=== PATIENT | female | born 1960 | race Caucasian/White ===

== ENCOUNTER 2020-03-16 09:10 | Outpatient (CLI) | payer OTHER, SELFPAY ==
--- NOTE | 2020-03-16 09:14 | MM_ITS ---
WS: [id number] BILATERAL DIGITAL DIAGNOSTIC MAMMOGRAM MAMMOGRAPHY WITH CAD CLINICAL INFORMATION: LEFT BREAST CYSTS HISTORY: Left breast lump COMPARISON: TECHNIQUE: Bilateral CC, MLO, and ML views. FINDINGS: Scattered fibroglandular densities bilaterally. Dominant left breast mass upper outer quadrant measur ing 2.3 x 2.3 CM. Additional smaller dense surrounding satellite nodules. Findings highly suspicious for malignancy. Superimposed pleomorphic calcifications. Ultrasound is pending. Right breast is unremarkable. ULTRASOUND BREAST LEFT TECHNIQUE: Ultrasound left breast focused area of concern. CLINICAL INFORMATION: LEFT BREAST CYSTS COMPARISON: None. FINDINGS: Ultrasound left breast in the area of concern at the 2:00 position as well as left axilla. There is a n irregular dense hypoechoic lobulated lesion at the 2:00 position 4 cm from the nipple highly suspic ious for neoplasm measuring 2.1 x 2.2 x 2.1 cm. Additional smaller satellite lesions measuring: Lesion #2 1.0 x 0.9 x 0.6 cm Lesion #3 4 x 6 x 5 mm Lesion #4 5 x 4 x 5 mm Lesion #5 7 x 5 x 8 mm Lesion #6 7 x 7 x 5 mm Left axilla demonstrates hypoechoic pathologic enlarged lymph node with replacement of normal fatty h ilum. Lymph node measures 3.7 x 1.8 x 2.7 CM. Recommend further evaluation with ultrasound-guided bio psy. MM/[id number] IMPRESSION: BI-RADS: 5-Highly Suggestive of Malignancy FOLLOW UP: US Guided Biopsy Recommended RECOMMEND ULTRASOUND GUIDED BIOPSY OF THE LEFT BREAST DOMINANT MASS AND ENLARGE D LEFT AXILLARY LYMPH NODE
--- NOTE | 2020-03-21 09:52 | PC.NURSE ---
Called pt multiple times 03/18/20 and left voicemails to schedule biopsy. Called pt today. Pt states she wants to wait to schedule until after APR 08 due to insurance reasons. Pt has already spoken to her pcp about the mammo results and is okay with waiting until after Apr 08. I told her it is completely up to her when she wants to schedule the biopsy and will call her back with a scheduled date and time today. Pt voiced understanding and has no further needs at this time. Coleen CASILLAS.
== END 2020-03-16 09:11 | disposition home or self-care (01) ==
LOC: RADSHAW 09:12
PROVIDERS: Family Provider Family Medicine; PCP Family Medicine; Visit Provider Nurse Practitioner Family
DX: N60.02 Solitary cyst of left breast (principal); N63.21 Unspecified lump in the left breast, upper outer quadrant
CPT/HCPCS: 76642; 77066

== ENCOUNTER 2020-03-28 11:49 | Outpatient (CLI) | payer OTHER, SELFPAY ==
--- NOTE | 2020-03-28 | US_ITS ---
WS: [id number] ULTRASOUND-GUIDED LEFT BREAST BIOPSY ULTRASOUND-GUIDED LEFT AXILLARY LYMPH NODE BIOPSY HISTORY: abnormal mammogram COMPARISON: 03/16/2020 Procedure, risks and complications are explained to the patient. Medications are reviewed. Consent is obtained. The mass in the LEFT breast is localized with ultrasound. Mass is localized to 2:00, 4 cm from the ni pple. Skin is cleansed with ChloraPrep and anesthetized with 1% buffered lidocaine. Small dermatome i s made. Under sterile conditions mass is biopsied with a 14-gauge Achieve needle. Multiple core biops ies are performed. Material placed in formalin and sent to pathology for review. No complications enc ountered. Additional core needle biopsy performed of an abnormal lymph node in the LEFT axilla. These core biop sies are placed in saline. Breast tissue marker ([employer] ultrasound enhanced ribbon): Clips are placed within the LEFT breast mass at 2:00 and also within the LEFT axilla lymph node. Patient left the radiology suite with no complications. Patient is instructed to return [place] [facility] [place] [facility] with any concerns. US/US biopsy lymph node breast/ax IMPRESSION: 1. Uncomplicated core needle biopsy LEFT breast mass at 2:00, 4 cm from the ni pple. PATHOLOGY: Invasive ductal carcinoma, moderate to high nuclear grade. Focal fely or necrosis. RECOMMENDATION: Follow-up with breast surgeon and oncology. 2. Uncomplicated core needle biopsy LEFT axillary lymph node. PATHOLOGY: Metastatic breast carcinoma. RECOMMENDATION: Follow-up with breast surgeon and oncology.
--- NOTE | 2020-03-28 13:00 | US_ITS ---
WS: [id number] ULTRASOUND-GUIDED LEFT BREAST BIOPSY ULTRASOUND-GUIDED LEFT AXILLARY LYMPH NODE BIOPSY HISTORY: abnormal mammogram COMPARISON: 03/16/2020 Procedure, risks and complications are explained to the patient. Medications are reviewed. Consent is obtained. The mass in the LEFT breast is localized with ultrasound. Mass is localized to 2:00, 4 cm from the ni pple. Skin is cleansed with ChloraPrep and anesthetized with 1% buffered lidocaine. Small dermatome i s made. Under sterile conditions mass is biopsied with a 14-gauge Achieve needle. Multiple core biops ies are performed. Material placed in formalin and sent to pathology for review. No complications enc ountered. Additional core needle biopsy performed of an abnormal lymph node in the LEFT axilla. These core biop sies are placed in saline. Breast tissue marker ([employer] ultrasound enhanced ribbon): Clips are placed within the LEFT breast mass at 2:00 and also within the LEFT axilla lymph node. Patient left the radiology suite with no complications. Patient is instructed to return [place] [facility] [place] [facility] with any concerns. US/[id number] IMPRESSION: 1. Uncomplicated core needle biopsy LEFT breast mass at 2:00, 4 cm from the ni pple. PATHOLOGY: Invasive ductal carcinoma, moderate to high nuclear grade. Focal fely or necrosis. RECOMMENDATION: Follow-up with breast surgeon and oncology. 2. Uncomplicated core needle biopsy LEFT axillary lymph node. PATHOLOGY: Metastatic breast carcinoma. RECOMMENDATION: Follow-up with breast surgeon and oncology.
[2020-04-06 09:46] LABS: Miscellaneous Test See Scanned Lab Rpt
== END 2020-03-28 11:50 | disposition home or self-care (01) ==
LOC: RAD 11:51
PROVIDERS: PCP Family Medicine; Visit Provider Family Medicine
DX: R92.8 Other abnormal and inconclusive findings on diagnostic imaging of breast (principal); C50.412 Malignant neoplasm of upper-outer quadrant of left female breast
CPT/HCPCS: 19083; 38505; 76942; 88305

== ENCOUNTER 2020-04-15 08:58 | Outpatient (CLI) | payer BC, SELFPAY ==
[2020-04-16 17:43] LABS: Coronavirus Test Green County Not Detected
--- NOTE | 2020-04-19 10:25 | ONC CON_ITS ---
Dr. Ramos New Patient Note Patient: Yadira Lopez Unit #: [id number]: 1960 Dicatated By: Daniel Ramos M.D.Date of Visit: Apr 15, 2020 Onc MED New Patient/Consult Referring Physician: Dr. CYRUS BANUELOS M.D. Chief Complaint: Breast cancer. History of Present Illness: This is a 59-year-old woman with recently diagnosed grade 3 invasive ductal carcinoma of the left breast, by clinical evaluation stage IB (T2, N1, M0), ER/NJ positive and HER-2/tina positive. She had recently presented to Dr. Banuelos with a palpable mass in the left breast. She had been aware of it for about a month. Diagnostic mammogram on March 16, 2020 showed a dominant mass in the upper outer quadrant of the left breast measuring 2.3 x 2.3 cm. Additional smaller dense surrounding satellite nodules were noted. Ultrasound showed an irregular dense hypoechoic lobulated lesion at the 2 o'clock position measuring 2.1 x 2.2 x 2.1 cm. The findings were highly suspicious for malignancy. Ultrasound of the left axilla showed a hypoechoic pathologic enlarged lymph node measuring 3.7 x 1.8 x 2.7 cm. On March 28, 2020 she underwent ultrasound directed biopsies of the breast mass and the enlarged left axillary lymph node. Pathology on the breast biopsy showed grade 3 infiltrating ductal carcinoma in the left axillary lymph node biopsy was positive for metastatic carcinoma. The breast prognostic profile showed ER positive at 98% and NJ positive at 40%. The tumor was positive for overexpression of HER-2/tina, 3+ by IHC and amplification ratio by FISH of 2.7 with 7.6 HER-2 copies/cell. The Ki-67 was high at 65%. 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 She still has normal activity. ECOG score is 0. She has good appetite. Her weight fluctuates. She has not had fever. She sometimes gets hot and she has a little bit of sweating. She underwent menopause with her hysterectomy, which she says included bilateral salpingo-oophorectomy. She indicates that she received no hormone replacement therapy. Her family history is significant and had a 68-year-old sister has been treated for breast cancer. She is not aware of any other breast cancer or ovarian cancer in the family. She does have pre-existing anxiety and depression. As noted, she has been under a lot of stress. Her only other significant complaint is that she sometimes has pain and numbness in her arms, but she also has diagnosis of carpal tunnel bilaterally. Past Medical History: Her medical history includes anxiety, asthma, bilateral carpal tunnel syndrome, depression, gastroesophageal reflux disease, hyperlipidemia, and hypertension. Past Surgical History: She underwent ultrasound guided biopsy of left breast mass and left axillary lymph node on 03/28/2020. Her other surgical/procedural history includes bronchoscopy and cervical mediastinoscopy in 2014, tonsillectomy in 2009, hysterectomy/bilateral salpingo-oophorectomy in 1983, and Caesarean section in 1980. Medications: Albuterol Sulfate HFA 2 Puff(s) (of 108 (90 base) mcg/act) Aerosol, solution Inhalation four times a day PRN, Claritin 1 (10 mg) Tablet Oral daily, clonazePAM 1 (0.5 mg) Tablet Oral daily, Ibuprofen 1 (800 mg) Tablet Oral t.i.d., Lisinopril-hydroCHLOROthiazide 1 (10-12.5 mg) Tablet Oral daily, Meloxicam 1 (15 mg) Tablet Oral daily, Multi Vitamin 1 Tablet Oral daily, Omeprazole 1 (40 mg) Capsule Delayed Release Oral daily, PARoxetine HCl (40 mg) Tablet Oral Take as Directed, PARoxetine HCl 1 (10 mg) Tablet Oral daily, Zetia 1 (10 mg) Tablet Oral daily Allergies: Cephalexin, Codeine Sulfate, HYDROcodone-Acetaminophen, Morphine Sulfate, Penicillins, and Sulfa Antibiotics. Social History: Ms. Lopez is . She is a non-smoker. She does not drink alcohol. Family History: Father at age 60 with heart attack. He also had throat cancer. Mother still living at age 84. A brother in a boating accident. A 68-year-old sister has been treated for breast cancer. She is not aware of any other breast cancer or ovarian cancer in the family. Review Of Symptoms: Constitutional - She has been feeling tired, but she still works and has normal activity. Appetite is good. Her weight fluctuates. She has not had fever. She sometimes gets hot and she has a little bit of sweating. ECOG score is 0, Eyes - No change in vision, ENMT - No hearing loss or tinnitus. She has allergy related sinus symptoms. No mouth sores. No sore throat or difficulty swallowing, Hematologic/Lymphatic - She has easy bruising, Respiratory - No shortness of breath. She sometimes has a dry hacking cough. No pleuritic pain or hemoptysis, Cardiovascular - No angina pain. No palpitations, Gastrointestinal - No nausea or vomiting. She has just occasional acid reflux. No diarrhea or constipation. No blood in the stool or black stools, Genitourinary (F) - No dysuria or hematuria. No urinary frequency. No urgency or incontinence, Musculoskeletal - She complains that her arms sometimes hurt and go numb. She has no other joint or bone pain, Integumentary - No skin rash or other skin changes, Neurologic - She used to have migraine headaches, but those went away. She has occasional orthostatic lightheadedness. She sometimes has numbness in her arms, Psychiatric - She has anxiety/depression and she has a lot of stress with her job. No insomnia. Vital Signs: Performed on Apr 15, 2020 09:49: 2, 41.34 (HIGH), 1.96 sq.m, 61 in, 98 %, 90 /min, 18 /min, 150/84 mm(hg) (HIGH), 97.8 F (LOW), and 218.8 lbs (HIGH). Physical Examination: Constitutional - She appears to be in good general health, Eyes - Sclerae nonicteric. Conjunctivae clear, ENMT - No lesions noted in the oral cavity, Neck - No mass or thyromegaly, Hematologic/Lymphatic - No cervical or clavicular adenopathy, Respiratory - Lungs are clear with good air movement bilaterally, Cardiovascular - Heart rhythm is regular. There is no murmur, gallop, or rub noted, Breasts - The right breast shows no mass. There is a firm though ill defined mass in the upper outer quadrant of the left breast which now appears to measure in the range of 4 cm. A soft node in the left axilla near the anterior axillary fold measures approximately 3 cm. There is no other axillary adenopathy noted, Abdomen - Moderately distended but soft. Liver and spleen are not enlarged. There is no abdominal mass or ascites noted and there is no inguinal adenopathy, Back/Spine - No bony tenderness in the spine, Extremities - No edema, Integumentary - No rashes. No suspicious skin lesions noted, Neurologic - No focal neurologic deficits noted. Historic Problem List: 1. Hypertension. 2. Hyperlipidemia. 3. Asthma. 4. GERD. 5. Bilateral carpal tunnel syndrome. 6. Anxiety/depression. Problems Addressed with this Encounter and Plan: 1. Grade 3 invasive ductal carcinoma of the left breast, by clinical evaluation stage at least IB (T2, N1, M0), ER/NJ positive and HER-2/tina positive. The findings on the imaging studies and the pathology results were reviewed with the patient, and we discussed the clinical implications. Patient has HER-2/tina positive breast cancer which appears to be at least locally advanced, including a T2 primary with possible satellite nodules as well as an involved 3 cm left axillary lymph node. As such, she is at risk for metastatic disease, and she will be scheduled for staging PET/CT, subject to verification of insurance coverage. With these findings and with HER-2/tina positive disease, she is an appropriate candidate for neoadjuvant chemotherapy, and I will recommend initial treatment with 6 cycles of treatment with the TCH-P regimen. I reviewed anticipated side effects which may include nausea/vomiting, diarrhea, mucositis, alopecia, fatigue, low blood counts, and peripheral neuropathy, among others. We also discussed the fact that HER-2/tina positive breast cancer does have a high response rate to chemotherapy, with pathologic complete responses in the range of 60%. She will require placement of Port-A-Cath venous access device, and I have discussed that with Dr. Ceballos, and she has been scheduled to see him next week. She will return to start chemotherapy as soon as the Port-A-Cath is in place. In the meantime, I also will be scheduling the PET CT scan. She also will need Covid testing for the surgery. 2. She has a positive family history of breast cancer involving a first-degree relative (sister). She will have BRCA testing, but that also will be subject to verification of insurance coverage. Signed By: Daniel Ramos M.D. <<Signature on File>>
== END 2020-04-15 08:59 | disposition home or self-care (01) ==
PROVIDERS: PCP Family Medicine; Visit Provider Internal Medicine Medical Oncology
DX: C50.412 Malignant neoplasm of upper-outer quadrant of left female breast (principal); C77.3 Secondary and unspecified malignant neoplasm of axilla and upper limb lymph nodes; Z17.0 Estrogen receptor positive status [ER+]; Z80.3 Family history of malignant neoplasm of breast; Z20.828 Contact with and (suspected) exposure to other viral communicable diseases; I10 Essential (primary) hypertension; E78.5 Hyperlipidemia, unspecified; J45.909 Unspecified asthma, uncomplicated; K21.9 Gastro-esophageal reflux disease without esophagitis; F41.8 Other specified anxiety disorders
CPT/HCPCS: 87635; 99205

== ENCOUNTER 2020-04-21 05:48 | Day surgery (SDC) | payer BC, SELFPAY ==
[2020-04-20 11:57] VITALS: BMI 41.5
--- NOTE | 2020-04-21 | SCC_ITS ---
Procedure Done: Port-A-Cath placement into the right subclavian vein. 20.7 seconds of fluoroscopic guidance, for a cumulative dose of 4.21 mGy, was provided to Dr. Ceballos by the radiology department. C-arm images of the chest were saved for the patient's permanent record. ALEJANDRA
[2020-04-21] MEDS: lidocaine 1% INJ 20 mL INTRADERMA (06:25)
[2020-04-21] MEDS: sodium chloride 0.9% 1,000 ML 30 ML IV (06:32)
--- NOTE | 2020-04-21 06:35 | W.PM.OPSUD ---
Surgery/Procedure H&P Update DATE OF PROCEDURE: April 21, 2020 DATE H&P PERFORMED: 04/19/20 H&P UPDATE INFORMATION: No changes to prior documentation PLANNED PROCEDURE: Operation Date: 04/21/20 07:00 Proposed Procedures p Portacath Placement [id number] C50.412(Not Applicable) - Asif Ceballos MD
--- NOTE | 2020-04-21 06:42 | SC_ITS ---
WS: [id number] C-arm of the right chest for infusion catheter placement, 04/21/2020 Clinical Data: port placement Comparison: Portable chest, 02/12/2019. Findings: A right infusion catheter has been inserted and the tip ends in the superior vena cava. SC/C-arm FL for CVA [id number] Impression: Insertion of a right infusion catheter.
[2020-04-21] MEDS: midazolam 1 mg/mL INJ 2 mL 2 MG IVP (06:49)
--- NOTE | 2020-04-21 06:53 | ANES.PREANE2 ---
Pre-Anesthetic Assessment Pre-Anesthetic Assessment: Height/Weight: Height 1.55 m Weight 99.79 kg Proposed Procedure: Operation Date: 04/21/20 07:00 Proposed Procedures p Portacath Placement [id number] C50.412(Not Applicable) - Asif Ceballos MD Was Beta Seun taken within 24 hours: N/A Last intake: Intake Last Liquid Date 04/20/20 Last Liquid Time 21:00 Last Solid Date 04/20/20 Last Solid Time 21:00 Social: Social History: No alcohol and No tobacco Exam: Pre-Anes Outpt Exam: alert, oriented x 3, clear to auscultation bilaterally and regular rate & rhythm Airway: Submandibular: WNL Cervical ROM: WNL MP: 2 Dentition: Full Pulmonary: Pulmonary: Asthma CV/HEM: CV/HEM: HTN GI: GI: GERD Neuropsych: Neuropsych: Anxiety Anesthetic Plan: ASA status: 2 Anesthesia: MAC Risk of > 500 ml blood loss (7ml/kg in children): No Meds/Allergies Current Medications: Current Medications Generic Name Dose Route Start Last Admin Trade Name Freq PRN Reason Stop Dose Admin Sodium Chloride 1,000 mls @ 30 ml s/hr 04/21/20 06:00 04/21/20 06:32 Sodium Chloride 0.9% IV 30 mls/hr .Q24H JOVANY Administration Midazolam HCl 2 mg 04/21/20 06:34 04/21/20 06:49 Midazolam 1 Mg/M l Inj 2 Ml IVP 2 mg Q5M PRN Administration Preop Anxiety Data Anesthesia Cardiac Studies: No Data to Display
[2020-04-21] MEDS: clindamycin 900 MG/50 ML PREMIX 100 MG IV (06:54)
[2020-04-21] MEDS: heparin,porcine 1,000 unit/mL INJ 1 mL 2000 UNIT XX (07:07)
--- NOTE | 2020-04-21 07:26 | PM.OP ---
Operative Report Date of procedure: April 21, 2020 Pre-op Diagnosis: Node positive left breast cancer. Post-op diagnosis: same Procedure Done: Port-A-Cath placement into the right subclavian vein. Pathology: none sent Surgeon: Asif Ceballos Anesthesia: MAC Estimated blood loss (mL): 10 Complications: None. Condition: stable Disposition: same day Procedure: The patient was brought to the Operating Room and was placed in a supine position on the operating room table. A monitored anesthetic was induced. The shoulders were extended by means of a posterior shoulder roll. The anterior surface of the chest and neck were prepped and draped in a sterile fashion. 1% lidocaine was used to anesthetize a small area underneath the right clavicle. The subclavian vein was accessed on the first pass with a needle and syringe as evidenced by the return of dark nonpulsatile blood. The J-wire was passed down the needle and the needle was removed. The C-arm was positioned and showed the wire extending across into the left subclavian vein. Under continuous fluoroscopy, the wire was partially withdrawn and was then passed again as it extended down the vena cava. A site just inferiorly on the chest wall was anesthetized using a combination of 1% lidocaine and 0.5% bupivacaine with 1:200,000 parts of epinephrine. A transverse incision was made and an inferior pocket was created in the subcutaneous layer using cautery in preparation for port placement. The Port-A-Cath tubing was passed from the incision through the subcutaneous layer to the exit point of the J-wire. The tubing was attached to the port and was cut to an appropriate length. The introducer and sheath were passed over the J-wire, and the introducer and J-wire were removed. The Port-A-Cath tubing was passed down the sheath, which was torn away. The C-arm was positioned and showed good placement of the Port-A-Cath tubing tip in the superior vena cava. The port aspirated easily and flushed well with hep flush solution. The port was sewn in place with some interrupted sutures of 3-0 PDS. The transverse incision was closed at the dermis using a single inverted suture of 3-0 Vicryl and the skin was approximated using a running subcuticular suture of 4-0 Vicryl. The small incision under the clavicle at the previous insertion site of the J wire was closed using a single inverted suture of 4-0 Vicryl. Benzoin and Steri-Strips were placed over the incisions and a sterile bandage followed. The patient was taken to the recovery area in stable condition postoperatively. INTRAOPERATIVE FLUOROSCOPY FINDINGS: Intraoperative fluoroscopic images of a Port-A-Cath placement were reviewed. An initial image reveals a J-wire entering the right subclavian vein and extending across the chest into the left subclavian vein. A second image reveals the wire now extending down the vena cava. Subsequent images reveal a Port-A-Cath on that side of the chest with its tubing tip in good location in the superior vena cava. No obvious pneumothorax is identified.
[2020-04-21 07:31] VITALS: BP 142/72; PULSE 110; RESP 18; TEMP 36.4; O2SAT 92
--- NOTE | 2020-04-21 10:26 | ANE.PACU2 ---
Inpatient post-anesthesia follow up: Airway intact: Yes Vital signs: Temperature 97.6 F Pulse Rate 110 Respiratory Rate 18 Blood Pressure 142/72 Pulse Oximetry 92 Oxygen Delivery Me thod Room Air Oxygen Flow Rate Fraction of Inspir ed Oxygen Hydration adequate: Yes Nausea and vomiting: No Pain level: 1 Mental status: Baseline
== END 2020-04-21 08:00 | disposition home or self-care (01) ==
PROVIDERS: PCP Family Medicine; Visit Provider Surgery
PROC: (CPT 36561; principal; 2020-04-21 07:00)
DX: C50.412 Malignant neoplasm of upper-outer quadrant of left female breast (principal); I10 Essential (primary) hypertension; J45.909 Unspecified asthma, uncomplicated; K21.9 Gastro-esophageal reflux disease without esophagitis; F41.9 Anxiety disorder, unspecified; M19.90 Unspecified osteoarthritis, unspecified site
CPT/HCPCS: 36561; 12345; 77001; 96374; C1788; J1644; J2250; J2704; J3010; J3490; J7030

== ENCOUNTER 2020-05-04 06:17 | Outpatient (CLI) | payer BC, SELFPAY | END 2020-05-04 06:18 | disposition home or self-care (01) | LOC: ONCMED 06:18 | PROVIDERS: PCP Family Medicine; Visit Provider Internal Medicine Medical Oncology | DX: C50.412 Malignant neoplasm of upper-outer quadrant of left female breast (principal); Z17.0 Estrogen receptor positive status [ER+] | CPT/HCPCS: 36591 ==

== ENCOUNTER 2020-05-10 13:17 | Outpatient (CLI) | payer BC, SELFPAY ==
--- NOTE | 2020-05-10 13:25 | USCV_ITS ---
John Yadira Age: 60 Gender: F : 1960 Exam Date: 05/10/2020 13:52 Ordering Phys: Daniel Ramos MD Technologist: Julita Johnson Exam Location: [facility] [place] Indication: BASELINE MONITORING FOR HERCEPTIN BP: / HR: 79 Rhythm: Sinus Technical Quality: Adequate MEASUREMENTS (Male / Female) Normal Values 2D ECHO LV Diastolic Diameter PLAX 2.9 cm 4.2 - 5.9 / 3.9 - 5.3 cm LV Systolic Diameter PLAX 1.7 cm LV Chamber Size 3.3 cm IVS Diastolic Thickness 1.3 cm 0.6 - 1.0 / 0.6 - 0.9 cm IVS Systolic Thickness 1.4 cm LVPW Diastolic Thickness 1.1 cm 0.6 - 1.0 / 0.6 - 0.9 cm LVPW Systolic Thickness 1.4 cm RV Chamber Size 2.6 cm LVOT Diameter 2.0 cm LV Ejection Fraction 2D Teich 74.9 % LV Ejection Fraction MOD 2C 55.3 % LV Ejection Fraction 2C AL 56.5 % LA Diameter 2.3 cm LA Width 2.4 cm LA Height 4.7 cm RA Width 3.7 cm RA Height 3.3 cm Aorta at Sinotubular Diameter 2.7 cm M-MODE LV Diastolic Diameter MM 4.8 cm 4.2 - 5.9 / 3.9 - 5.3 cm LV Systolic Diameter MM 3.2 cm LV Ejection Fraction MM Teich 60.2 % IVS Diastolic Thickness MM 0.8 cm 0.6 - 1.0 / 0.6 - 0.9 cm IVS Systolic Thickness MM 1.3 cm LVPW Diastolic Thickness MM 0.9 cm 0.6 - 1.0 / 0.6 - 0.9 cm LVPW Systolic Thickness MM 1.2 cm RV Diastolic Diameter MM 1.3 cm Aortic Annulus Diameter 3.1 cm LA Ao Ratio MM 0.9 MV E Point Septal Separation 0.6 cm DOPPLER AV Peak Velocity 132.0 cm/s LVOT Peak Velocity 76.0 cm/s AV Area Cont Eq vti 2.0 cm squared AV Area Cont Eq pk 1.9 cm squared MV Area PHT 4.5 cm squared Mitral E to A Ratio 1.3 MV E' Velocity 47.0 cm/s Mitral E to MV E' Ratio 12.1 Mitral E to LV E' Lateral Ratio 12.1 Mitral E to LV E' Septal Ratio 12.3 TR Peak Velocity 222.8 cm/s TR Peak Gradient 19.9 mmHg TR Mean Velocity 172.3 cm/s TR Mean Gradient 12.3 mmHg TR Velocity Time Integral 51.7 cm TV Peak E Velocity 75.0 cm/s Right Atrial Pressure 3.0 mmHg Pulmonary Artery Systolic Pressu 22.9 mmHg PV Peak Velocity 68.0 cm/s RV Acceleration Time 0.1 s RV Ejection Time 0.4 s RV AcT/ET 0.4 FINDINGS Left Ventricle Normal left ventricular size and systolic function, EF 57 %. Mild left ventricular hypertrophy. No regional wall motion abnormalities. Right Ventricle The right ventricle is normal in size and function. Right Atrium The right atrium is normal in size. Left Atrium The left atrium is normal in size. Mitral Valve Thickened mitral valve. Trace mitral valve regurgitation. Aortic Valve Thickened aortic valve. Tricuspid Valve Trace tricuspid valve regurgitation. Pulmonic Valve No gross abnormalities noted Pericardium Normal pericardium without effusion. Aorta Normal ascending aorta dimension. CONCLUSIONS Normal left ventricular size and systolic function, EF 57 %. Mild left ventricular hypertrophy. No regional wall motion abnormalities. Thickened aortic and mitral valves. Trace mitral and tricuspid regurgitation There is no pericardial effusion. There are no intracardiac masses. No previous study is available for comparison. Dr Jessica Pacheco MD FAC (Electronically Signed) Final Date: 11 May 2020 10:29 S
== END 2020-05-10 13:18 | disposition home or self-care (01) ==
LOC: US 13:20
PROVIDERS: PCP Family Medicine; Visit Provider Internal Medicine Medical Oncology
DX: C50.412 Malignant neoplasm of upper-outer quadrant of left female breast (principal); I08.3 Combined rheumatic disorders of mitral, aortic and tricuspid valves
CPT/HCPCS: 93306

== ENCOUNTER 2020-05-19 06:12 | Outpatient (CLI) | payer BC, SELFPAY ==
[2020-05-19 09:24] LABS: Basophils # 0.1 10^3/uL (0.0-0.1); Basophils % 1.2 %; Eosinophils # 0.4 10^3/uL (0.0-0.8); Eosinophils % 5.6 %; Hematocrit 39.6 % (37.0-47.0); Hemoglobin 13.1 g/dL (11.5-15.3); Lymphocytes # 1.9 10^3/uL (0.8-4.8); Mean Corpuscular HGB Conc 33.1 g/dL (30.0-36.0); Mean Corpuscular Hemoglobin 30.5 pg (28.0-34.0); Mean Corpuscular Volume 92.3 fL (81-99); Mean Platelet Volume 9.5 fL (7.4-10.4); Monocytes # 0.5 10^3/uL (0.2-0.9); Monocytes % 8.2 %; Neutrophils # 3.53 10^3/uL (1.8-7.7); Neutrophils % 54.7 %; Nucleated Red Blood Cells % 0 %; Platelet Count 275 10^3/cmm (130-400); Red Blood Count 4.29 10^6/uL (4.1-5.3); Red Cell Distribution Width 12.4 % (12.1-15.1); White Blood Count 6.5 10^3/uL (4.0-10.0)
[2020-05-19 10:00] LABS: Alanine Aminotransferase 41 U/L (0-33); Albumin Level 3.9 g/dL (3.5-5.2); Alkaline Phosphatase 109 IU/L (35-105); Anion Gap 12.7 (5-19); Aspartate Amino Transferase 39 U/L (0-32); Blood Urea Nitrogen 16 mg/dL (6-20); Calcium 9.2 mg/dL (8.5-10.5); Carbon Dioxide 27 mmol/L (22-29); Chloride 105 mmol/L (98-107); Globulin 2.8 g/dL (1.3-4.6); Glomerular Filtration Rate 73.4 mL/min (90-130); Glucose 94 mg/dL (65-115); Osmolality Calculated 293 mOsm/kg (285-295); Potassium 3.7 mmol/L (3.5-5.1); Sodium 141 mmol/L (136-145); Total Bilirubin 0.3 mg/dL (0.15-1.2); Total Protein 6.7 g/dL (6.6-8.7)
== END 2020-05-19 06:13 | disposition home or self-care (01) ==
LOC: ONCMED 06:12
PROVIDERS: Internal Medicine Medical Oncology; PCP Family Medicine; Visit Provider Internal Medicine Hematology & Oncology
DX: C50.412 Malignant neoplasm of upper-outer quadrant of left female breast (principal); Z17.0 Estrogen receptor positive status [ER+]
CPT/HCPCS: 80053; 85025

== ENCOUNTER 2020-05-20 05:43 | Outpatient (CLI) | payer BC, SELFPAY ==
[2020-05-20] MEDS: acetaminophen 325 mg Tablet 650 MG PO (08:28)
[2020-05-20] MEDS: famotidine 20 mg Tablet PO (08:28)
[2020-05-20] MEDS: sodium chloride 0.9% 250 ML 75 ML IV (08:35)
[2020-05-20] MEDS: diphenhydrAMINE 50 mg/mL SDV 1mL 25 MG IV (08:37)
[2020-05-20] MEDS: palonosetron 0.25 mg/5 mL SDV IV (08:37)
[2020-05-20] MEDS: fosaprepitant 150 MG in sodium chloride 0.9% 150 ML 300 MG IV (08:57)
== END 2020-05-20 05:44 | disposition home or self-care (01) ==
LOC: ONCMED 05:45
PROVIDERS: PCP Family Medicine; Visit Provider Internal Medicine Medical Oncology
DX: Z51.11 Encounter for antineoplastic chemotherapy (principal); C50.412 Malignant neoplasm of upper-outer quadrant of left female breast; Z17.0 Estrogen receptor positive status [ER+]; Z79.818 Long term (current) use of other agents affecting estrogen receptors and estrogen levels
CPT/HCPCS: 96367; 96375; 96413; 96417; J1100; J1200; J1453; J2469; J7050; J9045; J9171; J9306; J9355

== ENCOUNTER 2020-05-24 17:07 | Emergency (ER) | payer BC, SELFPAY ==
[2020-05-24 17:14] VITALS: BP 154/83; PULSE 116; RESP 18; TEMP 36.3; O2SAT 97; BMI 41.5
--- NOTE | 2020-05-24 18:07 | ED_ITS ---
HPI - Nausea/Vomiting/Diarrhea General: Chief complaint: Nausea/Vomiting/Diarrhea Stated complaint: SICK/1ST CHEMO TX WAS 05.20.2020 Time Seen by Provider: 05/24/20 18:06 Source: patient Mode of arrival: ambulatory Limitations: no limitations History of Present Illness: HPI Narrative: Darrick is a 60-year-old female who was recently diagnosed with stage I breast cancer and started chemotherapy on Saturday. She states that today she started having some nausea and vomiting along with some abdominal cramping. She denies any fever. She states her abdominal pain is a 1 out of 10 and is cramping in nature. She states her vomiting has been very minimal but is quite nauseous. She is also had a rash to her right groin. Associated nausea: Yes Associated symtoms: Reports nausea; Denies chest pain, dysuria or headache(s) Review of Systems Const: Denies: fever(s), chills, body aches or change in appetite Eyes: Denies: blurry vision or eye discomfort ENMT: Denies: throat pain or dental pain Card: Denies: chest pain Resp: Denies: dyspnea GI: Reports: nausea and vomiting; Denies: abdominal pain or diarrhea : Denies: dysuria Musc: Denies: neck pain or back pain Skin/Breast: Denies: rash Neuro: Denies: headache(s) Psych: Denies: depression Jose/Lymph: Denies: easy bruising All/Imm: Denies: urticaria Physical Exam Const: COMMON NORMALS: no acute distress, patient oriented x3 and healthy appearing HENMT: COMMON NORMALS: normocephalic and atraumatic HEAD & SCALP: normocephalic and atraumatic Eye: COMMON NORMALS: Equal, round and reactive pupils present and EOMs intact bilaterally PUPIL: Yes Equal, round and reactive pupils present Neck/C-Spine: COMMON NORMALS: full ROM and supple Chest: COMMONS NORMALS: normal inspection of the chest and normal palpation of entire chest wall Resp: COMMON NORMALS: normal respiratory effort, No retractions, No use of accessory muscles and clear to auscultation bilaterally AUSCULTATION: clear to auscultation bilaterally Cardio: COMMON NORMALS: regular rate, regular rhythm and No murmurs present (Cardio) RATE: regular rate RHYTHM: regular rhythm GI: COMMON NORMALS: Normal to inspection, nondistended, normoactive bowel sounds present, Soft to palpation, non-tender and no masses PALPATION: Yes Soft to palpation Extremity: COMMON NORMALS: normal to inspection and full ROM Neuro: COMMON NORMALS: patient oriented x3, moves all extremities and no focal motor deficits Psych: COMMON NORMALS: mental status grossly normal, Normal thought process present and cooperative THOUGHT PROCESS: Normal thought process present Skin: COMMON NORMALS: no wounds NARRATIVE SKIN EXAM: rash to right groin c/w likely fungal Course Vital Signs: Vital signs: Vital Signs Temperature 97.3 F L 05/24/20 17:14 Pulse Rate 100 05/24/20 18:45 Respiratory Rate 15 05/24/20 18:45 Blood Pressure 144/94 05/24/20 18:45 Pulse Oximetry 95 05/24/20 18:45 MDM - Nausea/Vomiting/Diarrhea MDM Narrative: Medical decision making narrative: Patient presents here with vomiting likely from her chemo. She feels much improved here after Zofran and fluids. She does also have a fungal rash to her groin. We will place her on clotrimazole and write her prescription for Zofran. She is to follow-up with PCP in 3 to 5 days and return to ER if worsening. She understands and agrees to plan. Her abdominal exam here is benign and she has no signs of acute surgical abdomen. Lab Data: Labs: Lab Results 05/24/20 05/24/20 Range/Units 18:38 18:38 WBC 5.5 (4.0-10.0) 10^3/ uL RBC 4.65 (4.1-5.3) 10^6/u L Hgb 14.2 (11.5-15.3) g/dL Hct 42.0 (37.0-47.0) % MCV 90.3 (81-99) fL MCH 30.5 (28.0-34.0) pg MCHC 33.8 (30.0-36.0) g/dL RDW 12.0 L (12.1-15.1) % Plt Count 200 (130-400) 10^3/c mm MPV 9.9 (7.4-10.4) fL Neut % (Auto) 72.9 % Lymph % (Auto) 22.2 % [place] % (Auto) 1.1 % Eos % (Auto) 3.2 % Baso % (Auto) 0.4 % Neut # (Auto) 4.04 (1.8-7.7) 10^3/u L Lymph # (Auto) 1.2 (0.8-4.8) 10^3/u L [place] # (Auto) 0.1 L (0.2-0.9) 10^3/u L Eos # (Auto) 0.2 (0.0-0.8) 10^3/u L Baso # (Auto) 0.0 (0.0-0.1) 10^3/u L Nucleated RBC % (a uto) 0 % Nucleated RBCs # 0.0 /100WBC Sodium 135 L (136-145) mmol/L Potassium 3.6 (3.5-5.1) mmol/L Chloride 97 L (98-107) mmol/L Carbon Dioxide 27 (22-29) mmol/L Anion Gap 14.6 (5-19) BUN 28 H (6-20) mg/dL Creatinine 1.0 H (0.5-0.9) mg/dL GFR Calculation 56.7 L (90-130) mL/min Glucose 112 (65-115) mg/dL Calculated Osmolal ity 286 (285-295) mOsm/k g Calcium 8.8 (8.5-10.5) mg/dL Total Bilirubin 0.5 (0.15-1.2) mg/dL AST 60 H (0-32) U/L ALT 68 H (0-33) U/L Alkaline Phosphata se 98 (35-105) IU/L Total Protein 6.9 (6.6-8.7) g/dL Albumin 4.0 (3.5-5.2) g/dL Globulin 2.9 (1.3-4.6) g/dL Lipase 91 H (13-60) U/L Discharge Plan Discharge Patient Disposition: Home Clinical Impression: Rash Vomiting Qualifiers: Vomiting type: unspecified Vomiting Intractability: non-intractable Nausea presence: with nausea Qualified Code(s): R11.2 - Nausea with vomiting, unspecified Condition: Stable Prescriptions: New ondansetron 4 mg tablet,disintegrating 4 mg PO Q6H PRN (Reason: nausea and vomiting) Qty: 14 RF: 0 clotrimazole 1 % cream 1 applic topical BID 14 Days Qty: 30 RF: 0 No Action paroxetine HCl 10 mg tablet 10 mg PO DAILY RF: 0 ibuprofen 800 mg tablet 800 mg PO TID RF: 0 meloxicam 15 mg tablet 15 mg PO DAILY RF: 0 clonazepam 0.5 mg tablet 0.5 mg PO DAILY RF: 0 omeprazole 40 mg capsule,delayed release(DR/EC) 40 mg PO DAILY RF: 0 lisinopril-hydrochlorothiazide 10-12.5 mg tablet 10 - 12.5 tab PO DAILY RF: 0 ProAir HFA 90 mcg/actuation HFA aerosol inhaler 90 mcg INHALATION DIRECTED PRN (Reason: Allergy Symptoms) RF: 0 paroxetine HCl 40 mg tablet 40 mg PO DAILY RF: 0 ezetimibe 10 mg tablet 10 mg PO DAILY RF: 0 Adults Multivitamin 1 tab PO DAILY RF: 0 coenzyme Q10 tablet 50 mg PO DAILY RF: 0 Discharge Orders: Discharge ED (Routine); Ordered 05/24/20 Ordered By: Tommie De Luna Referrals: Hardik Guajardo MD [Primary Care Provider] - Discharge Diet: Advance as tolerated Discharge Activity: Resume usual activity Patient Instructions: Acute Nausea and Vomiting (ED), Jock Itch (ED) Stand Alone Forms: Work/School Release Coding Level of Care Code ED Theology Professor for Chg Fwd Exam Comprehensive
[2020-05-24 18:43] LABS: Basophils % 0.4 %; Eosinophils # 0.2 10^3/uL (0.0-0.8); Eosinophils % 3.2 %; Hemoglobin 14.2 g/dL (11.5-15.3); Lymphocytes # 1.2 10^3/uL (0.8-4.8); Lymphocytes % 22.2 %; Mean Corpuscular HGB Conc 33.8 g/dL (30.0-36.0); Mean Corpuscular Hemoglobin 30.5 pg (28.0-34.0); Mean Corpuscular Volume 90.3 fL (81-99); Mean Platelet Volume 9.9 fL (7.4-10.4); Monocytes # 0.1 10^3/uL (0.2-0.9); Monocytes % 1.1 %; Neutrophils # 4.04 10^3/uL (1.8-7.7); Neutrophils % 72.9 %; Nucleated Red Blood Cells % 0 %; Platelet Count 200 10^3/cmm (130-400); Red Blood Count 4.65 10^6/uL (4.1-5.3); White Blood Count 5.5 10^3/uL (4.0-10.0)
[2020-05-24] MEDS: sodium chloride 0.9% 1,000 ML 999 ML IV (18:43)
[2020-05-24] MEDS: ondansetron 2 mg/ML SDV 2 mL 4 MG IVP (18:44)
[2020-05-24 18:45] VITALS: BP 144/94; PULSE 100; RESP 15; O2SAT 95
[2020-05-24 19:06] LABS: Alanine Aminotransferase 68 U/L (0-33); Alkaline Phosphatase 98 IU/L (35-105); Anion Gap 14.6 (5-19); Aspartate Amino Transferase 60 U/L (0-32); Blood Urea Nitrogen 28 mg/dL (6-20); Calcium 8.8 mg/dL (8.5-10.5); Carbon Dioxide 27 mmol/L (22-29); Chloride 97 mmol/L (98-107); Globulin 2.9 g/dL (1.3-4.6); Glomerular Filtration Rate 56.7 mL/min (90-130); Glucose 112 mg/dL (65-115); Lipase 91 U/L (13-60); Osmolality Calculated 286 mOsm/kg (285-295); Potassium 3.6 mmol/L (3.5-5.1); Sodium 135 mmol/L (136-145); Total Bilirubin 0.5 mg/dL (0.15-1.2); Total Protein 6.9 g/dL (6.6-8.7)
[2020-05-24 19:13] LABS: Slide Review Slide Review Perform
[2020-05-24 19:57] VITALS: BP 162/102; PULSE 94; RESP 16; O2SAT 97
== END 2020-05-24 19:58 | disposition home or self-care (01) ==
PROVIDERS: Emergency Provider Emergency Medicine; PCP Family Medicine
DX: R11.2 Nausea with vomiting, unspecified (principal); R21 Rash and other nonspecific skin eruption
CPT/HCPCS: 80053; 83690; 85025; 96361; 96374; 96375; 99284; J1642; J2405; J7030

== ENCOUNTER 2020-06-03 05:42 | Outpatient (RCR) | payer BC, SELFPAY ==
[2020-05-31 11:34] LABS: Basophils % 1.1 %; Eosinophils % 0.4 %; Hematocrit 36.2 % (37.0-47.0); Hemoglobin 12.1 g/dL (11.5-15.3); Lymphocytes # 1.3 10^3/uL (0.8-4.8); Lymphocytes % 49.4 %; Mean Corpuscular HGB Conc 33.4 g/dL (30.0-36.0); Mean Corpuscular Hemoglobin 30.2 pg (28.0-34.0); Mean Corpuscular Volume 90.3 fL (81-99); Mean Platelet Volume 9.4 fL (7.4-10.4); Monocytes # 1.1 10^3/uL (0.2-0.9); Monocytes % 39.5 %; Neutrophils % 8.5 %; Nucleated Red Blood Cells % 0 %; Platelet Count 228 10^3/cmm (130-400); Red Blood Count 4.01 10^6/uL (4.1-5.3); Red Cell Distribution Width 11.5 % (12.1-15.1); White Blood Count 2.7 10^3/uL (4.0-10.0)
[2020-05-31 11:35] LABS: Neutrophils # 0.23 10^3/uL (1.8-7.7)
[2020-05-31 11:56] LABS: Alanine Aminotransferase 48 U/L (0-33); Albumin Level 3.8 g/dL (3.5-5.2); Alkaline Phosphatase 107 IU/L (35-105); Anion Gap 12.8 (5-19); Aspartate Amino Transferase 28 U/L (0-32); Blood Urea Nitrogen 12 mg/dL (6-20); Calcium 8.6 mg/dL (8.5-10.5); Carbon Dioxide 27 mmol/L (22-29); Chloride 99 mmol/L (98-107); Globulin 2.7 g/dL (1.3-4.6); Glomerular Filtration Rate 50.8 mL/min (90-130); Glucose 116 mg/dL (65-115); Osmolality Calculated 283 mOsm/kg (285-295); Sodium 136 mmol/L (136-145); Total Bilirubin 0.4 mg/dL (0.15-1.2); Total Protein 6.5 g/dL (6.6-8.7)
[2020-05-31 12:30] LABS: Potassium 2.8 mmol/L (3.5-5.1)
[2020-05-31] MEDS: ondansetron 2 mg/ML SDV 2 mL 8 MG IV (13:00)
[2020-05-31] MEDS: sodium chlor 0.9% + KCl 20 mEq 20 MEQ/1,000 ML BAG 500 MEQ IV (13:52)
--- NOTE | 2020-06-01 07:42 | ONC FU_ITS ---
[facility] Patient Note Patient: Yadira Lopez Unit #: [id number]: 1960 Dictated By: Gil GarciaDate of Visit: May 31, 2020 Onc MED Follow-Up/Prog Note Chief Complaint: Breast cancer. History of Present Illness: Ms Lopez is a 60-year-old woman with recently diagnosed grade 3 invasive ductal carcinoma of the left breast, by clinical evaluation stage IB (T2, N1, M0), ER/OR positive and HER-2/tina positive. She had presented to Dr. Guajardo with a palpable mass in the left breast. She had been aware of it for about a month. Diagnostic mammogram on March 16, 2020 showed a dominant mass in the upper outer quadrant of the left breast measuring 2.3 x 2.3 cm. Additional smaller dense surrounding satellite nodules were noted. Ultrasound showed an irregular dense hypoechoic lobulated lesion at the 2 o'clock position measuring 2.1 x 2.2 x 2.1 cm. The findings were highly suspicious for malignancy. Ultrasound of the left axilla showed a hypoechoic pathologic enlarged lymph node measuring 3.7 x 1.8 x 2.7 cm. On March 28, 2020 she underwent ultrasound directed biopsies of the breast mass and the enlarged left axillary lymph node. Pathology on the breast biopsy showed grade 3 infiltrating ductal carcinoma in the left axillary lymph node biopsy was positive for metastatic carcinoma. The breast prognostic profile showed ER positive at 98% and OR positive at 40%. The tumor was positive for overexpression of HER-2/tina, 3+ by IHC and amplification ratio by FISH of 2.7 with 7.6 HER-2 copies/cell. The Ki-67 was high at 65%. 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 She still had normal activity. She underwent menopause with her hysterectomy, which she says included bilateral salpingo-oophorectomy. She indicates that she received no hormone replacement therapy. Her family history is significant in that she has a 68-year-old sister that has been treated for breast cancer. She is not aware of any other breast cancer or ovarian cancer in the family. She does have pre-existing anxiety and depression. Her only other significant complaint is that she sometimes has pain and numbness in her arms, but she also has diagnosis of carpal tunnel bilaterally. The findings on the imaging studies and the pathology results and clinical implications were reviewed with Ms Lopez per Dr Ramos at her previous office visit, She has HER-2/tina positive breast cancer which appears to be at least locally advanced, including a T2 primary with possible satellite nodules as well as an involved 3 cm left axillary lymph node. As such, she is at risk for metastatic disease, and she will be scheduled for staging PET/CT, subject to verification of insurance coverage. She did have BRCA 1 and 2 testing due to family history and it was reported as negative per [facility] report on 05/12/2020. With these findings and with HER-2/tina positive disease, she was felt to be an appropriate candidate for neoadjuvant chemotherapy. Dr Ramos recommended initial treatment with 6 cycles of treatment with the TCH-P regimen. She had right subclavian Port-A-Cath placement per Dr. Ceballos on April 21, 2020. She began her first cycle on 05/20/2020. Ms. Lopez is here today for follow-up. She states now she feels pretty good overall although she has been weak and washed out. She did present to the emergency room on May 24, 2020 after treatment began on May 20, 2020. She presented to the ER with concerns of nausea/vomiting/diarrhea. She states that she could not get her nausea under control with the prochlorperazine and did not feel the Imodium was controlling her diarrhea either. She was given antiemetics with Zofran and hydration. The diarrhea did resolve. She states it lasted a few days after the ER visit but is resolved completely now. She states she does not have nausea today. She denies any fever or chills. She states that she is had some chills off and on but no documented fever. Her last chills were last night but states they only lasted a few seconds . She denies any symptoms of infection at this time such as productive cough, nasal drainage, urinary frequency or burning. She states she is trying to work but some days she is just so washed out that I can barely walk across the floor but states other days she feels good and can work just fine. She states some days she has no warning and is just weak and tired. She states that she did have a rash in the groin area when she presented to the ER and was told that it was yeast infection and it was treated with [id number]-apzcyma cream. She states that is almost gone now. She states she did have a small area in the vagina but that seems to be better as well. She states the diarrhea is resolved now as well to but states she had a for several days post treatment. She did not feel the Imodium was working well for her. She states that overall she has felt okay. She states she is had no orthopnea but did notice that she was short of breath after her shower this morning but that resolved with rest. She states that the only time she is doing noticed any shortness of breath. She denies any lower extremity edema. She states her appetite is good. And overall her energy is fair. She states it is down from what it has been prior to starting chemo. She states she is starting to feel some better over the last couple of days. Her ECOG today is 1. Past Medical History: Anxiety Asthma Bilateral carpal tunnel syndrome Depression Gastroesophageal reflux disease Hyperlipidemia Hypertension Past Surgical History: Caesarean section Right subclavian Port-A-Cath placement per Dr. Ceballos in 2020 Ultrasound guided biopsy of left breast mass and left axillary lymph node in 2019 Bronchoscopy and cervical mediastinoscopy in 2014 Tonsillectomy in 2009 Hysterectomy/bilateral salpingectomy-oophorectomy in 1983 Allergies: Cephalexin, Codeine Sulfate, HYDROcodone-Acetaminophen, Morphine Sulfate, Penicillins, and Sulfa Antibiotics. Medications: Albuterol Sulfate HFA 2 Puff(s) (of 108 (90 base) mcg/act) Aerosol, solution Inhalation four times a day PRN Claritin 1 (10 mg) Tablet Oral daily clonazePAM 1 (0.5 mg) Tablet Oral daily Ibuprofen 1 (800 mg) Tablet Oral t.i.d. Lisinopril-hydroCHLOROthiazide 1 (10-12.5 mg) Tablet Oral daily Meloxicam 1 (15 mg) Tablet Oral daily Multi Vitamin 1 Tablet Oral daily Omeprazole 1 (40 mg) Capsule Delayed Release Oral daily PARoxetine HCl (40 mg) Tablet Oral Take as Directed PARoxetine HCl 1 (10 mg) Tablet Oral daily Zetia 1 (10 mg) Tablet Oral daily Family History: Ms. Lopez's mother is alive: hypertension. Ms. Lopez's father is : esophageal cancer, and myocardial infarction at age 60. Ms. Lopez has 1 brother who is : sustained injuries at age 58. She has 1 sister who is alive: breast cancer. Father at age 60 with heart attack. He also had throat cancer. Mother still living at age 84. A brother in a boating accident. A 68-year-old sister is been treated for breast cancer. She is not aware of any other breast cancer or ovarian cancer in the family. Social History: Ms. Lopez is . Ms. Lopez has never smoked. She has no history of drinking. She is a non-smoker. She does not drink alcohol. Review Of Symptoms: Constitutional Denies fevers, night sweats. She has has some intermittent chills over the last few days. Weight is down 5 pounds since 05/20/2020 Eyes Denies significant visual changes. No diplopia. No amaurosis. ENMT Denies changes in hearing, sore throat, mouth sores, difficulty or changes in swallowing ability, and/or sinus drainage. Hematologic/Lymphatic Denies easy bruising or bleeding. The patient denies any tender or palpable lymph nodes. Breasts No concerns, thinks knot is smaller . Respiratory Denies chest pain, cough or hemoptysis. Denies orthopnea. Cardiovascular Denies anginal chest pain, palpitations or orthopnea. Gastrointestinal Denies current nausea, vomiting, diarrhea, GI bleeding, or constipation. Denies change in bowel habits and/or stool color, no heartburn or early satiety. Did have problems with nausea/vomiting/diarrhea post treatment-see above. Genitourinary (F) No hematuria, hesitancy, incontinence, vaginal bleeding, discharge or other problems with urination. Musculoskeletal Denies joint pain, swelling or redness. No decreased range of motion. Integumentary Denies chronic rashes, inflammation, ulcerations or skin changes. Neurologic Denies headache, blurred vision, and no areas of focal weakness or numbness. Normal gait. No sensory problems. Psychiatric Denies insomnia, depression, chavez or mood swings. Vital Signs: Performed on May 31, 2020 12:35 Height - 61.00 in Weight - 213.4 lbs (LOW) BSA - 1.94 sq.m BMI - 40.32 (HIGH) Temperature - 97.2 F (LOW) Pulse - 105 /min (HIGH) Respiration - 18 /min BP - 142/69 mm(hg) (HIGH) O2 Sat - 95 % (LOW) Pain - 0 Fatigue - 0,1 - No physically strenuous activity, but ambulatory and able to carry out light or sedentary work (e.g. office work, light house work). (ECOG) Physical Examination: Constitutional Alert, oriented, no acute distress. Skin pink, warm and dry. Head Normocephalic; atraumatic. Eyes Conjunctivae and sclerae are clear and without icterus. Pupils are reactive and equal. Neck Supple without masses or thyromegaly. No jugular venous distension. Hematologic/Lymphatic No petechiae or purpura. No tender or palpable lymph nodes in the cervical or supraclavicular areas. Respiratory Lungs are clear to auscultation without rhonchi or wheezing. Cardiovascular Regular rate and rhythm of heart without murmurs,clicks, gallops or rubs. Chest Chest is symmetric without chest wall deformities. Right chest wall venous access device is unremarkable and has healed well Breasts left breast mass is soft and approx 2 cm in diameter on palpation, no adenopathy noted. Abdomen Non-tender, non-distended, no masses or ascites. Good bowel sounds noted in all quads. No guarding or rebound tenderness. No pulsatile masses. Back/Spine Non-tender to palpation. Extremities No visible deformities, no cyanosis, clubbing or edema. Musculoskeletal No tenderness or swelling, normal range of motion without obvious weakness. Integumentary No rashes or lesions. Neurologic No sensory or motor deficits, normal cerebellar function, normal gait. Psychiatric Alert and oriented times three. Coherent speech. Verbalizes understanding of our discussions today. Laboratory:Test performed on May 31, 2020 11:15 Sodium 136 mmol/L Potassium 2.8 mmol/L Chloride 99 mmol/L CO2 27 mmol/L Anion Gap 12.8 BUN 12 mg/dL Creatinine 1.1 mg/dL Cr Clearance (Est) 86.2800 mL/min eGFR 50.8 mL/min Glucose 116 mg/dL Osmolality - Calculated 283 mOsm/kg Calcium 8.6 mg/dL Protein, Total 6.5 g/dL Albumin 3.8 g/dL Globulin 2.7 g/dL Bilirubin, Total 0.4 mg/dL ALT (SGPT) 48 U/L AST (SGOT) 28 U/L Alkaline Phosphatase 107 IU/L WBC 2.7 10 3/uL RBC 4.01 10 6/uL HGB 12.1 g/dL HCT 36.2 % MCV 90.3 fL MCH 30.2 pg MCHC 33.4 g/dL RDW 11.5 % Platelet Count 228 10 3/cmm MPV 9.4 fL Neutrophils 0.23 10 3/uL Lymphocytes 1.3 10 3/uL Monocytes 1.1 10 3/uL Eosinophils 0.0 10 3/uL Basophils 0.0 10 3/uL Neutrophil % 8.5 % Lymphocyte % 49.4 % Monocyte % 39.5 % Eosinophil % 0.4 % Basophils % 1.1 % NRBC % 0 % Test performed on May 19, 2020 00:00 Manual Diff Cancelled via OM: Cancelled in Connected System Impression: Primary oncology diagnosis: A. Grade 3 invasive ductal carcinoma of the left breast, clinical evaluation stage at least 1B (T2, N1, M0), ER/OR positive and HER-2/tina positive. She began chemotherapy with TCH???P on May 20, 2020. Secondary oncology diagnoses: A. Chemotherapy-induced neutropenia with a day 12 of cycle 1 ANC of 230???3053 was her baseline on 05/19/2020. B. Treatment associated diarrhea with poor response to [id number] Imodium. She did require hydration via ER on 05/24/2020. C. Chemotherapy-induced nausea vomiting???she was seen in ER for this complaint on 05/24/2020. She had some abdominal cramping with the nausea vomiting. Resolved with initiation of ondansetron via ER. It is unresponsive to Compazine that she had picked up after chemotherapy for as needed use at home. D. Fungal rash to groin treated with zkep-asn-enmuble clotrimazole. E. Venous access device placement. Right subclavian Port-A-Cath placement per Dr. Ceballos on April 21, 2020. 1. Hypertension. 2. Hyperlipidemia. 3. Asthma. 4. GERD. 5. Bilateral carpal tunnel syndrome. 6. Anxiety/depression. Plan: PROBLEMS ADDRESSED TODAY: 1. Grade 3 invasive ductal carcinoma of the left breast, by clinical evaluation stage at least IB (T2, N1, M0), ER/OR positive and HER-2/tina positive. The findings on the imaging studies and the pathology results and clinical implications were reviewed with Ms Lopez per Dr Ramos at her previous office visit, She has HER-2/tina positive breast cancer which appears to be at least locally advanced, including a T2 primary with possible satellite nodules as well as an involved 3 cm left axillary lymph node. As such, she is at risk for metastatic disease, and she will be scheduled for staging PET/CT, subject to verification of insurance coverage. She did have BRCA 1 and 2 testing due to family history and it was reported as negative per [facility] report on 05/12/2020. With these findings and with HER-2/tina positive disease, she was felt to be an appropriate candidate for neoadjuvant chemotherapy. Dr Ramos recommended initial treatment with 6 cycles of treatment with the TCH-P regimen. She began her first cycle on 05/20/2020. A. Chemotherapy-induced neutropenia: It is noted that her ANC today (day 12) is 230. Her baseline on day 1 was 3530. She did not have support with growth factors. She was unable to come in to have labs drawn prior to today due to previous increment weather. She reports some intermittent chills but has denied any documented fever. I have requested Neupogen or equivalent 480 mcg daily for up to 4 days or recovery of her neutropenia. This is pending insurance authorization. I will also go ahead and start her on Levaquin 500 mg daily for prophylaxis due to the severe neutropenia. She has multiple allergies to many antibiotics but states that she can take Levaquin does fine. She is report any fever greater than 100.4 or worsening chills or any signs or symptoms of infection. We will plan to recheck her blood counts after 3 days of the growth factor if approved. We will also request growth factor support with Neulasta on pro with cycle 2. Growth factor support is required to ensure that she stays on schedule with her chemotherapy as she is high risk for metastatic disease giving her pathology and involvement in a 3 cm left axillary node and possible satellite nodules. B. Chemotherapy induced nausea/vomiting: She presented to the emergency room at [facility] on 05/24/2020 for nausea vomiting diarrhea presumably chemo induced. She had not been getting relief with prochlorperazine at home. Her biggest complaint for the ER visit she states was the diarrhea. She was given Zofran in the emergency room 4 mg with instructions to take 1 or 2 every 6-8 hours as needed for nausea. She states she would take 1 or 2 and this has resolved her nausea. She states generally she independently take 2 of the antiemetics to get complete relief. She currently has no nausea per her report. She states she only had vomiting 2 or 3 times and it was not much . She has had no vomiting since her ER visit. I have requested that she try Protonix 40 mg once or twice daily for possible chemotherapy-induced gastritis as well. She does require premeds with dexamethasone for the docetaxel and this could be causing some gastritis which and turn may make the nausea more of a problem. She does report some intermittent acid reflux. I have also sent a prescription for ondansetron 8 mg to her local pharmacy so that when she runs on the 4 mg tablets she will have access to the 8 mg tablets as she is generally taking 8 mg for relief of her nausea when she does take the ondansetron. C. Chemotherapy-induced/Herceptin Perjeta induced diarrhea: We discussed using Lomotil which she did not seem to have much luck with with cycle 1. She did require ER visit and hydration after cycle 1. The diarrhea is currently resolved. But she states it lasted several days. I have requested a prescription for Lomotil be called to her pharmacy for use if the Imodium is not controlling her diarrhea. We have discussed at length recognizing the diarrhea with cycle 2 and starting the antidiarrheal medication earlier in the treatment plan. D. Today's labs were reviewed in detail and discussed with Ms. Lopez and a copy was given to her. WBC 2.7, hemoglobin 12.1, platelets 1 28,000 ANC is 230 potassium 2.8 random glucose 116 creatinine 1.1 her ALT is 48 AST is 28 alk phos is 107 total bilirubin 0.4. It is noted that her weight is down 5 pounds from her visit on 05/20/2020. As noted her potassium was 2.8. She received potassium 20 mEq IV along with hydration today. We will recheck her potassium we will recheck her CBC for follow-up on her chemotherapy-induced neutropenia. E. Fungal rash in groin and vaginal area post chemotherapy treatment. This was treated with [id number] clotrimazole. I have asked for prescription to be sent for Diflucan and that we are starting her on Levaquin prophylactically for the neutropenia. She most likely will have further ease complications with the Levaquin as it is not completely healed now but she states is overall significantly improved. She denies any oral Marlyn symptoms. F. Follow-up plan we will check her CBC for follow-up of the neutropenia if we have authorization for the growth factors if not she will have CBC later this week anyway to reassess her severe neutropenia. She is due back for follow-up visit with CBC CMP on June 10, 2020. We will plan to keep that scheduled unless her neutropenia is not resolved then she most likely be delayed. Neutropenic precautions were discussed at length with Ms. Lopez and she is encouraged to call us in the interim if she has questions or problems. Total time spent in review of patient records and plan of care prior to visit, discussion of concerns/problems and formulation of plan of care as well as post visit documentation was greater than 60 minutes. Signed By: Gil Garcia-, AOCNP Daniel Ramos MD <<Signature on File>>
[2020-06-03 09:53] LABS: Hematocrit 31.9 % (37.0-47.0); Hemoglobin 10.9 g/dL (11.5-15.3); Mean Corpuscular HGB Conc 34.2 g/dL (30.0-36.0); Mean Corpuscular Hemoglobin 30.9 pg (28.0-34.0); Mean Corpuscular Volume 90.4 fL (81-99); Platelet Count 196 10^3/cmm (130-400); Red Blood Count 3.53 10^6/uL (4.1-5.3); Red Cell Distribution Width 12.2 % (12.1-15.1)
[2020-06-03 10:07] LABS: Alanine Aminotransferase 29 U/L (0-33); Albumin Level 3.6 g/dL (3.5-5.2); Alkaline Phosphatase 126 IU/L (35-105); Anion Gap 10.6 (5-19); Aspartate Amino Transferase 26 U/L (0-32); Blood Urea Nitrogen 12 mg/dL (6-20); Calcium 8.7 mg/dL (8.5-10.5); Carbon Dioxide 31 mmol/L (22-29); Chloride 99 mmol/L (98-107); Globulin 2.6 g/dL (1.3-4.6); Glomerular Filtration Rate 73.4 mL/min (90-130); Glucose 94 mg/dL (65-115); Osmolality Calculated 286 mOsm/kg (285-295); Sodium 138 mmol/L (136-145); Total Bilirubin 0.2 mg/dL (0.15-1.2); Total Protein 6.2 g/dL (6.6-8.7)
[2020-06-03 10:58] LABS: Slide Review Slide Review Perform; White Blood Count 44.6 10^3/uL (4.0-10.0)
[2020-06-03 10:59] LABS: Absolute Neutrophil 40.6 10^3/cmm (1.4-6.5); Absolute Segmented Neutrophil 22.7 10/cmm (1.6-7.1); Band Neutrophils Absolute 17.8 10^3/cmm (0.0-1.2); Blastocytes 0 % (0-0); Eosinophils 0 %; Lymphocytes 4 %; Monocytes Absolute 1.3 10^3/cmm (0.1-0.6); Platelet Estimate Normal (Normal); Segmented Neutrophils 51 %; Total Cells Counted 100 (0-100)
[2020-06-03 11:00] LABS: Potassium 2.6 mmol/L (3.5-5.1)
== END 2020-06-05 23:59 | disposition home or self-care (01) ==
LOC: ONCMED 05:42
PROVIDERS: PCP Family Medicine; Visit Provider Nurse Practitioner
DX: C50.412 Malignant neoplasm of upper-outer quadrant of left female breast (principal); Z17.0 Estrogen receptor positive status [ER+]; D70.1 Agranulocytosis secondary to cancer chemotherapy; T45.1X5A Adverse effect of antineoplastic and immunosuppressive drugs, initial encounter; I10 Essential (primary) hypertension; E78.5 Hyperlipidemia, unspecified; J45.909 Unspecified asthma, uncomplicated; K21.9 Gastro-esophageal reflux disease without esophagitis; G56.03 Carpal tunnel syndrome, bilateral upper limbs; F41.9 Anxiety disorder, unspecified; F32.9 Major depressive disorder, single episode, unspecified; Z79.899 Other long term (current) drug therapy
CPT/HCPCS: 80053; 85007; 85025; 96365; 96366; 96372; 96374; 99215; J2405; Q5101

== ENCOUNTER 2020-06-24 05:29 | Outpatient (RCR) | payer BC, SELFPAY ==
[2020-06-10] MEDS: sodium chloride 0.9% 250 ML 75 ML IV (08:41)
[2020-06-10 08:42] LABS: Basophils # 0.1 10^3/uL (0.0-0.1); Basophils % 0.5 %; Hematocrit 32.1 % (37.0-47.0); Hemoglobin 10.6 g/dL (11.5-15.3); Lymphocytes # 1.3 10^3/uL (0.8-4.8); Lymphocytes % 10.7 %; Mean Corpuscular Hemoglobin 30.4 pg (28.0-34.0); Mean Platelet Volume 9.4 fL (7.4-10.4); Monocytes # 0.3 10^3/uL (0.2-0.9); Monocytes % 2.4 %; Neutrophils # 9.29 10^3/uL (1.8-7.7); Neutrophils % 76.3 %; Nucleated Red Blood Cells % 0 %; Platelet Count 283 10^3/cmm (130-400); Red Blood Count 3.49 10^6/uL (4.1-5.3); Red Cell Distribution Width 12.3 % (12.1-15.1); White Blood Count 12.2 10^3/uL (4.0-10.0)
[2020-06-10] MEDS: fosaprepitant 150 MG in sodium chloride 0.9% 150 ML 300 MG IV (08:57)
[2020-06-10 09:00] LABS: Alanine Aminotransferase 20 U/L (0-33); Albumin Level 3.6 g/dL (3.5-5.2); Alkaline Phosphatase 107 IU/L (35-105); Anion Gap 10.5 (5-19); Aspartate Amino Transferase 19 U/L (0-32); Blood Urea Nitrogen 16 mg/dL (6-20); Carbon Dioxide 27 mmol/L (22-29); Chloride 108 mmol/L (98-107); Globulin 2.9 g/dL (1.3-4.6); Glomerular Filtration Rate 73.4 mL/min (90-130); Glucose 161 mg/dL (65-115); Osmolality Calculated 299 mOsm/kg (285-295); Potassium 3.5 mmol/L (3.5-5.1); Sodium 142 mmol/L (136-145); Total Bilirubin 0.2 mg/dL (0.15-1.2); Total Protein 6.5 g/dL (6.6-8.7)
[2020-06-10 09:25] LABS: Slide Review Slide Review Perform
[2020-06-10] MEDS: acetaminophen 325 mg Tablet 650 MG PO (09:47)
[2020-06-10] MEDS: famotidine 20 mg Tablet PO (09:47)
[2020-06-10] MEDS: diphenhydrAMINE 50 mg/mL SDV 1mL 25 MG IV (09:47)
[2020-06-10] MEDS: palonosetron 0.25 mg/5 mL SDV IV (09:50)
--- NOTE | 2020-06-10 14:07 | ONC FU_ITS ---
Dr. Ramos Patient Follow-Up Note Patient: Yadira Lopez Unit #: [id number]: 1960 Dicatated By: Daniel Ramos M.D.Date of Visit:Jun 10, 2020 Onc Med Follow-up/Prog Note Chief Complaint: Breast cancer. History of Present Illness: This is a 59-year-old woman with grade 3 invasive ductal carcinoma of the left breast, by clinical evaluation stage IB (T2, N1, M0), ER/WY positive and HER-2/tina positive. She had presented to Dr. Guajardo with a palpable mass in the left breast. She had been aware of it for about a month. Diagnostic mammogram on March 16, 2020 showed a dominant mass in the upper outer quadrant of the left breast measuring 2.3 x 2.3 cm. Additional smaller dense surrounding satellite nodules were noted. Ultrasound showed an irregular dense hypoechoic lobulated lesion at the 2 o'clock position measuring 2.1 x 2.2 x 2.1 cm. The findings were highly suspicious for malignancy. Ultrasound of the left axilla showed a hypoechoic pathologic enlarged lymph node measuring 3.7 x 1.8 x 2.7 cm. On March 28, 2020 she underwent ultrasound directed biopsies of the breast mass and the enlarged left axillary lymph node. Pathology on the breast biopsy showed grade 3 infiltrating ductal carcinoma in the left axillary lymph node biopsy was positive for metastatic carcinoma. The breast prognostic profile showed ER positive at 98% and WY positive at 40%. The tumor was positive for overexpression of HER-2/tina, 3+ by IHC and amplification ratio by FISH of 2.7 with 7.6 HER-2 copies/cell. The Ki-67 was high at 65%. I had seen her initially on 04/15/2020. In the setting of lymph node positive HER-2/tina positive disease, she was recommended to undergo neoadjuvant chemotherapy. Her other medical illnesses include hypertension, hyperlipidemia, asthma, GERD, and anxiety/depression. She is a non-smoker. On 05/20/2020 she began cycle 1 of neoadjuvant chemotherapy with TCH-P. She experienced multiple side effects including nausea/vomiting and diarrhea off and on during the first week after treatment. She also had generalized body aches. At day 12 she was neutropenic, but she had uneventful recovery with G-CSF. She has since then been feeling better. Her energy has been fair. She is still working. ECOG score is 1. Her appetite has been okay. She has not had fever. She has occasional hot flashes and sweating. She had a little bit of sore throat, but no mouth sores. She has had some sinus drainage with a little bit of cough. She does not complain of shortness of breath or chest pain. She has had no further nausea, and her bowel function now is back to normal. She has no complaints. She currently is not having joint or bone pain. She had some headache last evening. She has not had numbness/paresthesia or other neuropathy symptoms. Medications: Albuterol Sulfate HFA 2 Puff(s) (of 108 (90 base) mcg/act) Aerosol, solution Inhalation four times a day PRN, Claritin 1 (10 mg) Tablet Oral daily, clonazePAM 1 (0.5 mg) Tablet Oral daily, Ibuprofen 1 (800 mg) Tablet Oral t.i.d., Lisinopril-hydroCHLOROthiazide 1 (10-12.5 mg) Tablet Oral daily, Meloxicam 1 (15 mg) Tablet Oral daily, Multi Vitamin 1 Tablet Oral daily, Omeprazole 1 (40 mg) Capsule Delayed Release Oral daily, PARoxetine HCl (40 mg) Tablet Oral Take as Directed, PARoxetine HCl 1 (10 mg) Tablet Oral daily, Zetia 1 (10 mg) Tablet Oral daily Allergies: Cephalexin, Codeine Sulfate, HYDROcodone-Acetaminophen, Morphine Sulfate, Penicillins, and Sulfa Antibiotics. Vital Signs: Performed on Jun 10, 2020 08:50 Height - 61.00 in Temperature - 98.5 F Pulse - 99 /min Respiration - 18 /min BP - 138/85 mm(hg) O2 Sat - 96 % Pain - 0 Physical Examination: Constitutional - She appears somewhat weak generally, Eyes - Sclerae nonicteric. Conjunctivae clear, ENMT - No lesions noted in the oral cavity, Hematologic/Lymphatic - No cervical or clavicular adenopathy, Respiratory - Lungs are clear with good air movement bilaterally, Cardiovascular - Heart rhythm is regular. There is no murmur, gallop, or rub noted, Breasts - There is an ill-defined mass in the upper outer quadrant of the left breast, definitely smaller compared to her pretreatment exam. There is just slight thickening in the left axilla, Abdomen - Soft. Liver and spleen are not enlarged. There is no abdominal mass or ascites noted and there is no inguinal adenopathy, Extremities - No edema, Neurologic - No focal neurologic deficits noted. Lab/Imaging: Test performed on Jun 10, 2020 08:14 Sodium 142 mmol/L Potassium 3.5 mmol/L Chloride 108 mmol/L CO2 27 mmol/L Anion Gap 10.5 BUN 16 mg/dL Creatinine 0.8 mg/dL Cr Clearance (Est) 118.6300 mL/min eGFR 73.4 mL/min Glucose 161 mg/dL Osmolality - Calculated 299 mOsm/kg Calcium 9.0 mg/dL Protein, Total 6.5 g/dL Albumin 3.6 g/dL Globulin 2.9 g/dL Bilirubin, Total 0.2 mg/dL ALT (SGPT) 20 U/L AST (SGOT) 19 U/L Alkaline Phosphatase 107 IU/L WBC 12.2 10 3/uL RBC 3.49 10 6/uL HGB 10.6 g/dL HCT 32.1 % MCV 92.0 fL MCH 30.4 pg MCHC 33.0 g/dL RDW 12.3 % Platelet Count 283 10 3/cmm MPV 9.4 fL Neutrophils 9.29 10 3/uL Lymphocytes 1.3 10 3/uL Monocytes 0.3 10 3/uL Eosinophils 0.0 10 3/uL Basophils 0.1 10 3/uL Neutrophil % 76.3 % Lymphocyte % 10.7 % Monocyte % 2.4 % Eosinophil % 0.0 % Basophils % 0.5 % NRBC % 0 % CBC Slide Review Slide Review Perform SLIDE REVIEW AGREES WITH AUTOMATED RESULTS ST Problem List: 1. Grade 3 invasive ductal carcinoma of the left breast, by clinical evaluation stage at least IB (T2, N1, M0), ER/WY positive and HER-2/tina positive. 2. Hypertension. 3. Hyperlipidemia. 4. Asthma. 5. GERD. 6. Bilateral carpal tunnel syndrome. 7. Anxiety/depression. Problems Addressed with this Encounter and Plan: 1. Patient with grade 3 invasive ductal carcinoma of the left breast, by clinical evaluation stage at least IB (T2, N1, M0), ER/WY positive and HER-2/tina positive. She began cycle 1 of neoadjuvant chemotherapy with TCH-P on 05/20/2020. She experienced multiple toxicities including nausea/vomiting, diarrhea, fatigue, generalized body aches, and neutropenia. She has had uneventful recovery. By clinical evaluation, she does appear to be showing some response to the chemotherapy. She will proceed now with her 2nd cycle of chemotherapy. Considering the side effects she experienced, she will be given a 20% dose reduction in the chemotherapy drugs. The Herceptin and Perjeta will be administered at full dosages. She will be given a dexamethasone taper. She will be scheduled to return Saturday for IV hydration. Blood counts will be monitored weekly. She will be scheduled for a follow-up visit in 3 weeks. If she continues to have significant treatment-related toxicities, I may consider changing her treatment to weekly paclitaxel with Herceptin/Perjeta. 2. She has a positive family history of breast cancer involving a first-degree relative (sister). She was found to be BRCA negative. Signed By: Daniel Ramos M.D. <<Signature on File>>
[2020-06-13 10:03] LABS: Anion Gap 12.3 (5-19); Blood Urea Nitrogen 22 mg/dL (6-20); Calcium 8.6 mg/dL (8.5-10.5); Carbon Dioxide 31 mmol/L (22-29); Chloride 101 mmol/L (98-107); Glomerular Filtration Rate 73.4 mL/min (90-130); Glucose 90 mg/dL (65-115); Magnesium 1.8 mg/dL (1.7-2.3); Osmolality Calculated 295 mOsm/kg (285-295); Potassium 3.3 mmol/L (3.5-5.1); Sodium 141 mmol/L (136-145)
[2020-06-13] MEDS: sodium chloride 0.9% 500 ML 999 ML IV (10:34)
[2020-06-16] MEDS: sodium chloride 0.9% 1,000 ML 999 ML IV (14:25)
[2020-06-16] MEDS: famotidine 20 mg/2 mL INJ IVP (15:03)
[2020-06-16 15:05] LABS: Alanine Aminotransferase 42 U/L (0-33); Albumin Level 3.9 g/dL (3.5-5.2); Alkaline Phosphatase 95 IU/L (35-105); Anion Gap 13.2 (5-19); Aspartate Amino Transferase 32 U/L (0-32); Blood Urea Nitrogen 27 mg/dL (6-20); Calcium 8.8 mg/dL (8.5-10.5); Carbon Dioxide 27 mmol/L (22-29); Chloride 98 mmol/L (98-107); Globulin 2.9 g/dL (1.3-4.6); Glomerular Filtration Rate 50.8 mL/min (90-130); Glucose 117 mg/dL (65-115); Osmolality Calculated 286 mOsm/kg (285-295); Potassium 3.2 mmol/L (3.5-5.1); Sodium 135 mmol/L (136-145); Total Bilirubin 0.5 mg/dL (0.15-1.2); Total Protein 6.8 g/dL (6.6-8.7)
[2020-06-16] MEDS: ondansetron 2 mg/ML SDV 2 mL 8 MG IV (15:05)
[2020-06-16 17:28] LABS: Basophils # 0.1 10^3/uL (0.0-0.1); Basophils % 2.4 %; Eosinophils % 0.3 %; Hematocrit 38.1 % (37.0-47.0); Hemoglobin 13.1 g/dL (11.5-15.3); Lymphocytes # 1.3 10^3/uL (0.8-4.8); Mean Corpuscular HGB Conc 34.4 g/dL (30.0-36.0); Mean Corpuscular Hemoglobin 30.8 pg (28.0-34.0); Mean Corpuscular Volume 89.4 fL (81-99); Mean Platelet Volume 9.7 fL (7.4-10.4); Monocytes # 0.1 10^3/uL (0.2-0.9); Monocytes % 3.1 %; Neutrophils # 1.37 10^3/uL (1.8-7.7); Neutrophils % 47.5 %; Nucleated Red Blood Cells % 0 %; Platelet Count 312 10^3/cmm (130-400); Red Blood Count 4.26 10^6/uL (4.1-5.3); Red Cell Distribution Width 12.2 % (12.1-15.1); White Blood Count 2.9 10^3/uL (4.0-10.0)
[2020-06-16 19:46] LABS: Slide Review Slide Review Perform
[2020-06-17] MEDS: sodium chloride 0.9% 1,000 ML 999 ML IV (09:07)
[2020-06-17] MEDS: famotidine 20 mg/2 mL INJ IVP (09:08)
[2020-06-17] MEDS: ondansetron 2 mg/ML SDV 2 mL 8 MG IV (09:11)
[2020-06-17 10:44] LABS: Magnesium 1.4 mg/dL (1.7-2.3)
[2020-06-20] MEDS: sodium chloride 0.9% 1,000 ML 999 ML IV (08:30)
[2020-06-20 08:54] LABS: Basophils % 1.5 %; Eosinophils % 0.4 %; Hematocrit 34.4 % (37.0-47.0); Hemoglobin 11.6 g/dL (11.5-15.3); Lymphocytes # 1.4 10^3/uL (0.8-4.8); Mean Corpuscular HGB Conc 33.7 g/dL (30.0-36.0); Mean Corpuscular Hemoglobin 30.4 pg (28.0-34.0); Mean Corpuscular Volume 90.3 fL (81-99); Mean Platelet Volume 9.5 fL (7.4-10.4); Monocytes % 36.5 %; Neutrophils % 7.8 %; Nucleated Red Blood Cells % 0 %; Platelet Count 228 10^3/cmm (130-400); Red Blood Count 3.81 10^6/uL (4.1-5.3); Red Cell Distribution Width 12.3 % (12.1-15.1); White Blood Count 2.7 10^3/uL (4.0-10.0)
[2020-06-20] MEDS: ondansetron 2 mg/ML SDV 2 mL 8 MG IV (09:00)
[2020-06-20 09:16] LABS: Alanine Aminotransferase 32 U/L (0-33); Albumin Level 3.8 g/dL (3.5-5.2); Alkaline Phosphatase 94 IU/L (35-105); Anion Gap 13.8 (5-19); Aspartate Amino Transferase 25 U/L (0-32); Blood Urea Nitrogen 22 mg/dL (6-20); Calcium 9.1 mg/dL (8.5-10.5); Carbon Dioxide 27 mmol/L (22-29); Chloride 95 mmol/L (98-107); Globulin 2.6 g/dL (1.3-4.6); Glomerular Filtration Rate 38.5 mL/min (90-130); Glucose 117 mg/dL (65-115); Osmolality Calculated 280 mOsm/kg (285-295); Sodium 133 mmol/L (136-145); Total Bilirubin 0.4 mg/dL (0.15-1.2); Total Protein 6.4 g/dL (6.6-8.7)
[2020-06-20] MEDS: famotidine 20 mg/2 mL INJ IVP (09:30)
[2020-06-20 09:31] LABS: Potassium 2.8 mmol/L (3.5-5.1)
[2020-06-20 10:01] LABS: Magnesium 1.4 mg/dL (1.7-2.3)
[2020-06-20 10:16] LABS: Slide Review Slide Review Perform
[2020-06-20 10:17] LABS: Neutrophils # 0.21 10^3/uL (1.8-7.7)
[2020-06-20] MEDS: potassium chloride premix 20 MEQ/100 ML 50 MEQ IV (12:40)
[2020-06-24] MEDS: famotidine 20 mg/2 mL INJ IVP (08:19)
[2020-06-24] MEDS: ondansetron 2 mg/ML SDV 2 mL 8 MG IV (08:20)
[2020-06-24] MEDS: sodium chloride 0.9% 1,000 ML 999 ML IV (08:40)
[2020-06-24 08:51] LABS: Blood Urea Nitrogen 16 mg/dL (6-20); Carbon Dioxide 31 mmol/L (22-29); Chloride 97 mmol/L (98-107); Glomerular Filtration Rate 50.8 mL/min (90-130); Glucose 106 mg/dL (65-115); Osmolality Calculated 288 mOsm/kg (285-295); Sodium 138 mmol/L (136-145)
[2020-06-24 08:52] LABS: Magnesium 0.9 mg/dL (1.7-2.3)
== END 2020-06-28 09:00 | disposition home or self-care (01) ==
LOC: ONCMED 05:29
PROVIDERS: Internal Medicine Hematology & Oncology; PCP Family Medicine; Visit Provider Internal Medicine Medical Oncology
DX: Z51.11 Encounter for antineoplastic chemotherapy (principal); C50.412 Malignant neoplasm of upper-outer quadrant of left female breast; Z17.0 Estrogen receptor positive status [ER+]; D70.1 Agranulocytosis secondary to cancer chemotherapy; T45.1X5A Adverse effect of antineoplastic and immunosuppressive drugs, initial encounter; I10 Essential (primary) hypertension; E78.5 Hyperlipidemia, unspecified; J45.909 Unspecified asthma, uncomplicated; K21.9 Gastro-esophageal reflux disease without esophagitis; G56.03 Carpal tunnel syndrome, bilateral upper limbs; F41.9 Anxiety disorder, unspecified; F32.9 Major depressive disorder, single episode, unspecified; Z80.3 Family history of malignant neoplasm of breast; Z79.899 Other long term (current) drug therapy
CPT/HCPCS: 36415; 80048; 80053; 83735; 85025; 96360; 96361; 96365; 96366; 96367; 96372; 96375; 96413; 96417; 99215; J1100; J1200; J1453; J2405; J2469; J3475; J3480; J3490; J7030; J7040; J7050; J9045; J9171; J9306; J9355; Q5101

== ENCOUNTER 2020-06-28 09:09 | Emergency (ER) | payer BC, SELFPAY ==
[2020-06-28 09:22] VITALS: BP 145/92; PULSE 101; RESP 18; TEMP 37; O2SAT 95; BMI 41.5
--- NOTE | 2020-06-28 09:34 | CT_ITS ---
WS: [id number] CT ABDOMEN AND PELVIS WITH CONTRAST HISTORY: Diarrhea with abdominal pain for 3 weeks. TECHNIQUE: Imaging performed of the abdomen and pelvis with IV contrast. Single phase imaging of the abdomen. Coronal and sagittal reformats are submitted. All CT scans at [facility] use at least one of these dose optimization techniques: automated exposure control; mA and/or kV adjustment per patient size (includes targeted exams where dose is matched to clinical indication); or iterativ e reconstruction. IV CONTRAST: Omnipaque 300; 95 mL IV. Oral contrast: No DLP: 1821.02 mGy.cm COMPARISON: 02/12/2019 Lower thorax: Lung bases are clear. Heart is normal size. No significant hiatal hernia. Lobulated sof t tissue mass in the lateral LEFT breast measures 2.2 x 2.0 cm. This mass has been recently biopsied. Liver/biliary system: Normal size liver. There are several stable low-attenuation lesions within the liver which are cysts. Gallbladder: Gallbladder is slightly enlarged with no wall thickening. No stones identified or perich olecystic fluid. Pancreas: Normal. Spleen: Normal. Adrenal glands: Normal. Right kidney: Normal. Left kidney: Normal. Aorta: Mild atherosclerosis with no aneurysm. Lymphadenopathy: None. Free fluid: None. GI tract: There is mild distention of the colon with fluid, more than typically seen. There is no obs tructive pattern. Less fluid distention of the small bowel loops. The appendix is normal. Abdominal wall: Unremarkable abdominal wall. No hernia. Pelvis: Normal. Bones: L4 anterolisthesis by 5 mm. No osteoblastic or osteolytic disease. CT/CT abdomen pelvis w con* [id number] IMPRESSION: 1. Mild fluid distention of the colon consistent with history of diarrhea. No wall thickening or obstruction. Probably related to infection or inflammatory p rocess. 2. Normal appendix. 3. No ascites or free air. 4. Hepatic cysts. 5. Known LEFT breast mass has been previous the biopsied.
--- NOTE | 2020-06-28 09:34 | XRR_ITS ---
PROCEDURE INFORMATION: Exam: XR Chest Exam date and time: 06/28/2020 9:44 AM Age: 60 years old Clinical indication: Cough and dyspnea and shortness of breath; Prior surgery; Surgery type: Breast lumpectomy; Patient HX: Breast cancer patient, dyspnea, cough, excessive diarrhea; Additional info: Dyspnea/cough TECHNIQUE: Imaging protocol: XR of the chest Views: 1 view. COMPARISON: CR Chest 1 [place] [id number] 02/12/2019 6:00 PM FINDINGS: Lungs: Unremarkable. No consolidation. Pleural spaces: Unremarkable. No pleural effusion. No pneumothorax. Heart/Mediastinum: A MediPort catheter is present with the tip projecting on the right atrium. Bones/joints: Unremarkable. XR/XR chest 1V portable [id number] IMPRESSION: No significant cardiopulmonary abnormality.
[2020-06-28 10:20] LABS: Basophils # 0.1 10^3/uL (0.0-0.1); Basophils % 0.6 %; Eosinophils % 0.1 %; Hematocrit 35.9 % (37.0-47.0); Hemoglobin 12.1 g/dL (11.5-15.3); Lymphocytes % 19.9 %; Mean Corpuscular HGB Conc 33.7 g/dL (30.0-36.0); Mean Corpuscular Hemoglobin 31.6 pg (28.0-34.0); Mean Corpuscular Volume 93.7 fL (81-99); Mean Platelet Volume 10.8 fL (7.4-10.4); Monocytes # 0.5 10^3/uL (0.2-0.9); Monocytes % 5.4 %; Neutrophils # 7.37 10^3/uL (1.8-7.7); Neutrophils % 73.2 %; Nucleated Red Blood Cells % 0 %; Platelet Count 130 10^3/cmm (130-400); Red Blood Count 3.83 10^6/uL (4.1-5.3); Red Cell Distribution Width 13.9 % (12.1-15.1); White Blood Count 10.1 10^3/uL (4.0-10.0)
[2020-06-28] MEDS: sodium chloride 0.9% 1,000 ML 999 ML IV (10:22)
[2020-06-28] MEDS: ondansetron 2 mg/ML SDV 2 mL 4 MG IVP (10:22)
--- NOTE | 2020-06-28 10:30 | ED_ITS ---
HPI - Nausea/Vomiting/Diarrhea General: Chief complaint: Nausea/Vomiting/Diarrhea Stated complaint: excessive diarrhea, cancer pt Time Seen by Provider: 06/28/20 09:18 History of Present Illness: HPI Narrative: 60-year-old female who presents to the emergency room as excessive diarrhea for the last 3 weeks. She has been taking antidiarrheals with no relief. She has had little streaks of blood a week ago but nothing significant. She not been on any antibiotics recently. She is currently being treated for breast cancer the chemotherapy agents prior side effect is diarrhea. MD elicited complaint: nausea and diarrhea Onset (ago): week(s) Description of vomiting: watery and blood-streaked (occasionally) Description of diarrhea: watery Associated nausea: Yes Associated abdominal pain: Yes (mild) Location of pain: Diffuse Pain consistency: intermittent Severity: mild Quality: cramping Exacerbating factors: none Relieving factors: none Associated symtoms: Reports bloating, fatigue, anorexia, malaise, myalgias and nausea; Denies altered mental status, anxiety, change in vision, chest pain, cough, diaphoresis, decreased urine output, dizziness, dysuria, epistaxis, fecal incontinence, fevers/chills, headache(s), numbness, palpitations, rash, short of breath, syncope, tenesmus, tinnitus or weakness Review of Systems Const: Reports: fatigue and malaise; Denies: diaphoresis Eyes: Denies: change in vision ENMT: Denies: tinnitus or epistaxis Card: Denies: chest pain, palpitations or syncope Resp: Denies: dyspnea, productive cough or non-productive cough GI: Reports: nausea and bloating; Denies: fecal incontinence : Denies: dysuria Skin/Breast: Denies: rash or pruritus Neuro: Denies: headache(s) or dizziness Psych: Denies: anxiety PFSH ED PFSH: Medical History (Updated 06/28/20 @ 11:41 by Michael Del Cid DO) Breast CA Physical Exam Const: COMMON NORMALS: no acute distress EXAM LIMITATIONS: no altered mental status GENERAL APPEARANCE: cooperative and comfortable ORIENTATION/CONSCIOUSNESS: Yes awake, Yes oriented to person, Yes oriented to place and Yes oriented to time HENMT: COMMON NORMALS: normocephalic, atraumatic and hearing grossly normal bilaterally HEAD & SCALP: normocephalic and atraumatic Resp: COMMON NORMALS: normal respiratory effort, No retractions, No use of accessory muscles and clear to auscultation bilaterally AUSCULTATION: clear to auscultation bilaterally Cardio: COMMON NORMALS: regular rate, regular rhythm and No murmurs present (Cardio) RATE: regular rate RHYTHM: regular rhythm GI: COMMON NORMALS: Soft to palpation and No hepatosplenomegaly present AUSCULTATION: Yes normoactive bowel sounds PALPATION: Yes Soft to palpation, No Tenderness to palpation present (GI), No Guarding due to palpation present (GI) and Yes No hepatosplenomegaly present Extremity: COMMON NORMALS: normal to inspection, capillary refill normal, no clubbing, cyanosis or edema, no calf tenderness and no pedal edema Neuro: SENSORIUM/ORIENTATION: Yes oriented to person, Yes oriented to place and Yes oriented to time Skin: COMMON NORMALS: no rashes or lesions noted GENERAL SKIN EXAM: no rashes or lesions noted Course Vital Signs: Vital signs: Vital Signs Temperature 98.6 F 06/28/20 09:22 Pulse Rate 88 06/28/20 12:20 Respiratory Rate 16 06/28/20 12:20 Blood Pressure 131/82 06/28/20 12:20 Pulse Oximetry 98 06/28/20 12:20 MDM - Nausea/Vomiting/Diarrhea MDM Narrative: Medical decision making narrative: Proved after rehydration. Will discharge home with Lomotil. Follow-up with oncology soon as possible return if has further problems Lab Data: Labs: Lab Results 06/28/20 06/28/20 06/28/20 Range/Units 10:05 10:05 10:05 WBC 10.1 H (4.0-10.0) 10^3/ uL RBC 3.83 L (4.1-5.3) 10^6/u L Hgb 12.1 (11.5-15.3) g/dL Hct 35.9 L (37.0-47.0) % MCV 93.7 (81-99) fL MCH 31.6 (28.0-34.0) pg MCHC 33.7 (30.0-36.0) g/dL RDW 13.9 (12.1-15.1) % Plt Count 130 (130-400) 10^3/c mm MPV 10.8 H (7.4-10.4) fL Neut % (Auto) 73.2 % Lymph % (Auto) 19.9 % [place] % (Auto) 5.4 % Eos % (Auto) 0.1 % Baso % (Auto) 0.6 % Neut # (Auto) 7.37 (1.8-7.7) 10^3/u L Lymph # (Auto) 2.0 (0.8-4.8) 10^3/u L [place] # (Auto) 0.5 (0.2-0.9) 10^3/u L Eos # (Auto) 0.0 (0.0-0.8) 10^3/u L Baso # (Auto) 0.1 (0.0-0.1) 10^3/u L Nucleated RBC % (a uto) 0 % Nucleated RBCs # 0.0 /100WBC Sodium 137 (136-145) mmol/L Potassium 3.5 (3.5-5.1) mmol/L Chloride 99 (98-107) mmol/L Carbon Dioxide 27 (22-29) mmol/L Anion Gap 14.5 (5-19) BUN 17 (6-20) mg/dL Creatinine 1.0 H (0.5-0.9) mg/dL GFR Calculation 56.7 L (90-130) mL/min Glucose 100 (65-115) mg/dL Calculated Osmolal ity 286 (285-295) mOsm/k g Calcium 8.6 (8.5-10.5) mg/dL Magnesium 1.2 L (1.7-2.3) mg/dL Total Bilirubin 0.3 (0.15-1.2) mg/dL AST 22 (0-32) U/L ALT 27 (0-33) U/L Alkaline Phosphata se 108 H (35-105) IU/L Creatine Kinase 47 (26-192) U/L Total Protein 6.7 (6.6-8.7) g/dL Albumin 3.8 (3.5-5.2) g/dL Globulin 2.9 (1.3-4.6) g/dL Lipase 28 (13-60) U/L Urine Color (Yellow) Urine Appearance (CLEAR) Urine pH (5-7) Ur Specific Gravit y (1.005-1.030) Urine Protein (Negative) Urine Glucose (UA) (Normal) Urine Ketones (Negative) Urine Blood (Negative) Urine Nitrate (Negative) Urine Bilirubin (Negative) Urine Urobilinogen (Negative) mg/dL Ur Leukocyte Evelyn ase (Negative) Urine RBC (0-2) /hpf Urine WBC (0-5) /hpf Ur Squamous Epith Cells (0-5) /hpf Amorphous Sediment Urine Bacteria (NONE) /hpf Hyaline Casts /lpf Serum Ketones Negative (Negative) 06/28/20 Range/Units 11:41 WBC (4.0-10.0) 10^3/ uL RBC (4.1-5.3) 10^6/u L Hgb (11.5-15.3) g/dL Hct (37.0-47.0) % MCV (81-99) fL MCH (28.0-34.0) pg MCHC (30.0-36.0) g/dL RDW (12.1-15.1) % Plt Count (130-400) 10^3/c mm MPV (7.4-10.4) fL Neut % (Auto) % Lymph % (Auto) % [place] % (Auto) % Eos % (Auto) % Baso % (Auto) % Neut # (Auto) (1.8-7.7) 10^3/u L Lymph # (Auto) (0.8-4.8) 10^3/u L [place] # (Auto) (0.2-0.9) 10^3/u L Eos # (Auto) (0.0-0.8) 10^3/u L Baso # (Auto) (0.0-0.1) 10^3/u L Nucleated RBC % (a uto) % Nucleated RBCs # /100WBC Sodium (136-145) mmol/L Potassium (3.5-5.1) mmol/L Chloride (98-107) mmol/L Carbon Dioxide (22-29) mmol/L Anion Gap (5-19) BUN (6-20) mg/dL Creatinine (0.5-0.9) mg/dL GFR Calculation (90-130) mL/min Glucose (65-115) mg/dL Calculated Osmolal ity (285-295) mOsm/k g Calcium (8.5-10.5) mg/dL Magnesium (1.7-2.3) mg/dL Total Bilirubin (0.15-1.2) mg/dL AST (0-32) U/L ALT (0-33) U/L Alkaline Phosphata se (35-105) IU/L Creatine Kinase (26-192) U/L Total Protein (6.6-8.7) g/dL Albumin (3.5-5.2) g/dL Globulin (1.3-4.6) g/dL Lipase (13-60) U/L Urine Color Yellow (Yellow) Urine Appearance Hazy A (CLEAR) Urine pH 7 (5-7) Ur Specific Gravit y 1.000 L (1.005-1.030) Urine Protein Neg (Negative) Urine Glucose (UA) Norm (Normal) Urine Ketones Negative (Negative) Urine Blood 3+ H (Negative) Urine Nitrate Negative (Negative) Urine Bilirubin Neg (Negative) Urine Urobilinogen Norm (Negative) mg/dL Ur Leukocyte Evelyn ase 2+ H (Negative) Urine RBC 0-4 H (0-2) /hpf Urine WBC 15-25 H (0-5) /hpf Ur Squamous Epith Cells 5-10 H (0-5) /hpf Amorphous Sediment Not Reportable Urine Bacteria 2+ H (NONE) /hpf Hyaline Casts 0-4 H /lpf Serum Ketones (Negative) Discharge Plan Discharge Patient Disposition: Home Clinical Impression: Diarrhea due to drug, Breast CA, Dehydration Condition: Stable Prescriptions: New Lomotil 2.5-0.025 mg tablet 2 tab PO ONCE PRN (Reason: diarrhea) Qty: 60 RF: 0 No Action paroxetine HCl 10 mg tablet 10 mg PO DAILY RF: 0 ibuprofen 800 mg tablet 800 mg PO TID PRN (Reason: Pain) RF: 0 meloxicam 15 mg tablet 15 mg PO DAILY PRN (Reason: Arthritis) RF: 0 clonazepam 0.5 mg tablet 0.5 mg PO DAILY PRN (Reason: Anxiety) RF: 0 omeprazole 40 mg capsule,delayed release(DR/EC) 40 mg PO DAILY RF: 0 lisinopril-hydrochlorothiazide 10-12.5 mg tablet 1 tab PO DAILY RF: 0 albuterol sulfate [ProAir HFA] 90 mcg/actuation HFA aerosol inhaler 90 mcg INHALATION DIRECTED PRN (Reason: Allergy Symptoms) RF: 0 paroxetine HCl 40 mg tablet 40 mg PO DAILY RF: 0 ezetimibe 10 mg tablet 10 mg PO DAILY RF: 0 Adults Multivitamin 1 tab PO DAILY RF: 0 coenzyme Q10 50 mg Tablet 50 mg PO DAILY Qty: 0 RF: 0 pantoprazole 40 mg Tablet,Delayed Release (Dr/Ec) 40 mg PO DAILY RF: 0 potassium chloride 20 mEq Tablet Extended Release 20 meq PO BID RF: 0 ondansetron 4 mg tablet,disintegrating 4 mg PO Q6H PRN (Reason: nausea and vomiting) Qty: 14 RF: 0 Discharge Orders: Discharge ED (Routine); Ordered 06/28/20 Ordered By: Michael Del Cid Referrals: Hardik Guajardo MD [Primary Care Provider] - Patient Instructions: Opioid Safety Activity Restrictions/Additional Instructions: Follow-up with Dr. Ramos as previously scheduled. Coding Level of Care Code ED Sanforizing Machine Operator for Tobing Fwd Exam Detailed
[2020-06-28 10:31] LABS: Ketone (Acetest) Serum Negative (Negative)
[2020-06-28] MEDS: iohexol 300 mg/mL 100 mL Btl IV (10:37)
[2020-06-28 10:41] LABS: Alanine Aminotransferase 27 U/L (0-33); Albumin Level 3.8 g/dL (3.5-5.2); Alkaline Phosphatase 108 IU/L (35-105); Anion Gap 14.5 (5-19); Aspartate Amino Transferase 22 U/L (0-32); Blood Urea Nitrogen 17 mg/dL (6-20); Calcium 8.6 mg/dL (8.5-10.5); Carbon Dioxide 27 mmol/L (22-29); Chloride 99 mmol/L (98-107); Creatine Phosphokinase 47 U/L (26-192); Globulin 2.9 g/dL (1.3-4.6); Glomerular Filtration Rate 56.7 mL/min (90-130); Glucose 100 mg/dL (65-115); Lipase 28 U/L (13-60); Magnesium 1.2 mg/dL (1.7-2.3); Osmolality Calculated 286 mOsm/kg (285-295); Potassium 3.5 mmol/L (3.5-5.1); Sodium 137 mmol/L (136-145); Total Bilirubin 0.3 mg/dL (0.15-1.2); Total Protein 6.7 g/dL (6.6-8.7)
[2020-06-28 10:58] VITALS: BP 104/69; PULSE 89; RESP 18; O2SAT 97
[2020-06-28 12:20] VITALS: BP 131/82; PULSE 88; RESP 16; O2SAT 98
[2020-06-28 12:52] LABS: Urine Appearance Hazy (CLEAR); Urine Color Yellow (Yellow); pH Urine 7 (5-7)
[2020-06-28 12:53] LABS: Add Urine Microscopic? YES; Bilirubin Urine Neg (Negative); Blood Urine 3+ (Negative); Glucose Urine UA Norm (Normal); Ketones Urine Negative (Negative); Leukocyte Esterase Urine 2+ (Negative); Nitrate Urine Negative (Negative); Protein Urine Neg (Negative); Urobilinogen Urine Norm (Negative)
[2020-06-28 12:54] LABS: Bacteria Urine 2+ /hpf; RBC Urine 0-4 /hpf (0-2); WBC Urine 15-25 /hpf (0-5)
[2020-06-28 12:55] LABS: Hyaline Casts Urine 0-4 /lpf
[2020-06-28 12:56] LABS: Add Urine Culture? Yes
== END 2020-06-28 12:22 | disposition home or self-care (01) ==
PROVIDERS: Emergency Provider Family Medicine; PCP Family Medicine
DX: K52.1 Toxic gastroenteritis and colitis (principal); C50.919 Malignant neoplasm of unspecified site of unspecified female breast; E86.0 Dehydration
CPT/HCPCS: 71045; 74177; 80053; 81001; 82009; 82550; 83690; 83735; 85025; 87040; 87086; 96374; 99284; J2405; J7040; Q9967

== ENCOUNTER 2020-07-01 05:40 | Outpatient (RCR) | payer BC, SELFPAY ==
[2020-06-30 12:56] LABS: Basophils # 0.1 10^3/uL (0.0-0.1); Basophils % 0.7 %; Hematocrit 33.7 % (37.0-47.0); Hemoglobin 11.2 g/dL (11.5-15.3); Lymphocytes # 1.4 10^3/uL (0.8-4.8); Mean Corpuscular HGB Conc 33.2 g/dL (30.0-36.0); Mean Corpuscular Volume 93.4 fL (81-99); Mean Platelet Volume 8.9 fL (7.4-10.4); Monocytes # 0.6 10^3/uL (0.2-0.9); Monocytes % 7.5 %; Neutrophils # 5.61 10^3/uL (1.8-7.7); Neutrophils % 73.4 %; Nucleated Red Blood Cells % 0 %; Platelet Count 260 10^3/cmm (130-400); Red Blood Count 3.61 10^6/uL (4.1-5.3); Red Cell Distribution Width 14.2 % (12.1-15.1); White Blood Count 7.6 10^3/uL (4.0-10.0)
[2020-06-30 13:16] LABS: Alanine Aminotransferase 24 U/L (0-33); Albumin Level 3.9 g/dL (3.5-5.2); Alkaline Phosphatase 99 IU/L (35-105); Anion Gap 13.2 (5-19); Aspartate Amino Transferase 22 U/L (0-32); Blood Urea Nitrogen 17 mg/dL (6-20); Calcium 9.3 mg/dL (8.5-10.5); Carbon Dioxide 30 mmol/L (22-29); Chloride 97 mmol/L (98-107); Globulin 2.5 g/dL (1.3-4.6); Glomerular Filtration Rate 56.7 mL/min (90-130); Glucose 100 mg/dL (65-115); Magnesium 1.1 mg/dL (1.7-2.3); Osmolality Calculated 286 mOsm/kg (285-295); Potassium 3.2 mmol/L (3.5-5.1); Sodium 137 mmol/L (136-145); Total Bilirubin 0.3 mg/dL (0.15-1.2); Total Protein 6.4 g/dL (6.6-8.7)
[2020-07-01] MEDS: sodium chloride 0.9% 1,000 ML 999 ML IV (08:45)
[2020-07-01] MEDS: ondansetron 2 mg/ML SDV 2 mL 8 MG IVP (09:00)
--- NOTE | 2020-07-03 15:50 | ONC FU_ITS ---
Dr. Ramos Patient Follow-Up Note Patient: Yadira Lopez Unit #: [id number]: 1960 Dicatated By: Daniel Ramos M.D.Date of Visit:Jul 01, 2020 Onc Med Follow-up/Prog Note Chief Complaint: Breast cancer. History of Present Illness: This is a 59-year-old woman with grade 3 invasive ductal carcinoma of the left breast, by clinical evaluation stage IB (T2, N1, M0), ER/DE positive and HER-2/tina positive. She had presented to Dr. Guajardo with a palpable mass in the left breast. She had been aware of it for about a month. Diagnostic mammogram on March 16, 2020 showed a dominant mass in the upper outer quadrant of the left breast measuring 2.3 x 2.3 cm. Additional smaller dense surrounding satellite nodules were noted. Ultrasound showed an irregular dense hypoechoic lobulated lesion at the 2 o'clock position measuring 2.1 x 2.2 x 2.1 cm. The findings were highly suspicious for malignancy. Ultrasound of the left axilla showed a hypoechoic pathologic enlarged lymph node measuring 3.7 x 1.8 x 2.7 cm. On March 28, 2020 she underwent ultrasound directed biopsies of the breast mass and the enlarged left axillary lymph node. Pathology on the breast biopsy showed grade 3 infiltrating ductal carcinoma in the left axillary lymph node biopsy was positive for metastatic carcinoma. The breast prognostic profile showed ER positive at 98% and DE positive at 40%. The tumor was positive for overexpression of HER-2/tina, 3+ by IHC and amplification ratio by FISH of 2.7 with 7.6 HER-2 copies/cell. The Ki-67 was high at 65%. I had seen her initially on 04/15/2020. In the setting of lymph node positive HER-2/tina positive disease, she was recommended to undergo neoadjuvant chemotherapy. Her other medical illnesses include hypertension, hyperlipidemia, asthma, GERD, and anxiety/depression. She is a non-smoker. INTERIM HISTORY: On 05/20/2020 she began cycle 1 of neoadjuvant chemotherapy with TCH-P. She experienced multiple side effects including nausea/vomiting and diarrhea off and on during the first week after treatment. She also had generalized body aches. At day 12 she was neutropenic, but she had uneventful recovery with G-CSF. She continued with cycle 2 on 06/10/2020. It was administered with a 20% reduction in the dosages of both the carboplatin and the docetaxel. She is seen for a follow-up visit. She has continued to have significant side effects with the chemotherapy, despite the dose reductions. She reports having diarrhea and abdominal pain off and on, despite treatment with Imodium or Lomotil. She has had just mild nausea. Her energy is medium. She is still doing housework. ECOG score is 1. Appetite is variable. Her weight is down 8 pounds. She does not have fever or night sweats. She has had no mouth sores. She sometimes has shortness of breath. She does not complain of cough and she has not been having chest pain. She has no complaints. She has no significant joint or bone pain. She sometimes has headache and she sometimes feels lightheaded. She has no numbness/paresthesia or other neuropathy symptoms. Medications: Albuterol Sulfate HFA 2 Puff(s) (of 108 (90 base) mcg/act) Aerosol, solution Inhalation four times a day PRN, Claritin 1 (10 mg) Tablet Oral daily, clonazePAM 1 (0.5 mg) Tablet Oral daily, Ibuprofen 1 (800 mg) Tablet Oral t.i.d., Lisinopril-hydroCHLOROthiazide 1 (10-12.5 mg) Tablet Oral daily, Meloxicam 1 (15 mg) Tablet Oral daily, Multi Vitamin 1 Tablet Oral daily, Omeprazole 1 (40 mg) Capsule Delayed Release Oral daily, Ondansetron HCl 1 Tablet (of 8 mg) Oral four times a day PRN, PARoxetine HCl (40 mg) Tablet Oral Take as Directed, PARoxetine HCl 1 (10 mg) Tablet Oral daily, Prochlorperazine Maleate 1 Tablet (of 10 mg) Oral q 4 hours PRN, Zetia 1 (10 mg) Tablet Oral daily Allergies: Cephalexin, Codeine Sulfate, HYDROcodone-Acetaminophen, Morphine Sulfate, Penicillins, and Sulfa Antibiotics. Vital Signs: Performed on Jul 01, 2020 08:08 Height - 61.00 in Weight - 210.8 lbs (LOW) BSA - 1.93 sq.m BMI - 39.83 (HIGH) Temperature - 97.6 F (LOW) Pulse - 107 /min (HIGH) Respiration - 19 /min BP - 107/75 mm(hg) O2 Sat - 98 % Pain - 6 Physical Examination: Constitutional - She appears somewhat weak generally, Eyes - Sclerae nonicteric. Conjunctivae clear, ENMT - No lesions noted in the oral cavity, Hematologic/Lymphatic - No cervical or clavicular adenopathy, Respiratory - Lungs are clear with good air movement bilaterally, Cardiovascular - Heart rhythm is regular. There is no murmur, gallop, or rub noted, Abdomen - Soft. Liver and spleen are not enlarged. There is no abdominal mass or ascites noted and there is no inguinal adenopathy, Extremities - No edema, Neurologic - No focal neurologic deficits noted. Lab/Imaging: CBC shows hemoglobin 12.1 g, white blood cell count 10,100, and platelet count 130,000. Comprehensive metabolic profile is unremarkable except for borderline renal function with BUN 17 and creatinine 1.0 mg/dL. Problem List: 1. Grade 3 invasive ductal carcinoma of the left breast, by clinical evaluation stage at least IB (T2, N1, M0), ER/DE positive and HER-2/tina positive. 2. Hypertension. 3. Hyperlipidemia. 4. Asthma. 5. GERD. 6. Bilateral carpal tunnel syndrome. 7. Anxiety/depression. Problems Addressed with this Encounter and Plan: 1. Patient with grade 3 invasive ductal carcinoma of the left breast, by clinical evaluation stage at least IB (T2, N1, M0), ER/DE positive and HER-2/tina positive. She began cycle 1 of neoadjuvant chemotherapy with TCH-P on 05/20/2020. She experienced multiple toxicities including nausea/vomiting, diarrhea, fatigue, generalized body aches, and neutropenia. She has had uneventful recovery. By clinical evaluation, she appeared to be showing some response to the chemotherapy. She will continued with cycle 2 of TCH-P on 06/10/2020. It was administered with a 20% dose reduction in the chemotherapy drugs. Despite that, she has continued to have significant GI toxicity, mainly diarrhea and abdominal pain. As such, she will be given IV hydration today and her further treatment will be delayed at least 1 week. I will plan to change her regimen to weekly paclitaxel with Herceptin/Perjeta. 2. She has a positive family history of breast cancer involving a first-degree relative (sister). She was found to be BRCA negative. Signed By: Daniel Ramos M.D. <<Signature on File>>
== END 2020-07-06 23:59 | disposition home or self-care (01) ==
LOC: ONCMED 05:40
PROVIDERS: PCP Family Medicine; Visit Provider Internal Medicine Medical Oncology
DX: C50.412 Malignant neoplasm of upper-outer quadrant of left female breast (principal); Z17.0 Estrogen receptor positive status [ER+]; D70.1 Agranulocytosis secondary to cancer chemotherapy; T45.1X5A Adverse effect of antineoplastic and immunosuppressive drugs, initial encounter; I10 Essential (primary) hypertension; E78.5 Hyperlipidemia, unspecified; J45.909 Unspecified asthma, uncomplicated; K21.9 Gastro-esophageal reflux disease without esophagitis; G56.03 Carpal tunnel syndrome, bilateral upper limbs; F41.9 Anxiety disorder, unspecified; F32.9 Major depressive disorder, single episode, unspecified; Z80.3 Family history of malignant neoplasm of breast; Z79.899 Other long term (current) drug therapy; Z92.21 Personal history of antineoplastic chemotherapy
CPT/HCPCS: 36591; 80053; 83735; 85025; 96361; 96374; 99214; J2405; J7040

== ENCOUNTER 2020-08-04 05:38 | Outpatient (RCR) | payer BC, SELFPAY ==
[2020-07-07 09:14] LABS: Basophils # 0.1 10^3/uL (0.0-0.1); Basophils % 1.2 %; Eosinophils # 0.1 10^3/uL (0.0-0.8); Eosinophils % 2.1 %; Hematocrit 31.6 % (37.0-47.0); Hemoglobin 10.3 g/dL (11.5-15.3); Lymphocytes # 1.5 10^3/uL (0.8-4.8); Mean Corpuscular HGB Conc 32.6 g/dL (30.0-36.0); Mean Corpuscular Hemoglobin 31.8 pg (28.0-34.0); Mean Corpuscular Volume 97.5 fL (81-99); Mean Platelet Volume 8.9 fL (7.4-10.4); Monocytes # 0.4 10^3/uL (0.2-0.9); Monocytes % 7.5 %; Neutrophils # 3.09 10^3/uL (1.8-7.7); Neutrophils % 59.6 %; Nucleated Red Blood Cells % 0 %; Platelet Count 325 10^3/cmm (130-400); Red Blood Count 3.24 10^6/uL (4.1-5.3); Red Cell Distribution Width 15.3 % (12.1-15.1); White Blood Count 5.2 10^3/uL (4.0-10.0)
[2020-07-07 09:35] LABS: Alanine Aminotransferase 20 U/L (0-33); Albumin Level 3.6 g/dL (3.5-5.2); Alkaline Phosphatase 99 IU/L (35-105); Anion Gap 13.6 (5-19); Aspartate Amino Transferase 19 U/L (0-32); Blood Urea Nitrogen 16 mg/dL (6-20); Calcium 8.9 mg/dL (8.5-10.5); Carbon Dioxide 29 mmol/L (22-29); Chloride 101 mmol/L (98-107); Globulin 2.6 g/dL (1.3-4.6); Glomerular Filtration Rate 56.7 mL/min (90-130); Glucose 135 mg/dL (65-115); Osmolality Calculated 293 mOsm/kg (285-295); Potassium 3.6 mmol/L (3.5-5.1); Sodium 140 mmol/L (136-145); Total Bilirubin 0.2 mg/dL (0.15-1.2); Total Protein 6.2 g/dL (6.6-8.7)
--- NOTE | 2020-07-08 08:50 | ONC FU_ITS ---
Dr. Ramos Patient Follow-Up Note Patient: Yadira Lopez Unit #: [id number]: 1960 Dicatated By: Daniel Ramos M.D.Date of Visit:Jul 08, 2020 Onc Med Follow-up/Prog Note Chief Complaint: Breast cancer. History of Present Illness: This is a 60 year-old woman with grade 3 invasive ductal carcinoma of the left breast, by clinical evaluation stage IB (T2, N1, M0), ER/DC positive and HER-2/tina positive. She had presented to Dr. Guajardo with a palpable mass in the left breast. She had been aware of it for about a month. Diagnostic mammogram on March 16, 2020 showed a dominant mass in the upper outer quadrant of the left breast measuring 2.3 x 2.3 cm. Additional smaller dense surrounding satellite nodules were noted. Ultrasound showed an irregular dense hypoechoic lobulated lesion at the 2 o'clock position measuring 2.1 x 2.2 x 2.1 cm. The findings were highly suspicious for malignancy. Ultrasound of the left axilla showed a hypoechoic pathologic enlarged lymph node measuring 3.7 x 1.8 x 2.7 cm. On March 28, 2020 she underwent ultrasound directed biopsies of the breast mass and the enlarged left axillary lymph node. Pathology on the breast biopsy showed grade 3 infiltrating ductal carcinoma in the left axillary lymph node biopsy was positive for metastatic carcinoma. The breast prognostic profile showed ER positive at 98% and DC positive at 40%. The tumor was positive for overexpression of HER-2/tina, 3+ by IHC and amplification ratio by FISH of 2.7 with 7.6 HER-2 copies/cell. The Ki-67 was high at 65%. I had seen her initially on 04/15/2020. In the setting of lymph node positive HER-2/tina positive disease, she was recommended to undergo neoadjuvant chemotherapy. Her other medical illnesses include hypertension, hyperlipidemia, asthma, GERD, and anxiety/depression. She is a non-smoker. INTERIM HISTORY: On 05/20/2020 she began cycle 1 of neoadjuvant chemotherapy with TCH-P. She experienced multiple side effects including nausea/vomiting and diarrhea off and on during the first week after treatment. She also had generalized body aches. At day 12 she was neutropenic, but she had uneventful recovery with G-CSF. She continued with cycle 2 on 06/10/2020. It was administered with a 20% reduction in the dosages of both the carboplatin and the docetaxel. Despite that dose reduction, she continued to have significant side effects, including fatigue, nausea, and especially diarrhea. As such, her cycle 3 was delayed. She is seen for a scheduled visit. During the past week her symptoms have improved significantly. Her diarrhea has completely resolved. She still has some fatigue, but her energy is much better. ECOG score is 1. Her appetite also has improved. She does not have fever, night sweats, or hot flashes. She has not had sore mouth or throat. She has no shortness of breath, cough, or chest pain. She still has a little nausea and belching. Bowel and bladder function are normal. She has no significant joint or bone pain. She is not having numbness/paresthesia or other neuropathy symptoms. Medications: Albuterol Sulfate HFA 2 Puff(s) (of 108 (90 base) mcg/act) Aerosol, solution Inhalation four times a day PRN, Claritin 1 (10 mg) Tablet Oral daily, clonazePAM 1 (0.5 mg) Tablet Oral daily, Ibuprofen 1 (800 mg) Tablet Oral t.i.d., Lisinopril-hydroCHLOROthiazide 1 (10-12.5 mg) Tablet Oral daily, Meloxicam 1 (15 mg) Tablet Oral daily, Multi Vitamin 1 Tablet Oral daily, Omeprazole 1 (40 mg) Capsule Delayed Release Oral daily, Ondansetron HCl 1 Tablet (of 8 mg) Oral four times a day PRN, PARoxetine HCl (40 mg) Tablet Oral Take as Directed, PARoxetine HCl 1 (10 mg) Tablet Oral daily, Prochlorperazine Maleate 1 Tablet (of 10 mg) Oral q 4 hours PRN, Zetia 1 (10 mg) Tablet Oral daily Allergies: Cephalexin, Codeine Sulfate, HYDROcodone-Acetaminophen, Morphine Sulfate, Penicillins, and Sulfa Antibiotics. Vital Signs: Performed on Jul 08, 2020 08:09 Height - 61.00 in Weight - 216.0 lbs (HIGH) BSA - 1.95 sq.m BMI - 40.81 (HIGH) Temperature - 97.0 F (LOW) Pulse - 109 /min (HIGH) Respiration - 17 /min BP - 145/84 mm(hg) (HIGH) O2 Sat - 97 % Pain - 0 Physical Examination: Constitutional - She looks better generally, Eyes - Sclerae nonicteric. Conjunctivae clear, ENMT - No lesions noted in the oral cavity, Hematologic/Lymphatic - No cervical or clavicular adenopathy, Respiratory - Lungs are clear with good air movement bilaterally, Cardiovascular - Heart rhythm is regular. There is no murmur, gallop, or rub noted, Abdomen - Mildly distended but soft. Liver and spleen are not enlarged. There is no abdominal mass or ascites noted and there is no inguinal adenopathy, Extremities - No edema, Neurologic - No focal neurologic deficits noted. Lab/Imaging: Test performed on Jul 07, 2020 08:40 Sodium 140 mmol/L Potassium 3.6 mmol/L Chloride 101 mmol/L CO2 29 mmol/L Anion Gap 13.6 BUN 16 mg/dL Creatinine 1.0 mg/dL Cr Clearance (Est) 94.9100 mL/min eGFR 56.7 mL/min Glucose 135 mg/dL Osmolality - Calculated 293 mOsm/kg Calcium 8.9 mg/dL Protein, Total 6.2 g/dL Albumin 3.6 g/dL Globulin 2.6 g/dL Bilirubin, Total 0.2 mg/dL ALT (SGPT) 20 U/L AST (SGOT) 19 U/L Alkaline Phosphatase 99 IU/L WBC 5.2 10 3/uL RBC 3.24 10 6/uL HGB 10.3 g/dL HCT 31.6 % MCV 97.5 fL MCH 31.8 pg MCHC 32.6 g/dL RDW 15.3 % Platelet Count 325 10 3/cmm MPV 8.9 fL Neutrophils 3.09 10 3/uL Lymphocytes 1.5 10 3/uL Monocytes 0.4 10 3/uL Eosinophils 0.1 10 3/uL Basophils 0.1 10 3/uL Neutrophil % 59.6 % Lymphocyte % 29.0 % Monocyte % 7.5 % Eosinophil % 2.1 % Basophils % 1.2 % NRBC % 0 % Problem List: 1. Grade 3 invasive ductal carcinoma of the left breast, by clinical evaluation stage at least IB (T2, N1, M0), ER/DC positive and HER-2/tina positive. 2. Hypertension. 3. Hyperlipidemia. 4. Asthma. 5. GERD. 6. Bilateral carpal tunnel syndrome. 7. Anxiety/depression. 8. She has a positive family history of breast cancer involving a first-degree relative (sister). She was found to be BRCA negative. Problems Addressed with this Encounter and Plan: Patient with grade 3 invasive ductal carcinoma of the left breast, by clinical evaluation stage at least IB (T2, N1, M0), ER/DC positive and HER-2/tina positive. She began cycle 1 of neoadjuvant chemotherapy with TCH-P on 05/20/2020. She experienced multiple toxicities including nausea/vomiting, diarrhea, fatigue, generalized body aches, and neutropenia. She has had uneventful recovery. By clinical evaluation, she appeared to be showing some response to the chemotherapy. She will continued with cycle 2 of TCH-P on 06/10/2020. It was administered with a 20% dose reduction in the chemotherapy drugs. Despite that, she has continued to have significant GI toxicity, mainly diarrhea and abdominal pain. As such, her cycle 3 treatment was delayed. During the past week her symptoms have improved significantly with complete resolution of diarrhea and abdominal pain and with improvement in her energy/activity tolerance. She will proceed now with her 3rd cycle of treatment, but the carboplatin will now be omitted from the regimen and I will plan to limit her course of treatment to just 4 cycles. The docetaxel will still be administered at the reduced dosage. The Herceptin and Perjeta dosages will remain the same. Blood counts will be monitored weekly. She returns in 3 weeks for her 4rth and final cycle of treatment. She will then referred back to Dr. Ceballos for consideration of lumpectomy/lymph node sampling and she will need to be seen by Dr. Vallecillo for radiation oncology consultation. Signed By: Daniel Ramos M.D. <<Signature on File>>
[2020-07-08] MEDS: acetaminophen 325 mg Tablet 650 MG PO (08:58)
[2020-07-08] MEDS: famotidine 20 mg Tablet PO (08:58)
[2020-07-08] MEDS: diphenhydrAMINE 50 mg/mL SDV 1mL 25 MG IV (09:10)
[2020-07-08] MEDS: sodium chloride 0.9% 250 ML 75 ML IV (09:10)
[2020-07-08] MEDS: palonosetron 0.25 mg/5 mL SDV IV (09:16)
[2020-07-08] MEDS: fosaprepitant 150 MG in sodium chloride 0.9% 150 ML 300 MG IV (09:33)
[2020-07-08] MEDS: loperamide 2 mg Capsule 4 MG PO (10:30)
[2020-07-15 09:39] LABS: Basophils % 1.4 %; Eosinophils % 1.4 %; Hematocrit 33.8 % (37.0-47.0); Hemoglobin 11.4 g/dL (11.5-15.3); Lymphocytes # 1.5 10^3/uL (0.8-4.8); Lymphocytes % 54.7 %; Mean Corpuscular HGB Conc 33.7 g/dL (30.0-36.0); Mean Corpuscular Hemoglobin 31.9 pg (28.0-34.0); Mean Corpuscular Volume 94.7 fL (81-99); Mean Platelet Volume 9.5 fL (7.4-10.4); Monocytes # 0.2 10^3/uL (0.2-0.9); Monocytes % 5.4 %; Nucleated Red Blood Cells % 0 %; Platelet Count 301 10^3/cmm (130-400); Red Blood Count 3.57 10^6/uL (4.1-5.3); Red Cell Distribution Width 14.5 % (12.1-15.1); White Blood Count 2.8 10^3/uL (4.0-10.0)
[2020-07-28 14:06] LABS: Basophils # 0.1 10^3/uL (0.0-0.1); Eosinophils % 0.3 %; Hematocrit 34.2 % (37.0-47.0); Hemoglobin 11.3 g/dL (11.5-15.3); Lymphocytes # 1.6 10^3/uL (0.8-4.8); Lymphocytes % 21.6 %; Mean Corpuscular Hemoglobin 31.2 pg (28.0-34.0); Mean Corpuscular Volume 94.5 fL (81-99); Monocytes # 0.6 10^3/uL (0.2-0.9); Monocytes % 7.6 %; Neutrophils # 5.04 10^3/uL (1.8-7.7); Neutrophils % 68.5 %; Nucleated Red Blood Cells % 0 %; Platelet Count 315 10^3/cmm (130-400); Red Blood Count 3.62 10^6/uL (4.1-5.3); Red Cell Distribution Width 13.6 % (12.1-15.1); White Blood Count 7.4 10^3/uL (4.0-10.0)
[2020-07-28 14:30] LABS: Alanine Aminotransferase 24 U/L (0-33); Albumin Level 3.9 g/dL (3.5-5.2); Alkaline Phosphatase 100 IU/L (35-105); Anion Gap 14.7 (5-19); Aspartate Amino Transferase 29 U/L (0-32); Blood Urea Nitrogen 12 mg/dL (6-20); Calcium 8.9 mg/dL (8.5-10.5); Carbon Dioxide 29 mmol/L (22-29); Chloride 103 mmol/L (98-107); Globulin 2.5 g/dL (1.3-4.6); Glomerular Filtration Rate 50.8 mL/min (90-130); Glucose 104 mg/dL (65-115); Osmolality Calculated 296 mOsm/kg (285-295); Potassium 3.7 mmol/L (3.5-5.1); Sodium 143 mmol/L (136-145); Total Bilirubin 0.3 mg/dL (0.15-1.2); Total Protein 6.4 g/dL (6.6-8.7)
[2020-07-29] MEDS: sodium chloride 0.9% 250 ML 75 ML IV (09:45)
[2020-07-29] MEDS: acetaminophen 325 mg Tablet 650 MG PO (09:46)
[2020-07-29] MEDS: famotidine 20 mg Tablet PO (09:46)
[2020-07-29] MEDS: diphenhydrAMINE 50 mg/mL SDV 1mL 25 MG IV (09:47)
[2020-07-29] MEDS: palonosetron 0.25 mg/5 mL SDV IV (09:54)
[2020-07-29] MEDS: fosaprepitant 150 MG in sodium chloride 0.9% 150 ML 300 MG IV (10:12)
[2020-08-04] MEDS: sodium chloride 0.9% 1,000 ML 999 ML IV (13:48)
[2020-08-04] MEDS: famotidine 20 mg/2 mL INJ IVP (13:48)
[2020-08-04] MEDS: ondansetron 2 mg/ML SDV 2 mL 8 MG IVP (13:50)
[2020-08-04 13:51] LABS: Basophils # 0.1 10^3/uL (0.0-0.1); Basophils % 3.2 %; Eosinophils % 0.5 %; Hematocrit 35.3 % (37.0-47.0); Hemoglobin 11.7 g/dL (11.5-15.3); Lymphocytes # 1.3 10^3/uL (0.8-4.8); Lymphocytes % 34.6 %; Mean Corpuscular HGB Conc 33.1 g/dL (30.0-36.0); Mean Corpuscular Hemoglobin 31.4 pg (28.0-34.0); Mean Corpuscular Volume 94.6 fL (81-99); Mean Platelet Volume 9.7 fL (7.4-10.4); Monocytes # 0.1 10^3/uL (0.2-0.9); Monocytes % 3.7 %; Neutrophils # 2.06 10^3/uL (1.8-7.7); Neutrophils % 54.8 %; Nucleated Red Blood Cells % 0 %; Platelet Count 290 10^3/cmm (130-400); Red Blood Count 3.73 10^6/uL (4.1-5.3); Red Cell Distribution Width 13.8 % (12.1-15.1); White Blood Count 3.8 10^3/uL (4.0-10.0)
[2020-08-04 14:24] LABS: Alanine Aminotransferase 21 U/L (0-33); Albumin Level 3.9 g/dL (3.5-5.2); Alkaline Phosphatase 105 IU/L (35-105); Anion Gap 14.7 (5-19); Aspartate Amino Transferase 23 U/L (0-32); Blood Urea Nitrogen 22 mg/dL (6-20); Calcium 8.4 mg/dL (8.5-10.5); Carbon Dioxide 25 mmol/L (22-29); Chloride 99 mmol/L (98-107); Globulin 2.2 g/dL (1.3-4.6); Glomerular Filtration Rate 56.7 mL/min (90-130); Glucose 98 mg/dL (65-115); Osmolality Calculated 283 mOsm/kg (285-295); Potassium 3.7 mmol/L (3.5-5.1); Sodium 135 mmol/L (136-145); Total Bilirubin 0.5 mg/dL (0.15-1.2); Total Protein 6.1 g/dL (6.6-8.7)
[2020-08-04 14:30] LABS: Slide Review Slide Review Perform
--- NOTE | 2020-08-14 01:32 | ONC FU_ITS ---
[facility] Patient Note Patient: Yadira Lopez < Unit #: [id number]: 1960 Dictated By: Gil GarciaDate of Visit: Jul 29, 2020 Onc MED Follow-Up/Prog Note Chief Complaint: Breast cancer. History of Present Illness: Ms Lopez is a 60 year-old woman with grade 3 invasive ductal carcinoma of the left breast, by clinical evaluation stage IB (T2, N1, M0), ER/NV positive and HER-2/tina positive. She had presented to Dr. Guajardo with a palpable mass in the left breast. She had been aware of it for about a month. Diagnostic mammogram on March 16, 2020 showed a dominant mass in the upper outer quadrant of the left breast measuring 2.3 x 2.3 cm. Additional smaller dense surrounding satellite nodules were noted. Ultrasound showed an irregular dense hypoechoic lobulated lesion at the 2 o'clock position measuring 2.1 x 2.2 x 2.1 cm. The findings were highly suspicious for malignancy. Ultrasound of the left axilla showed a hypoechoic pathologic enlarged lymph node measuring 3.7 x 1.8 x 2.7 cm. On March 28, 2020 she underwent ultrasound directed biopsies of the breast mass and the enlarged left axillary lymph node. Pathology on the breast biopsy showed grade 3 infiltrating ductal carcinoma in the left axillary lymph node biopsy was positive for metastatic carcinoma. The breast prognostic profile showed ER positive at 98% and NV positive at 40%. The tumor was positive for overexpression of HER-2/tina, 3+ by IHC and amplification ratio by FISH of 2.7 with 7.6 HER-2 copies/cell. The Ki-67 was high at 65%. Dr Ramos had seen her initially on 04/15/2020. In the setting of lymph node positive HER-2/tina positive disease, she was recommended to undergo neoadjuvant chemotherapy. Her other medical illnesses include hypertension, hyperlipidemia, asthma, GERD, and anxiety/depression. She is a non-smoker. INTERIM HISTORY: On 05/20/2020 she began cycle 1 of neoadjuvant chemotherapy with TCH-P. She experienced multiple side effects including nausea/vomiting and diarrhea off and on during the first week after treatment. She also had generalized body aches. At day 12 she was neutropenic, but she had uneventful recovery with G-CSF. She continued with cycle 2 on 06/10/2020. It was administered with a 20% reduction in the dosages of both the carboplatin and the docetaxel. Despite that dose reduction, she continued to have significant side effects, including fatigue, nausea, and especially diarrhea. As such, her cycle 3 was delayed. Cycle 3 was given on July 08, 2020 and the carboplatin was stopped. She is received single agent docetaxel Perjeta Herceptin since that time. She is here today due for cycle 4 docetaxel. She has no new concerns. She states since stopping the carboplatin she has been feeling really good. She states she is eating good. Her energy is fair. She has no new concerns today. She denies any fever or chills. She states the nausea has gone. She has had no diarrhea or constipation. She denies any new pain. She states her breathing is good for her. Her ECOG is 1. Past Medical History: Anxiety Asthma Bilateral carpal tunnel syndrome Depression Gastroesophageal reflux disease Hyperlipidemia Hypertension Past Surgical History: Caesarean section Right subclavian Port-A-Cath placement per Dr. Ceballos in 2020 Ultrasound guided biopsy of left breast mass and left axillary lymph node in 2019 Bronchoscopy and cervical mediastinoscopy in 2014 Tonsillectomy in 2009 Hysterectomy/bilateral salpingectomy-oophorectomy in 1983 Allergies: Cephalexin, Codeine Sulfate, HYDROcodone-Acetaminophen, Morphine Sulfate, Penicillins, and Sulfa Antibiotics. Medications: Albuterol Sulfate HFA 2 Puff(s) (of 108 (90 base) mcg/act) Aerosol, solution Inhalation four times a day PRN Claritin 1 (10 mg) Tablet Oral daily clonazePAM 1 (0.5 mg) Tablet Oral daily Ibuprofen 1 (800 mg) Tablet Oral t.i.d. Lisinopril-hydroCHLOROthiazide 1 (10-12.5 mg) Tablet Oral daily Meloxicam 1 (15 mg) Tablet Oral daily Multi Vitamin 1 Tablet Oral daily Omeprazole 1 (40 mg) Capsule Delayed Release Oral daily Ondansetron HCl 1 Tablet (of 8 mg) Oral four times a day PRN PARoxetine HCl (40 mg) Tablet Oral Take as Directed PARoxetine HCl 1 (10 mg) Tablet Oral daily Prochlorperazine Maleate 1 Tablet (of 10 mg) Oral q 4 hours PRN Zetia 1 (10 mg) Tablet Oral daily Family History: Ms. Lopez's mother is alive: hypertension. Ms. Lopez's father is : esophageal cancer, and myocardial infarction at age 60. Ms. Lopez has 1 brother who is : sustained injuries at age 58. She has 1 sister who is alive: breast cancer. Father at age 60 with heart attack. He also had throat cancer. Mother still living at age 84. A brother in a boating accident. A 68-year-old sister is been treated for breast cancer. She is not aware of any other breast cancer or ovarian cancer in the family. Social History: Ms. Lopez is . Ms. Lopez has never smoked. She has no history of drinking. She is a non-smoker. She does not drink alcohol. Review Of Symptoms: see above Vital Signs: Performed on Jul 29, 2020 12:33 Height - 61.00 in Temperature - 98.4 F Pulse - 73 /min Respiration - 18 /min BP - 147/82 mm(hg) (HIGH) O2 Sat - 97 % Pain - 0,1 - No physically strenuous activity, but ambulatory and able to carry out light or sedentary work (e.g. office work, light house work). (ECOG) Physical Examination: Constitutional Alert, oriented, no acute distress. Skin pink, warm and dry. Head Normocephalic; atraumatic. Eyes Conjunctivae and sclerae are clear and without icterus. Pupils are reactive and equal. Back/Spine Non-tender to palpation. Extremities No visible deformities, no cyanosis, clubbing or edema. Musculoskeletal No tenderness or swelling, normal range of motion without obvious weakness. Integumentary No rashes or lesions. Neurologic No sensory or motor deficits, normal cerebellar function, normal gait. Psychiatric Alert and oriented times three. Coherent speech. Verbalizes understanding of our discussions today. Laboratory:Test performed on Jul 28, 2020 13:50 Sodium 143 mmol/L Potassium 3.7 mmol/L Chloride 103 mmol/L CO2 29 mmol/L Anion Gap 14.7 BUN 12 mg/dL Creatinine 1.1 mg/dL Cr Clearance (Est) 86.2800 mL/min eGFR 50.8 mL/min Glucose 104 mg/dL Osmolality - Calculated 296 mOsm/kg Calcium 8.9 mg/dL Protein, Total 6.4 g/dL Albumin 3.9 g/dL Globulin 2.5 g/dL Bilirubin, Total 0.3 mg/dL ALT (SGPT) 24 U/L AST (SGOT) 29 U/L Alkaline Phosphatase 100 IU/L WBC 7.4 10 3/uL RBC 3.62 10 6/uL HGB 11.3 g/dL HCT 34.2 % MCV 94.5 fL MCH 31.2 pg MCHC 33.0 g/dL RDW 13.6 % Platelet Count 315 10 3/cmm MPV 9.0 fL Neutrophils 5.04 10 3/uL Lymphocytes 1.6 10 3/uL Monocytes 0.6 10 3/uL Eosinophils 0.0 10 3/uL Basophils 0.1 10 3/uL Neutrophil % 68.5 % Lymphocyte % 21.6 % Monocyte % 7.6 % Eosinophil % 0.3 % Basophils % 1.0 % NRBC % 0 % Impression: 1. Grade 3 invasive ductal carcinoma of the left breast, by clinical evaluation stage at least IB (T2, N1, M0), ER/NV positive and HER-2/tina positive. 2. Hypertension. 3. Hyperlipidemia. 4. Asthma. 5. GERD. 6. Bilateral carpal tunnel syndrome. 7. Anxiety/depression. 8. She has a positive family history of breast cancer involving a first-degree relative (sister). She was found to be BRCA negative. Plan: PROBLEMS ADDRESSED TODAY 1. grade 3 invasive ductal carcinoma of the left breast, by clinical evaluation stage at least IB (T2, N1, M0), ER/NV positive and HER-2/tina positive. She began cycle 1 of neoadjuvant chemotherapy with TCH-P on 05/20/2020. She experienced multiple toxicities including nausea/vomiting, diarrhea, fatigue, generalized body aches, and neutropenia. She has had uneventful recovery. By clinical evaluation, she appeared to be showing some response to the chemotherapy. She will continued with cycle 2 of TCH-P on 06/10/2020. It was administered with a 20% dose reduction in the chemotherapy drugs. Despite that, she has continued to have significant GI toxicity, mainly diarrhea and abdominal pain. As such, her cycle 3 treatment was delayed. The carboplatin was omitted from her treatment regimen at with cycle 3. Since then she has dramatically improved and tolerated treatment much easier. Her treatment plan has also been reduced to 4 cycles. The Herceptin and Perjeta doses have remained the same. A. She will proceed with cycle 4 docetaxel Herceptin Perjeta today. B. She will be referred back to Dr. Ceballos for consideration of lumpectomy/lymph node sampling. C. She also be referred to [facility]. Dr. Conrado Vallecillo for radiation oncology consult. D. She will return here in 3 weeks to determine further follow-up plan is in regards to the Perjeta Herceptin. E. She will continue with weekly interim counts. F. She may have supportive care if needed. G. Ms. Lopez was instructed to contact us in interim should questions or problems arise. Signed By: Gil Garcia-, [facility] Daniel Ramos MD <<Signature on File>>
== END 2020-08-05 23:59 | disposition home or self-care (01) ==
LOC: ONCMED 05:38
PROVIDERS: Internal Medicine Medical Oncology; PCP Family Medicine; Visit Provider Internal Medicine Hematology & Oncology
DX: Z51.11 Encounter for antineoplastic chemotherapy (principal); C50.412 Malignant neoplasm of upper-outer quadrant of left female breast; Z17.0 Estrogen receptor positive status [ER+]; D70.1 Agranulocytosis secondary to cancer chemotherapy; T45.1X5A Adverse effect of antineoplastic and immunosuppressive drugs, initial encounter; I10 Essential (primary) hypertension; E78.5 Hyperlipidemia, unspecified; J45.909 Unspecified asthma, uncomplicated; K21.9 Gastro-esophageal reflux disease without esophagitis; G56.03 Carpal tunnel syndrome, bilateral upper limbs; F41.9 Anxiety disorder, unspecified; F32.9 Major depressive disorder, single episode, unspecified; Z80.3 Family history of malignant neoplasm of breast; Z79.899 Other long term (current) drug therapy
CPT/HCPCS: 36591; 80053; 85025; 96361; 96367; 96374; 96375; 96413; 96417; 99214; J1100; J1200; J1453; J2405; J2469; J3490; J7030; J7050; J9171; J9306; J9355

== ENCOUNTER 2020-08-22 05:39 | Outpatient (RCR) | payer BC, SELFPAY ==
[2020-08-11] MEDS: famotidine 20 mg/2 mL INJ IVP (09:56)
[2020-08-11] MEDS: ondansetron 2 mg/ML SDV 2 mL 8 MG IVP (09:58)
[2020-08-11] MEDS: sodium chloride 0.9% 1,000 ML 999 ML IV (10:00)
[2020-08-11 10:11] LABS: Basophils # 0.1 10^3/uL (0.0-0.1); Basophils % 1.8 %; Eosinophils % 0.7 %; Hematocrit 33.9 % (37.0-47.0); Hemoglobin 11.1 g/dL (11.5-15.3); Lymphocytes # 1.5 10^3/uL (0.8-4.8); Lymphocytes % 33.7 %; Mean Corpuscular HGB Conc 32.7 g/dL (30.0-36.0); Mean Corpuscular Hemoglobin 31.3 pg (28.0-34.0); Mean Corpuscular Volume 95.5 fL (81-99); Monocytes # 1.3 10^3/uL (0.2-0.9); Monocytes % 27.6 %; Neutrophils # 1.57 10^3/uL (1.8-7.7); Neutrophils % 34.2 %; Nucleated Red Blood Cells % 0 %; Platelet Count 358 10^3/cmm (130-400); Red Blood Count 3.55 10^6/uL (4.1-5.3); Red Cell Distribution Width 13.8 % (12.1-15.1); White Blood Count 4.6 10^3/uL (4.0-10.0)
[2020-08-11] MEDS: loperamide 2 mg Capsule PO (10:25)
[2020-08-11 10:44] LABS: Alanine Aminotransferase 14 U/L (0-33); Albumin Level 3.9 g/dL (3.5-5.2); Alkaline Phosphatase 114 IU/L (35-105); Anion Gap 13.6 (5-19); Aspartate Amino Transferase 17 U/L (0-32); Blood Urea Nitrogen 11 mg/dL (6-20); Calcium 8.9 mg/dL (8.5-10.5); Carbon Dioxide 26 mmol/L (22-29); Chloride 103 mmol/L (98-107); Globulin 2.1 g/dL (1.3-4.6); Glomerular Filtration Rate 56.7 mL/min (90-130); Glucose 109 mg/dL (65-115); Osmolality Calculated 288 mOsm/kg (285-295); Potassium 3.6 mmol/L (3.5-5.1); Sodium 139 mmol/L (136-145); Total Bilirubin 0.3 mg/dL (0.15-1.2)
[2020-08-19] MEDS: famotidine 20 mg/2 mL INJ IVP (10:31)
[2020-08-19] MEDS: ondansetron 2 mg/ML SDV 2 mL 8 MG IVP (10:32)
[2020-08-19] MEDS: sodium chloride 0.9% 500 ML 999 ML IV (10:34)
[2020-08-19 10:56] LABS: Basophils # 0.1 10^3/uL (0.0-0.1); Basophils % 1.2 %; Eosinophils % 0.4 %; Hematocrit 33.5 % (37.0-47.0); Hemoglobin 11.1 g/dL (11.5-15.3); Lymphocytes # 1.5 10^3/uL (0.8-4.8); Lymphocytes % 19.8 %; Mean Corpuscular HGB Conc 33.1 g/dL (30.0-36.0); Mean Corpuscular Hemoglobin 31.6 pg (28.0-34.0); Mean Corpuscular Volume 95.4 fL (81-99); Mean Platelet Volume 8.9 fL (7.4-10.4); Monocytes # 0.7 10^3/uL (0.2-0.9); Monocytes % 8.8 %; Neutrophils # 5.27 10^3/uL (1.8-7.7); Neutrophils % 68.5 %; Nucleated Red Blood Cells % 0 %; Platelet Count 267 10^3/cmm (130-400); Red Blood Count 3.51 10^6/uL (4.1-5.3); Red Cell Distribution Width 14.3 % (12.1-15.1); White Blood Count 7.7 10^3/uL (4.0-10.0)
[2020-08-19 11:24] LABS: Alanine Aminotransferase 16 U/L (0-33); Albumin Level 3.8 g/dL (3.5-5.2); Alkaline Phosphatase 92 IU/L (35-105); Anion Gap 14.1 (5-19); Aspartate Amino Transferase 20 U/L (0-32); Blood Urea Nitrogen 9 mg/dL (6-20); Calcium 8.8 mg/dL (8.5-10.5); Carbon Dioxide 27 mmol/L (22-29); Chloride 105 mmol/L (98-107); Globulin 2.1 g/dL (1.3-4.6); Glomerular Filtration Rate 64.1 mL/min (90-130); Glucose 107 mg/dL (65-115); Osmolality Calculated 295 mOsm/kg (285-295); Potassium 3.1 mmol/L (3.5-5.1); Sodium 143 mmol/L (136-145); Total Bilirubin 0.4 mg/dL (0.15-1.2); Total Protein 5.9 g/dL (6.6-8.7)
--- NOTE | 2020-08-22 09:33 | ONC FU_ITS ---
Dr. Ramos Patient Follow-Up Note Patient: Yadira Lopez Unit #: [id number]: 1960 Dicatated By: Daniel Ramos M.D.Date of Visit:August 22, 2020 Onc Med Follow-up/Prog Note Chief Complaint: Breast cancer. History of Present Illness: This is a 60 year-old woman with grade 3 invasive ductal carcinoma of the left breast, by clinical evaluation stage IB (T2, N1, M0), ER/NY positive and HER-2/tina positive. She had presented to Dr. Guajardo with a palpable mass in the left breast. She had been aware of it for about a month. Diagnostic mammogram on March 16, 2020 showed a dominant mass in the upper outer quadrant of the left breast measuring 2.3 x 2.3 cm. Additional smaller dense surrounding satellite nodules were noted. Ultrasound showed an irregular dense hypoechoic lobulated lesion at the 2 o'clock position measuring 2.1 x 2.2 x 2.1 cm. The findings were highly suspicious for malignancy. Ultrasound of the left axilla showed a hypoechoic pathologic enlarged lymph node measuring 3.7 x 1.8 x 2.7 cm. On March 28, 2020 she underwent ultrasound directed biopsies of the breast mass and the enlarged left axillary lymph node. Pathology on the breast biopsy showed grade 3 infiltrating ductal carcinoma in the left axillary lymph node biopsy was positive for metastatic carcinoma. The breast prognostic profile showed ER positive at 98% and [place] positive at 40%. The tumor was positive for overexpression of HER-2/tina, 3+ by IHC and amplification ratio by FISH of 2.7 with 7.6 HER-2 copies/cell. The Ki-67 was high at 65%. I had seen her initially on 04/15/2020. In the setting of lymph node positive HER-2/tina positive disease, she was recommended to undergo neoadjuvant chemotherapy. Her other medical illnesses include hypertension, hyperlipidemia, asthma, GERD, and anxiety/depression. She is a non-smoker. INTERIM HISTORY: On 05/20/2020 she began cycle 1 of neoadjuvant chemotherapy with TCH-P. She experienced multiple side effects including nausea/vomiting and diarrhea off and on during the first week after treatment. She also had generalized body aches. At day 12 she was neutropenic, but she had uneventful recovery with G-CSF. She continued with cycle 2 on 06/10/2020. It was administered with a 20% reduction in the dosages of both the carboplatin and the docetaxel. Despite that dose reduction, she continued to have significant side effects, including fatigue, nausea, and especially diarrhea. As such, her cycle 3 was delayed 1 week to allow additional recovery, and with that cycle I did opt to omit carboplatin from the regimen. She tolerated it much better and she then continued with cycle 4 on 07/29/2020. She is seen for a scheduled visit. Since her last treatment she has had follow-up with Dr. Ceballos, and she is scheduled to have her lumpectomy/axillary node sampling later this week. She is feeling much better generally. She has pretty good energy now. Her ECOG score is 1. Her appetite also is improving. She does not have fever, night sweats, or hot flashes. She is having some sinus drainage. She has not had sore mouth or throat. She does not complain of cough, shortness of breath, or chest pain. She still has occasional nausea. She has no other GI or complaints. She has a little aching in the joints. She has had a little bit of headache. She has occasional orthostatic lightheadedness. She has no numbness/paresthesia or other neuropathy symptoms. Medications: Albuterol Sulfate HFA 2 Puff(s) (of 108 (90 base) mcg/act) Aerosol, solution Inhalation four times a day PRN, Claritin 1 (10 mg) Tablet Oral daily, clonazePAM 1 (0.5 mg) Tablet Oral daily, Ibuprofen 1 (800 mg) Tablet Oral t.i.d., Lisinopril-hydroCHLOROthiazide 1 (10-12.5 mg) Tablet Oral daily, Meloxicam 1 (15 mg) Tablet Oral daily, Multi Vitamin 1 Tablet Oral daily, Omeprazole 1 (40 mg) Capsule Delayed Release Oral daily, Ondansetron HCl 1 Tablet (of 8 mg) Oral four times a day PRN, PARoxetine HCl (40 mg) Tablet Oral Take as Directed, PARoxetine HCl 1 (10 mg) Tablet Oral daily, Prochlorperazine Maleate 1 Tablet (of 10 mg) Oral q 4 hours PRN, Zetia 1 (10 mg) Tablet Oral daily Allergies: Cephalexin, Codeine Sulfate, HYDROcodone-Acetaminophen, Morphine Sulfate, Penicillins, and Sulfa Antibiotics. Vital Signs: Performed on August 22, 2020 09:02 Height - 61.00 in Weight - 208.4 lbs (LOW) BSA - 1.92 sq.m BMI - 39.38 (HIGH) Temperature - 97.7 F (LOW) Pulse - 103 /min (HIGH) Respiration - 17 /min BP - 148/77 mm(hg) (HIGH) O2 Sat - 97 % Pain - 0 Physical Examination: Constitutional - She looks pretty good generally, Eyes - Sclerae nonicteric. Conjunctivae clear, ENMT - No lesions noted in the oral cavity, Hematologic/Lymphatic - No cervical or clavicular adenopathy, Respiratory - Lungs are clear with good air movement bilaterally, Cardiovascular - Heart rhythm is regular. There is no murmur, gallop, or rub noted, Breasts - There is residual nodule in the upper outer quadrant of the left breast which measures about 2 cm. There is no axillary adenopathy, Abdomen - Mildly distended but soft. Liver and spleen are not enlarged. There is no abdominal mass or ascites noted and there is no inguinal adenopathy, Extremities - No edema, Neurologic - No focal neurologic deficits noted. Lab/Imaging: CBC shows hemoglobin 11.1 g, white blood cell count 7700, and platelet count 267,000. Comprehensive metabolic profile is unremarkable except for low potassium at 3.1 mmol/L. Problem List: 1. Grade 3 invasive ductal carcinoma of the left breast, by clinical evaluation stage at least IB (T2, N1, M0), ER/[place] positive and HER-2/tina positive. 2. Hypertension. 3. Hyperlipidemia. 4. Asthma. 5. GERD. 6. Bilateral carpal tunnel syndrome. 7. Anxiety/depression. 8. She has a positive family history of breast cancer involving a first-degree relative (sister). She was found to be BRCA negative. Problems Addressed with this Encounter and Plan: 1. Patient with grade 3 invasive ductal carcinoma of the left breast, by clinical evaluation stage at least IB (T2, N1, M0), ER/[place] positive and HER-2/tian positive. She began cycle 1 of neoadjuvant chemotherapy with TCH-P on 05/20/2020. She experienced multiple toxicities including nausea/vomiting, diarrhea, fatigue, generalized body aches, and neutropenia. She has had uneventful recovery. By clinical evaluation, she appeared to be showing some response to the chemotherapy. She will continued with cycle 2 of TCH-P on 06/10/2020. It was administered with a 20% dose reduction in the chemotherapy drugs. Despite that, she has continued to have significant GI toxicity, mainly diarrhea and abdominal pain. As such, her cycle 3 treatment was delayed 1 week And with that cycle the carboplatin was omitted from the regimen. She tolerated that treatment much better, and she continued with cycle 4 on 07/29/2020. She has completed her neoadjuvant chemotherapy and she is scheduled to have her lumpectomy/axillary node sampling on 08/25/2020. In the meantime, she will be continuing treatment with Herceptin/Perjeta at 3-week intervals, and she is due for her 1st cycle today. The dosages will remain the same. She will be scheduled for a follow-up visit in 3 weeks. She will have radiation oncology consultation with Dr. Vallecillo when we have the pathology results available from the lumpectomy procedure. 2. She has mild hypokalemia. She will be started on an oral potassium supplement, 10 mEq daily. Signed By: Daniel Ramos M.D. <<Signature on File>>
[2020-08-22] MEDS: acetaminophen 325 mg Tablet 650 MG PO (09:40)
[2020-08-22] MEDS: sodium chloride 0.9% 250 ML 75 ML IV (09:41)
[2020-08-22] MEDS: famotidine 20 mg/2 mL INJ IVP (09:41)
[2020-08-22] MEDS: diphenhydrAMINE 50 mg/mL SDV 1mL 25 MG IVP (09:43)
== END 2020-09-05 23:59 | disposition home or self-care (01) ==
LOC: ONCMED 05:39
PROVIDERS: Nurse Practitioner; PCP Family Medicine; Visit Provider Internal Medicine Medical Oncology
DX: Z51.11 Encounter for antineoplastic chemotherapy (principal); C50.412 Malignant neoplasm of upper-outer quadrant of left female breast; Z17.0 Estrogen receptor positive status [ER+]; D70.1 Agranulocytosis secondary to cancer chemotherapy; T45.1X5A Adverse effect of antineoplastic and immunosuppressive drugs, initial encounter; I10 Essential (primary) hypertension; E78.5 Hyperlipidemia, unspecified; J45.909 Unspecified asthma, uncomplicated; K21.9 Gastro-esophageal reflux disease without esophagitis; G56.03 Carpal tunnel syndrome, bilateral upper limbs; F41.9 Anxiety disorder, unspecified; F32.9 Major depressive disorder, single episode, unspecified; Z80.3 Family history of malignant neoplasm of breast; Z79.899 Other long term (current) drug therapy
CPT/HCPCS: 80053; 85025; 87635; 96361; 96374; 96375; 96413; 96417; 99214; J1200; J2405; J3490; J7030; J7040; J7050; J9306; J9355

== ENCOUNTER 2020-08-25 09:14 | Day surgery (SDC) | payer BC, SELFPAY ==
[2020-08-24 15:15] VITALS: BMI 39.2
[2020-08-25] VITALS (9 sets, daily range): BP systolic 126–163; BP diastolic 49–93; PULSE 93–111; RESP 13–20; TEMP 36.3–36.5; O2SAT 93–100
[2020-08-25] MEDS: sodium chloride 0.9% 1,000 ML 30 ML IV (09:57)
--- NOTE | 2020-08-25 10:06 | ANES.PREANE2 ---
Pre-Anesthetic Assessment Pre-Anesthetic Assessment: Height/Weight: Height 1.55 m Weight 94.347 kg Temp Pulse Resp BP Pulse Ox 97.3 F L 99 18 140/93 94 08/25/20 09:54 08/25/20 09:54 08/25/20 09:54 08/25/20 09:54 08/25/20 09:54 Preop Diagnosis: Node positive left breast cancer. Proposed Procedure: Operation Date: 08/25/20 11:10 Proposed Procedures p Left Breast Lumpectomy/Left Axillary Lymph Node Sampling NO RAD NEEDED per (Left) - Asif Ceballos MD Was Beta Seun taken within 24 hours: N/A Was Clonidine taken within 24 hours: N/A Last intake: Intake Last Liquid Date 08/24/20 Last Liquid Time 20:00 Last Solid Date 08/24/20 Last Solid Time 20:00 Social: Social History: No alcohol and No tobacco Exam: Pre-Anes Outpt Exam: alert, oriented x 3, clear to auscultation bilaterally and regular rate & rhythm Airway: Submandibular: WNL Cervical ROM: WNL MP: 1 History/ROS: No significant complaints Pulmonary: Pulmonary: Asthma CV/HEM: CV/HEM: HTN : : None reported Hepatic: Hepatic: None reported GI: GI: GERD Comments: Well controlled Musc/skel: Musc/skel: None reported Neuropsych: Neuropsych: Depression Anesthetic Plan: ASA status: 3 Anesthesia: General PFSH Anesthesia PFSH: Medical History Breast CA Data Anesthesia Cardiac Studies: No Data to Display
[2020-08-25] MEDS: midazolam 1 mg/mL INJ 2 mL 2 MG IVP (10:23)
[2020-08-25] MEDS: clindamycin 900 MG/50 ML PREMIX 100 MG IV (11:11)
--- NOTE | 2020-08-25 12:02 | P.OP_ITS ---
Operative Report Date of procedure: August 25, 2020 Pre-op Diagnosis: Node positive left breast cancer, status post neoadjuvant therapy. Post-op diagnosis: same Procedure Done: 1. Left breast lumpectomy. 2. Left axillary node sampling/superficial lymphadenectomy. Specimens removed/disposition: 1. Left breast lumpectomy specimen. Long suture anteriorly, short suture laterally. 2. Left axillary lymph nodes. Surgeon: Asif Ceballos Anesthesia: General Estimated blood loss (mL): 10 Complications: None. Condition: stable Disposition: PACU Procedure: The patient was brought to the operating room and was placed in a supine position on the operating room table. General anesthesia was induced by means of a laryngeal mask airway. The left breast and left axilla were prepped and draped in a sterile fashion. A combination of 1% lidocaine with 1 to 100,000 parts epinephrine and 0.5% bupivacaine was used for local anesthesia throughout the procedures. Attention was first directed to the left breast where the patient had a palpable mass at the 3:00 axis somewhat laterally. A curvilinear incision was carried out over the area of the mass and cautery was used to enter the breast tissue. An attempt was made to excise a normal rim of breast tissue all the way around the palpable mass. Before the mass was excised with the surrounding breast tissue it was oriented with a long suture anteriorly and a short suture laterally for pathologic orientation. No remaining abnormalities were seen or felt anywhere in the wound. The wound was irrigated with saline. The dermis was brought together with some inverted sutures of 3-0 Vicryl and the skin was approximated using a running subcuticular suture of 4-0 Vicryl. A curvilinear incision was then carried out just underneath the hairbearing area of the left axilla. Once again, cautery was used to divide the subcutaneous tissue and the axilla was entered. The patient was found to have some palpable lymph nodes in the mid axilla and somewhat anteriorly. These were carefully freed using a combination of cautery and blunt dissection and eventually were excised en bloc as a superficial lymphadenectomy specimen. No other palpable nodes were felt anywhere in the axilla after the after mentioned nodes have been removed. The wound was irrigated with saline. Hemostasis was good. The subcutaneous tissue was brought together using several simple sutures of 3-0 Vicryl and the skin was reapproximated using a running subcuticular suture of 4- 0 Vicryl. Benzoin and Steri-Strips were placed over the incisions and a sterile fluff dressing was then applied. The patient was taken to the recovery area in stable condition postoperatively.
[2020-08-25] MEDS: fentaNYL 50 mcg/mL INJ 2mL IVP ×2 (12:27→12:32)
--- NOTE | 2020-08-25 12:33 | ANE.PACU2 ---
Inpatient post-anesthesia follow up: Airway intact: Yes Vital signs: Temperature 97.3 F Pulse Rate 100 Respiratory Rate 18 Blood Pressure 126/73 Pulse Oximetry 93 Oxygen Delivery Me thod Room Air Oxygen Flow Rate 10 Fraction of Inspir ed Oxygen Hydration adequate: Yes Nausea and vomiting: No Pain level: 2 Mental status: Baseline
--- NOTE | 2020-08-25 18:10 | W.PM.OPSUD ---
Surgery/Procedure H&P Update DATE OF PROCEDURE: August 25, 2020 DATE H&P PERFORMED: 04/19/20 H&P UPDATE INFORMATION: No changes to prior documentation PREOP DIAGNOSIS: Node positive left breast cancer, status post neoadjuvant therapy. PLANNED PROCEDURE: Operation Date: 08/25/20 11:10 Proposed Procedures p Left Breast Lumpectomy/Left Axillary Lymph Node Sampling NO RAD NEEDED per (Left) - Asif Ceballos MD
== END 2020-08-25 13:30 | disposition home or self-care (01) ==
PROVIDERS: PCP Family Medicine; Visit Provider Surgery
PROC: (CPT 19301; principal; 2020-08-25 11:00)
DX: C50.412 Malignant neoplasm of upper-outer quadrant of left female breast (principal); I10 Essential (primary) hypertension; K21.9 Gastro-esophageal reflux disease without esophagitis; F32.9 Major depressive disorder, single episode, unspecified; Z82.49 Family history of ischemic heart disease and other diseases of the circulatory system; Z83.3 Family history of diabetes mellitus
CPT/HCPCS: 19301; 38500; 88305; J1100; J2250; J2405; J2704; J3010; J3490; J7030

== ENCOUNTER 2020-09-27 05:50 | Outpatient (RCR) | payer BC, SELFPAY ==
[2020-09-12 09:36] LABS: Basophils # 0.1 10^3/uL (0.0-0.1); Basophils % 1.2 %; Eosinophils # 0.3 10^3/uL (0.0-0.8); Eosinophils % 4.1 %; Hematocrit 35.8 % (37.0-47.0); Hemoglobin 11.7 g/dL (11.5-15.3); Lymphocytes # 1.5 10^3/uL (0.8-4.8); Mean Corpuscular HGB Conc 32.7 g/dL (30.0-36.0); Mean Platelet Volume 9.1 fL (7.4-10.4); Monocytes # 0.5 10^3/uL (0.2-0.9); Neutrophils # 4.93 10^3/uL (1.8-7.7); Neutrophils % 67.4 %; Nucleated Red Blood Cells % 0 %; Platelet Count 324 10^3/cmm (130-400); Red Blood Count 3.77 10^6/uL (4.1-5.3); White Blood Count 7.3 10^3/uL (4.0-10.0)
[2020-09-12 09:54] LABS: Alanine Aminotransferase 13 U/L (0-33); Alkaline Phosphatase 93 IU/L (35-105); Anion Gap 15.2 (5-19); Aspartate Amino Transferase 19 U/L (0-32); Blood Urea Nitrogen 19 mg/dL (6-20); Carbon Dioxide 25 mmol/L (22-29); Chloride 103 mmol/L (98-107); Globulin 2.2 g/dL (1.3-4.6); Glomerular Filtration Rate 64.1 mL/min (90-130); Glucose 98 mg/dL (65-115); Osmolality Calculated 292 mOsm/kg (285-295); Potassium 3.2 mmol/L (3.5-5.1); Sodium 140 mmol/L (136-145); Total Bilirubin 0.3 mg/dL (0.15-1.2); Total Protein 6.2 g/dL (6.6-8.7)
[2020-09-12] MEDS: famotidine 20 mg/2 mL INJ IVP (12:27)
[2020-09-12] MEDS: acetaminophen 325 mg Tablet 650 MG PO (12:27)
[2020-09-12] MEDS: sodium chloride 0.9% 250 ML 75 ML IV (12:27)
[2020-09-12] MEDS: diphenhydrAMINE 50 mg/mL SDV 1mL 25 MG IV (12:29)
[2020-09-12] MEDS: diphenoxylate/atropine Tablet 1 TAB PO (13:15)
--- NOTE | 2020-09-21 10:58 | N.ONRAD NP_ITS ---
Radiation Oncology Consultation Patient Name: Yadira Lopez Date of : 1960 Date of Service: 09/21/2020 Attending Physician: Conrado Vallecillo M.D. Yadira Lopez was seen in consultation this morning at the request of Daniel Ramos M.D. for consideration of postmastectomy radiotherapy for the management of a locally advanced breast cancer. She was evaluated with a diagnostic mammogram and subsequent ultrasonography after presenting with a palpable left breast mass in March 2020. A diagnostic mammogram performed on March 16, 2020 (mammogram personally visualized in [facility]) identified a 2.3 cm x 2.3 cm mass in the upper outer quadrant of the left breast associated with surrounding satellite nodules. Ultrasonography confirmed a hypoechoic lobulated lesion at the 2 o'clock position within the left breast 4 cm from the nipple and additional five satellite lesions measuring 5 mm to 1 cm. Also noted was a pathologically enlarged left axillary lymph node measuring 3.7 cm x 1.8 cm x 2.7 cm. A needle core biopsy completed on March 29, 2020 diagnosed a grade 3 invasive ductal carcinoma with a metastatic deposit within a left axillary lymph node (clinical stage IB ??? T2N1a). The breast cancer profile demonstrated estrogen receptor positivity (98%), progesterone receptor positivity (40%), and HER-2 positivity (3+; ratio 2.7). The Ki???67 was 65%. She received neoadjuvant chemotherapy consisting of Taxotere, carboplatin, Herceptin, and Perjeta. Cycle 1 began on May 20, 2020 through cycle 4 ending on July 29, 2020. A left partial mastectomy with sentinel lymph node sampling was performed by Asif Ceballos M.D. on August 25, 2020. The pathology report (independently reviewed in [facility]) confirmed a residual 1.5 cm grade 3 invasive ductal carcinoma with 2 out of 3 axillary lymph nodes harboring metastatic disease (largest focus 1.6 cm with JUAN C). The closest surgical margin was 2 mm. She has received 2 cycles of Perjeta and Herceptin (August 23, 2019 through September 12, 2020). The patient was evaluated for adjuvant radiotherapy. Following a discussion concerning Ms. Lopez's disease history, adjuvant radiotherapy is recommended as per The National Comprehensive Cancer Network Guidelines. I reviewed the AJCC staging and specifically the patient's pathological stage yIB (T1cN1a) breast cancer. I also discussed the classic studies by the [employer] [facility] and the Early Breast Cancer Trialists??? Collaborative Group. She is aware that these studies demonstrated an overall survival improvement in patients treated with post-mastectomy radiotherapy with extrapolation to patients electing lumpectomy. I would endorse a five week course of adjuvant left breast and regional lymph node radiotherapy. An additional week will be administered to the surgical bed at the conclusion of the whole breast treatment as a consequence of the patient's high-grade tumor characteristics in accordance to the [facility]AH guidelines. A computed tomographic radiotherapy planning scan with contrast in the treatment position will be acquired to identify the clinical tumor volumes prior to beginning treatment. The potential toxicities of breast and regional lymph node irradiation were canvassed. The patient has verbalized understanding would like to proceed as recommended. The patient's medical treatment plan was discussed with Daniel Ramos M.D. Signed by: Dr. Conrado Vallecillo 09/27/2020 9:36:54 AM
--- NOTE | 2020-09-21 22:38 | ONC FU_ITS ---
[facility] Patient Note Patient: Yadira Lopez Unit #: [id number]: 1960 Dictated By: Gil GarciaDate of Visit: Sep 12, 2020 Onc MED Follow-Up/Prog Note Chief Complaint: Breast cancer. History of Present Illness: Ms Lopez is a 60 year-old woman with grade 3 invasive ductal carcinoma of the left breast, by clinical evaluation stage IB (T2, N1, M0), ER/AL positive and HER-2/tina positive. She had presented to Dr. Guajardo with a palpable mass in the left breast. She had been aware of it for about a month. Diagnostic mammogram on March 16, 2020 showed a dominant mass in the upper outer quadrant of the left breast measuring 2.3 x 2.3 cm. Additional smaller dense surrounding satellite nodules were noted. Ultrasound showed an irregular dense hypoechoic lobulated lesion at the 2 o'clock position measuring 2.1 x 2.2 x 2.1 cm. The findings were highly suspicious for malignancy. Ultrasound of the left axilla showed a hypoechoic pathologic enlarged lymph node measuring 3.7 x 1.8 x 2.7 cm. On March 28, 2020 she underwent ultrasound directed biopsies of the breast mass and the enlarged left axillary lymph node. Pathology on the breast biopsy showed grade 3 infiltrating ductal carcinoma in the left axillary lymph node biopsy was positive for metastatic carcinoma. The breast prognostic profile showed ER positive at 98% and AL positive at 40%. The tumor was positive for overexpression of HER-2/tina, 3+ by IHC and amplification ratio by FISH of 2.7 with 7.6 HER-2 copies/cell. The Ki-67 was high at 65%. Dr Ramos had seen her initially on 04/15/2020. In the setting of lymph node positive, HER-2/tina positive disease, she was recommended to undergo neoadjuvant chemotherapy. Her other medical illnesses include hypertension, hyperlipidemia, asthma, GERD, and anxiety/depression. She is a non-smoker. INTERIM HISTORY: On 05/20/2020 she began cycle 1 of neoadjuvant chemotherapy with TCH-P. She experienced multiple side effects including nausea/vomiting and diarrhea off and on during the first week after treatment. She also had generalized body aches. At day 12 she was neutropenic, but she had uneventful recovery with G-CSF. She continued with cycle 2 on 06/10/2020. It was administered with a 20% reduction in the dosages of both the carboplatin and the docetaxel. Despite that dose reduction, she continued to have significant side effects, including fatigue, nausea, and especially diarrhea. As such, her cycle 3 was delayed 1 week to allow additional recovery, and with that cycle Dr Ramos did opt to omit carboplatin from the regimen. She tolerated it much better and she then continued with cycle 4 on 07/29/2020. On August 25, 2020 she underwent excision of the left breast mass, long suture anterior, short suture lateral, lumpectomy and left axillary lymph node biopsy. The left breast mass reported residual invasive ductal carcinoma post treatment with lymphovascular invasion identified. Margins are uninvolved and negative. Closest margin was anterior, 0.2 cm from the tumor. Lymph node left axillary excision reported metastatic carcinoma involving 2 of 3 lymph nodes largest focus was 1.6 cm with extra capsular extension identified within 1 lymph node. Her pathology reports her TNM staging/classification as: ypT1c pN1a. ER positive at 98% AL positive at 40%, HER-2/tina 3+ positive, Ki 67%: 65%. Mrs. Lopez is here today for follow-up. She is due for cycle 2 Herceptin Perjeta. She states overall she is tolerated well. She did have some intermittent diarrhea but that has now subsided. She states that Imodium helps some but did not control it completely. We will send her prescription in for Lomotil. She states otherwise she feels pretty good. She denies any shortness of breath orthopnea. She denies any fever or chills. She denies any lower extremity edema. She states she has not had any chest pain or palpitations. She states that she worked last night and she is tired but overall she feels pretty good. She remains on her oral potassium supplement and does not have any bowel or bladder. She denies any residual neuropathy. She denies any pain. Her ECOG is 0. It. It is noted that her potassium is low at 3.2 but she did not take any medications this morning including her blood pressure medicine. Her blood pressure initially was 137/96. She states that when she takes her blood pressure medicine the blood pressure will return to normal. She denies any Past Medical History: Anxiety Asthma Bilateral carpal tunnel syndrome Depression Gastroesophageal reflux disease Hyperlipidemia Hypertension Past Surgical History: Caesarean section Hysterectomy/bilateral salpingectomy-oophorectomy Left breast mass and left axillary node excision-Dr Ceballos in 2020 Right subclavian Port-A-Cath placement per Dr. Ceballos in 2020 Ultrasound guided biopsy of left breast mass and left axillary lymph node in 2019 Bronchoscopy and cervical mediastinoscopy in 2014 Tonsillectomy in 2009 Allergies: Cephalexin, Codeine Sulfate, HYDROcodone-Acetaminophen, Morphine Sulfate, Penicillins, and Sulfa Antibiotics. Medications: Albuterol Sulfate HFA 2 Puff(s) (of 108 (90 base) mcg/act) Aerosol, solution Inhalation four times a day PRN Claritin 1 (10 mg) Tablet Oral daily clonazePAM 1 (0.5 mg) Tablet Oral daily Ibuprofen 1 (800 mg) Tablet Oral t.i.d. Lisinopril-hydroCHLOROthiazide 1 (10-12.5 mg) Tablet Oral daily Meloxicam 1 (15 mg) Tablet Oral daily Multi Vitamin 1 Tablet Oral daily Omeprazole 1 (40 mg) Capsule Delayed Release Oral daily Ondansetron HCl 1 Tablet (of 8 mg) Oral four times a day PRN PARoxetine HCl (40 mg) Tablet Oral Take as Directed PARoxetine HCl 1 (10 mg) Tablet Oral daily Prochlorperazine Maleate 1 Tablet (of 10 mg) Oral q 4 hours PRN Zetia 1 (10 mg) Tablet Oral daily Family History: Ms. Lopez's mother is alive: hypertension. Ms. Lopez's father is : esophageal cancer, and myocardial infarction at age 60. Ms. Lopez has 1 brother who is : sustained injuries at age 58. She has 1 sister who is alive: breast cancer. Father at age 60 with heart attack. He also had throat cancer. Mother still living at age 84. A brother in a boating accident. A 68-year-old sister is been treated for breast cancer. She is not aware of any other breast cancer or ovarian cancer in the family. Social History: Ms. Lopez is . Ms. Lopez has never smoked. She has no history of drinking. She is a non-smoker. She does not drink alcohol. Review Of Symptoms: <See Above> Vital Signs: Performed on Sep 12, 2020 13:45 Height - 61.00 in Temperature - 96.1 F (LOW) Pulse - 90 /min Respiration - 18 /min BP - 122/58 mm(hg) O2 Sat - 100 % Performed on Sep 12, 2020 11:34 Height - 61.00 in Weight - 202.8 lbs (LOW) BSA - 1.90 sq.m BMI - 38.32 (HIGH) Temperature - 97.2 F (LOW) Pulse - 90 /min Respiration - 18 /min BP - 137/96 mm(hg) O2 Sat - 97 % Pain - 5 Fatigue - 6,0 - Fully active, able to carry on all predisease activities without restrictions. (ECOG) Physical Examination: Constitutional Alert, oriented, no acute distress. Skin pink, warm and dry. Head Normocephalic; atraumatic. Eyes Conjunctivae and sclerae are clear and without icterus. Pupils are reactive and equal. Neck Supple without masses or thyromegaly. No jugular venous distension. Hematologic/Lymphatic No petechiae or purpura. No tender or palpable lymph nodes in the cervical or supraclavicular areas. Respiratory Lungs are clear to auscultation without rhonchi or wheezing. Cardiovascular Regular rate and rhythm of heart without murmurs,clicks, gallops or rubs. Chest Chest is symmetric without chest wall deformities. Right chest wall venous access device is unremarkable and has healed well Breasts Left breast excision/lymph node biopsy site has healed well. Back/Spine Non-tender to palpation. Extremities No visible deformities, no cyanosis, clubbing or edema. Musculoskeletal No tenderness or swelling, normal range of motion without obvious weakness. Integumentary No rashes or lesions. Neurologic No sensory or motor deficits, normal cerebellar function, normal gait. Psychiatric Alert and oriented times three. Coherent speech. Verbalizes understanding of our discussions today. Laboratory:Test performed on Sep 12, 2020 09:23 Sodium 140 mmol/L Potassium 3.2 mmol/L Chloride 103 mmol/L CO2 25 mmol/L Anion Gap 15.2 BUN 19 mg/dL Creatinine 0.9 mg/dL Cr Clearance (Est) 100.4400 mL/min eGFR 64.1 mL/min Glucose 98 mg/dL Osmolality - Calculated 292 mOsm/kg Calcium 9.0 mg/dL Protein, Total 6.2 g/dL Albumin 4.0 g/dL Globulin 2.2 g/dL Bilirubin, Total 0.3 mg/dL ALT (SGPT) 13 U/L AST (SGOT) 19 U/L Alkaline Phosphatase 93 IU/L WBC 7.3 10 3/uL RBC 3.77 10 6/uL HGB 11.7 g/dL HCT 35.8 % MCV 95.0 fL MCH 31.0 pg MCHC 32.7 g/dL RDW 13.0 % Platelet Count 324 10 3/cmm MPV 9.1 fL Neutrophils 4.93 10 3/uL Lymphocytes 1.5 10 3/uL Monocytes 0.5 10 3/uL Eosinophils 0.3 10 3/uL Basophils 0.1 10 3/uL Neutrophil % 67.4 % Lymphocyte % 20.0 % Monocyte % 7.0 % Eosinophil % 4.1 % Basophils % 1.2 % NRBC % 0 % Impression: 1. Grade 3 invasive ductal carcinoma of the left breast, by clinical evaluation stage at least IB (T2, N1, M0), ER/AL positive and HER-2/tian positive. 2. Hypertension. 3. Hyperlipidemia. 4. Asthma. 5. GERD. 6. Bilateral carpal tunnel syndrome. 7. Anxiety/depression. 8. She has a positive family history of breast cancer involving a first-degree relative (sister). She was found to be BRCA negative. Plan/Problems Addressed at this Visit: 1. Patient with grade 3 invasive ductal carcinoma of the left breast, by clinical evaluation stage at least IB (T2, N1, M0), ER/AL positive and HER-2/tina positive. She began cycle 1 of neoadjuvant chemotherapy with TCH-P on 05/20/2020. She experienced multiple toxicities including nausea/vomiting, diarrhea, fatigue, generalized body aches, and neutropenia. She has had uneventful recovery. By clinical evaluation, she appeared to be showing some response to the chemotherapy. She will continued with cycle 2 of TCH-P on 06/10/2020. It was administered with a 20% dose reduction in the chemotherapy drugs. Despite that, she has continued to have significant GI toxicity, mainly diarrhea and abdominal pain. As such, her cycle 3 treatment was delayed 1 week And with that cycle the carboplatin was omitted from the regimen. She tolerated that treatment much better, and she continued with cycle 4 on 07/29/2020. She has completed her neoadjuvant chemotherapy. On August 25, 2020 she underwent excision of the left breast mass, long suture anterior, short suture lateral, lumpectomy and left axillary lymph node biopsy. The left breast mass reported residual invasive ductal carcinoma post treatment with lymphovascular invasion identified. Margins are uninvolved and negative. Closest margin was anterior, 0.2 cm from the tumor. Lymph node left axillary excision reported metastatic carcinoma involving 2 of 3 lymph nodes largest focus was 1.6 cm with extra capsular extension identified within 1 lymph node. Her pathology reports her TNM staging/classification as: ypT1c pN1a. ER positive at 98% AL positive at 40%, HER-2/tina 3+ positive, Ki 67%: 65%. In the meantime, she has continued treatment with Herceptin/Perjeta at 3-week intervals, and she is due for her 2nd cycle today. 1. Proceed with cycle 2 Herceptin/Perjeta today at same dosing. 2. We will request prior authorization for changing her treatment to Kadcyla (ado-trastuzumab emtansine) 3.6 mg/kg every 3 weeks for total of 14 cycles. We will also need to determine if this can be done concurrently with radiation therapy. 3. Today's labs reviewed in detail and discussed with Ms. Lopez and a copy was given to her. WBC 7.3, hemoglobin 11.7, platelets 324,000 ANC is 5000. Potassium improved to 3.2 creatinine 0.9 her LFTs are normal. 4. Her last echocardiogram was obtained on May 10, 2020 and reported a normal left ventricular size and systolic function with an EF of 57%. There was mild left ventricular hypertrophy but no regional wall motion abnormalities. She will need follow-up echocardiogram limited views for evaluation of ejection fraction due to her trastuzumab therapy. 5. She is had persistent diarrhea with the Herceptin Perjeta. It does not sound that is adequate responding to oxgi-bfx-wteyrli Imodium therefore we will have her try prescription Lomotil. She is encouraged to let us know if this is not working. B. She has mild hypokalemia. 1. Continue potassium supplement but increase from 10 mEq daily to 10 mEq twice daily. 2. I will add magnesium to lab orders for next visit. 3. She will have CBC CMP at that visit as well. C. Follow-up plan 1. Plan to have her return in 3 weeks with CBC CMP magnesium and follow-up. 2. Hopefully will have prior authorization to start her on Kadcyla at that time. She will need repeat limited view echocardiogram for LVEF monitoring due to trastuzumab therapy. 3. Mrs. Lopez has been instructed to contact us in interim should questions or problems arise. Signed By: Gil Garcia-, CNP Daniel Ramos MD <<Signature on File>>
--- NOTE | 2020-09-27 | CT_ITS ---
Radiation Therapy Planning CT images; total exam DLP: 767.97 mGy-cm MTDD
== END 2020-09-28 12:30 | disposition home or self-care (01) ==
LOC: ONCMED 05:50
PROVIDERS: Nurse Practitioner; PCP Family Medicine; Visit Provider Radiology Radiation Oncology
DX: Z51.12 Encounter for antineoplastic immunotherapy (principal); C50.412 Malignant neoplasm of upper-outer quadrant of left female breast; C77.3 Secondary and unspecified malignant neoplasm of axilla and upper limb lymph nodes; Z17.0 Estrogen receptor positive status [ER+]; I10 Essential (primary) hypertension; E78.5 Hyperlipidemia, unspecified; J45.909 Unspecified asthma, uncomplicated; K21.9 Gastro-esophageal reflux disease without esophagitis; F41.8 Other specified anxiety disorders; G56.03 Carpal tunnel syndrome, bilateral upper limbs; Z80.3 Family history of malignant neoplasm of breast; E87.6 Hypokalemia
CPT/HCPCS: 77290; 77295; 77300; 77334; 80053; 85025; 96375; 96413; 96417; 99205; 99214; J1200; J3490; J7050; J9306; J9355; Q9967

== ENCOUNTER 2020-09-28 12:40 | Outpatient (CLI) | payer BC, SELFPAY ==
--- NOTE | 2020-09-28 12:47 | USCV_ITS ---
Yadira Lopez Age: 60 Gender: F : 1960 Exam Date: 09/28/2020 13:17 Ordering Phys: Dorothea Lock NP Technologist: Exam Location: [facility] – [place] Indication: HIGH RISK MED BP: 120 / 72 HR: 108 Rhythm: Sinus Technical Quality: Fair MEASUREMENTS (Male / Female) Normal Values 2D ECHO LV Diastolic Diameter PLAX 2.8 cm 4.2 - 5.9 / 3.9 - 5.3 cm LV Systolic Diameter PLAX 1.4 cm IVS Diastolic Thickness 0.8 cm 0.6 - 1.0 / 0.6 - 0.9 cm IVS Systolic Thickness 1.2 cm LVPW Diastolic Thickness 0.7 cm 0.6 - 1.0 / 0.6 - 0.9 cm LVPW Systolic Thickness 1.1 cm LVOT Diameter 2.0 cm LV Ejection Fraction 2D Teich 77.7 % LV Ejection Fraction MOD 2C 54.7 % LV Ejection Fraction 2C AL 52.9 % LA Diameter 3.3 cm LA Width 2.9 cm LA Height 4.9 cm RA Width 3.1 cm RA Height 4.0 cm M-MODE MV E Point Septal Separation 0.6 cm FINDINGS Left Ventricle Normal left ventricular size, systolic function and probably mildly increased wall thickness, with no regional wall motion abnormalities. Left ventricular ejection fraction is estimated at 65 %. Right Ventricle Normal right ventricular size. Right Atrium Normal right atrial size. Left Atrium Normal left atrial size. Mitral Valve Mildly thickened mitral valve. Aortic Valve Probably trileaflet aortic valve. Tricuspid Valve Structurally normal tricuspid valve. Pulmonic Valve Pulmonic valve not well visualized. Pericardium No pericardial effusion. Aorta Normal-sized aortic root. CONCLUSIONS 1. Normal left ventricular size, systolic function and probably mildly increased wall thickness, with no regional wall motion abnormalities. Left ventricular ejection fraction is estimated at 65 %. 2.When compared to previous echocardiogram dated 05/10/2020, there has been no significant change. Chloe Ahuja MD (Electronically Signed) Final Date: 28 September 2020 18:41 S
== END 2020-09-28 12:41 | disposition home or self-care (01) ==
LOC: RAD 12:42
PROVIDERS: PCP Family Medicine; Visit Provider Nurse Practitioner
DX: Z79.899 Other long term (current) drug therapy (principal)
CPT/HCPCS: 93308

== ENCOUNTER 2020-10-05 05:49 | Outpatient (RCR) | payer BC, SELFPAY ==
[2020-10-03 09:48] LABS: Basophils # 0.1 10^3/uL (0.0-0.1); Basophils % 1.8 %; Eosinophils # 0.3 10^3/uL (0.0-0.8); Eosinophils % 4.6 %; Hematocrit 38.3 % (37.0-47.0); Hemoglobin 12.6 g/dL (11.5-15.3); Lymphocytes # 1.2 10^3/uL (0.8-4.8); Lymphocytes % 20.6 %; Mean Corpuscular HGB Conc 32.9 g/dL (30.0-36.0); Mean Corpuscular Hemoglobin 30.7 pg (28.0-34.0); Mean Corpuscular Volume 93.2 fL (81-99); Mean Platelet Volume 9.7 fL (7.4-10.4); Monocytes # 0.3 10^3/uL (0.2-0.9); Monocytes % 5.6 %; Neutrophils # 3.83 10^3/uL (1.8-7.7); Neutrophils % 67.2 %; Nucleated Red Blood Cells % 0 %; Platelet Count 299 10^3/cmm (130-400); Red Blood Count 4.11 10^6/uL (4.1-5.3); Red Cell Distribution Width 12.4 % (12.1-15.1); White Blood Count 5.7 10^3/uL (4.0-10.0)
[2020-10-03 10:15] LABS: Alanine Aminotransferase 11 U/L (0-33); Albumin Level 3.7 g/dL (3.5-5.2); Alkaline Phosphatase 96 IU/L (35-105); Anion Gap 15.3 (5-19); Aspartate Amino Transferase 19 U/L (0-32); Blood Urea Nitrogen 14 mg/dL (6-20); Calcium 8.7 mg/dL (8.5-10.5); Carbon Dioxide 25 mmol/L (22-29); Chloride 106 mmol/L (98-107); Globulin 2.2 g/dL (1.3-4.6); Glomerular Filtration Rate 64.1 mL/min (90-130); Glucose 141 mg/dL (65-115); Magnesium 1.5 mg/dL (1.7-2.3); Osmolality Calculated 299 mOsm/kg (285-295); Potassium 3.3 mmol/L (3.5-5.1); Sodium 143 mmol/L (136-145); Total Bilirubin 0.3 mg/dL (0.15-1.2); Total Protein 5.9 g/dL (6.6-8.7)
--- NOTE | 2020-10-11 09:50 | ONCRAD TMN_ITS ---
Radiation Oncology Treatment Management Note Patient Name: Yadira Lopez Date of : 1960 Date of Service: 10/03/2020 Attending Physician: Conrado Vallecillo M.D. Yadira Lopez is a 60 year-old white female diagnosed with pathological stage yIB (T1cN1a) grade 3 ductal carcinoma of the upper-outer quadrant of the left breast. Her initial clinical stage was IB (T2N1). The breast cancer profile demonstrated estrogen receptor positivity (98%), progesterone receptor positivity (40%), and HER-2 positivity (3+; ratio 2.7). The Ki???67 was 65%. She received neoadjuvant chemotherapy consisting of Taxotere, carboplatin, Herceptin, and Perjeta. Cycle 1 began on May 20, 2020 through cycle 4 ending on July 29, 2020. A left partial mastectomy with sentinel lymph node sampling was performed by Asif Ceballos M.D. on August 25, 2020. The pathology report confirmed a residual 1.5 cm grade 3 invasive ductal carcinoma with 2 out of 3 axillary lymph nodes harboring metastatic disease (largest focus 1.6 cm with JUAN C). The closest surgical margin was 2 mm. She has received 2 cycles of Perjeta and Herceptin (August 23, 2019 through September 12, 2020). She has received 4 Gy of a prescribed 50 Gy delivered with a 3D conformal radiotherapy plan utilizing opposed tangential portal lucia matched to supraclavicular fossa and PAB lucia. An additional 10 Gy in 5 fractions will be administered to the surgical bed at the conclusion of the whole breast treatment as a consequence of the patient's high-grade tumor characteristics. Upon review of systems, she denied any breast complaints to radiotherapy. On physical examination, the patient weighed 232 lbs. Her temperature was 97.6 ???F with a blood pressure of 104/71 mmHg. Her pulse was 81 bpm and her respiratory rate was 18. There was no erythema within the treatment lucia of the right breast. Continue right breast and regional lymph node irradiation as prescribed. Signed by: Dr. Conrado Vallecillo 10/11/2020 9:48:50 AM
--- NOTE | 2020-10-12 02:45 | ONC FU_ITS ---
[facility] Patient Note Patient: Yadira Lopez Unit #: [id number]: 1960 Dictated By: Gil GarciaDate of Visit: Oct 03, 2020 Onc MED Follow-Up/Prog Note Chief Complaint: Breast cancer. History of Present Illness: Ms Lopez is a 60 year-old woman with grade 3 invasive ductal carcinoma of the left breast, by clinical evaluation stage IB (T2, N1, M0), ER/IN positive and HER-2/tina positive. She had presented to Dr. Guajardo with a palpable mass in the left breast. She had been aware of it for about a month. Diagnostic mammogram on March 16, 2020 showed a dominant mass in the upper outer quadrant of the left breast measuring 2.3 x 2.3 cm. Additional smaller dense surrounding satellite nodules were noted. Ultrasound showed an irregular dense hypoechoic lobulated lesion at the 2 o'clock position measuring 2.1 x 2.2 x 2.1 cm. The findings were highly suspicious for malignancy. Ultrasound of the left axilla showed a hypoechoic pathologic enlarged lymph node measuring 3.7 x 1.8 x 2.7 cm. On March 28, 2020 she underwent ultrasound directed biopsies of the breast mass and the enlarged left axillary lymph node. Pathology on the breast biopsy showed grade 3 infiltrating ductal carcinoma in the left axillary lymph node biopsy was positive for metastatic carcinoma. The breast prognostic profile showed ER positive at 98% and IN positive at 40%. The tumor was positive for overexpression of HER-2/tina, 3+ by IHC and amplification ratio by FISH of 2.7 with 7.6 HER-2 copies/cell. The Ki-67 was high at 65%. Dr Ramos had seen her initially on 04/15/2020. In the setting of lymph node positive, HER-2/tina positive disease, she was recommended to undergo neoadjuvant chemotherapy. Her other medical illnesses include hypertension, hyperlipidemia, asthma, GERD, and anxiety/depression. She is a non-smoker. INTERIM HISTORY: On 05/20/2020 she began cycle 1 of neoadjuvant chemotherapy with TCH-P. She experienced multiple side effects including nausea/vomiting and diarrhea off and on during the first week after treatment. She also had generalized body aches. At day 12 she was neutropenic, but she had uneventful recovery with G-CSF. She continued with cycle 2 on 06/10/2020. It was administered with a 20% reduction in the dosages of both the carboplatin and the docetaxel. Despite that dose reduction, she continued to have significant side effects, including fatigue, nausea, and especially diarrhea. As such, her cycle 3 was delayed 1 week to allow additional recovery, and with that cycle Dr Ramos did opt to omit carboplatin from the regimen. She tolerated it much better and she then continued with cycle 4 on 07/29/2020. On August 25, 2020 she underwent excision of the left breast mass, long suture anterior, short suture lateral, lumpectomy and left axillary lymph node biopsy. The left breast mass reported residual invasive ductal carcinoma post treatment with lymphovascular invasion identified. Margins are uninvolved and negative. Closest margin was anterior, 0.2 cm from the tumor. Lymph node left axillary excision reported metastatic carcinoma involving 2 of 3 lymph nodes largest focus was 1.6 cm with extra capsular extension identified within 1 lymph node. Her pathology reports her TNM staging/classification as: ypT1c pN1a. ER positive at 98% IN positive at 40%, HER-2/tina 3+ positive, Ki 67%: 65%. Mrs. Lopez is here today for follow-up. She is due for cycle 3 Herceptin Perjeta. She continues to tolerate treatment well overall. She denies any shortness of breath orthopnea. She denies any lower extremity edema. She denies any exertional dyspnea. She has had no fever or chills. She states her appetite is good and her energy is fair. We are awaiting a PA for Micheal for her to change her therapy. She started her first radiation therapy today as well. She denies any pain. Her ECOG is 1. Past Medical History: Anxiety Asthma Bilateral carpal tunnel syndrome Depression Gastroesophageal reflux disease Hyperlipidemia Hypertension Past Surgical History: Caesarean section Hysterectomy/bilateral salpingectomy-oophorectomy Left breast mass and left axillary node excision-Dr Ceballos in 2020 Right subclavian Port-A-Cath placement per Dr. Ceballos in 2020 Ultrasound guided biopsy of left breast mass and left axillary lymph node in 2019 Bronchoscopy and cervical mediastinoscopy in 2014 Tonsillectomy in 2009 Allergies: Cephalexin, Codeine Sulfate, HYDROcodone-Acetaminophen, Morphine Sulfate, Penicillins, and Sulfa Antibiotics. Medications: Albuterol Sulfate HFA 2 Puff(s) (of 108 (90 base) mcg/act) Aerosol, solution Inhalation four times a day PRN Claritin 1 (10 mg) Tablet Oral daily clonazePAM 1 (0.5 mg) Tablet Oral daily Ibuprofen 1 (800 mg) Tablet Oral t.i.d. Lisinopril-hydroCHLOROthiazide 1 (10-12.5 mg) Tablet Oral daily Meloxicam 1 (15 mg) Tablet Oral daily Multi Vitamin 1 Tablet Oral daily Omeprazole 1 (40 mg) Capsule Delayed Release Oral daily Ondansetron HCl 1 Tablet (of 8 mg) Oral four times a day PRN PARoxetine HCl (40 mg) Tablet Oral Take as Directed PARoxetine HCl 1 (10 mg) Tablet Oral daily Prochlorperazine Maleate 1 Tablet (of 10 mg) Oral q 4 hours PRN Zetia 1 (10 mg) Tablet Oral daily Family History: Ms. Lopez's mother is alive: hypertension. Ms. Lopez's father is : esophageal cancer, and myocardial infarction at age 60. Ms. Lopez has 1 brother who is : sustained injuries at age 58. She has 1 sister who is alive: breast cancer. Father at age 60 with heart attack. He also had throat cancer. Mother still living at age 84. A brother in a boating accident. A 68-year-old sister is been treated for breast cancer. She is not aware of any other breast cancer or ovarian cancer in the family. Social History: Ms. Lopez is . Ms. Lopez has never smoked. She has no history of drinking. She is a non-smoker. She does not drink alcohol. Review Of Symptoms: <See Above> Vital Signs: Performed on Oct 03, 2020 13:24 Height - 61.00 in Weight - 204.2 lbs (HIGH) BSA - 1.91 sq.m BMI - 38.58 (HIGH) Temperature - 98.2 F (LOW) Pulse - 105 /min (HIGH) Respiration - 18 /min BP - 138/80 mm(hg) O2 Sat - 96 % Pain - 0 Fatigue - 7 Performed on Oct 03, 2020 09:59 Height - 61.00 in Weight - 203.0 lbs Temperature - 97.2 F Pulse - 90 Respiration - 20 BP - 134/84 mm(hg) O2 Sat - 96 % Pain - 0 Performed on Oct 03, 2020 09:59 BMI - 38.357 kg/m2 (HIGH),1 - No physically strenuous activity, but ambulatory and able to carry out light or sedentary work (e.g. office work, light house work). (ECOG) Physical Examination: Constitutional Alert, oriented, no acute distress. Skin pink, warm and dry. Head Normocephalic; atraumatic. Eyes Conjunctivae and sclerae are clear and without icterus. Pupils are reactive and equal. Neck Supple without masses or thyromegaly. No jugular venous distension. Respiratory Lungs are clear to auscultation without rhonchi or wheezing. Cardiovascular Regular rate and rhythm of heart without murmurs,clicks, gallops or rubs. Back/Spine Non-tender to palpation. Extremities No visible deformities, no cyanosis, clubbing or edema. Musculoskeletal No tenderness or swelling, normal range of motion without obvious weakness. Integumentary No rashes or lesions. Neurologic No sensory or motor deficits, normal cerebellar function, normal gait. Psychiatric Alert and oriented times three. Coherent speech. Verbalizes understanding of our discussions today. Laboratory:Test performed on Oct 03, 2020 09:00 Magnesium 1.5 mg/dL Sodium 143 mmol/L Potassium 3.3 mmol/L Chloride 106 mmol/L CO2 25 mmol/L Anion Gap 15.3 BUN 14 mg/dL Creatinine 0.9 mg/dL Cr Clearance (Est) 100.4400 mL/min eGFR 64.1 mL/min Glucose 141 mg/dL Osmolality - Calculated 299 mOsm/kg Calcium 8.7 mg/dL Protein, Total 5.9 g/dL Albumin 3.7 g/dL Globulin 2.2 g/dL Bilirubin, Total 0.3 mg/dL ALT (SGPT) 11 U/L AST (SGOT) 19 U/L Alkaline Phosphatase 96 IU/L WBC 5.7 10 3/uL RBC 4.11 10 6/uL HGB 12.6 g/dL HCT 38.3 % MCV 93.2 fL MCH 30.7 pg MCHC 32.9 g/dL RDW 12.4 % Platelet Count 299 10 3/cmm MPV 9.7 fL Neutrophils 3.83 10 3/uL Lymphocytes 1.2 10 3/uL Monocytes 0.3 10 3/uL Eosinophils 0.3 10 3/uL Basophils 0.1 10 3/uL Neutrophil % 67.2 % Lymphocyte % 20.6 % Monocyte % 5.6 % Eosinophil % 4.6 % Basophils % 1.8 % NRBC % 0 % Test performed on Jul 21, 2020 00:00 Manual Diff Cancelled via OM: Entered in error Test performed on Jun 16, 2020 14:25 CBC Slide Review Slide Review Perform SLIDE REVIEW AGREES WITH AUTOMATED RESULTS Impression: 1. Grade 3 invasive ductal carcinoma of the left breast, by clinical evaluation stage at least IB (T2, N1, M0), ER/IN positive and HER-2/tina positive. 2. Hypertension. 3. Hyperlipidemia. 4. Asthma. 5. GERD. 6. Bilateral carpal tunnel syndrome. 7. Anxiety/depression. 8. She has a positive family history of breast cancer involving a first-degree relative (sister). She was found to be BRCA negative. Plan/Problems Addressed at this Visit: 1. Patient with grade 3 invasive ductal carcinoma of the left breast, by clinical evaluation stage at least IB (T2, N1, M0), ER/IN positive and HER-2/tina positive. She began cycle 1 of neoadjuvant chemotherapy with TCH-P on 05/20/2020. She experienced multiple toxicities including nausea/vomiting, diarrhea, fatigue, generalized body aches, and neutropenia. She has had uneventful recovery. By clinical evaluation, she appeared to be showing some response to the chemotherapy. She will continued with cycle 2 of TCH-P on 06/10/2020. It was administered with a 20% dose reduction in the chemotherapy drugs. Despite that, she has continued to have significant GI toxicity, mainly diarrhea and abdominal pain. As such, her cycle 3 treatment was delayed 1 week And with that cycle the carboplatin was omitted from the regimen. She tolerated that treatment much better, and she continued with cycle 4 on 07/29/2020. She has completed her neoadjuvant chemotherapy. On August 25, 2020 she underwent excision of the left breast mass, long suture anterior, short suture lateral, lumpectomy and left axillary lymph node biopsy. The left breast mass reported residual invasive ductal carcinoma post treatment with lymphovascular invasion identified. Margins are uninvolved and negative. Closest margin was anterior, 0.2 cm from the tumor. Lymph node left axillary excision reported metastatic carcinoma involving 2 of 3 lymph nodes largest focus was 1.6 cm with extra capsular extension identified within 1 lymph node. Her pathology reports her TNM staging/classification as: ypT1c pN1a. ER positive at 98% IN positive at 40%, HER-2/tina 3+ positive, Ki 67%: 65%. In the meantime, she has continued treatment with Herceptin/Perjeta at 3-week intervals, and she is due for her 2nd cycle today. A. HOLD planned Herceptin Perjeta today as we will will be changing her agent to Kadcyla. We are waiting PA on this currently. B. Today's labs were reviewed in detail and discussed with Mrs. Lopez a copy was given to her. BBC 5.7, hemoglobin 12.6, platelets 299,000, ANC is 3830. Potassium 3.3???she is currently not taking any potassium supplements. Creatinine 0.9 random glucose 141 and LFTs are normal. Her magnesium was 1.5. We will go ahead and give her 1 g of magnesium IV today to see if this will correct her hypo kalemia and low magnesium. She is encouraged to take her potassium supplements as instructed. C. We will request prior authorization for changing her treatment to Kadcyla (ado-trastuzumab emtansine) 3.6 mg/kg every 3 weeks for total of 14 cycles. We will also need to determine if this can be done concurrently with radiation therapy. D. Her last echocardiogram was obtained on May 10, 2020 and reported a normal left ventricular size and systolic function with an EF of 57%. There was mild left ventricular hypertrophy but no regional wall motion abnormalities. She will need follow-up echocardiogram limited views for evaluation of ejection fraction due to her trastuzumab therapy. 2. She has mild hypokalemia. A. Continue potassium supplement but increase from 10 mEq daily to 10 mEq twice daily. She was highly encouraged to be compliant and take it twice daily 3. Follow-up plan A. No follow-up has been established at this time as we are waiting PA for Kadcyla. Once the PA has been a approved we will set up with treatment and determine follow-up at that point. B. At this time she is coming in daily for radiation therapy. C. Mrs. Lopez has been instructed to contact us in interim should questions or problems arise. Signed By: Gil Garcia-, AOCNP Daniel Ramos MD <<Signature on File>>
== END 2020-10-05 23:59 | disposition home or self-care (01) ==
LOC: ONCMED 05:49
PROVIDERS: Nurse Practitioner; Absent Provider Radiology Radiation Oncology; PCP Family Medicine; Visit Provider Radiology Radiation Oncology
DX: Z51.0 Encounter for antineoplastic radiation therapy (principal); C50.412 Malignant neoplasm of upper-outer quadrant of left female breast; Z17.0 Estrogen receptor positive status [ER+]; D70.1 Agranulocytosis secondary to cancer chemotherapy; T45.1X5A Adverse effect of antineoplastic and immunosuppressive drugs, initial encounter; I10 Essential (primary) hypertension; E78.5 Hyperlipidemia, unspecified; J45.909 Unspecified asthma, uncomplicated; K21.9 Gastro-esophageal reflux disease without esophagitis; F41.9 Anxiety disorder, unspecified; F32.9 Major depressive disorder, single episode, unspecified; G56.03 Carpal tunnel syndrome, bilateral upper limbs; Z80.3 Family history of malignant neoplasm of breast; Z79.899 Other long term (current) drug therapy; Z92.21 Personal history of antineoplastic chemotherapy
CPT/HCPCS: 77387; 77412; 80053; 83735; 85025; 96365; 99214; J3475

== ENCOUNTER 2020-11-04 05:49 | Outpatient (RCR) | payer BC, SELFPAY ==
--- NOTE | 2020-10-11 10:09 | ONCRAD TMN_ITS ---
Radiation Oncology Treatment Management Note Patient Name: Yadira Lopez Date of : 1960 Date of Service: 10/11/2020 Attending Physician: Conrado Vallecillo M.D. Yadira Lopez is a 60 year-old white female diagnosed with pathological stage yIB (T1cN1a) grade 3 ductal carcinoma of the upper-outer quadrant of the left breast. Her initial clinical stage was IB (T2N1). The breast cancer profile demonstrated estrogen receptor positivity (98%), progesterone receptor positivity (40%), and HER-2 positivity (3+; ratio 2.7). The Ki???67 was 65%. She received neoadjuvant chemotherapy consisting of Taxotere, carboplatin, Herceptin, and Perjeta. Cycle 1 began on May 20, 2020 through cycle 4 ending on July 29, 2020. A left partial mastectomy with sentinel lymph node sampling was performed by Asif Ceballos M.D. on August 25, 2020. The pathology report confirmed a residual 1.5 cm grade 3 invasive ductal carcinoma with 2 out of 3 axillary lymph nodes harboring metastatic disease (largest focus 1.6 cm with JUAN C). The closest surgical margin was 2 mm. She has received 2 cycles of Perjeta and Herceptin (August 23, 2019 through September 12, 2020). She has received 8 Gy of a prescribed 50 Gy delivered with a 3D conformal radiotherapy plan utilizing opposed tangential portal lucia matched to supraclavicular fossa and PAB lucia. An additional 10 Gy in 5 fractions will be administered to the surgical bed at the conclusion of the whole breast treatment as a consequence of the patient's high-grade tumor characteristics. Upon review of systems, she denied any breast complaints to radiotherapy. On physical examination, the patient weighed 198 lbs. Her temperature was 96.6 ???F with a blood pressure of 142/88 mmHg. Her pulse was 90 bpm and her respiratory rate was 20. There was no erythema within the treatment lucia of the left breast. Continue left breast and regional lymph node irradiation as planned. Signed by: Dr. Conrado Vallecillo 10/11/2020 10:07:30 AM
--- NOTE | 2020-10-17 10:18 | ONCRAD TMN_ITS ---
Radiation Oncology Treatment Management Note Patient Name: Yadira Lopez Date of : 1960 Date of Service: 10/17/2020 Attending Physician: Conrado Vallecillo M.D. Yadira Lopez is a 60 year-old white female diagnosed with pathological stage yIB (T1cN1a) grade 3 ductal carcinoma of the upper-outer quadrant of the left breast. Her initial clinical stage was IB (T2N1). The breast cancer profile demonstrated estrogen receptor positivity (98%), progesterone receptor positivity (40%), and HER-2 positivity (3+; ratio 2.7). The Ki???67 was 65%. She received neoadjuvant chemotherapy consisting of Taxotere, carboplatin, Herceptin, and Perjeta. Cycle 1 began on May 20, 2020 through cycle 4 ending on July 29, 2020. A left partial mastectomy with sentinel lymph node sampling was performed by Asif Ceballos M.D. on August 25, 2020. The pathology report confirmed a residual 1.5 cm grade 3 invasive ductal carcinoma with 2 out of 3 axillary lymph nodes harboring metastatic disease (largest focus 1.6 cm with JUAN C). The closest surgical margin was 2 mm. She has received 2 cycles of Perjeta and Herceptin (August 23, 2019 through September 12, 2020). She has received 16 Gy of a prescribed 50 Gy delivered with a 3D conformal radiotherapy plan utilizing opposed tangential portal lucia matched to supraclavicular fossa and PAB lucia. An additional 10 Gy in 5 fractions will be administered to the surgical bed at the conclusion of the whole breast treatment as a consequence of the patient's high-grade tumor characteristics. Upon review of systems, she denied any breast complaints to radiotherapy. On physical examination, the patient weighed 204 lbs. Her temperature was 97.4 ???F with a blood pressure of 124/81 mmHg. Her pulse was 86 bpm and her respiratory rate was 18. There was no erythema within the treatment lucia of the left breast. Continue left breast and regional lymph node irradiation as planned. Signed by: Dr. Conrado Vallecillo 10/17/2020 10:17:03 AM
--- NOTE | 2020-10-24 10:20 | ONCRAD TMN_ITS ---
Radiation Oncology Weekly Treatment Management Patient: John Rodriguez MR#: [id number] : 1960> Attending Physician: Dr. Stewart Durán Date of Service: 10/24/2020 Referring Physician(s) : Dr. Ramos Diagnosis: C50.412 - Malignant neoplasm of upper-outer quadrant of left female breast, Diagnosed 03/16/2020 (Active) Stage IB, T2, N1, M0, G3, HER2 Pos, ER Pos, NM Pos Radiotherapy to date: Course: Breast Ca, Treatment Site: Breast Ca ??? Lt, Ref. ID: [id number], Energy: 15X, Dose/Fx (cGy): 200, #Fx: 25, Dose Correction (cGy): 0, Total Dose (cGy): 2,200, Start Date: 10/03/2020, Elapsed Days: 21 Treatment Site: SCLV ??? Lt, Ref. ID: [id number], Energy: 15X, Dose/Fx (cGy): 200, #Fx: , Dose Correction (cGy): 0, Total Dose (cGy): 2,200, Start Date: 10/03/2020, Elapsed Days: 21 Reason for visit: The patient is being seen today as part of their regularly scheduled weekly on treatment visits to assess for acute toxicities from radiotherapy. Review of Systems: No skin complaints. No swelling of the breast. No complaints regarding the use of her arm. Her performance status is good and she continues to work. Vital Signs: Performed on 10/24/2020 10:00 AM BMI - 37.45 kg/m2 (high), Height - 61.00 in, Weight - 198.2 lbs, Temperature - 97.0 f, Pulse - 80, Respiration - 18, O2 Sat - 98 %, Pain - 0 and BP - 121/ 71 mm(hg). Physical Exam: The breast has mild erythema over the inner quadrants. The remainder of the skin is normal in appearance. No desquamation observed. There is no swelling of the breast. The breast is soft and nontender on palpation. Incisions are intact. She has a good range of motion in her left arm. Imaging: Radiation therapy imaging related to accurate target localization (i.e. KV, MV and CBCT) was reviewed. Appropriate changes, if any, were made to ensure treatment accuracy. Plan: She is tolerating the course of treatment well. Continue according to the treatment plan. Signed by: Dr. Stewart Durán 10/24/2020 10:18:15 AM
[2020-10-26 08:38] LABS: Basophils # 0.1 10^3/uL (0.0-0.1); Basophils % 1.1 %; Eosinophils # 0.2 10^3/uL (0.0-0.8); Hematocrit 39.3 % (37.0-47.0); Hemoglobin 12.8 g/dL (11.5-15.3); Lymphocytes # 0.9 10^3/uL (0.8-4.8); Lymphocytes % 19.7 %; Mean Corpuscular HGB Conc 32.6 g/dL (30.0-36.0); Mean Corpuscular Hemoglobin 30.2 pg (28.0-34.0); Mean Corpuscular Volume 92.7 fL (81-99); Mean Platelet Volume 9.3 fL (7.4-10.4); Monocytes # 0.5 10^3/uL (0.2-0.9); Monocytes % 9.7 %; Neutrophils # 2.97 10^3/uL (1.8-7.7); Neutrophils % 64.3 %; Nucleated Red Blood Cells % 0 %; Platelet Count 277 10^3/cmm (130-400); Red Blood Count 4.24 10^6/uL (4.1-5.3); Red Cell Distribution Width 12.7 % (12.1-15.1); White Blood Count 4.6 10^3/uL (4.0-10.0)
[2020-10-26 09:12] LABS: Alanine Aminotransferase 17 U/L (0-33); Albumin Level 3.9 g/dL (3.5-5.2); Alkaline Phosphatase 119 IU/L (35-105); Anion Gap 15.6 (5-19); Aspartate Amino Transferase 22 U/L (0-32); Blood Urea Nitrogen 16 mg/dL (6-20); Calcium 8.9 mg/dL (8.5-10.5); Carbon Dioxide 25 mmol/L (22-29); Chloride 103 mmol/L (98-107); Globulin 2.5 g/dL (1.3-4.6); Glomerular Filtration Rate 64.1 mL/min (90-130); Glucose 105 mg/dL (65-115); Magnesium 1.6 mg/dL (1.7-2.3); Osmolality Calculated 292 mOsm/kg (285-295); Potassium 3.6 mmol/L (3.5-5.1); Sodium 140 mmol/L (136-145); Total Bilirubin 0.2 mg/dL (0.15-1.2); Total Protein 6.4 g/dL (6.6-8.7)
[2020-10-26] MEDS: sodium chloride 0.9% 250 ML 75 ML IV (10:05)
--- NOTE | 2020-10-31 12:12 | ONCRAD TMN_ITS ---
Radiation Oncology Weekly Treatment Management Patient: Yadira Lpoez MR#: [id number] : 1960 Attending Physician: Dr. Stewart Durán Date of Service: 10/31/2020 Referring Physician(s) : Diagnosis: C50.412 - Malignant neoplasm of upper-outer quadrant of left female breast, Diagnosed 03/16/2020 (Active) Stage IB, T2, N1, M0, G3, HER2 Pos, ER Pos, CO Pos Radiotherapy to date: Course: Breast Ca, Treatment Site: Breast Ca ??? Lt, Ref. ID: [id number], Energy: 15X, Dose/Fx (cGy): 200, #Fx: 16 / 25, Dose Correction (cGy): 0, Total Dose (cGy): 3,200, Start Date: 10/03/2020, Elapsed Days: Breast Ca, Treatment Site: SCLV ??? Lt, Ref. ID: [id number], Energy: 15X, Dose/Fx (cGy): 200, #Fx: 16 25, Dose Correction (cGy): 0, Total Dose (cGy): 3,200, Start Date: 10/03/2020, Elapsed Days: 28 Reason for visit: The patient is being seen today as part of their regularly scheduled weekly on treatment visits to assess for acute toxicities from radiotherapy. Review of Systems: She fell getting out of the bathtub this morning. There was no lightheadedness, blackout sensation, or loss of consciousness either before or after the fall. She did not suffer any injury. She did not hit her head. In terms of treatment, she continues to do well. She has some erythema of the lower neck and breast. The erythema is mild to moderate. She has no pain in the breast. She has mild fatigue. Vital Signs: Performed on 10/31/2020 11:42 AM BMI - 36.883 kg/m2 (high), Height - 61.00 in, Weight - 195.2 lbs, Temperature - 97.7 f, Pulse - 92, Respiration - 20, O2 Sat - 97 %, Pain - 0 and BP - 95/ 67 mm(hg). Physical Exam: Mild erythema in the supraclavicular area and over the breast. There is no advanced skin reaction at all. The breast is soft. The lumpectomy incision and axillary incision are intact and nontender. Alert, oriented, no distress. She has a steady gait and is ambulatory without assistance. Imaging: Radiation therapy imaging related to accurate target localization (i.e. KV, MV and CBCT) was reviewed. Appropriate changes, if any, were made to ensure treatment accuracy. Plan: Continue treatment according to plan. No specific action needs to be taken with regard to the skin reaction at this time. I do not feel that she is a high fall risk patient. Signed by: Dr. Stewart Durán 10/31/2020 12:11:25 PM
== END 2020-11-05 23:59 | disposition home or self-care (01) ==
LOC: ONCMED 05:49
PROVIDERS: Internal Medicine Medical Oncology; Absent Provider Specialist; PCP Family Medicine; Visit Provider Specialist
DX: Z51.0 Encounter for antineoplastic radiation therapy (principal); Z51.11 Encounter for antineoplastic chemotherapy; C50.412 Malignant neoplasm of upper-outer quadrant of left female breast; Z17.0 Estrogen receptor positive status [ER+]; Z79.899 Other long term (current) drug therapy
CPT/HCPCS: 77336; 77387; 77412; 80053; 83735; 85025; 96413; 96415; J7050; J9354

== ENCOUNTER 2020-12-06 05:43 | Outpatient (RCR) | payer BC, SELFPAY ==
--- NOTE | 2020-11-08 10:15 | ONCRAD TMN_ITS ---
Radiation Oncology Treatment Management Note Patient Name: Yadira Lopez Date of : 1960 Date of Service: 11/08/2020 Attending Physician: Conrado Vallecillo M.D. Yadira Lopez is a 60 year-old white female diagnosed with pathological stage yIB (T1cN1a) grade 3 ductal carcinoma of the upper-outer quadrant of the left breast. Her initial clinical stage was IB (T2N1). The breast cancer profile demonstrated estrogen receptor positivity (98%), progesterone receptor positivity (40%), and HER-2 positivity (3+; ratio 2.7). The Ki???67 was 65%. She received neoadjuvant chemotherapy consisting of Taxotere, carboplatin, Herceptin, and Perjeta. Cycle 1 began on May 20, 2020 through cycle 4 ending on July 29, 2020. A left partial mastectomy with sentinel lymph node sampling was performed by Asif Ceballos M.D. on August 25, 2020. The pathology report confirmed a residual 1.5 cm grade 3 invasive ductal carcinoma with 2 out of 3 axillary lymph nodes harboring metastatic disease (largest focus 1.6 cm with JUAN C). The closest surgical margin was 2 mm. She has received 2 cycles of Perjeta and Herceptin (August 23, 2019 through September 12, 2020). She has received 40 Gy of a prescribed 50 Gy delivered with a 3D conformal radiotherapy plan utilizing opposed tangential portal lucia matched to supraclavicular fossa and PAB lucia. An additional 10 Gy in 5 fractions will be administered to the surgical bed at the conclusion of the whole breast treatment as a consequence of the patient's high-grade tumor characteristics. Upon review of systems, she denied any breast complaints to radiotherapy. On physical examination, the patient weighed 196 lbs. Her temperature was 97.4 ???F with a blood pressure of 123/77 mmHg. Her pulse was 80 bpm and her respiratory rate was 18. There was a grade I dermatitis within the treatment lucia of the left breast. Continue left breast and regional lymph node irradiation as planned. Signed by: Dr. Conrado Vallecillo 11/08/2020 10:13:21 AM
--- NOTE | 2020-11-14 10:35 | ONCRAD TMN_ITS ---
Radiation Oncology Treatment Management Note Patient Name: Yadira Lopez Date of : 1960 Date of Service: 11/14/2020 Attending Physician: Conrado Vallecillo M.D. Yadira Lopez is a 60 year-old white female diagnosed with pathological stage yIB (T1cN1a) grade 3 ductal carcinoma of the upper-outer quadrant of the left breast. Her initial clinical stage was IB (T2N1). The breast cancer profile demonstrated estrogen receptor positivity (98%), progesterone receptor positivity (40%), and HER-2 positivity (3+; ratio 2.7). The Ki???67 was 65%. She received neoadjuvant chemotherapy consisting of Taxotere, carboplatin, Herceptin, and Perjeta. Cycle 1 began on May 20, 2020 through cycle 4 ending on July 29, 2020. A left partial mastectomy with sentinel lymph node sampling was performed by Asif Ceballos M.D. on August 25, 2020. The pathology report confirmed a residual 1.5 cm grade 3 invasive ductal carcinoma with 2 out of 3 axillary lymph nodes harboring metastatic disease (largest focus 1.6 cm with JUAN C). The closest surgical margin was 2 mm. She has received 2 cycles of Perjeta and Herceptin (August 23, 2019 through September 12, 2020). She has received 48 Gy of a prescribed 50 Gy delivered with a 3D conformal radiotherapy plan utilizing opposed tangential portal lucia matched to supraclavicular fossa and PAB lucia. An additional 10 Gy in 5 fractions will be administered to the surgical bed at the conclusion of the whole breast treatment as a consequence of the patient's high-grade tumor characteristics. Upon review of systems, she described an area of discomfort on the skin of the left clavicle. On physical examination, the patient weighed 199 lbs. Her temperature was 97.3 ???F with a blood pressure of 142/96 mmHg. Her pulse was 75 bpm and her respiratory rate was 18. There was a grade II dermatitis within the supraclavicular port of the left breast. Continue left breast and regional lymph node irradiation as prescribed. I will recommend the addition of petrolatum to the area of dermatitis. Signed by: Dr. Conrado Vallecillo 11/14/2020 10:34:02 AM
[2020-11-16 08:54] LABS: Basophils # 0.1 10^3/uL (0.0-0.1); Basophils % 1.2 %; Eosinophils # 0.5 10^3/uL (0.0-0.8); Eosinophils % 7.9 %; Hematocrit 41.8 % (37.0-47.0); Hemoglobin 13.6 g/dL (11.5-15.3); Lymphocytes # 0.9 10^3/uL (0.8-4.8); Lymphocytes % 15.4 %; Mean Corpuscular HGB Conc 32.5 g/dL (30.0-36.0); Mean Corpuscular Hemoglobin 29.9 pg (28.0-34.0); Mean Corpuscular Volume 91.9 fL (81-99); Mean Platelet Volume 9.1 fL (7.4-10.4); Monocytes # 0.7 10^3/uL (0.2-0.9); Monocytes % 11.9 %; Neutrophils % 63.2 %; Nucleated Red Blood Cells % 0 %; Platelet Count 302 10^3/cmm (130-400); Red Blood Count 4.55 10^6/uL (4.1-5.3); Red Cell Distribution Width 13.2 % (12.1-15.1); White Blood Count 5.7 10^3/uL (4.0-10.0)
[2020-11-16 09:22] LABS: Alanine Aminotransferase 27 U/L (0-33); Albumin Level 3.9 g/dL (3.5-5.2); Alkaline Phosphatase 100 IU/L (35-105); Anion Gap 13.9 (5-19); Aspartate Amino Transferase 36 U/L (0-32); Blood Urea Nitrogen 20 mg/dL (6-20); Calcium 9.2 mg/dL (8.5-10.5); Carbon Dioxide 25 mmol/L (22-29); Chloride 105 mmol/L (98-107); Globulin 2.9 g/dL (1.3-4.6); Glomerular Filtration Rate 64.1 mL/min (90-130); Glucose 107 mg/dL (65-115); Osmolality Calculated 293 mOsm/kg (285-295); Potassium 3.9 mmol/L (3.5-5.1); Sodium 140 mmol/L (136-145); Total Bilirubin 0.2 mg/dL (0.15-1.2); Total Protein 6.8 g/dL (6.6-8.7)
--- NOTE | 2020-11-16 18:18 | ONC FU_ITS ---
Dr. Ramos Patient Follow-Up Note Patient: Yadira Lopez Unit #: [id number]: 1960 Dicatated By: Daniel Ramos M.D.Date of Visit:Nov 16, 2020 Onc Med Follow-up/Prog Note Chief Complaint: Breast cancer. History of Present Illness: This is a 60 year-old woman with grade 3 invasive ductal carcinoma of the left breast, by clinical evaluation stage IB (T2, N1, M0), ER/DC positive and HER-2/tina positive. She had presented to Dr. Guajardo with a palpable mass in the left breast. She had been aware of it for about a month. Diagnostic mammogram on March 16, 2020 showed a dominant mass in the upper outer quadrant of the left breast measuring 2.3 x 2.3 cm. Additional smaller dense surrounding satellite nodules were noted. Ultrasound showed an irregular dense hypoechoic lobulated lesion at the 2 o'clock position measuring 2.1 x 2.2 x 2.1 cm. The findings were highly suspicious for malignancy. Ultrasound of the left axilla showed a hypoechoic pathologic enlarged lymph node measuring 3.7 x 1.8 x 2.7 cm. On March 28, 2020 she underwent ultrasound directed biopsies of the breast mass and the enlarged left axillary lymph node. Pathology on the breast biopsy showed grade 3 infiltrating ductal carcinoma in the left axillary lymph node biopsy was positive for metastatic carcinoma. The breast prognostic profile showed ER positive at 98% and DC positive at 40%. The tumor was positive for overexpression of HER-2/tina, 3+ by IHC and amplification ratio by FISH of 2.7 with 7.6 HER-2 copies/cell. The Ki-67 was high at 65%. I had seen her initially on 04/15/2020. In the setting of lymph node positive HER-2/tina positive disease, she was recommended to undergo neoadjuvant chemotherapy. Her other medical illnesses include hypertension, hyperlipidemia, asthma, GERD, and anxiety/depression. She is a non-smoker. INTERIM HISTORY: On 05/20/2020 she began cycle 1 of neoadjuvant chemotherapy with TCH-P. She experienced multiple side effects including nausea/vomiting and diarrhea off and on during the first week after treatment. She also had generalized body aches. At day 12 she was neutropenic, but she had uneventful recovery with G-CSF. She continued with cycle 2 on 06/10/2020. It was administered with a 20% reduction in the dosages of both the carboplatin and the docetaxel. Despite that dose reduction, she continued to have significant side effects, including fatigue, nausea, and especially diarrhea. As such, her cycle 3 was delayed 1 week to allow additional recovery, and with that cycle I did opt to omit carboplatin from the regimen. She tolerated it much better and she then continued with cycle 4 on 07/29/2020. On 08/25/2020 she underwent left breast lumpectomy and axillary lymph node sampling. Pathology showed residual grade 3 invasive ductal carcinoma measuring 1.5 cm in greatest diameter. Margins were uninvolved. There was involvement in 2/3 axillary lymph nodes, the largest focus measuring 16 mm. Extranodal extension was identified. She was then referred to Dr. Vallecillo and she is currently undergoing radiation to the left breast. In the meantime, she continued systemic therapy with Herceptin/Perjeta every 3 weeks for 2 cycles. With pathology showing residual axillary lymph node involvement, her treatment was then changed to Kadcyla, cycle 1 on 10/26/2020. She is seen for a follow-up visit. She has been feeling pretty good generally. She has still been working, but she sometimes feels very tired. Her ECOG score is 1. She has good appetite. She has no fever, night sweats, or hot flashes. She has some allergy related sinus symptoms. She had sore throat last week. She has occasional dry hacking cough, attributable to asthma. Her breathing, though, has been okay. She does not complain of chest pain. She sometimes has nausea and she also has some acid reflux. She still has occasional episodes of diarrhea. It is managed adequately with Lomotil. She has no complaints. She sometimes has joint pain, but not bad. She has just occasional headache and she occasionally feels lightheaded or dizzy. She has no numbness/paresthesia or other neuropathy symptoms. Medications: Albuterol Sulfate HFA 2 Puff(s) (of 108 (90 base) mcg/act) Aerosol, solution Inhalation four times a day PRN, Claritin 1 (10 mg) Tablet Oral daily, clonazePAM 1 (0.5 mg) Tablet Oral daily, Ibuprofen 1 (800 mg) Tablet Oral t.i.d., Lisinopril-hydroCHLOROthiazide 1 (10-12.5 mg) Tablet Oral daily, Meloxicam 1 (15 mg) Tablet Oral daily, Multi Vitamin 1 Tablet Oral daily, Omeprazole 1 (40 mg) Capsule Delayed Release Oral daily, Ondansetron HCl 1 Tablet (of 8 mg) Oral four times a day PRN, PARoxetine HCl (40 mg) Tablet Oral Take as Directed, PARoxetine HCl 1 (10 mg) Tablet Oral daily, Prochlorperazine Maleate 1 Tablet (of 10 mg) Oral q 4 hours PRN, Zetia 1 (10 mg) Tablet Oral daily Allergies: Cephalexin, Codeine Sulfate, HYDROcodone-Acetaminophen, Morphine Sulfate, Penicillins, and Sulfa Antibiotics. Vital Signs: Performed on Nov 16, 2020 11:46 Height - 61.00 in Temperature - 97.0 F (LOW) Pulse - 73 /min Respiration - 18 /min BP - 127/68 mm(hg) O2 Sat - 99 % Performed on Nov 16, 2020 10:09 Height - 61.00 in Weight - 200 lbs (HIGH) BSA - 1.89 sq.m BMI - 37.79 (HIGH) Temperature - 97 F (LOW) Pulse - 80 /min Respiration - 18 /min BP - 138/90 mm(hg) O2 Sat - 97 % Pain - 6 Fatigue - 7 Physical Examination: Constitutional - She looks pretty good generally, Eyes - Sclerae nonicteric. Conjunctivae clear, ENMT - No lesions noted in the oral cavity, Hematologic/Lymphatic - No cervical, clavicular, or axillary adenopathy, Respiratory - Lungs are clear with good air movement bilaterally, Cardiovascular - Heart rhythm is regular. There is no murmur, gallop, or rub noted, Chest - There is mild residual erythema in the upper left chest wall, Abdomen - Mildly distended but soft. Liver and spleen are not enlarged. There is no abdominal mass or ascites noted and there is no inguinal adenopathy, Extremities - No edema, Neurologic - No focal neurologic deficits noted. Lab/Imaging: Test performed on Nov 16, 2020 08:30 Sodium 140 mmol/L Potassium 3.9 mmol/L Chloride 105 mmol/L CO2 25 mmol/L Anion Gap 13.9 BUN 20 mg/dL Creatinine 0.9 mg/dL Cr Clearance (Est) 95.5200 mL/min eGFR 64.1 mL/min Glucose 107 mg/dL Osmolality - Calculated 293 mOsm/kg Calcium 9.2 mg/dL Protein, Total 6.8 g/dL Albumin 3.9 g/dL Globulin 2.9 g/dL Bilirubin, Total 0.2 mg/dL ALT (SGPT) 27 U/L AST (SGOT) 36 U/L Alkaline Phosphatase 100 IU/L WBC 5.7 10 3/uL RBC 4.55 10 6/uL HGB 13.6 g/dL HCT 41.8 % MCV 91.9 fL MCH 29.9 pg MCHC 32.5 g/dL RDW 13.2 % Platelet Count 302 10 3/cmm MPV 9.1 fL Neutrophils 3.60 10 3/uL Lymphocytes 0.9 10 3/uL Monocytes 0.7 10 3/uL Eosinophils 0.5 10 3/uL Basophils 0.1 10 3/uL Neutrophil % 63.2 % Lymphocyte % 15.4 % Monocyte % 11.9 % Eosinophil % 7.9 % Basophils % 1.2 % NRBC % 0 % Problem List: 1. Grade 3 invasive ductal carcinoma of the left breast, by clinical evaluation stage at least IB (T2, N1, M0), ER/DC positive and HER-2/tina positive. 2. Hypertension. 3. Hyperlipidemia. 4. Asthma. 5. GERD. 6. Bilateral carpal tunnel syndrome. 7. Anxiety/depression. 8. She has a positive family history of breast cancer involving a first-degree relative (sister). She was found to be BRCA negative. Problems Addressed with this Encounter and Plan: Patient with grade 3 invasive ductal carcinoma of the left breast, by clinical evaluation stage at least IB (T2, N1, M0), ER/DC positive and HER-2/tina positive. She began cycle 1 of neoadjuvant chemotherapy with TCH-P on 05/20/2020. She experienced multiple toxicities including nausea/vomiting, diarrhea, fatigue, generalized body aches, and neutropenia. She has had uneventful recovery. By clinical evaluation, she appeared to be showing some response to the chemotherapy. She will continued with cycle 2 of TCH-P on 06/10/2020. It was administered with a 20% dose reduction in the chemotherapy drugs. Despite that, she has continued to have significant GI toxicity, mainly diarrhea and abdominal pain. As such, her cycle 3 treatment was delayed 1 week And with that cycle the carboplatin was omitted from the regimen. She tolerated that treatment much better, and she continued with cycle 4 on 07/29/2020. On 08/25/2020 she underwent left breast lumpectomy and axillary lymph node sampling. Pathology showed residual grade 3 invasive ductal carcinoma measuring 1.5 cm in greatest diameter. Margins were uninvolved. There was involvement in 2/3 axillary lymph nodes, the largest focus measuring 16 mm. Extranodal extension was identified. Her pathologic staging was ypT1c, ypN1a. Perioperatively she had continued adjuvant therapy with Herceptin/Perjeta every 3 weeks for 2 cycles. She also was referred to Dr. Vallecillo and she is currently undergoing radiation to the left breast. With pathology showing residual axillary lymph node involvement, her systemic therapy was then changed to Kadcyla, cycle 1 on 10/26/2020. She has having some fatigue and she continues to have occasional episodes of diarrhea. Overall, though, she has been tolerating treatment well. She will continue with cycle 2 of Kadcyla. The dosage remains the same. She returns in 3 weeks. Signed By: Daniel Ramos M.D. <<Signature on File>>
--- NOTE | 2020-11-21 09:54 | ONCRAD TMN_ITS ---
Radiation Oncology Treatment Management Note Patient Name: Yadira Lopez Date of : 1960 Date of Service: 11/21/2020 Attending Physician: Conrado Vallecillo M.D. Yadira Lopez is a 60 year-old white female diagnosed with pathological stage yIB (T1cN1a) grade 3 ductal carcinoma of the upper-outer quadrant of the left breast. Her initial clinical stage was IB (T2N1). The breast cancer profile demonstrated estrogen receptor positivity (98%), progesterone receptor positivity (40%), and HER-2 positivity (3+; ratio 2.7). The Ki???67 was 65%. She received neoadjuvant chemotherapy consisting of Taxotere, carboplatin, Herceptin, and Perjeta. Cycle 1 began on May 20, 2020 through cycle 4 ending on July 29, 2020. A left partial mastectomy with sentinel lymph node sampling was performed by Asif Ceballos M.D. on August 25, 2020. The pathology report confirmed a residual 1.5 cm grade 3 invasive ductal carcinoma with 2 out of 3 axillary lymph nodes harboring metastatic disease (largest focus 1.6 cm with JUAN C). The closest surgical margin was 2 mm. She has received 2 cycles of Perjeta and Herceptin (August 23, 2019 through September 12, 2020). She has received 56 Gy of a prescribed 60 Gy delivered with a 3D conformal radiotherapy plan utilizing opposed tangential portal ulcia matched to supraclavicular fossa and PAB lucia. Upon review of systems, she described an area of discomfort on the skin of the left clavicle. On physical examination, the patient weighed 194 lbs. Her temperature was 97.6 ???F with a blood pressure of 111/71 mmHg. Her pulse was 88 bpm and her respiratory rate was 18. There was a grade I dermatitis within the left breast. Continue left breast and regional lymph node irradiation as planned. Signed by: Dr. Conrado Vallecillo 11/21/2020 9:53:23 AM
--- NOTE | 2020-11-23 09:30 | N.ONRD TS_ITS ---
Radiation OncologyTreatment Summary Patient Name: Yadira Lopez Date of : 1960 Date of Service: 11/23/2020 Attending Physician: Conrado Vallecillo M.D. Yadira Lopez has completed adjuvant left breast radiotherapy for the management of a pathological stage yIB (T1cN1a) grade 3 ductal carcinoma of the upper-outer quadrant of the left breast. Her initial clinical stage was IB (T2N1). The breast cancer profile demonstrated estrogen receptor positivity (98%), progesterone receptor positivity (40%), and HER-2 positivity (3+; ratio 2.7). The Ki???67 was 65%. She received neoadjuvant chemotherapy consisting of Taxotere, carboplatin, Herceptin, and Perjeta. Cycle 1 began on May 20, 2020 through cycle 4 ending on July 29, 2020. A left partial mastectomy with sentinel lymph node sampling was performed by Asif Ceballos M.D. on August 25, 2020. The pathology report confirmed a residual 1.5 cm grade 3 invasive ductal carcinoma with 2 out of 3 axillary lymph nodes harboring metastatic disease (largest focus 1.6 cm with JUAN C). The closest surgical margin was 2 mm. She has received 2 cycles of Perjeta and Herceptin (August 23, 2019 through September 12, 2020). Daily radiotherapy was administered between the dates of October 03, 2020 through November 23, 2020. A dose of 60 Gy was delivered in 30 fractions encompassing 52 elapsed days. The left breast and regional lymph nodes were treated utilizing a 3-dimensional conformal radiotherapy plan with an opposed tangential portal field design matched to a right anterior oblique port and posterior axillary boost field. The medial tangential field utilized a 303??? gantry angle with an associated collimator angle of 90???. The field size measured 16.8 cm x 0 cm within the X-direction and 9 cm x 5.6 cm within the Y-direction. The measured SSD was 94 cm with the field delivering 132 monitor units with high energy photons. An enhanced dynamic wedge of 30??? was incorporated. The lateral tangential field employed a gantry angle of 129??? and an associated collimator angle of 90???. The field size measured 16.2 cm x 0 cm within X-direction and 5.6 cm x 9 cm within the Y-direction. The measured SSD was 88.2 cm with the field allocating 117 monitor units. A photon energy of 15 MV was prescribed. A enhanced dynamic wedge was applied. The supraclavicular portal field utilized an GO port with a gantry angle of 345??? and an associated collimator angle 0???. The port size measured 12.2 cm x 2 cm within the X direction and 1.2 cm x 7.2 cm within the Y direction. The measured SSD was 96.3 cm with the port apportioning 131 monitor units. A supplemental port was designed with an identical gantry angle and collimator angle. The field measured 6.5 cm x 3.1 cm within the X-direction and 0 cm x 5.2 cm within the Y-direction. The field delivered 102 monitor units. The posterior axillary boost field utilized a gantry angle of 170??? with an associated collimator angle of 90???. The port size measured 4.6 cm x 6.9 cm within the X-direction and 12.2 cm x 4.7 cm within the Y- direction. The measured SSD was 81.7 cm with the port allocating 114 monitor units. High-energy photons were applied. The initial lucia began on October 03, 2020 and concluded November 16, 2020. A prescribed dose of 50 Gy was delivered in 25 fractions over 46 elapsed days. The surgical bed was then treated with a reduced opposed tangential field approach. The medial port utilized a gantry angle 330??? with an associated collimator angle of9 0???. The field size measured 3.8 cm x 4 cm within the X-direction and 4.2 cm x 3.7 cm within the Y-direction. The measured SSD was 91.2 cm with the port apportioning 46 monitor units. An enhanced dynamic wedge of 15??? was incorporated. The lateral field employed a gantry angle of 130??? with an associated collimator angle 90???. The field size measured 3.8 cm x 4 cm within the X-direction and 3.7 cm x 4.2 cm within the Y-direction. The SSD measured 96.6 cm with the field apportioning 146 monitor units. An enhanced dynamic wedge of 15??? was applied. An additional field was included with a 0 gantry angle and a 90 collimator rotation. The field size measured 3.8 cm x 4 cm in the X-direction and 4.2 cm x 4.7 cm in the Y-direction. The SSD was 93.7 cm. The port delivered 29 monitor units. A photon energy of 15 MV was prescribed. The reduced ports started on November 17, 2020 and concluded November 23, 2020. An additional 10 Gy was prescribed in 5 fractions encompassing 7 days. All treatments were performed with the [employer] linear accelerator with an isocentric technique. The dose was calculated by anisotropic analytic algorithm. The plan normalized to deliver 95% of the prescription dose to 95% of the planning target volume. Signed by: Dr. Conrado Vallecillo 11/23/2020 9:30:01 AM
[2020-12-06] MEDS: alteplase 1 mg/mL SDV 2 mL 2 MG IV (10:00)
[2020-12-06 10:57] LABS: Basophils # 0.1 10^3/uL (0.0-0.1); Basophils % 1.8 %; Eosinophils # 0.3 10^3/uL (0.0-0.8); Hematocrit 46.4 % (37.0-47.0); Hemoglobin 14.3 g/dL (11.5-15.3); Lymphocytes # 0.8 10^3/uL (0.8-4.8); Lymphocytes % 17.7 %; Mean Corpuscular HGB Conc 30.8 g/dL (30.0-36.0); Mean Corpuscular Hemoglobin 29.2 pg (28.0-34.0); Mean Corpuscular Volume 94.9 fl (81-99); Mean Platelet Volume 9.7 fL (7.4-10.4); Monocytes # 0.5 10^3/uL (0.2-0.9); Monocytes % 10.5 %; Neutrophils # 2.85 10^3/uL (1.8-7.7); Neutrophils % 63.8 %; Nucleated Red Blood Cells % 0 %; Platelet Count 259 10^3/cmm (130-400); Red Blood Count 4.89 10^6/uL (4.1-5.3); Red Cell Distribution Width 13.7 % (12.1-15.1); White Blood Count 4.5 10^3/uL (4.0-10.0)
[2020-12-06 11:22] LABS: Alanine Aminotransferase 43 U/L (0-33); Albumin Level 3.9 g/dL (3.5-5.2); Alkaline Phosphatase 122 IU/L (35-105); Anion Gap 13.8 (5-19); Aspartate Amino Transferase 56 U/L (0-32); Blood Urea Nitrogen 10 mg/dL (6-20); Calcium 9.5 mg/dL (8.5-10.5); Carbon Dioxide 25 mmol/L (22-29); Chloride 104 mmol/L (98-107); Globulin 3.3 g/dL (1.3-4.6); Glomerular Filtration Rate 64.1 mL/min (90-130); Glucose 91 mg/dL (65-115); Osmolality Calculated 287 mOsm/kg (285-295); Potassium 3.8 mmol/L (3.5-5.1); Sodium 139 mmol/L (136-145); Total Bilirubin 0.3 mg/dL (0.15-1.2); Total Protein 7.2 g/dL (6.6-8.7)
--- NOTE | 2020-12-10 10:01 | ONC FU_ITS ---
Dr. Ramos Patient Follow-Up Note Patient: Yadira Lopez Unit #: [id number]: 1960 Dicatated By: Daniel Ramos M.D.Date of Visit:Dec 06, 2020 Onc Med Follow-up/Prog Note Chief Complaint: Breast cancer. History of Present Illness: This is a 60 year-old woman with grade 3 invasive ductal carcinoma of the left breast, by clinical evaluation stage IB (T2, N1, M0), ER/IA positive and HER-2/tina positive. She had presented to Dr. Guajardo with a palpable mass in the left breast. She had been aware of it for about a month. Diagnostic mammogram on March 16, 2020 showed a dominant mass in the upper outer quadrant of the left breast measuring 2.3 x 2.3 cm. Additional smaller dense surrounding satellite nodules were noted. Ultrasound showed an irregular dense hypoechoic lobulated lesion at the 2 o'clock position measuring 2.1 x 2.2 x 2.1 cm. The findings were highly suspicious for malignancy. Ultrasound of the left axilla showed a hypoechoic pathologic enlarged lymph node measuring 3.7 x 1.8 x 2.7 cm. On March 28, 2020 she underwent ultrasound directed biopsies of the breast mass and the enlarged left axillary lymph node. Pathology on the breast biopsy showed grade 3 infiltrating ductal carcinoma in the left axillary lymph node biopsy was positive for metastatic carcinoma. The breast prognostic profile showed ER positive at 98% and IA positive at 40%. The tumor was positive for overexpression of HER-2/tina, 3+ by IHC and amplification ratio by FISH of 2.7 with 7.6 HER-2 copies/cell. The Ki-67 was high at 65%. I had seen her initially on 04/15/2020. In the setting of lymph node positive HER-2/tina positive disease, she was recommended to undergo neoadjuvant chemotherapy with TCH-P. She began cycle 1 on 05/20/2020. She experienced multiple side effects including nausea/vomiting and diarrhea off and on during the first week after treatment. She also had generalized body aches. At day 12 she was neutropenic, but she had uneventful recovery with G-CSF. She continued with cycle 2 on 06/10/2020. It was administered with a 20% reduction in the dosages of both the carboplatin and the docetaxel. Despite that dose reduction, she continued to have significant side effects, including fatigue, nausea, and especially diarrhea. As such, her cycle 3 was delayed 1 week to allow additional recovery, and with that cycle I did opt to omit carboplatin from the regimen. She tolerated it much better and she then continued with cycle 4 on 07/29/2020. On 08/25/2020 she underwent left breast lumpectomy and axillary lymph node sampling. Pathology showed residual grade 3 invasive ductal carcinoma measuring 1.5 cm in greatest diameter. Margins were uninvolved. There was involvement in 2/3 axillary lymph nodes, the largest focus measuring 16 mm. Extranodal extension was identified. She then underwent radiation to the left breast and supraclavicular region, completed on 11/16/2020 to a total dose of 5000 cGy administered in 25 fractions. She then received an additional 1000 cGy boost to the surgical bed, administered in 5 fractions and completed on 11/23/2020. Following completion of the neoadjuvant chemotherapy, she had continued systemic therapy with Herceptin/Perjeta every 3 weeks for 2 cycles. With pathology showing residual axillary lymph node involvement, her treatment was then changed to Kadcyla, cycle 1 on 10/26/2020. Her other medical illnesses include hypertension, hyperlipidemia, asthma, GERD, and anxiety/depression. She is a non-smoker. INTERIM HISTORY: She experienced some fatigue following the initial infusion of Kadcyla and she also continued to have diarrrhea. She was able to proceed with cycle 2 on 11/16/2020. She is seen for a follow-up visit. She says she has been feeling really tired, but she has been able to continue working. Her ECOG score is 1. Her appetite lately has been a little better. She does not have fever, night sweats, or hot flashes. She has had some sharp pains intermittently in the left breast. She has some allergy related sinus symptoms and she sometimes has sore throat. She has occasional dry hacking cough. She does not complain of shortness of breath. She is otherwise not been having chest pain. She has nausea off and on and she sometimes has acid reflux. She had been having diarrhea, but that now seems to be subsiding. She has no complaints. She has some generalized aching, but that is not getting any worse. She has occasional sharp pains in her head/scalp and she does tend to get lightheaded when she first gets up in the morning. She has no numbness/paresthesia or other neuropathy symptoms. Medications: Albuterol Sulfate HFA 2 Puff(s) (of 108 (90 base) mcg/act) Aerosol, solution Inhalation four times a day PRN, Claritin 1 (10 mg) Tablet Oral daily, clonazePAM 1 (0.5 mg) Tablet Oral daily, Ibuprofen 1 (800 mg) Tablet Oral t.i.d., Lisinopril-hydroCHLOROthiazide 1 (10-12.5 mg) Tablet Oral daily, Meloxicam 1 (15 mg) Tablet Oral daily, Multi Vitamin 1 Tablet Oral daily, Omeprazole 1 (40 mg) Capsule Delayed Release Oral daily, Ondansetron HCl 1 Tablet (of 8 mg) Oral four times a day PRN, PARoxetine HCl (40 mg) Tablet Oral Take as Directed, PARoxetine HCl 1 (10 mg) Tablet Oral daily, Prochlorperazine Maleate 1 Tablet (of 10 mg) Oral q 4 hours PRN, Zetia 1 (10 mg) Tablet Oral daily Allergies: Cephalexin, Codeine Sulfate, HYDROcodone-Acetaminophen, Morphine Sulfate, Penicillins, and Sulfa Antibiotics. Vital Signs: Performed on Dec 06, 2020 11:46 Height - 61.00 in Weight - 195.6 lbs (HIGH) BSA - 1.87 sq.m BMI - 36.96 (HIGH) Temperature - 97.3 F (LOW) Pulse - 85 /min Respiration - 18 /min BP - 139/86 mm(hg) O2 Sat - 96 % Pain - 6 Fatigue - 8 Physical Examination: Constitutional - She looks pretty good generally, Eyes - Sclerae nonicteric. Conjunctivae clear, ENMT - No lesions noted in the oral cavity, Hematologic/Lymphatic - No cervical, clavicular, or axillary adenopathy, Respiratory - Lungs are clear with good air movement bilaterally, Cardiovascular - Heart rhythm is regular. There is no murmur, gallop, or rub noted, Abdomen - Mildly distended but soft. Liver and spleen are not enlarged. There is no abdominal mass or ascites noted and there is no inguinal adenopathy, Extremities - Slight edema, Neurologic - No focal neurologic deficits noted. Lab/Imaging: Test performed on Dec 06, 2020 10:20 Sodium 139 mmol/L Potassium 3.8 mmol/L Chloride 104 mmol/L CO2 25 mmol/L Anion Gap 13.8 BUN 10 mg/dL Creatinine 0.9 mg/dL Cr Clearance (Est) 95.5200 mL/min eGFR 64.1 mL/min Glucose 91 mg/dL Osmolality - Calculated 287 mOsm/kg Calcium 9.5 mg/dL Protein, Total 7.2 g/dL Albumin 3.9 g/dL Globulin 3.3 g/dL Bilirubin, Total 0.3 mg/dL ALT (SGPT) 43 U/L AST (SGOT) 56 U/L Alkaline Phosphatase 122 IU/L WBC 4.5 10 3/uL RBC 4.89 10 6/uL HGB 14.3 g/dL HCT 46.4 % MCV 94.9 fl MCH 29.2 pg MCHC 30.8 g/dL RDW 13.7 % Platelet Count 259 10 3/cmm MPV 9.7 fL Neutrophils 2.85 10 3/uL Lymphocytes 0.8 10 3/uL Monocytes 0.5 10 3/uL Eosinophils 0.3 10 3/uL Basophils 0.1 10 3/uL Neutrophil % 63.8 % Lymphocyte % 17.7 % Monocyte % 10.5 % Eosinophil % 6.0 % Basophils % 1.8 % NRBC % 0 % Problem List: 1. Grade 3 invasive ductal carcinoma of the left breast, by clinical evaluation stage at least IB (T2, N1, M0), ER/IA positive and HER-2/tina positive. 2. Hypertension. 3. Hyperlipidemia. 4. Asthma. 5. GERD. 6. Bilateral carpal tunnel syndrome. 7. Anxiety/depression. 8. She has a positive family history of breast cancer involving a first-degree relative (sister). She was found to be BRCA negative. Problems Addressed with this Encounter and Plan: Patient with grade 3 invasive ductal carcinoma of the left breast, by clinical evaluation stage at least IB (T2, N1, M0), ER/IA positive and HER-2/tina positive. She began cycle 1 of neoadjuvant chemotherapy with TCH-P on 05/20/2020. She experienced multiple toxicities including nausea/vomiting, diarrhea, fatigue, generalized body aches, and neutropenia. She has had uneventful recovery. By clinical evaluation, she appeared to be showing some response to the chemotherapy. She will continued with cycle 2 of TCH-P on 06/10/2020. It was administered with a 20% dose reduction in the chemotherapy drugs. Despite that, she has continued to have significant GI toxicity, mainly diarrhea and abdominal pain. As such, her cycle 3 treatment was delayed 1 week And with that cycle the carboplatin was omitted from the regimen. She tolerated that treatment much better, and she continued with cycle 4 on 07/29/2020. On 08/25/2020 she underwent left breast lumpectomy and axillary lymph node sampling. Pathology showed residual grade 3 invasive ductal carcinoma measuring 1.5 cm in greatest diameter. Margins were uninvolved. There was involvement in 2/3 axillary lymph nodes, the largest focus measuring 16 mm. Extranodal extension was identified. Her pathologic staging was ypT1c, ypN1a. Perioperatively she had continued adjuvant therapy with Herceptin/Perjeta every 3 weeks for 2 cycles. She then began postoperative radiation to the left breast and supraclavicular region. She completed treatment on 11/23/2020 to a total dose of 6000 cGy, administered in 30 fractions. During that time, with pathology showing residual axillary lymph node involvement, her systemic therapy was changed to Kadcyla, cycle 1 on 10/26/2020. She was able to tolerated with acceptable toxicity, and she continued with cycle 2 on 11/16/2020. At this point she is still having significant fatigue and she has having some generalized aching. She has nausea off and on, but her diarrhea seems to be resolving. Her blood counts remain adequate. Overall, she appears to be tolerating treatment with acceptable toxicity. She will proceed now with cycle 3 of Kadcyla. The dosage remains the same. She returns in 3 weeks. Signed By: Daniel Ramos M.D. <<Signature on File>>
== END 2020-12-06 23:59 | disposition home or self-care (01) ==
LOC: ONCMED 05:43
PROVIDERS: Internal Medicine Hematology & Oncology; Absent Provider Radiology Radiation Oncology; PCP Family Medicine; Visit Provider Internal Medicine Medical Oncology
DX: Z51.0 Encounter for antineoplastic radiation therapy (principal); Z51.11 Encounter for antineoplastic chemotherapy; C50.812 Malignant neoplasm of overlapping sites of left female breast; Z17.0 Estrogen receptor positive status [ER+]; I10 Essential (primary) hypertension; E78.5 Hyperlipidemia, unspecified; J45.909 Unspecified asthma, uncomplicated; K21.9 Gastro-esophageal reflux disease without esophagitis; G56.03 Carpal tunnel syndrome, bilateral upper limbs; F41.9 Anxiety disorder, unspecified; F32.9 Major depressive disorder, single episode, unspecified; Z80.3 Family history of malignant neoplasm of breast; Z79.899 Other long term (current) drug therapy
CPT/HCPCS: 36593; 77307; 77334; 77336; 77387; 77412; 80053; 85025; 96375; 96413; 99214; 99215; J2997; J7050; J9354

== ENCOUNTER 2020-12-30 06:40 | Outpatient (RCR) | payer BC, SELFPAY ==
[2020-12-28 09:51] LABS: Basophils # 0.1 10^3/uL (0.0-0.1); Basophils % 1.3 %; Eosinophils # 0.2 10^3/uL (0.0-0.8); Hematocrit 43.6 % (37.0-47.0); Hemoglobin 14.1 g/dL (11.5-15.3); Lymphocytes # 1.3 10^3/uL (0.8-4.8); Lymphocytes % 21.6 %; Mean Corpuscular HGB Conc 32.3 g/dL (30.0-36.0); Mean Corpuscular Volume 89.7 fl (81-99); Mean Platelet Volume 9.5 fL (7.4-10.4); Monocytes # 0.7 10^3/uL (0.2-0.9); Monocytes % 11.2 %; Neutrophils # 3.63 10^3/uL (1.8-7.7); Neutrophils % 60.9 %; Nucleated Red Blood Cells % 0 %; Platelet Count 277 10^3/cmm (130-400); Red Blood Count 4.86 10^6/uL (4.1-5.3)
[2020-12-28 10:32] LABS: Alanine Aminotransferase 58 U/L (0-33); Albumin Level 3.9 g/dL (3.5-5.2); Alkaline Phosphatase 132 IU/L (35-105); Anion Gap 14.7 (5-19); Aspartate Amino Transferase 58 U/L (0-32); Blood Urea Nitrogen 18 mg/dL (6-20); Carbon Dioxide 25 mmol/L (22-29); Chloride 101 mmol/L (98-107); Globulin 3.2 g/dL (1.3-4.6); Glomerular Filtration Rate 64.1 mL/min (90-130); Glucose 104 mg/dL (65-115); Osmolality Calculated 286 mOsm/kg (285-295); Potassium 3.7 mmol/L (3.5-5.1); Sodium 137 mmol/L (136-145); Total Bilirubin 0.4 mg/dL (0.15-1.2); Total Protein 7.1 g/dL (6.6-8.7)
[2020-12-28] MEDS: sodium chloride 0.9% 250 ML 75 ML IV (11:00)
--- NOTE | 2020-12-29 07:02 | ONC FU_ITS ---
Dr. Ramos Patient Follow-Up Note Patient: Yadira Lopez Unit #: [id number]: 1960 Dicatated By: Daniel Ramos M.D.Date of Visit:Dec 28, 2020 Onc Med Follow-up/Prog Note Chief Complaint: Breast cancer. History of Present Illness: This is a 60 year-old woman with grade 3 invasive ductal carcinoma of the left breast, by clinical evaluation stage IB (T2, N1, M0), ER/KY positive and HER-2/tina positive. She had presented to Dr. Guajardo with a palpable mass in the left breast. She had been aware of it for about a month. Diagnostic mammogram on March 16, 2020 showed a dominant mass in the upper outer quadrant of the left breast measuring 2.3 x 2.3 cm. Additional smaller dense surrounding satellite nodules were noted. Ultrasound showed an irregular dense hypoechoic lobulated lesion at the 2 o'clock position measuring 2.1 x 2.2 x 2.1 cm. The findings were highly suspicious for malignancy. Ultrasound of the left axilla showed a hypoechoic pathologic enlarged lymph node measuring 3.7 x 1.8 x 2.7 cm. On March 28, 2020 she underwent ultrasound directed biopsies of the breast mass and the enlarged left axillary lymph node. Pathology on the breast biopsy showed grade 3 infiltrating ductal carcinoma in the left axillary lymph node biopsy was positive for metastatic carcinoma. The breast prognostic profile showed ER positive at 98% and KY positive at 40%. The tumor was positive for overexpression of HER-2/tina, 3+ by IHC and amplification ratio by FISH of 2.7 with 7.6 HER-2 copies/cell. The Ki-67 was high at 65%. I had seen her initially on 04/15/2020. In the setting of lymph node positive HER-2/tina positive disease, she was recommended to undergo neoadjuvant chemotherapy with TCH-P. She began cycle 1 on 05/20/2020. She experienced multiple side effects including nausea/vomiting and diarrhea off and on during the first week after treatment. She also had generalized body aches. At day 12 she was neutropenic, but she had uneventful recovery with G-CSF. She continued with cycle 2 on 06/10/2020. It was administered with a 20% reduction in the dosages of both the carboplatin and the docetaxel. Despite that dose reduction, she continued to have significant side effects, including fatigue, nausea, and especially diarrhea. As such, her cycle 3 was delayed 1 week to allow additional recovery, and with that cycle I did opt to omit carboplatin from the regimen. She tolerated it much better and she then continued with cycle 4 on 07/29/2020. On 08/25/2020 she underwent left breast lumpectomy and axillary lymph node sampling. Pathology showed residual grade 3 invasive ductal carcinoma measuring 1.5 cm in greatest diameter. Margins were uninvolved. There was involvement in 2/3 axillary lymph nodes, the largest focus measuring 16 mm. Extranodal extension was identified. She then underwent radiation to the left breast and supraclavicular region, completed on 11/16/2020 to a total dose of 5000 cGy administered in 25 fractions. She then received an additional 1000 cGy boost to the surgical bed, administered in 5 fractions and completed on 11/23/2020. Following completion of the neoadjuvant chemotherapy, she had continued systemic therapy with Herceptin/Perjeta every 3 weeks for 2 cycles. With pathology showing residual axillary lymph node involvement, her treatment was then changed to Kadcyla, cycle 1 on 10/26/2020. Her other medical illnesses include hypertension, hyperlipidemia, asthma, GERD, and anxiety/depression. She is a non-smoker. INTERIM HISTORY: She experienced some fatigue following the initial infusion of Kadcyla and she also continued to have diarrrhea. She was able to proceed with cycle 2 on 11/16/2020 and was cycle 3 on 12/06/2020. She is seen for a follow-up visit. She has been feeling worn out and tired. She occasionally aches all over. She is still working, but it has become increasingly difficult, and she has been having to miss more work days. Her ECOG score is 1. She still has good appetite. She has not had fever or night sweats. She sometimes feels hot. She has had some sinus drainage and sore throat. She has not had mouth sores. She sometimes has dry cough. She is short of breath with activity. She has occasional shooting pains in her chest. She has nausea off and on. Lately she has been handling her diarrhea pretty well. She has no complaints. She has been having shooting pains in her head quite often and she has been having dizziness and lightheadedness when she gets up. She sometimes has numbness in her hands and feet. She has been feeling more stressed out. Medications: Albuterol Sulfate HFA 2 Puff(s) (of 108 (90 base) mcg/act) Aerosol, solution Inhalation four times a day PRN, Claritin 1 (10 mg) Tablet Oral daily, clonazePAM 1 (0.5 mg) Tablet Oral daily, Ibuprofen 1 (800 mg) Tablet Oral t.i.d., Lisinopril-hydroCHLOROthiazide 1 (10-12.5 mg) Tablet Oral daily, Meloxicam 1 (15 mg) Tablet Oral daily, Multi Vitamin 1 Tablet Oral daily, Omeprazole 1 (40 mg) Capsule Delayed Release Oral b.i.d., Ondansetron HCl 1 Tablet (of 8 mg) Oral four times a day PRN, PARoxetine HCl 1 (20 mg) Tablet Oral daily, PARoxetine HCl (40 mg) Tablet Oral Take as Directed, Prochlorperazine Maleate 1 Tablet (of 10 mg) Oral q 4 hours PRN, Zetia 1 (10 mg) Tablet Oral daily Allergies: Cephalexin, Codeine Sulfate, HYDROcodone-Acetaminophen, Morphine Sulfate, Penicillins, and Sulfa Antibiotics. Vital Signs: Performed on Dec 28, 2020 10:04 Height - 61.00 in Weight - 196.6 lbs (HIGH) BSA - 1.88 sq.m BMI - 37.15 (HIGH) Temperature - 96.9 F (LOW) Pulse - 103 /min (HIGH) Respiration - 18 /min BP - 126/85 mm(hg) O2 Sat - 95 % (LOW) Pain - 7 Fatigue - 8 Physical Examination: Constitutional - She looks pretty good generally, Eyes - Sclerae nonicteric. Conjunctivae clear, ENMT - No lesions noted in the oral cavity, Hematologic/Lymphatic - No cervical, clavicular, or axillary adenopathy, Respiratory - Lungs are clear with good air movement bilaterally, Cardiovascular - Heart rhythm is regular. There is no murmur, gallop, or rub noted, Abdomen - Mildly distended but soft. Liver and spleen are not enlarged. There is no abdominal mass or ascites noted and there is no inguinal adenopathy, Extremities - No edema, Neurologic - No focal neurologic deficits noted. Lab/Imaging: Test performed on Dec 28, 2020 08:40 Sodium 137 mmol/L Potassium 3.7 mmol/L Chloride 101 mmol/L CO2 25 mmol/L Anion Gap 14.7 BUN 18 mg/dL Creatinine 0.9 mg/dL Cr Clearance (Est) 95.5200 mL/min eGFR 64.1 mL/min Glucose 104 mg/dL Osmolality - Calculated 286 mOsm/kg Calcium 10.0 mg/dL Protein, Total 7.1 g/dL Albumin 3.9 g/dL Globulin 3.2 g/dL Bilirubin, Total 0.4 mg/dL ALT (SGPT) 58 U/L AST (SGOT) 58 U/L Alkaline Phosphatase 132 IU/L WBC 6.0 10 3/uL RBC 4.86 10 6/uL HGB 14.1 g/dL HCT 43.6 % MCV 89.7 fl MCH 29.0 pg MCHC 32.3 g/dL RDW 14.0 % Platelet Count 277 10 3/cmm MPV 9.5 fL Neutrophils 3.63 10 3/uL Lymphocytes 1.3 10 3/uL Monocytes 0.7 10 3/uL Eosinophils 0.2 10 3/uL Basophils 0.1 10 3/uL Neutrophil % 60.9 % Lymphocyte % 21.6 % Monocyte % 11.2 % Eosinophil % 4.0 % Basophils % 1.3 % NRBC % 0 % Problem List: 1. Grade 3 invasive ductal carcinoma of the left breast, by clinical evaluation stage at least IB (T2, N1, M0), ER/[place] positive and HER-2/tina positive. 2. Hypertension. 3. Hyperlipidemia. 4. Asthma. 5. GERD. 6. Bilateral carpal tunnel syndrome. 7. Anxiety/depression. 8. She has a positive family history of breast cancer involving a first-degree relative (sister). She was found to be BRCA negative. Problems Addressed with this Encounter and Plan: 1. Patient with grade 3 invasive ductal carcinoma of the left breast, by clinical evaluation stage at least IB (T2, N1, M0), ER/KY positive and HER-2/tina positive. She began cycle 1 of neoadjuvant chemotherapy with TCH-P on 05/20/2020. She experienced multiple toxicities including nausea/vomiting, diarrhea, fatigue, generalized body aches, and neutropenia. She has had uneventful recovery. By clinical evaluation, she appeared to be showing some response to the chemotherapy. She will continued with cycle 2 of TCH-P on 06/10/2020. It was administered with a 20% dose reduction in the chemotherapy drugs. Despite that, she has continued to have significant GI toxicity, mainly diarrhea and abdominal pain. As such, her cycle 3 treatment was delayed 1 week And with that cycle the carboplatin was omitted from the regimen. She tolerated that treatment much better, and she continued with cycle 4 on 07/29/2020. On 08/25/2020 she underwent left breast lumpectomy and axillary lymph node sampling. Pathology showed residual grade 3 invasive ductal carcinoma measuring 1.5 cm in greatest diameter. Margins were uninvolved. There was involvement in 2/3 axillary lymph nodes, the largest focus measuring 16 mm. Extranodal extension was identified. Her pathologic staging was ypT1c, ypN1a. Perioperatively she had continued adjuvant therapy with Herceptin/Perjeta every 3 weeks for 2 cycles. She then began postoperative radiation to the left breast and supraclavicular region. She completed treatment on 11/23/2020 to a total dose of 6000 cGy, administered in 30 fractions. During that time, with pathology showing residual axillary lymph node involvement, her systemic therapy was changed to Kadcyla, cycle 1 on 10/26/2020. She was able to tolerated with acceptable toxicity, and she continued with cycle 2 on 11/16/2020 and with cycle 3 on 12/06/2020. She had been having diarrhea with the Kadcyla, but that is now being managed pretty well. However, she is having increasing fatigue, to the point that she has been missing more work,. She also continues to have some generalized aching. Overall, though, she is tolerating treatment with acceptable toxicity. She will continue with cycle 4 of Kadcyla. The dosage remains the same. She returns in 3 weeks. 2. She has having some increase in anxiety/stress. She will increase her paroxetine dosage to 20 mg daily. Signed By: Daniel Ramos M.D. <<Signature on File>>
--- NOTE | 2020-12-30 11:49 | ONCRAD EPV_ITS ---
Radiation Oncology Follow-Up Note Patient Name: Yadira Lopez Date of : 1960 Date of Service: 12/30/2020 Attending Physician: Conrado Vallecillo M.D. Yadira Lopez returned to my office this morning for routinely scheduled follow-up appointment. She completed adjuvant left breast and regional lymph node radiotherapy in November for the management of a pathological stage yIB (T1cN1a) grade 3 ductal carcinoma of the upper-outer quadrant of the left breast. Her initial clinical stage was IB (T2N1). The breast cancer profile demonstrated estrogen receptor positivity (98%), progesterone receptor positivity (40%), and HER-2 positivity (3+; ratio 2.7). The Ki???67 was 65%. She received neoadjuvant chemotherapy consisting of Taxotere, carboplatin, Herceptin, and Perjeta. Cycle 1 began on May 20, 2020 through cycle 4 ending on July 29, 2020. A left partial mastectomy with sentinel lymph node sampling was performed by Asif Ceballos M.D. on August 25, 2020. The pathology report confirmed a residual 1.5 cm grade 3 invasive ductal carcinoma with 2 out of 3 axillary lymph nodes harboring metastatic disease (largest focus 1.6 cm with JUAN C). The closest surgical margin was 2 mm. She has received 2 cycles of Perjeta and Herceptin (August 23, 2019 through September 12, 2020). Daily radiotherapy was administered between the dates of October 03, 2020 through November 23, 2020. A dose of 60 Gy was delivered in 30 fractions encompassing 52 elapsed days. On review of systems, she denied any breast complaints. On physical examination, she weighed 198 lbs. the temperature was 98.3 ???F. Her blood pressure was 139/84 mmHg. The pulse was 96 bpm and the respiratory rate was 18 breaths per minute. The left breast demonstrated minimal hyperpigmentation without any areas of ulceration. In summary, Ms. Lopez returned for a routine post radiotherapy follow-up. She has no residual sequelae from treatment. She received the fourth cycle of Kadcyla on Saturday. She will continue follow-up with her medical oncologist as scheduled. Signed by: Dr. Conrado Vallecillo 12/30/2020 11:48:14 AM
== END 2021-01-05 23:59 | disposition home or self-care (01) ==
LOC: ONCMED 06:40
PROVIDERS: Internal Medicine Medical Oncology; PCP Family Medicine; Visit Provider Radiology Radiation Oncology
DX: Z51.11 Encounter for antineoplastic chemotherapy (principal); C50.812 Malignant neoplasm of overlapping sites of left female breast; Z17.0 Estrogen receptor positive status [ER+]; I10 Essential (primary) hypertension; E78.5 Hyperlipidemia, unspecified; J45.909 Unspecified asthma, uncomplicated; K21.9 Gastro-esophageal reflux disease without esophagitis; G56.03 Carpal tunnel syndrome, bilateral upper limbs; F41.9 Anxiety disorder, unspecified; F32.9 Major depressive disorder, single episode, unspecified; Z80.3 Family history of malignant neoplasm of breast; Z79.899 Other long term (current) drug therapy
CPT/HCPCS: 80053; 85025; 96413; 99024; 99215; J7050; J9354

== ENCOUNTER 2021-01-18 06:39 | Outpatient (RCR) | payer BC, SELFPAY ==
[2021-01-18 08:53] LABS: Basophils # 0.1 10^3/uL (0.0-0.1); Basophils % 1.8 %; Eosinophils # 0.3 10^3/uL (0.0-0.8); Eosinophils % 5.3 %; Hematocrit 40.5 % (37.0-47.0); Hemoglobin 13.2 g/dL (11.5-15.3); Lymphocytes # 1.1 10^3/uL (0.8-4.8); Lymphocytes % 18.8 %; Mean Corpuscular HGB Conc 32.6 g/dL (30.0-36.0); Mean Corpuscular Hemoglobin 29.3 pg (28.0-34.0); Monocytes # 0.7 10^3/uL (0.2-0.9); Monocytes % 12.6 %; Neutrophils # 3.44 10^3/uL (1.8-7.7); Neutrophils % 61.1 %; Nucleated Red Blood Cells % 0 %; Platelet Count 251 10^3/cmm (130-400); Red Cell Distribution Width 14.6 % (12.1-15.1); White Blood Count 5.6 10^3/uL (4.0-10.0)
[2021-01-18 09:45] LABS: Alanine Aminotransferase 66 U/L (0-33); Albumin Level 3.7 g/dL (3.5-5.2); Alkaline Phosphatase 114 IU/L (35-105); Anion Gap 12.5 (5-19); Aspartate Amino Transferase 85 U/L (0-32); Blood Urea Nitrogen 11 mg/dL (6-20); Calcium 9.1 mg/dL (8.5-10.5); Carbon Dioxide 27 mmol/L (22-29); Chloride 102 mmol/L (98-107); Glomerular Filtration Rate 73.4 mL/min (90-130); Glucose 99 mg/dL (65-115); Osmolality Calculated 285 mOsm/kg (285-295); Potassium 3.5 mmol/L (3.5-5.1); Sodium 138 mmol/L (136-145); Total Bilirubin 0.4 mg/dL (0.15-1.2); Total Protein 6.7 g/dL (6.6-8.7)
[2021-01-18] MEDS: sodium chloride 0.9% 250 ML 75 ML IV (11:53)
[2021-01-18] MEDS: TRAMadol 50 mg Tablet PO (12:32)
--- NOTE | 2021-01-29 14:22 | ONC FU_ITS ---
[facility] Patient Note Patient: Yadira Lopez Unit #: [id number]: 1960 Dictated By: Gil GarciaDate of Visit: Jan 18, 2021 Onc MED Follow-Up/Prog Note Chief Complaint: Breast cancer. History of Present Illness: Ms Lopez is a 60 year-old woman with grade 3 invasive ductal carcinoma of the left breast, by clinical evaluation stage IB (T2, N1, M0), ER/NE positive and HER-2/tina positive. She had presented to Dr. Guajardo with a palpable mass in the left breast. She had been aware of it for about a month. Diagnostic mammogram on March 16, 2020 showed a dominant mass in the upper outer quadrant of the left breast measuring 2.3 x 2.3 cm. Additional smaller dense surrounding satellite nodules were noted. Ultrasound showed an irregular dense hypoechoic lobulated lesion at the 2 o'clock position measuring 2.1 x 2.2 x 2.1 cm. The findings were highly suspicious for malignancy. Ultrasound of the left axilla showed a hypoechoic pathologic enlarged lymph node measuring 3.7 x 1.8 x 2.7 cm. On March 28, 2020 she underwent ultrasound directed biopsies of the breast mass and the enlarged left axillary lymph node. Pathology on the breast biopsy showed grade 3 infiltrating ductal carcinoma in the left axillary lymph node biopsy was positive for metastatic carcinoma. The breast prognostic profile showed ER positive at 98% and NE positive at 40%. The tumor was positive for overexpression of HER-2/tina, 3+ by IHC and amplification ratio by FISH of 2.7 with 7.6 HER-2 copies/cell. The Ki-67 was high at 65%. Dr Ramos had seen her initially on 04/15/2020. In the setting of lymph node positive HER-2/tina positive disease, she was recommended to undergo neoadjuvant chemotherapy with TCH-P. She began cycle 1 on 05/20/2020. She experienced multiple side effects including nausea/vomiting and diarrhea off and on during the first week after treatment. She also had generalized body aches. At day 12 she was neutropenic, but she had uneventful recovery with G-CSF. She continued with cycle 2 on 06/10/2020. It was administered with a 20% reduction in the dosages of both the carboplatin and the docetaxel. Despite that dose reduction, she continued to have significant side effects, including fatigue, nausea, and especially diarrhea. As such, her cycle 3 was delayed 1 week to allow additional recovery, and with that cycle it was opted to omit carboplatin from the regimen. She tolerated it much better and she then continued with cycle 4 on 07/29/2020. On 08/25/2020 she underwent left breast lumpectomy and axillary lymph node sampling. Pathology showed residual grade 3 invasive ductal carcinoma measuring 1.5 cm in greatest diameter. Margins were uninvolved. There was involvement in 2/3 axillary lymph nodes, the largest focus measuring 16 mm. Extranodal extension was identified. She then underwent radiation to the left breast and supraclavicular region, completed on 11/16/2020 to a total dose of 5000 cGy administered in 25 fractions. She then received an additional 1000 cGy boost to the surgical bed, administered in 5 fractions and completed on 11/23/2020. Following completion of the neoadjuvant chemotherapy, she had continued systemic therapy with Herceptin/Perjeta every 3 weeks for 2 cycles. With pathology showing residual axillary lymph node involvement, her treatment was then changed to Kadcyla, cycle 1 on 10/26/2020. Her other medical illnesses include hypertension, hyperlipidemia, asthma, GERD, and anxiety/depression. She is a non-smoker. INTERIM HISTORY: She experienced some fatigue following the initial infusion of Kadcyla and she also continued to have diarrrhea. She was able to proceed with cycle 2 on 11/16/2020 and was cycle 3 on 12/06/2020. Mrs. Lopez completed cycle for Kadcyla on December 28, 2020. She is here today for follow-up and consideration of cycle 5. Overall she states she is doing about the same. She states she has had some worsening joint pain and some fatigue and finds it hard to concentrate at time. But she states is about the same as what it has been. She has been taking gabapentin 100 mg 1 or 2 3 times daily. States that this is helped with her pain overall. She denies any new shortness of breath orthopnea. She denies any fever or chills. She has had no lower extremity edema. She states that she has applied for permanent disability because she has such a hard time concentrating for work and has such fatigue that working full-time or even part-time has not been feasible for her. She states with her joint pain she has to get up and move around quite often and thus affects her productivity of any kind. She states her bowels and bladder have been normal for her. She has had some intermittent diarrhea but overall states that is controlled. She says occasionally she does have episodes where she has not been able to go out because of the diarrhea but states that she will take her Imodium it typically slows it down to where she can at least go out and do her ADLs. She denies any chest pain or palpitations. She states her hot flashes are normal and stable for her. Her ECOG is 1. Past Medical History: Anxiety Asthma Bilateral carpal tunnel syndrome Depression Gastroesophageal reflux disease Hyperlipidemia Hypertension Past Surgical History: Caesarean section Hysterectomy/bilateral salpingectomy-oophorectomy Left breast mass and left axillary node excision-Dr Ceballos in 2020 Right subclavian Port-A-Cath placement per Dr. Ceballos in 2020 Ultrasound guided biopsy of left breast mass and left axillary lymph node in 2019 Bronchoscopy and cervical mediastinoscopy in 2014 Tonsillectomy in 2009 Allergies: Cephalexin, Codeine Sulfate, HYDROcodone-Acetaminophen, Morphine Sulfate, Penicillins, and Sulfa Antibiotics. Medications: Albuterol Sulfate HFA 2 Puff(s) (of 108 (90 base) mcg/act) Aerosol, solution Inhalation four times a day PRN Claritin 1 (10 mg) Tablet Oral daily clonazePAM 1 (0.5 mg) Tablet Oral daily Gabapentin 1 Capsule (of 100 mg) Oral t.i.d. Ibuprofen 1 (800 mg) Tablet Oral t.i.d. Lisinopril-hydroCHLOROthiazide 1 (10-12.5 mg) Tablet Oral daily Meloxicam 1 (15 mg) Tablet Oral daily Multi Vitamin 1 Tablet Oral daily Omeprazole 1 (40 mg) Capsule Delayed Release Oral b.i.d. Ondansetron HCl 1 Tablet (of 8 mg) Oral four times a day PRN PARoxetine HCl 1 (20 mg) Tablet Oral daily PARoxetine HCl (40 mg) Tablet Oral Take as Directed Prochlorperazine Maleate 1 Tablet (of 10 mg) Oral q 4 hours PRN Zetia 1 (10 mg) Tablet Oral daily Family History: Ms. Lopez's mother is alive: hypertension. Ms. Lopez's father is : esophageal cancer, and myocardial infarction at age 60. Ms. Lopez has 1 brother who is : sustained injuries at age 58. She has 1 sister who is alive: breast cancer. Father at age 60 with heart attack. He also had throat cancer. Mother still living at age 84. A brother in a boating accident. A 68-year-old sister is been treated for breast cancer. She is not aware of any other breast cancer or ovarian cancer in the family. Social History: Ms. Lopez is . Ms. Lopez has never smoked. She has no history of drinking. She is a non-smoker. She does not drink alcohol. Review Of Symptoms: <See Above> Vital Signs: Performed on Jan 18, 2021 10:34 Height - 61.00 in Weight - 199.2 lbs (HIGH) BSA - 1.89 sq.m BMI - 37.64 (HIGH) Temperature - 97.4 F (LOW) Pulse - 91 /min Respiration - 19 /min BP - 160/98 mm(hg) (HIGH) O2 Sat - 96 % Pain - 8 Fatigue - 7,1 - No physically strenuous activity, but ambulatory and able to carry out light or sedentary work (e.g. office work, light house work). (ECOG) Physical Examination: Constitutional Alert, oriented, no acute distress. Skin pink, warm and dry. Head Normocephalic; atraumatic. Eyes Conjunctivae and sclerae are clear and without icterus. Pupils are reactive and equal. Neck Supple without masses or thyromegaly. No jugular venous distension. Hematologic/Lymphatic No petechiae or purpura. No tender or palpable lymph nodes in the cervical or supraclavicular areas. Respiratory Lungs are clear to auscultation without rhonchi or wheezing. Cardiovascular Regular rate and rhythm of heart without murmurs,clicks, gallops or rubs. Chest Chest is symmetric without chest wall deformities. Right chest wall venous access device is unremarkable and has healed well Abdomen Non-tender, non-distended, no masses or ascites. Good bowel sounds noted in all quads. No guarding or rebound tenderness. No pulsatile masses. Back/Spine Non-tender to palpation. Extremities No visible deformities, no cyanosis, clubbing or edema. Musculoskeletal No tenderness or swelling, normal range of motion without obvious weakness. Integumentary No rashes or lesions. Neurologic No sensory or motor deficits, normal cerebellar function, normal gait. Psychiatric Alert and oriented times three. Coherent speech. Verbalizes understanding of our discussions today. Laboratory:Test performed on Jan 18, 2021 08:14 Sodium 138 mmol/L TSH 2.10 uIU/mL Potassium 3.5 mmol/L Chloride 102 mmol/L CO2 27 mmol/L Anion Gap 12.5 BUN 11 mg/dL Creatinine 0.8 mg/dL Cr Clearance (Est) 107.4600 mL/min eGFR 73.4 mL/min Glucose 99 mg/dL Osmolality - Calculated 285 mOsm/kg Calcium 9.1 mg/dL Protein, Total 6.7 g/dL Albumin 3.7 g/dL Globulin 3.0 g/dL Bilirubin, Total 0.4 mg/dL ALT (SGPT) 66 U/L AST (SGOT) 85 U/L Alkaline Phosphatase 114 IU/L WBC 5.6 10 3/uL RBC 4.50 10 6/uL HGB 13.2 g/dL HCT 40.5 % MCV 90.0 fl MCH 29.3 pg MCHC 32.6 g/dL RDW 14.6 % Platelet Count 251 10 3/cmm MPV 9.0 fL Neutrophils 3.44 10 3/uL Lymphocytes 1.1 10 3/uL Monocytes 0.7 10 3/uL Eosinophils 0.3 10 3/uL Basophils 0.1 10 3/uL Neutrophil % 61.1 % Lymphocyte % 18.8 % Monocyte % 12.6 % Eosinophil % 5.3 % Basophils % 1.8 % NRBC % 0 % Test performed on Oct 26, 2020 08:14 Magnesium 1.6 mg/dL Impression: 1. Grade 3 invasive ductal carcinoma of the left breast, by clinical evaluation stage at least IB (T2, N1, M0), ER/NE positive and HER-2/tina positive. 2. Hypertension. 3. Hyperlipidemia. 4. Asthma. 5. GERD. 6. Bilateral carpal tunnel syndrome. 7. Anxiety/depression. 8. She has a positive family history of breast cancer involving a first-degree relative (sister). She was found to be BRCA negative. Plan/Problems Addressed at this Visit: 1. Grade 3 invasive ductal carcinoma of the left breast, by clinical evaluation stage at least IB (T2, N1, M0), ER/NE positive and HER-2/tina positive. She began cycle 1 of neoadjuvant chemotherapy with TCH-P on 05/20/2020. She experienced multiple toxicities including nausea/vomiting, diarrhea, fatigue, generalized body aches, and neutropenia. She has had uneventful recovery. By clinical evaluation, she appeared to be showing some response to the chemotherapy. She will continued with cycle 2 of TCH-P on 06/10/2020. It was administered with a 20% dose reduction in the chemotherapy drugs. Despite that, she has continued to have significant GI toxicity, mainly diarrhea and abdominal pain. As such, her cycle 3 treatment was delayed 1 week And with that cycle the carboplatin was omitted from the regimen. She tolerated that treatment much better, and she continued with cycle 4 on 07/29/2020. On 08/25/2020 she underwent left breast lumpectomy and axillary lymph node sampling. Pathology showed residual grade 3 invasive ductal carcinoma measuring 1.5 cm in greatest diameter. Margins were uninvolved. There was involvement in 2/3 axillary lymph nodes, the largest focus measuring 16 mm. Extranodal extension was identified. Her pathologic staging was ypT1c, ypN1a. Perioperatively she had continued adjuvant therapy with Herceptin/Perjeta every 3 weeks for 2 cycles. She then began postoperative radiation to the left breast and supraclavicular region. She completed treatment on 11/23/2020 to a total dose of 6000 cGy, administered in 30 fractions. During that time, with pathology showing residual axillary lymph node involvement, her systemic therapy was changed to Kadcyla, cycle 1 on 10/26/2020. She was able to tolerated with acceptable toxicity, and she continued with cycle 2 on 11/16/2020 and with cycle 3 on 12/06/2020. She had been having diarrhea with the Kadcyla, but that is now being managed pretty well. However, she is having increasing fatigue, to the point that she has been missing more work and finds working is impossible . She also continues to have some generalized aching. Overall, though, she is tolerating treatment with acceptable toxicity. A. Proceed with cycle 5 Kadcyla at current dosing. B. Today's labs reviewed in detail and discussed with Ms. Lopez and a copy was given to her. WBC 5.6, hemoglobin 13.2, platelets 251,000, ANC is 3440. Potassium 3.5 random glucose 99 creatinine 0.8 and LFTs are normal. Her weight is stable at 199.2. C. Her last echocardiogram was on May 10, 2020 and reported a ejection fraction of 57% at that time. She had mild left ventricular hypertrophy but no regional wall motion abnormalities. She will be due for repeat follow-up echocardiogram for monitoring of the Kadcyla and recent treatment with Herceptin Perjeta. Will obtain this with her next visit. D. She is encouraged to continue her gabapentin at 100 mg and we did discuss that if she needed she can titrate up to 300 mg 3 times daily. I did encourage her to titrate slowly she is currently 200 mg 3 times daily and can slowly increase to 200 mg 3 times daily and up to a max of 303 times daily if needed. E. We will plan to see her back in 3 weeks unless otherwise needed. She will be due for CBC CMP at that time. She also have a repeat echo but that visit. 2. She has anxiety/stress. She states it is controlled with paroxetine 20 mg daily. 3. She declined flu vaccine. She states she does not want to do that at this time. Signed By: Gil Garcia-, [facility] Daniel Ramos MD <<Signature on File>>
== END 2021-02-05 23:59 | disposition home or self-care (01) ==
LOC: ONCMED 06:39
PROVIDERS: PCP Family Medicine; Visit Provider Nurse Practitioner
DX: Z51.11 Encounter for antineoplastic chemotherapy (principal); C50.812 Malignant neoplasm of overlapping sites of left female breast; Z17.0 Estrogen receptor positive status [ER+]; I10 Essential (primary) hypertension; E78.5 Hyperlipidemia, unspecified; J45.909 Unspecified asthma, uncomplicated; K21.9 Gastro-esophageal reflux disease without esophagitis; G56.03 Carpal tunnel syndrome, bilateral upper limbs; F41.9 Anxiety disorder, unspecified; F32.9 Major depressive disorder, single episode, unspecified; Z80.3 Family history of malignant neoplasm of breast; Z79.899 Other long term (current) drug therapy
CPT/HCPCS: 80053; 84443; 85025; 96413; 99215; J7050; J9354

== ENCOUNTER 2021-01-31 18:14 | Emergency (ER) | payer BC, SELFPAY ==
[2021-01-31 19:18] VITALS: BP 138/91; PULSE 110; RESP 18; TEMP 36.8; O2SAT 96; BMI 33.5
[2021-01-31 20:07] VITALS: BP 135/87; PULSE 107; RESP 18; O2SAT 97
[2021-01-31 20:26] LABS: Add Urine Culture? Yes; Add Urine Microscopic? YES; Bacteria Urine 1+ /hpf; Bilirubin Urine Neg (Negative); Blood Urine Neg (Negative); Glucose Urine UA Norm (Normal); Hyaline Casts Urine 0-4 /lpf; Ketones Urine Negative (Negative); Leukocyte Esterase Urine 1+ (Negative); Nitrate Urine Negative (Negative); Protein Urine Neg (Negative); RBC Urine 0-4 /hpf (0-2); Specific Gravity, Urine 1.015 (1.005-1.030); Squamous Epithelial Cell Urine 0-4 /hpf (0-5); Urine Appearance Hazy (CLEAR); Urine Color Straw (Yellow); Urobilinogen Urine Norm (Negative); WBC Urine 55-80 /hpf (0-5); pH Urine 5 (5-7)
--- NOTE | 2021-01-31 21:06 | CTR_ITS ---
PROCEDURE INFORMATION: Exam: CT Abdomen And Pelvis With Contrast Exam date and time: 01/31/2021 9:06 PM Age: 60 years old Clinical indication: Abdominal pain; Additional info: Abd pain, injury, blood in stool TECHNIQUE: Imaging protocol: Computed tomography of the abdomen and pelvis with contrast. Total images: 242 Radiation optimization: All CT scans at this facility use at least one of these dose optimization techniques: automated exposure control; mA and/or kV adjustment per patient size (includes targeted exams where dose is matched to clinical indication); or iterative reconstruction. Contrast material: OMNI 300; Contrast volume: 95 ml; Contrast route: INTRAVENOUS (IV); COMPARISON: CT abdomen pelvis w con* [id number] 06/28/2020 10:50 AM RADIATION DOSE METRICS: Total DLP (mGy-cm): 1652.45 FINDINGS: Lungs: Limited assessment lung bases reveals a partially imaged small focus of subsegmental volume ground-glass interstitial lung disease, without consolidation, inferior segment of the lingula. If there is a history of trauma this could reflect a small focus of pulmonary contusion partially imaged. No visible hemoperitoneum or pneumoperitoneum within the field of view. Liver: Stable rare small simple hepatic cyst. No visible hepatic mass. Gallbladder and bile ducts: Unremarkable. No calcified stones. No ductal dilation. Pancreas: Pancreas is unremarkable. No visible pancreatic ductal ectasia. Spleen: Spleen unremarkable. Adrenal glands: Adrenal glands unremarkable. Kidneys and ureters: No hydronephrosis or perinephric fluid. No visible nephrolithiasis. No visible renal mass. No visible ureterolithiasis. Stomach and bowel: Nonobstructive bowel pattern. No visible adynamic or reactive ileus. Heavy fecal residue consistent with constipation. Appendix: The appendix is visualized and appears noninflamed. Intraperitoneal space: No visible pneumoperitoneum or intraperitoneal ascites. Vasculature: The abdominal aorta is nonaneurysmal. Moderate arterial sclerotic disease. Lymph nodes: Unremarkable. No enlarged lymph nodes. Urinary bladder: Urinary bladder unremarkable. Reproductive: Status post hysterectomy. Bones/joints: No visible active or acute osseous pathology. Soft tissues: Unremarkable. Other findings: Marked obesity. CT/CT abdomen pelvis w con* [id number] IMPRESSION: 1. No visible evidence of acute abdominal or pelvic pathologic process. 2. Constipation. 3. Limited assessment lung bases reveals a partially imaged small focus of subsegmental volume ground-glass interstitial lung disease, without consolidation, inferior segment of the lingula. Radiation Dose CTDIVOL = (mGy): DLP = 1652.45 (mGy-cm)
--- NOTE | 2021-01-31 21:07 | ED_ITS ---
HPI - Abdominal Pain General: Chief Complaint: Abdominal Pain Stated Complaint: Injury ABD Pain Time Seen by Provider: 01/31/21 21:06 History of Present Illness: HPI narrative: Patient comes in for some mid abdominal pain that started about 3 days ago. Patient reports she was lifting a case of bottled water into her car when it slipped causing her to fall back and strike her against her abdomen before hitting the floor. Patient reports since then she has had some abdominal discomfort. Patient is also noted some hard stool and a trace of blood in her stool. Patient appears well. Patient appears in mild to no pain. Respirations are even and lungs are clear to auscultation. Patient has a history of breast cancer. Review of Systems General: Reports: 10 or more systems reviewed and unremarkable except in HPI and below GI: Reports: abdominal pain [facility] ED PFSH: Medical History (Updated 01/31/21 @ 23:06 by CATALINA Farmer) Breast CA Physical Exam Const: COMMON NORMALS: no acute distress and patient oriented x3 GENERAL APPEARANCE: cooperative HENMT: COMMON NORMALS: normocephalic and Normal external nose present HEAD & SCALP: normal to inspection and normocephalic NOSE: Normal external nose present MOUTH: Normal oral and palatal mucosa present Eye: GENERAL EYE: appearance normal, both eyes and all related structures Neck/C-Spine: COMMON NORMALS: full ROM Chest: COMMONS NORMALS: normal inspection of the chest Resp: COMMON NORMALS: normal respiratory effort EFFORT & INSPECTION: Yes able to speak in complete sentences Cardio: COMMON NORMALS: regular rate and regular rhythm RATE: regular rate RHYTHM: regular rhythm GI: COMMON NORMALS: Soft to palpation PALPATION: Yes Soft to palpation and Yes Tenderness to palpation present (GI) (Generalized) : COMMON NORMALS: Yes no CVA tenderness BLADDER/KIDNEY EXAM: Yes no CVA tenderness Back/Pelvis: COMMON NORMALS: no CVA tenderness and thoracic and lumbar spine normal to inspection Extremity: COMMON NORMALS: normal to inspection Neuro: COMMON NORMALS: patient oriented x3 and moves all extremities Psych: COMMON NORMALS: mental status grossly normal and cooperative Skin: COMMON NORMALS: no rashes or lesions noted GENERAL SKIN EXAM: no rashes or lesions noted Course Vital Signs: Vital signs: Vital Signs Temperature 98.3 F 01/31/21 19:18 Pulse Rate 107 H 01/31/21 20:07 Respiratory Rate 18 01/31/21 20:07 Blood Pressure 135/87 01/31/21 20:07 Pulse Oximetry 97 01/31/21 20:07 MDM - Abdominal Pain MDM Narrative: Medical decision making narrative: Patient was seen today for concerns of mid abdominal pain. On exam patient appears well. Abdomen soft nontender. Bowel sounds were present. Patient was concerned due to dropping a case of water against her abdomen hard 3 days ago and since then she has had discomfort. Patient also had some hard stools out. Vital signs were normal. Differential diagnosis includes but not limited to constipation, urinary tract infection, abdominal wall contusion, blunt organ injury. CT of the abdomen pelvis noted constipation but no other signs of abnormality. Laboratory values were noticed to have some mild decrease in potassium at 3.3, and urine with a large amount of white blood cells. Believe patient probably has some constipation and a secondary urinary tract infection. Reviewed recommendations for constipation and urinary tract infection. Patient really complained about pain since her injury we wrote for 10 tablets of tramadol to help with her discomfort. Recommended using this sparingly as it may increase constipation. Patient reported understanding. No other narcotic prescriptions were noted to be active in her record. Lab Data: Labs: Lab Results 01/31/21 01/31/21 01/31/21 19:40 22:20 22:20 WBC 7.8 10^3/uL 10^3/ uL (4.0-10.0) RBC 4.36 10^6/uL 10^6 /uL (4.1-5.3) Hgb 12.7 g/dL g/dL (11.5-15.3) Hct 37.5 % % (37.0-47.0) MCV 86.0 fl fl (81-99) MCH 29.1 pg pg (28.0-34.0) MCHC 33.9 g/dL g/dL (30.0-36.0) RDW 14.3 % % (12.1-15.1) Plt Count 212 10^3/cmm 10^3 /cmm (130-400) MPV 9.3 fL fL (7.4-10.4) Neut % (Auto) 64.2 % % Lymph % (Auto) 18.9 % % [place] % (Auto) 11.7 % % Eos % (Auto) 3.9 % % Baso % (Auto) 1.0 % % Neut # (Auto) 5.01 10^3/uL 10^3 /uL (1.8-7.7) Lymph # (Auto) 1.5 10^3/uL 10^3/ uL (0.8-4.8) [place] # (Auto) 0.9 10^3/uL 10^3/ uL (0.2-0.9) Eos # (Auto) 0.3 10^3/uL 10^3/ uL (0.0-0.8) Baso # (Auto) 0.1 10^3/uL 10^3/ uL (0.0-0.1) Nucleated RBC % (a uto) 0 % % Nucleated RBCs # 0.0 /100WBC /100W BC Sodium 136 mmol/L mmol/L (136-145) Potassium 3.3 mmol/L L mmol /L (3.5-5.1) Chloride 99 mmol/L mmol/L (98-107) Carbon Dioxide 23 mmol/L mmol/L (22-29) Anion Gap 17.3 (5-19) BUN 18 mg/dL mg/dL (6-20) Creatinine 0.8 mg/dL mg/dL (0.5-0.9) GFR Calculation 73.4 mL/min L mL/ min (90-130) Glucose 91 mg/dL mg/dL (65-115) Calculated Osmolal ity 283 mOsm/kg L mOs m/kg (285-295) Calcium 9.0 mg/dL mg/dL (8.5-10.5) Total Bilirubin 0.4 mg/dL mg/dL (0.15-1.2) AST 92 U/L H U/L (0-32) ALT 58 U/L H U/L (0-33) Alkaline Phosphata se 109 IU/L H IU/L (35-105) Total Protein 6.8 g/dL g/dL (6.6-8.7) Albumin 3.5 g/dL g/dL (3.5-5.2) Globulin 3.3 g/dL g/dL (1.3-4.6) Lipase 70 U/L H U/L (13-60) Urine Color Straw (Yellow) Urine Appearance Hazy A (CLEAR) Urine pH 5 (5-7) Ur Specific Gravit y 1.015 (1.005-1.030) Urine Protein Neg (Negative) Urine Glucose (UA) Norm (Normal) Urine Ketones Negative (Negative) Urine Blood Neg (Negative) Urine Nitrate Negative (Negative) Urine Bilirubin Neg (Negative) Urine Urobilinogen Norm mg/dL mg/dL (Negative) Ur Leukocyte Evelyn ase 1+ H (Negative) Urine RBC 0-4 /hpf H /hpf (0-2) Urine WBC 55-80 /hpf H /hpf (0-5) Ur Squamous Epith Cells 0-4 /hpf H /hpf (0-5) Amorphous Sediment Not Reportable Urine Bacteria 1+ /hpf H /hpf (NONE) Hyaline Casts 0-4 /lpf H /lpf Discharge Plan Discharge Patient Disposition: Home Clinical Impression: UTI (urinary tract infection) due to Enterococcus Abdominal pain Qualifiers: Abdominal location: generalized Qualified Code(s): R10.84 - Generalized abdominal pain Constipation Qualifiers: Constipation type: unspecified constipation type Qualified Code(s): K59.00 - Constipation, unspecified Condition: Stable Prescriptions: New tramadol 50 mg tablet 50 mg PO Q8H PRN (Reason: pain) Qty: 10 RF: 0 Miralax 17 gram/dose powder 17 g PO BID PRN (Reason: constipation) Qty: 238 RF: 0 Macrobid 100 mg capsule 100 mg PO BID 5 Days Qty: 10 RF: 0 No Action paroxetine HCl 10 mg tablet 50 mg PO DAILY RF: 0 ibuprofen 800 mg tablet 800 mg PO TID PRN (Reason: Pain) RF: 0 clonazepam 0.5 mg tablet 0.5 mg PO DAILY PRN (Reason: Anxiety) RF: 0 omeprazole 40 mg capsule,delayed release(DR/EC) 40 mg PO DAILY RF: 0 lisinopril-hydrochlorothiazide 10-12.5 mg tablet 1 tab PO DAILY RF: 0 albuterol sulfate [ProAir HFA] 90 mcg/actuation HFA aerosol inhaler 90 mcg INHALATION DIRECTED PRN (Reason: Allergy Symptoms) RF: 0 ezetimibe 10 mg tablet 10 mg PO DAILY RF: 0 Adults Multivitamin 1 tab PO DAILY RF: 0 coenzyme Q10 50 mg Tablet 50 mg PO DAILY Qty: 0 RF: 0 pantoprazole 40 mg Tablet,Delayed Release (Dr/Ec) 40 mg PO DAILY RF: 0 potassium chloride 20 mEq Tablet Extended Release 20 meq PO BID RF: 0 diphenoxylate-atropine [Lomotil] 2.5-0.025 mg tablet 2 tab PO ONCE PRN (Reason: diarrhea) Qty: 60 RF: 0 ondansetron 4 mg tablet,disintegrating 4 mg PO Q6H PRN (Reason: nausea and vomiting) Qty: 14 RF: 0 Discharge Orders: Discharge ED (Routine); Ordered 01/31/21 Ordered By: Enzo Hernandez Referrals: Hardik Guajardo MD [Primary Care Provider] - Discharge Diet: Usual diet Discharge Activity: Increase activity as tolerated Patient Instructions: Constipation (ED), Opioid Safety Activity Restrictions/Additional Instructions: Drink plenty of fluids. Use milk of magnesia and MiraLAX as needed for constipation. Increase fiber and eat plenty of fresh fruits and vegetables in your diet. Make sure you drink plenty of water with your meals and medications. Use acetaminophen and ibuprofen to control pain. Use the tramadol for breakthrough pain. Follow-up with primary care in 3 to 5 days for recheck of urine. Return to the ED for worsening symptoms or new concerns. Coding Level of Care Code ED Valve Grinder for Concha Fwd Exam Comprehensive
[2021-01-31] MEDS: iohexol 300 mg/mL 100 mL Btl IV (22:01)
[2021-01-31 22:42] LABS: Basophils # 0.1 10^3/uL (0.0-0.1); Eosinophils # 0.3 10^3/uL (0.0-0.8); Eosinophils % 3.9 %; Hematocrit 37.5 % (37.0-47.0); Hemoglobin 12.7 g/dL (11.5-15.3); Lymphocytes # 1.5 10^3/uL (0.8-4.8); Lymphocytes % 18.9 %; Mean Corpuscular HGB Conc 33.9 g/dL (30.0-36.0); Mean Corpuscular Hemoglobin 29.1 pg (28.0-34.0); Mean Platelet Volume 9.3 fL (7.4-10.4); Monocytes # 0.9 10^3/uL (0.2-0.9); Monocytes % 11.7 %; Neutrophils # 5.01 10^3/uL (1.8-7.7); Neutrophils % 64.2 %; Nucleated Red Blood Cells % 0 %; Platelet Count 212 10^3/cmm (130-400); Red Blood Count 4.36 10^6/uL (4.1-5.3); Red Cell Distribution Width 14.3 % (12.1-15.1); White Blood Count 7.8 10^3/uL (4.0-10.0)
[2021-01-31 22:56] LABS: Alanine Aminotransferase 58 U/L (0-33); Albumin Level 3.5 g/dL (3.5-5.2); Alkaline Phosphatase 109 IU/L (35-105); Anion Gap 17.3 (5-19); Aspartate Amino Transferase 92 U/L (0-32); Blood Urea Nitrogen 18 mg/dL (6-20); Carbon Dioxide 23 mmol/L (22-29); Chloride 99 mmol/L (98-107); Globulin 3.3 g/dL (1.3-4.6); Glomerular Filtration Rate 73.4 mL/min (90-130); Glucose 91 mg/dL (65-115); Lipase 70 U/L (13-60); Osmolality Calculated 283 mOsm/kg (285-295); Potassium 3.3 mmol/L (3.5-5.1); Sodium 136 mmol/L (136-145); Total Bilirubin 0.4 mg/dL (0.15-1.2); Total Protein 6.8 g/dL (6.6-8.7)
[2021-01-31] MEDS: TRAMadol 50 mg Tablet PO (23:17)
[2021-01-31] MEDS: nitrofurantoin SR (BID) 100 mg Capsule PO (23:17)
== END 2021-01-31 23:31 | disposition home or self-care (01) ==
PROVIDERS: Emergency Medicine; Emergency Provider Nurse Practitioner Family; PCP Family Medicine
DX: N39.0 Urinary tract infection, site not specified (principal); B95.2 Enterococcus as the cause of diseases classified elsewhere; R10.84 Generalized abdominal pain; K59.00 Constipation, unspecified
CPT/HCPCS: 74177; 80053; 81001; 83690; 85025; 87086; 99283; Q9967

== ENCOUNTER 2021-02-08 06:29 | Outpatient (RCR) | payer BC, SELFPAY ==
[2021-02-08 08:57] LABS: Basophils # 0.1 10^3/uL (0.0-0.1); Basophils % 1.6 %; Eosinophils # 0.3 10^3/uL (0.0-0.8); Eosinophils % 4.2 %; Hematocrit 41.3 % (37.0-47.0); Hemoglobin 13.5 g/dL (11.5-15.3); Lymphocytes # 1.2 10^3/uL (0.8-4.8); Lymphocytes % 17.7 %; Mean Corpuscular HGB Conc 32.7 g/dL (30.0-36.0); Mean Corpuscular Hemoglobin 29.3 pg (28.0-34.0); Mean Corpuscular Volume 89.6 fl (81-99); Mean Platelet Volume 9.1 fL (7.4-10.4); Monocytes # 0.7 10^3/uL (0.2-0.9); Monocytes % 10.3 %; Neutrophils % 65.9 %; Nucleated Red Blood Cells % 0 %; Platelet Count 268 10^3/cmm (130-400); Red Blood Count 4.61 10^6/uL (4.1-5.3); Red Cell Distribution Width 14.6 % (12.1-15.1); White Blood Count 6.7 10^3/uL (4.0-10.0)
[2021-02-08 09:02] LABS: Alanine Aminotransferase 51 U/L (0-33); Albumin Level 3.9 g/dL (3.5-5.2); Alkaline Phosphatase 127 IU/L (35-105); Anion Gap 13.9 (5-19); Aspartate Amino Transferase 83 U/L (0-32); Blood Urea Nitrogen 10 mg/dL (6-20); Calcium 9.2 mg/dL (8.5-10.5); Carbon Dioxide 28 mmol/L (22-29); Chloride 100 mmol/L (98-107); Globulin 3.2 g/dL (1.3-4.6); Glomerular Filtration Rate 64.1 mL/min (90-130); Glucose 98 mg/dL (65-115); Osmolality Calculated 285 mOsm/kg (285-295); Potassium 3.9 mmol/L (3.5-5.1); Sodium 138 mmol/L (136-145); Total Bilirubin 0.5 mg/dL (0.15-1.2); Total Protein 7.1 g/dL (6.6-8.7)
[2021-02-08] MEDS: sodium chloride 0.9% 250 ML 75 ML IV (10:52)
--- NOTE | 2021-02-08 20:19 | ONC FU_ITS ---
Dr. Ramos Patient Follow-Up Note Patient: Yadira Lopez Unit #: [id number]: 1960 Dicatated By: Daniel Ramos M.D.Date of Visit:Feb 08, 2021 Onc Med Follow-up/Prog Note Chief Complaint: Breast cancer. History of Present Illness: This is a 60 year-old woman with grade 3 invasive ductal carcinoma of the left breast, by clinical evaluation stage IB (T2, N1, M0), ER/ID positive and HER-2/tina positive. She had presented to Dr. Guajardo with a palpable mass in the left breast. She had been aware of it for about a month. Diagnostic mammogram on March 16, 2020 showed a dominant mass in the upper outer quadrant of the left breast measuring 2.3 x 2.3 cm. Additional smaller dense surrounding satellite nodules were noted. Ultrasound showed an irregular dense hypoechoic lobulated lesion at the 2 o'clock position measuring 2.1 x 2.2 x 2.1 cm. The findings were highly suspicious for malignancy. Ultrasound of the left axilla showed a hypoechoic pathologic enlarged lymph node measuring 3.7 x 1.8 x 2.7 cm. On March 28, 2020 she underwent ultrasound directed biopsies of the breast mass and the enlarged left axillary lymph node. Pathology on the breast biopsy showed grade 3 infiltrating ductal carcinoma in the left axillary lymph node biopsy was positive for metastatic carcinoma. The breast prognostic profile showed ER positive at 98% and ID positive at 40%. The tumor was positive for overexpression of HER-2/tina, 3+ by IHC and amplification ratio by FISH of 2.7 with 7.6 HER-2 copies/cell. The Ki-67 was high at 65%. I had seen her initially on 04/15/2020. In the setting of lymph node positive HER-2/tina positive disease, she was recommended to undergo neoadjuvant chemotherapy with TCH-P. She began cycle 1 on 05/20/2020. She experienced multiple side effects including nausea/vomiting and diarrhea off and on during the first week after treatment. She also had generalized body aches. At day 12 she was neutropenic, but she had uneventful recovery with G-CSF. She continued with cycle 2 on 06/10/2020. It was administered with a 20% reduction in the dosages of both the carboplatin and the docetaxel. Despite that dose reduction, she continued to have significant side effects, including fatigue, nausea, and especially diarrhea. As such, her cycle 3 was delayed 1 week to allow additional recovery, and with that cycle I did opt to omit carboplatin from the regimen. She tolerated it much better and she then continued with cycle 4 on 07/29/2020. On 08/25/2020 she underwent left breast lumpectomy and axillary lymph node sampling. Pathology showed residual grade 3 invasive ductal carcinoma measuring 1.5 cm in greatest diameter. Margins were uninvolved. There was involvement in 2/3 axillary lymph nodes, the largest focus measuring 16 mm. Extranodal extension was identified. She then underwent radiation to the left breast and supraclavicular region, completed on 11/16/2020 to a total dose of 5000 cGy administered in 25 fractions. She then received an additional 1000 cGy boost to the surgical bed, administered in 5 fractions and completed on 11/23/2020. Following completion of the neoadjuvant chemotherapy, she had continued systemic therapy with Herceptin/Perjeta every 3 weeks for 2 cycles. With pathology showing residual axillary lymph node involvement, her treatment was then changed to Kadcyla, cycle 1 on 10/26/2020. Her other medical illnesses include hypertension, hyperlipidemia, asthma, GERD, and anxiety/depression. She is a non-smoker. INTERIM HISTORY: She experienced some fatigue following the initial infusion of Kadcyla and she also continued to have diarrrhea. She was able to proceed with cycle 2 on 11/16/2020, with cycle 3 on 12/06/2020, with cycle 4 on 12/28/2020, and with cycle 5 on 01/18/2021. She is seen for a follow-up visit. Her main complaint is that she has continued to have significant fatigue following her chemotherapy. She says she is working a lot, but she really cannot hardly do it, and she really does not have energy to do anything else. Her ECOG score is 1. Her appetite comes and goes. She has not had fever or night sweats, but she sometimes feels hot. On 01/31/2021 she was seen in the ER with abdominal pain. Her CT scan showed constipation, no other acute findings. She was treated for urinary tract infection and she also started MiraLAX for the constipation. She also was given tramadol for pain, which interestingly has been working better for her neuropathy pain than the gabapentin. She still complains that her whole body aches sometimes, but that comes and goes. She has a little bit of nausea, but her abdominal pain has resolved and her bowel function has improved. She has no complaints. She has a dry cough, attributable to allergies and she occasionally has mild shortness of breath. She does not complain of chest pain. She sometimes has headache and she sometimes has dizziness. She still has some residual neuropathy in her hands and feet. Medications: Albuterol Sulfate HFA 2 Puff(s) (of 108 (90 base) mcg/act) Aerosol, solution Inhalation four times a day PRN, Claritin 1 (10 mg) Tablet Oral daily, clonazePAM 1 (0.5 mg) Tablet Oral daily, Gabapentin 1 Capsule (of 100 mg) Oral t.i.d., hydroCHLOROthiazide 1 Tablet (of 12.5 mg) Oral daily, Ibuprofen 1 (800 mg) Tablet Oral t.i.d., Meloxicam 1 (15 mg) Tablet Oral daily, Multi Vitamin 1 Tablet Oral daily, Omeprazole 1 (40 mg) Capsule Delayed Release Oral b.i.d., Ondansetron HCl 1 Tablet (of 8 mg) Oral four times a day PRN, PARoxetine HCl 1 (20 mg) Tablet Oral daily, PARoxetine HCl (40 mg) Tablet Oral Take as Directed, Prochlorperazine Maleate 1 Tablet (of 10 mg) Oral q 4 hours PRN Allergies: Cephalexin, Codeine Sulfate, HYDROcodone-Acetaminophen, Morphine Sulfate, Penicillins, and Sulfa Antibiotics. Vital Signs: Performed on Feb 08, 2021 10:09 Height - 61.00 in Weight - 194.4 lbs (LOW) BSA - 1.87 sq.m BMI - 36.73 (HIGH) Temperature - 97.7 F (LOW) Pulse - 91 /min Respiration - 18 /min BP - 148/90 mm(hg) (HIGH) O2 Sat - 96 % Pain - 8 Fatigue - 7 Physical Examination: Constitutional - She looks pretty good generally, Eyes - Sclerae nonicteric. Conjunctivae clear, ENMT - No lesions noted in the oral cavity, Hematologic/Lymphatic - No cervical, clavicular, or axillary adenopathy, Respiratory - Lungs are clear with good air movement bilaterally, Cardiovascular - Heart rhythm is regular. There is no murmur, gallop, or rub noted, Abdomen - Mildly distended but soft. Liver and spleen are not enlarged. There is no abdominal mass or ascites noted and there is no inguinal adenopathy, Extremities - Slight edema, Neurologic - No focal neurologic deficits noted. Lab/Imaging: Test performed on Feb 08, 2021 08:20 Sodium 138 mmol/L Potassium 3.9 mmol/L Chloride 100 mmol/L CO2 28 mmol/L Anion Gap 13.9 BUN 10 mg/dL Creatinine 0.9 mg/dL Cr Clearance (Est) 95.5200 mL/min eGFR 64.1 mL/min Glucose 98 mg/dL Osmolality - Calculated 285 mOsm/kg Calcium 9.2 mg/dL Protein, Total 7.1 g/dL Albumin 3.9 g/dL Globulin 3.2 g/dL Bilirubin, Total 0.5 mg/dL ALT (SGPT) 51 U/L AST (SGOT) 83 U/L Alkaline Phosphatase 127 IU/L WBC 6.7 10 3/uL RBC 4.61 10 6/uL HGB 13.5 g/dL HCT 41.3 % MCV 89.6 fl MCH 29.3 pg MCHC 32.7 g/dL RDW 14.6 % Platelet Count 268 10 3/cmm MPV 9.1 fL Neutrophils 4.40 10 3/uL Lymphocytes 1.2 10 3/uL Monocytes 0.7 10 3/uL Eosinophils 0.3 10 3/uL Basophils 0.1 10 3/uL Neutrophil % 65.9 % Lymphocyte % 17.7 % Monocyte % 10.3 % Eosinophil % 4.2 % Basophils % 1.6 % NRBC % 0 % Problem List: 1. Grade 3 invasive ductal carcinoma of the left breast, by clinical evaluation stage at least IB (T2, N1, M0), ER/ID positive and HER-2/tina positive. 2. Hypertension. 3. Hyperlipidemia. 4. Asthma. 5. GERD. 6. Bilateral carpal tunnel syndrome. 7. Anxiety/depression. 8. She has a positive family history of breast cancer involving a first-degree relative (sister). She was found to be BRCA negative. Problems Addressed with this Encounter and Plan: 1. Patient with grade 3 invasive ductal carcinoma of the left breast, by clinical evaluation stage at least IB (T2, N1, M0), ER/ID positive and HER-2/tina positive. She began cycle 1 of neoadjuvant chemotherapy with TCH-P on 05/20/2020. She experienced multiple toxicities including nausea/vomiting, diarrhea, fatigue, generalized body aches, and neutropenia. She has had uneventful recovery. By clinical evaluation, she appeared to be showing some response to the chemotherapy. She will continued with cycle 2 of TCH-P on 06/10/2020. It was administered with a 20% dose reduction in the chemotherapy drugs. Despite that, she has continued to have significant GI toxicity, mainly diarrhea and abdominal pain. As such, her cycle 3 treatment was delayed 1 week And with that cycle the carboplatin was omitted from the regimen. She tolerated that treatment much better, and she continued with cycle 4 on 07/29/2020. On 08/25/2020 she underwent left breast lumpectomy and axillary lymph node sampling. Pathology showed residual grade 3 invasive ductal carcinoma measuring 1.5 cm in greatest diameter. Margins were uninvolved. There was involvement in 2/3 axillary lymph nodes, the largest focus measuring 16 mm. Extranodal extension was identified. Her pathologic staging was ypT1c, ypN1a. Perioperatively she had continued adjuvant therapy with Herceptin/Perjeta every 3 weeks for 2 cycles. She then began postoperative radiation to the left breast and supraclavicular region. She completed treatment on 11/23/2020 to a total dose of 6000 cGy, administered in 30 fractions. During that time, with pathology showing residual axillary lymph node involvement, her systemic therapy was changed to Kadcyla, cycle 1 on 10/26/2020. She was able to tolerated with acceptable toxicity, and she then continued treatment at 3-week intervals. She completed her 5th cycle on 01 18 2021. At this point she continues to have significant fatigue, to the point that she is having difficulty working. She was recently seen in the emergency room with abdominal pain and constipation, and she also had suspected urinary tract infection. Those symptoms have improved. She continues, though, to have significant fatigue, to the point that she is having difficulty working. This is presumed to be treatment related. She also has residual neuropathy. However, she does appear to be tolerating her treatment with acceptable toxicity. She will continue with cycle 6 of Kadcyla. The dosage remains the same. She returns in 3 weeks. In the meantime, with ER/ID positive disease, she eventually will need to start adjuvant hormonal therapy, and I will go ahead and schedule her for a baseline DEXA scan. 2. She has ongoing problems with anxiety. It is being managed with paroxetine. Signed By: Daniel Ramos M.D. <<Signature on File>>
== END 2021-02-15 16:00 | disposition home or self-care (01) ==
LOC: ONCMED 06:29
PROVIDERS: PCP Family Medicine; Visit Provider Internal Medicine Medical Oncology
DX: Z51.11 Encounter for antineoplastic chemotherapy (principal); C50.812 Malignant neoplasm of overlapping sites of left female breast; Z17.0 Estrogen receptor positive status [ER+]; I10 Essential (primary) hypertension; E78.5 Hyperlipidemia, unspecified; J45.909 Unspecified asthma, uncomplicated; K21.9 Gastro-esophageal reflux disease without esophagitis; G56.03 Carpal tunnel syndrome, bilateral upper limbs; F41.9 Anxiety disorder, unspecified; F32.9 Major depressive disorder, single episode, unspecified; Z80.3 Family history of malignant neoplasm of breast; Z79.899 Other long term (current) drug therapy
CPT/HCPCS: 80053; 85025; 96413; 99215; J7050; J9354

== ENCOUNTER 2021-02-15 15:27 | Outpatient (CLI) | payer BC, SELFPAY ==
--- NOTE | 2021-02-15 15:39 | XR_ITS ---
WS: [id number] SCREENING DEXA SCAN [employer] CLINICAL INFORMATION: ESTROGEN DEFICIENCY, MALIGNANT NEOPLASM OF LEFT FEMALE BREAS COMPARISON: None. FINDINGS: The L1-L4 bone mineral density measures 1.156 g/cm2. This corresponds to a T score score of -0.2 and Z score of 0.2. Left femoral neck bone mineral density measures 1.038 g/cm2. This corresponds to a T score of 0.2 and Z score of 0.6. Right femoral neck bone mineral density measures 1.082 g/cm2. This corresponds to a T score 0.6of and Z score of 1.0. Mean femoral neck bone mineral density measures 1.060 g/cm2. This corresponds to a T score of 0.4 and Z score of 0.8. XR/XR DEXA axial skeleton* [id number] IMPRESSION: Normal bone mineralization. Patient's FRAX calculated 10 year probability for major osteoporotic fracture i s 6.6 % and osteoporotic hip fracture is 0.4%.
== END 2021-02-15 15:28 | disposition home or self-care (01) ==
PROVIDERS: PCP Family Medicine; Visit Provider Internal Medicine Medical Oncology
DX: C50.412 Malignant neoplasm of upper-outer quadrant of left female breast (principal); E28.39 Other primary ovarian failure
CPT/HCPCS: 77080

== ENCOUNTER 2021-02-20 16:39 | Emergency (ER) | payer BC, SELFPAY ==
[2021-02-20 17:11] VITALS: BP 126/70; PULSE 87; RESP 16; TEMP 36.8; O2SAT 96; BMI 36.2
--- NOTE | 2021-02-20 17:31 | ED_ITS ---
HPI - Extremity Problem General: Chief complaint: Extremity Injury, Lower Stated complaint: R LEG PAIN/FALL Time Seen by Provider: 02/20/21 17:31 History of Present Illness: HPI Narrative: 60-year-old female comes in with injury to the right foot and lower leg. Patient reports this morning she was walking down some steps and slipped on a step causing her to twist her foot and leg underneath her buttocks. Patient reports pain and swelling to the right foot. Patient also reports some decreased mobility due to pain. Patient appears well. Patient denies any other injury. Review of Systems General: Reports: 10 or more systems reviewed and unremarkable except in HPI and below Musc: Reports: other (Right foot injury.) [facility] ED PFSH: Medical History (Updated 02/20/21 @ 18:19 by CATALINA Farmer) Breast CA Physical Exam Const: COMMON NORMALS: no acute distress and patient oriented x3 GENERAL APPEARANCE: cooperative HENMT: COMMON NORMALS: normocephalic HEAD & SCALP: normal to inspection and normocephalic MOUTH: Normal oral and palatal mucosa present Eye: GENERAL EYE: appearance normal, both eyes and all related structures Neck/C-Spine: COMMON NORMALS: full ROM Chest: COMMONS NORMALS: normal inspection of the chest Resp: COMMON NORMALS: normal respiratory effort EFFORT & INSPECTION: Yes able to speak in complete sentences Cardio: COMMON NORMALS: regular rate and regular rhythm RATE: regular rate RHYTHM: regular rhythm GI: COMMON NORMALS: non-tender Back/Pelvis: COMMON NORMALS: thoracic and lumbar spine normal to inspection Extremity: NARRATIVE EXTREMITY EXAM: Ecchymosis and swelling noted to the dorsal right foot. Tenderness is noted to the ankle. Neuro: COMMON NORMALS: patient oriented x3 and moves all extremities Psych: COMMON NORMALS: mental status grossly normal and cooperative Skin: COMMON NORMALS: no rashes or lesions noted GENERAL SKIN EXAM: no rashes or lesions noted Course Vital Signs: Vital signs: Vital Signs Temperature 98.2 F 02/20/21 17:11 Pulse Rate 87 02/20/21 17:11 Respiratory Rate 16 02/20/21 17:11 Blood Pressure 126/70 02/20/21 17:11 Pulse Oximetry 96 02/20/21 17:11 MDM - Extremity (Nontraumatic) MDM Narrative: Medical decision making narrative: 60-year-old female comes in with injury to the right lower leg. On exam patient has swelling and some mild ecchymosis to the dorsal foot on the right lower extremity. Differential diagnosis includes fracture, sprain, contusion. X-ray was negative for any noticeable fracture. Recommended patient use elastic bandage and supportive sh oe for comfort. Follow-up with primary care for persistent pain or prolonged recovery. Return to the ER for new concerns. Patient reported understanding. Discharge Plan Discharge Patient Disposition: Home Clinical Impression: Right foot sprain Qualifiers: Encounter type: initial encounter Qualified Code(s): S93.601A - Unspecified sprain of right foot, initial encounter Condition: Stable Prescriptions: No Action paroxetine HCl 10 mg tablet 50 mg PO DAILY RF: 0 ibuprofen 800 mg tablet 800 mg PO TID PRN (Reason: Pain) RF: 0 clonazepam 0.5 mg tablet 0.5 mg PO DAILY PRN (Reason: Anxiety) RF: 0 omeprazole 40 mg capsule,delayed release(DR/EC) 40 mg PO DAILY RF: 0 lisinopril-hydrochlorothiazide 10-12.5 mg tablet 1 tab PO DAILY RF: 0 albuterol sulfate [ProAir HFA] 90 mcg/actuation HFA aerosol inhaler 90 mcg INHALATION DIRECTED PRN (Reason: Allergy Symptoms) RF: 0 ezetimibe 10 mg tablet 10 mg PO DAILY RF: 0 Adults Multivitamin 1 tab PO DAILY RF: 0 coenzyme Q10 50 mg Tablet 50 mg PO DAILY Qty: 0 RF: 0 pantoprazole 40 mg Tablet,Delayed Release (Dr/Ec) 40 mg PO DAILY RF: 0 potassium chloride 20 mEq Tablet Extended Release 20 meq PO BID RF: 0 diphenoxylate-atropine [Lomotil] 2.5-0.025 mg tablet 2 tab PO ONCE PRN (Reason: diarrhea) Qty: 60 RF: 0 tramadol 50 mg tablet 50 mg PO Q8H PRN (Reason: pain) Qty: 10 RF: 0 Miralax 17 gram/dose powder 17 g PO BID PRN (Reason: constipation) Qty: 238 RF: 0 ondansetron 4 mg tablet,disintegrating 4 mg PO Q6H PRN (Reason: nausea and vomiting) Qty: 14 RF: 0 Discharge Orders: Discharge ED (Routine); Ordered 02/20/21 Ordered By: Enzo Hernandez Referrals: Hardik Guajardo MD [Primary Care Provider] - Discharge Diet: Usual diet Discharge Activity: Increase activity as tolerated Patient Instructions: Foot Sprain (ED), Opioid Safety Activity Restrictions/Additional Instructions: Elevate foot and use ice to help with swelling and pain. Use acetaminophen and ibuprofen for further pain. Drink plenty of water with medication. Increase activity as tolerated. Follow-up with primary care in 1 week for recheck. Retu rn to the ER for new concerns. Coding Level of Care Code ED Cigar Packer And Picker for Concha Fwtommy Exam Comprehensive
--- NOTE | 2021-02-20 17:38 | XRR_ITS ---
PROCEDURE INFORMATION: Exam: XR Right Tibia and Fibula Exam date and time: 02/20/2021 5:38 PM Age: 60 years old Clinical indication: Injury or trauma; Blunt trauma; Injury date: 02/20/2021; Patient HX: Fall today, right lower leg pain TECHNIQUE: Imaging protocol: XR Right tibia and fibula. Views: 2 views. COMPARISON: No relevant prior studies available. FINDINGS: Bones/joints: Small calcified plantar calcaneal spur. Minimal distal Achilles tendon degenerative calcification. Mild to moderate tricompartmental osteoarthritis of the knee. Soft tissues: Normal. XR/XR tibia fibula RT 2V [id number] IMPRESSION: 1. Negative for fracture or dislocation. 2. Small calcified plantar calcaneal spur. 3. Minimal distal Achilles tendon degenerative calcification. 4. Mild to moderate tricompartmental osteoarthritis of the knee. Radiation Dose CTDIVOL = (mGy): DLP = (mGy-cm)
--- NOTE | 2021-02-20 17:38 | XRR_ITS ---
PROCEDURE INFORMATION: Exam: XR Right Foot Exam date and time: 02/20/2021 5:38 PM Age: 60 years old Clinical indication: Injury or trauma; Swelling (edema); Injury date: 02/20/2021; Patient HX: Fall today, right lower leg pain TECHNIQUE: Imaging protocol: XR Right foot. Views: 3 or more views. COMPARISON: No relevant prior studies available. FINDINGS: Bones/joints: Fifth proximal phalanx suspected minimally displaced fracture involving large the medial aspect of the proximal metaphysis, best seen on the oblique view, please correlate clinically. Mild to moderate 1st metatarsophalangeal joint osteoarthritis. Small calcified plantar calcaneal spur. Hallux valgus with a metatarsophalangeal joint angle of 25 degrees . Soft tissues: Normal. XR/XR foot RT min 3V* [id number] IMPRESSION: 1. Fifth proximal phalanx suspected minimally displaced fracture involving large the medial aspect of the proximal metaphysis, best seen on the oblique view, please correlate clinically. 2. Mild to moderate 1st metatarsophalangeal joint osteoarthritis. 3. Small calcified plantar calcaneal spur. 4. Hallux valgus with a metatarsophalangeal joint angle of 25 degrees. Radiation Dose CTDIVOL = (mGy): DLP = (mGy-cm)
[2021-02-20] MEDS: ketorolac 10 mg Tablet PO (18:17)
[2021-02-20] MEDS: ondansetron 4 MG Tablet PO ×2 (18:56→20:03)
[2021-02-20 19:59] VITALS: PULSE 96; RESP 20; O2SAT 94
== END 2021-02-20 20:00 | disposition home or self-care (01) ==
PROVIDERS: Emergency Provider Nurse Practitioner Family; PCP Family Medicine
DX: S93.601A Unspecified sprain of right foot, initial encounter (principal); Z85.3 Personal history of malignant neoplasm of breast; X50.1XXA Overexertion from prolonged static or awkward postures, initial encounter
CPT/HCPCS: 73590; 73630; 99283; Q0162

== ENCOUNTER 2021-02-21 13:41 | Emergency (ER) | payer BC, SELFPAY ==
[2021-02-21 14:00] VITALS: BP 154/95; PULSE 80; RESP 20; TEMP 36.6; O2SAT 92; BMI 36.2
--- NOTE | 2021-02-21 14:04 | W.ED.NAVMDI ---
HPI - Nausea/Vomiting/Diarrhea General: Chief complaint: Nausea/Vomiting/Diarrhea Stated complaint: NAUSEA/ VOMITING Time Seen by Provider: 02/21/21 14:04 History of Present Illness: HPI Narrative: Ms. Lopez is a 60-year-old lady with history of breast cancer who presents to the emergency department due to nausea, vomiting, and diarrhea. Symptom onset was subacute approximately 4 days ago. She endorses multiple episodes today had moderate intensity symptoms. Symptoms are exacerbated by oral intake but do not go with rest. Mild associated abdominal discomfort. No other signs of infectious symptoms. No other identified specific exacerbating or alleviating factors. Review of Systems General: Reports: 10 or more systems reviewed and unremarkable except in HPI and below PFSH ED PFSH: Medical History Breast CA Physical Exam Narrative: EXAM NARRATIVE: GENERAL/CONSTITUTIONAL - well-appearing. No acute distress. Eyes - PERRL, no conjunctival injection ENMT - Atraumatic external nose and ears. Dry mucous membranes NECK - supple. trachea midline CARDIOVASCULAR - regular rate and rhythm. RESPIRATORY -clear to auscultation bilaterally. ABDOMEN/GI - Nontender/Nondistended. No evidence of peritonitis. MSK - Extremities without obvious deformity or tenderness to palpation SKIN - Warm, Dry NEURO - alert and appropriately oriented. Moves all extremities equally. Course ED course: - Patient was seen and evaluated by me at bedside - Patient placed on cardiac monitors, IV access obtained - Initial evaluation notable for [] - Labs and imaging obtained and reviewed - Fluids, analgesia, and [] given - Labs notable for no significant hematologic abnormality. Transaminitis again noted on metabolic panel without other significant abnormality, discussed with the patient. Urinalysis with squamous epithelial contamination and nitrite negative, patient does not report urinary symptoms. - I did offer the patient imaging which she declined at this time. - Upon serial reexamination after treatment the patient was improved - Based on patient history, evaluation, labs, and imaging as interpreted the most likely cause of the patient's condition is unspecified nausea, vomiting, diarrhea. - The results of ED evaluation were discussed with the patient including prescriptions and/or symptomatic cares (if applicable) including appropriate and responsible use, followup plan, and return precautions. The patient verbalized understanding and felt safe for discharge. - Patient discharged in satisfactory condition. Vital Signs: Vital signs: Vital Signs Temperature 97.8 F 02/21/21 14:00 Pulse Rate 78 02/21/21 20:53 Respiratory Rate 18 02/21/21 20:53 Blood Pressure 150/92 02/21/21 20:53 Pulse Oximetry 98 02/21/21 20:53 MDM - Nausea/Vomiting/Diarrhea Medical Records: Attestation: I reviewed the patient's medical records. Lab Data: Attestation: I reviewed the patient's lab results. Labs: Lab Results 02/21/21 02/21/21 02/21/21 15:30 15:30 16:15 WBC 6.8 10^3/uL 10^3/ uL (4.0-10.0) RBC 4.65 10^6/uL 10^6 /uL (4.1-5.3) Hgb 13.1 g/dL g/dL (11.5-15.3) Hct 41.3 % % (37.0-47.0) MCV 88.8 fl fl (81-99) MCH 28.2 pg pg (28.0-34.0) MCHC 31.7 g/dL g/dL (30.0-36.0) RDW 14.6 % % (12.1-15.1) Plt Count 218 10^3/cmm 10^3 /cmm (130-400) MPV 9.3 fL fL (7.4-10.4) Neut % (Auto) 78.0 % % Lymph % (Auto) 12.0 % % [place] % (Auto) 8.9 % % Eos % (Auto) 0.1 % % Baso % (Auto) 0.6 % % Neut # (Auto) 5.33 10^3/uL 10^3 /uL (1.8-7.7) Lymph # (Auto) 0.8 10^3/uL 10^3/ uL (0.8-4.8) [place] # (Auto) 0.6 10^3/uL 10^3/ uL (0.2-0.9) Eos # (Auto) 0.0 10^3/uL 10^3/ uL (0.0-0.8) Baso # (Auto) 0.0 10^3/uL 10^3/ uL (0.0-0.1) Nucleated RBC % (a uto) 0 % % Nucleated RBCs # 0.0 /100WBC /100W BC Sodium Potassium Chloride Carbon Dioxide Anion Gap BUN Creatinine GFR Calculation Glucose Calculated Osmolal ity Calcium Total Bilirubin AST ALT Alkaline Phosphata se Total Protein Albumin Globulin Lipase TSH Urine Color Yellow (Yellow) Urine Appearance Hazy A (CLEAR) Urine pH 5 (5-7) Ur Specific Gravit y 1.020 (1.005-1.030) Urine Protein Neg (Negative) Urine Glucose (UA) Norm (Normal) Urine Ketones 1+ H (Negative) Urine Blood Neg (Negative) Urine Nitrate Negative (Negative) Urine Bilirubin 1+ H (Negative) Urine Urobilinogen 4 mg/dL H mg/dL (Negative) Ur Leukocyte Evelyn ase 2+ H (Negative) Urine RBC None /hpf /hpf (0-2) Urine WBC 55-80 /hpf H /hpf (0-5) Ur Squamous Epith Cells 5-10 /hpf H /hpf (0-5) Amorphous Sediment Not Reportable Urine Bacteria 1+ /hpf H /hpf (NONE) SARS-CoV-2 Ag (Rap id) Negative (Negative) 02/21/21 02/21/21 16:15 17:40 WBC RBC Hgb Hct MCV MCH MCHC RDW Plt Count MPV Neut % (Auto) Lymph % (Auto) [place] % (Auto) Eos % (Auto) Baso % (Auto) Neut # (Auto) Lymph # (Auto) [place] # (Auto) Eos # (Auto) Baso # (Auto) Nucleated RBC % (a uto) Nucleated RBCs # Sodium 139 mmol/L mmol/L (136-145) Potassium 3.6 mmol/L mmol/L (3.5-5.1) Chloride 103 mmol/L mmol/L (98-107) Carbon Dioxide 23 mmol/L mmol/L (22-29) Anion Gap 16.6 (5-19) BUN 14 mg/dL mg/dL (6-20) Creatinine 0.8 mg/dL mg/dL (0.5-0.9) GFR Calculation 73.4 mL/min L mL/ min (90-130) Glucose 112 mg/dL mg/dL (65-115) Calculated Osmolal ity 289 mOsm/kg mOsm/ kg (285-295) Calcium 9.2 mg/dL mg/dL (8.5-10.5) Total Bilirubin 0.5 mg/dL mg/dL (0.15-1.2) AST 100 U/L H U/L (0-32) ALT 39 U/L H U/L (0-33) Alkaline Phosphata se 123 IU/L H IU/L (35-105) Total Protein 7.3 g/dL g/dL (6.6-8.7) Albumin 3.8 g/dL g/dL (3.5-5.2) Globulin 3.5 g/dL g/dL (1.3-4.6) Lipase 23 U/L U/L (13-60) TSH 0.78 uIU/mL uIU/m L (0.27-4.20) Urine Color Yellow (Yellow) Urine Appearance Cloudy (CLEAR) Urine pH 5 (5-7) Ur Specific Gravit y 1.025 (1.005-1.030) Urine Protein Trace (Negative) Urine Glucose (UA) Norm (Normal) Urine Ketones 1+ H (Negative) Urine Blood 3+ H (Negative) Urine Nitrate Negative (Negative) Urine Bilirubin 1+ H (Negative) Urine Urobilinogen 1 mg/dL H mg/dL (Negative) Ur Leukocyte Evelyn ase Trace H (Negative) Urine RBC Urine WBC Ur Squamous Epith Cells Amorphous Sediment Urine Bacteria SARS-CoV-2 Ag (Rap id) Discharge Plan Discharge Patient Disposition: Home Clinical Impression: Nausea and vomiting, Dehydration, Transaminitis Condition: Stable Prescriptions: No Action paroxetine HCl 10 mg tablet 50 mg PO DAILY RF: 0 ibuprofen 800 mg tablet 800 mg PO TID PRN (Reason: Pain) RF: 0 clonazepam 0.5 mg tablet 0.5 mg PO DAILY PRN (Reason: Anxiety) RF: 0 omeprazole 40 mg capsule,delayed release(DR/EC) 40 mg PO DAILY RF: 0 lisinopril-hydrochlorothiazide 10-12.5 mg tablet 1 tab PO DAILY RF: 0 albuterol sulfate [ProAir HFA] 90 mcg/actuation HFA aerosol inhaler 90 mcg INHALATION DIRECTED PRN (Reason: Allergy Symptoms) RF: 0 ezetimibe 10 mg tablet 10 mg PO DAILY RF: 0 Adults Multivitamin 1 tab PO DAILY RF: 0 coenzyme Q10 50 mg Tablet 50 mg PO DAILY Qty: 0 RF: 0 pantoprazole 40 mg Tablet,Delayed Release (Dr/Ec) 40 mg PO DAILY RF: 0 potassium chloride 20 mEq Tablet Extended Release 20 meq PO BID RF: 0 diphenoxylate-atropine [Lomotil] 2.5-0.025 mg tablet 2 tab PO ONCE PRN (Reason: diarrhea) Qty: 60 RF: 0 tramadol 50 mg tablet 50 mg PO Q8H PRN (Reason: pain) Qty: 10 RF: 0 Miralax 17 gram/dose powder 17 g PO BID PRN (Reason: constipation) Qty: 238 RF: 0 ondansetron 4 mg tablet,disintegrating 4 mg PO Q6H PRN (Reason: nausea and vomiting) Qty: 14 RF: 0 Discharge Orders: Discharge ED (Routine); Ordered 02/21/21 Ordered By: Aram Velasco Referrals: Hardik Guajardo MD [Primary Care Provider] - Discharge Diet: Advance as tolerated and Clear Liquid Discharge Activity: Resume usual activity Patient Instructions: Dehydration (ED), Acute Nausea and Vomiting (ED), Opioid Safety Activity Restrictions/Additional Instructions: Thank you for visiting the emergency department. You were seen and evaluated for nausea vomiting in addition to pain related to prior injury. The exact cause of your symptoms is unclear however improved with treatment. Please follow-up with your primary care provider. Please follow-up with your oncology team. Please return the emergency department for recurrent symptoms or anything else that you are concerned about and feel needs emergent evaluation. Coding Level of Care Code ED Publications Distribution Clerk for Concha Wong
[2021-02-21] MEDS: fentaNYL 50 mcg/mL INJ 2mL IVP ×2 (15:26→20:25)
[2021-02-21] MEDS: ketorolac 30 mg/mL INJ 15 MG IVP (15:27)
[2021-02-21] MEDS: ondansetron 2 mg/ML SDV 2 mL 4 MG IVP ×2 (15:27→20:25)
[2021-02-21] MEDS: sodium chloride 0.9% 1,000 ML 999 ML IV (15:27)
[2021-02-21 16:01] LABS: Urine Appearance Hazy (CLEAR); Urine Color Yellow (Yellow); pH Urine 5 (5-7)
[2021-02-21 16:02] LABS: Add Urine Microscopic? YES; Bilirubin Urine 1+ (Negative); Blood Urine Neg (Negative); Glucose Urine UA Norm (Normal); Ketones Urine 1+ (Negative); Leukocyte Esterase Urine 2+ (Negative); Nitrate Urine Negative (Negative); Protein Urine Neg (Negative); Urobilinogen Urine 4 mg/dL (Negative)
[2021-02-21 16:03] LABS: Bacteria Urine 1+ /hpf; WBC Urine 55-80 /hpf (0-5)
[2021-02-21 16:04] LABS: Add Urine Culture? Yes
[2021-02-21 16:14] LABS: SARS Covid-2 Antigen Negative (Negative)
[2021-02-21 16:23] LABS: Basophils % 0.6 %; Eosinophils % 0.1 %; Hematocrit 41.3 % (37.0-47.0); Hemoglobin 13.1 g/dL (11.5-15.3); Lymphocytes # 0.8 10^3/uL (0.8-4.8); Mean Corpuscular HGB Conc 31.7 g/dL (30.0-36.0); Mean Corpuscular Hemoglobin 28.2 pg (28.0-34.0); Mean Corpuscular Volume 88.8 fl (81-99); Mean Platelet Volume 9.3 fL (7.4-10.4); Monocytes # 0.6 10^3/uL (0.2-0.9); Monocytes % 8.9 %; Neutrophils # 5.33 10^3/uL (1.8-7.7); Nucleated Red Blood Cells % 0 %; Platelet Count 218 10^3/cmm (130-400); Red Blood Count 4.65 10^6/uL (4.1-5.3); Red Cell Distribution Width 14.6 % (12.1-15.1); White Blood Count 6.8 10^3/uL (4.0-10.0)
[2021-02-21 16:43] VITALS: BP 168/102; PULSE 81; RESP 18; O2SAT 94
[2021-02-21 16:51] LABS: Alanine Aminotransferase 39 U/L (0-33); Albumin Level 3.8 g/dL (3.5-5.2); Alkaline Phosphatase 123 IU/L (35-105); Anion Gap 16.6 (5-19); Aspartate Amino Transferase 100 U/L (0-32); Blood Urea Nitrogen 14 mg/dL (6-20); Calcium 9.2 mg/dL (8.5-10.5); Carbon Dioxide 23 mmol/L (22-29); Chloride 103 mmol/L (98-107); Globulin 3.5 g/dL (1.3-4.6); Glomerular Filtration Rate 73.4 mL/min (90-130); Glucose 112 mg/dL (65-115); Lipase 23 U/L (13-60); Osmolality Calculated 289 mOsm/kg (285-295); Potassium 3.6 mmol/L (3.5-5.1); Sodium 139 mmol/L (136-145); Thyroid Stimulating Hormone 0.78 uIU/mL (0.27-4.20); Total Bilirubin 0.5 mg/dL (0.15-1.2); Total Protein 7.3 g/dL (6.6-8.7)
[2021-02-21 18:44] LABS: Glucose Urine UA Norm (Normal); Ketones Urine 1+ (Negative); Protein Urine Trace (Negative); Specific Gravity, Urine 1.025 (1.005-1.030); Urine Appearance Cloudy (CLEAR); Urine Color Yellow (Yellow); pH Urine 5 (5-7)
[2021-02-21 18:45] LABS: Bilirubin Urine 1+ (Negative); Blood Urine 3+ (Negative); Leukocyte Esterase Urine Trace (Negative); Nitrate Urine Negative (Negative); Urobilinogen Urine 1 mg/dL (Negative)
[2021-02-21 18:49] LABS: Add Urine Microscopic? NO
[2021-02-21 19:21] LABS: Charge for UA Resulting for Rev
[2021-02-21 20:02] VITALS: BP 126/89; PULSE 95; RESP 18; O2SAT 98
[2021-02-21] MEDS: lisinopril 10 mg Tablet PO (20:52)
[2021-02-21 20:53] VITALS: BP 150/92; PULSE 78; RESP 18; O2SAT 98
== END 2021-02-21 20:54 | disposition home or self-care (01) ==
PROVIDERS: Emergency Provider Emergency Medicine; PCP Family Medicine
DX: R11.2 Nausea with vomiting, unspecified (principal); E86.0 Dehydration; R74.01 Elevation of levels of liver transaminase levels; Z85.3 Personal history of malignant neoplasm of breast; Z20.822 Contact with and (suspected) exposure to COVID-19
CPT/HCPCS: 36415; 80053; 81001; 81003; 83690; 84443; 85025; 87086; 87426; 96361; 96374; 96375; 96376; 99283; J1642; J1885; J2405; J3010; J7030

== ENCOUNTER 2021-03-13 06:07 | Outpatient (RCR) | payer BC, SELFPAY ==
[2021-03-09 09:18] LABS: Basophils # 0.1 10^3/uL (0.0-0.1); Basophils % 1.1 %; Eosinophils # 0.3 10^3/uL (0.0-0.8); Eosinophils % 3.9 %; Hematocrit 40.6 % (37.0-47.0); Hemoglobin 13.2 g/dL (11.5-15.3); Lymphocytes # 1.1 10^3/uL (0.8-4.8); Lymphocytes % 15.9 %; Mean Corpuscular HGB Conc 32.5 g/dL (30.0-36.0); Mean Corpuscular Hemoglobin 28.3 pg (28.0-34.0); Mean Corpuscular Volume 86.9 fl (81-99); Mean Platelet Volume 9.5 fL (7.4-10.4); Monocytes # 0.6 10^3/uL (0.2-0.9); Monocytes % 9.4 %; Neutrophils # 4.61 10^3/uL (1.8-7.7); Neutrophils % 69.5 %; Nucleated Red Blood Cells % 0 %; Platelet Count 212 10^3/cmm (130-400); Red Blood Count 4.67 10^6/uL (4.1-5.3); White Blood Count 6.6 10^3/uL (4.0-10.0)
[2021-03-09 09:37] LABS: Alanine Aminotransferase 67 U/L (0-33); Albumin Level 3.7 g/dL (3.5-5.2); Alkaline Phosphatase 119 IU/L (35-105); Aspartate Amino Transferase 146 U/L (0-32); Blood Urea Nitrogen 11 mg/dL (6-20); Calcium 8.6 mg/dL (8.5-10.5); Carbon Dioxide 27 mmol/L (22-29); Chloride 105 mmol/L (98-107); Glomerular Filtration Rate 73.4 mL/min (90-130); Glucose 106 mg/dL (65-115); Osmolality Calculated 294 mOsm/kg (285-295); Sodium 142 mmol/L (136-145); Total Bilirubin 0.5 mg/dL (0.15-1.2); Total Protein 6.7 g/dL (6.6-8.7)
[2021-03-09 09:38] LABS: Anion Gap 13.4 (5-19); Potassium 3.4 mmol/L (3.5-5.1)
[2021-03-09 09:53] LABS: 25 Hydroxy Vitamin D 19 ng/mL (30-100)
[2021-03-09] MEDS: sodium chloride 0.9% 1,000 ML 999 ML IV (10:20)
[2021-03-09] MEDS: famotidine 20 mg/2 mL INJ IVP (10:25)
[2021-03-09] MEDS: ondansetron 2 mg/ML SDV 2 mL 8 MG IVP (10:27)
[2021-03-09] MEDS: HYDROmorphone 1 mg/mL INJ 1 mL 2 MG SUBCUT (10:30)
[2021-03-09 11:18] LABS: Bilirubin Urine 1+ (Negative); Blood Urine Neg (Negative); Glucose Urine UA Norm (Normal); Ketones Urine Negative (Negative); Nitrate Urine Negative (Negative); Protein Urine Neg (Negative); Specific Gravity, Urine 1.015 (1.005-1.030); Urine Appearance Hazy (CLEAR); Urine Color Dark Yellow (Yellow); pH Urine 8 (5-7)
[2021-03-09 11:19] LABS: Add Urine Microscopic? YES; Leukocyte Esterase Urine 2+ (Negative); Sulfosalicylic Acid Urine Negative (Negative); Urobilinogen Urine 4 mg/dL (Negative)
[2021-03-09 11:21] LABS: Add Urine Culture? Yes; Bacteria Urine 1+ /hpf; Hyaline Casts Urine 0-4 /lpf; Mucus Urine 2+ /hpf; RBC Urine 0-4 /hpf (0-2); Transitional Epi Cells Urine 0-4 /hpf; WBC Urine 25-40 /hpf (0-5)
--- NOTE | 2021-03-12 09:40 | ONC FU_ITS ---
Dr. Ramos Patient Follow-Up Note Patient: Yadira Lopez Unit #: [id number]: 1960 Dicatated By: Daniel Ramos M.D.Date of Visit:Mar 09, 2021 Onc Med Follow-up/Prog Note Chief Complaint: Breast cancer. History of Present Illness: This is a 60 year-old woman with grade 3 invasive ductal carcinoma of the left breast, by clinical evaluation stage IB (T2, N1, M0), ER/HI positive and HER-2/tina positive. She had presented to Dr. Guajardo with a palpable mass in the left breast. She had been aware of it for about a month. Diagnostic mammogram on March 16, 2020 showed a dominant mass in the upper outer quadrant of the left breast measuring 2.3 x 2.3 cm. Additional smaller dense surrounding satellite nodules were noted. Ultrasound showed an irregular dense hypoechoic lobulated lesion at the 2 o'clock position measuring 2.1 x 2.2 x 2.1 cm. The findings were highly suspicious for malignancy. Ultrasound of the left axilla showed a hypoechoic pathologic enlarged lymph node measuring 3.7 x 1.8 x 2.7 cm. On March 28, 2020 she underwent ultrasound directed biopsies of the breast mass and the enlarged left axillary lymph node. Pathology on the breast biopsy showed grade 3 infiltrating ductal carcinoma in the left axillary lymph node biopsy was positive for metastatic carcinoma. The breast prognostic profile showed ER positive at 98% and HI positive at 40%. The tumor was positive for overexpression of HER-2/tina, 3+ by IHC and amplification ratio by FISH of 2.7 with 7.6 HER-2 copies/cell. The Ki-67 was high at 65%. I had seen her initially on 04/15/2020. In the setting of lymph node positive HER-2/tina positive disease, she was recommended to undergo neoadjuvant chemotherapy with TCH-P. She began cycle 1 on 05/20/2020. She experienced multiple side effects including nausea/vomiting and diarrhea off and on during the first week after treatment. She also had generalized body aches. At day 12 she was neutropenic, but she had uneventful recovery with G-CSF. She continued with cycle 2 on 06/10/2020. It was administered with a 20% reduction in the dosages of both the carboplatin and the docetaxel. Despite that dose reduction, she continued to have significant side effects, including fatigue, nausea, and especially diarrhea. As such, her cycle 3 was delayed 1 week to allow additional recovery, and with that cycle I did opt to omit carboplatin from the regimen. She tolerated it much better and she then continued with cycle 4 on 07/29/2020. On 08/25/2020 she underwent left breast lumpectomy and axillary lymph node sampling. Pathology showed residual grade 3 invasive ductal carcinoma measuring 1.5 cm in greatest diameter. Margins were uninvolved. There was involvement in 2/3 axillary lymph nodes, the largest focus measuring 16 mm. Extranodal extension was identified. She then underwent radiation to the left breast and supraclavicular region, completed on 11/16/2020 to a total dose of 5000 cGy administered in 25 fractions. She then received an additional 1000 cGy boost to the surgical bed, administered in 5 fractions and completed on 11/23/2020. Following completion of the neoadjuvant chemotherapy, she had continued systemic therapy with Herceptin/Perjeta every 3 weeks for 2 cycles. With pathology showing residual axillary lymph node involvement, her treatment was then changed to Kadcyla, cycle 1 on 10/26/2020. Her other medical illnesses include hypertension, hyperlipidemia, asthma, GERD, and anxiety/depression. She is a non-smoker. INTERIM HISTORY: She experienced some fatigue following the initial infusion of Kadcyla and she also continued to have diarrrhea. She was able to proceed with cycle 2 on 11/16/2020, with cycle 3 on 12/06/2020, with cycle 4 on 12/28/2020, with cycle 5 on 01/18/2021, and with cycle 6 on 02/08/2021. She is seen for a follow-up visit. She has been having significant fatigue with the chemotherapy and she continues to complain that some days she feels totally wiped out. She is still doing light work, though. ECOG score is 1. Her appetite is not very good. She says she makes herself eat. During the past week she has been having nausea/vomiting. She also complained that she has had a lot of acid. Her bowels had been acting up, and her stools are now real hard. She has not had fever, night sweats, or hot flashes. She always has sinus drainage and she sometimes has dry cough. She also sometimes has shortness of breath. She does not complain of chest pain. She is now having just a little bit of nausea, but her stools are still hard and she also has been having pain in the lower abdominal area. Bladder function has been okay. She has just a little bit of joint pain. She sometimes has headache and she sometimes has dizziness. She had recently fallen down her steps at home and bruised her right leg. She has no focal neurologic symptoms, though. Medications: Albuterol Sulfate HFA 2 Puff(s) (of 108 (90 base) mcg/act) Aerosol, solution Inhalation four times a day PRN, Claritin 1 (10 mg) Tablet Oral daily, clonazePAM 1 (0.5 mg) Tablet Oral daily, Gabapentin 1 Capsule (of 100 mg) Oral t.i.d., hydroCHLOROthiazide 1 Tablet (of 12.5 mg) Oral daily, Ibuprofen 1 (800 mg) Tablet Oral t.i.d., Meloxicam 1 (15 mg) Tablet Oral daily, Multi Vitamin 1 Tablet Oral daily, Omeprazole 1 (40 mg) Capsule Delayed Release Oral b.i.d., Ondansetron HCl 1 Tablet (of 8 mg) Oral four times a day PRN, PARoxetine HCl 1 (20 mg) Tablet Oral daily, PARoxetine HCl (40 mg) Tablet Oral Take as Directed, Prochlorperazine Maleate 1 Tablet (of 10 mg) Oral q 4 hours PRN Allergies: Cephalexin, Codeine Sulfate, HYDROcodone-Acetaminophen, Morphine Sulfate, Penicillins, and Sulfa Antibiotics. Vital Signs: Performed on Mar 09, 2021 09:35 Height - 61.00 in Weight - 187.6 lbs (LOW) BSA - 1.84 sq.m BMI - 35.45 (HIGH) Temperature - 97.6 F (LOW) Pulse - 95 /min Respiration - 16 /min BP - 143/91 mm(hg) (HIGH) O2 Sat - 95 % (LOW) Pain - 7 Fatigue - 7 Physical Examination: Constitutional - She looks pretty good generally, Eyes - Sclerae nonicteric. Conjunctivae clear, ENMT - No lesions noted in the oral cavity, Hematologic/Lymphatic - No cervical, clavicular, or axillary adenopathy, Respiratory - Lungs are clear with good air movement bilaterally, Cardiovascular - Heart rhythm is regular. There is no murmur, gallop, or rub noted, Abdomen - Soft. There is mild tenderness in the lower abdominal area. Liver and spleen are not enlarged. There is no abdominal mass or ascites noted and there is no inguinal adenopathy, Extremities - No edema, Neurologic - No focal neurologic deficits noted. Lab/Imaging: Test performed on Mar 09, 2021 08:56 Sodium 142 mmol/L Vitamin D (25-Hydroxy), Total 19 ng/mL Potassium 3.4 mmol/L Chloride 105 mmol/L CO2 27 mmol/L Anion Gap 13.4 BUN 11 mg/dL Creatinine 0.8 mg/dL Cr Clearance (Est) 101.7200 mL/min eGFR 73.4 mL/min Glucose 106 mg/dL Osmolality - Calculated 294 mOsm/kg Calcium 8.6 mg/dL Protein, Total 6.7 g/dL Albumin 3.7 g/dL Globulin 3.0 g/dL Bilirubin, Total 0.5 mg/dL ALT (SGPT) 67 U/L AST (SGOT) 146 U/L Alkaline Phosphatase 119 IU/L WBC 6.6 10 3/uL RBC 4.67 10 6/uL HGB 13.2 g/dL HCT 40.6 % MCV 86.9 fl MCH 28.3 pg MCHC 32.5 g/dL RDW 15.0 % Platelet Count 212 10 3/cmm MPV 9.5 fL Neutrophils 4.61 10 3/uL Lymphocytes 1.1 10 3/uL Monocytes 0.6 10 3/uL Eosinophils 0.3 10 3/uL Basophils 0.1 10 3/uL Neutrophil % 69.5 % Lymphocyte % 15.9 % Monocyte % 9.4 % Eosinophil % 3.9 % Basophils % 1.1 % NRBC % 0 % Problem List: 1. Grade 3 invasive ductal carcinoma of the left breast, by clinical evaluation stage at least IB (T2, N1, M0), ER/HI positive and HER-2/tina positive. 2. Hypertension. 3. Hyperlipidemia. 4. Asthma. 5. GERD. 6. Bilateral carpal tunnel syndrome. 7. Anxiety/depression. 8. She has a positive family history of breast cancer involving a first-degree relative (sister). She was found to be BRCA negative. Problems Addressed with this Encounter and Plan: Patient with grade 3 invasive ductal carcinoma of the left breast, by clinical evaluation stage at least IB (T2, N1, M0), ER/HI positive and HER-2/tina positive. She began cycle 1 of neoadjuvant chemotherapy with TCH-P on 05/20/2020. She experienced multiple toxicities including nausea/vomiting, diarrhea, fatigue, generalized body aches, and neutropenia. She has had uneventful recovery. By clinical evaluation, she appeared to be showing some response to the chemotherapy. She will continued with cycle 2 of TCH-P on 06/10/2020. It was administered with a 20% dose reduction in the chemotherapy drugs. Despite that, she has continued to have significant GI toxicity, mainly diarrhea and abdominal pain. As such, her cycle 3 treatment was delayed 1 week And with that cycle the carboplatin was omitted from the regimen. She tolerated that treatment much better, and she continued with cycle 4 on 07/29/2020. On 08/25/2020 she underwent left breast lumpectomy and axillary lymph node sampling. Pathology showed residual grade 3 invasive ductal carcinoma measuring 1.5 cm in greatest diameter. Margins were uninvolved. There was involvement in 2/3 axillary lymph nodes, the largest focus measuring 16 mm. Extranodal extension was identified. Her pathologic staging was ypT1c, ypN1a. Perioperatively she had continued adjuvant therapy with Herceptin/Perjeta every 3 weeks for 2 cycles. She then began postoperative radiation to the left breast and supraclavicular region. She completed treatment on 11/23/2020 to a total dose of 6000 cGy, administered in 30 fractions. During that time, with pathology showing residual axillary lymph node involvement, her systemic therapy was changed to Kadcyla, cycle 1 on 10/26/2020. She was able to tolerated with acceptable toxicity, and she then continued treatment at 3-week intervals. She completed her 6th cycle on 02/08/2021. She has continued to have significant treatment related fatigue. She recently had nausea/vomiting for 1 week and she now has constipation and lower abdominal pain. Is uncertain to what extent her GI symptoms may be related to the Kadcyla, but I am going to put her treatment on hold. She will be given IV hydration today, and I will check urinalysis and culture. If symptoms are not improving, she will need further GI evaluation. Signed By: Daniel Ramos M.D. <<Signature on File>>
[2021-03-13] MEDS: dicyclomine 10 mg Capsule PO (11:15)
== END 2021-03-16 17:00 | disposition home or self-care (01) ==
LOC: ONCMED 06:07
PROVIDERS: PCP Family Medicine; Visit Provider Internal Medicine Medical Oncology
DX: Z51.11 Encounter for antineoplastic chemotherapy (principal); C50.812 Malignant neoplasm of overlapping sites of left female breast; Z17.0 Estrogen receptor positive status [ER+]; I10 Essential (primary) hypertension; E78.5 Hyperlipidemia, unspecified; J45.909 Unspecified asthma, uncomplicated; K21.9 Gastro-esophageal reflux disease without esophagitis; G56.03 Carpal tunnel syndrome, bilateral upper limbs; F41.9 Anxiety disorder, unspecified; F32.9 Major depressive disorder, single episode, unspecified; Z80.3 Family history of malignant neoplasm of breast; Z90.12 Acquired absence of left breast and nipple; Z92.3 Personal history of irradiation
CPT/HCPCS: 80053; 81001; 82306; 85025; 87086; 96361; 96372; 96374; 96375; 96413; 99215; J1170; J2405; J3490; J7030; J7050; J9354

== ENCOUNTER 2021-03-16 17:55 | Emergency (ER) | payer BC, SELFPAY ==
[2021-03-16 18:21] VITALS: BP 148/81; PULSE 123; RESP 18; TEMP 36.8; O2SAT 94; BMI 34.7
[2021-03-16 20:37] LABS: Basophils # 0.1 10^3/uL (0.0-0.1); Eosinophils # 0.1 10^3/uL (0.0-0.8); Eosinophils % 1.1 %; Hemoglobin 15.7 g/dL (11.5-15.3); Lymphocytes # 1.3 10^3/uL (0.8-4.8); Lymphocytes % 12.1 %; Mean Corpuscular HGB Conc 33.4 g/dL (30.0-36.0); Mean Corpuscular Hemoglobin 28.5 pg (28.0-34.0); Mean Corpuscular Volume 85.3 fl (81-99); Mean Platelet Volume 10.1 fL (7.4-10.4); Monocytes # 1.1 10^3/uL (0.2-0.9); Monocytes % 10.4 %; Neutrophils # 7.85 10^3/uL (1.8-7.7); Neutrophils % 74.7 %; Nucleated Red Blood Cells % 0 %; Platelet Count 247 10^3/cmm (130-400); Red Blood Count 5.51 10^6/uL (4.1-5.3); Red Cell Distribution Width 16.1 % (12.1-15.1); White Blood Count 10.5 10^3/uL (4.0-10.0)
[2021-03-16 20:56] LABS: Slide Review Slide Review Perform
[2021-03-16 21:05] LABS: Alanine Aminotransferase 48 U/L (0-33); Albumin Level 4.1 g/dL (3.5-5.2); Alkaline Phosphatase 161 IU/L (35-105); Blood Urea Nitrogen 14 mg/dL (6-20); Calcium 9.3 mg/dL (8.5-10.5); Carbon Dioxide 22 mmol/L (22-29); Chloride 96 mmol/L (98-107); Globulin 3.8 g/dL (1.3-4.6); Glomerular Filtration Rate 64.1 mL/min (90-130); Glucose 99 mg/dL (65-115); Lipase 28 U/L (13-60); Osmolality Calculated 281 mOsm/kg (285-295); Sodium 135 mmol/L (136-145); Total Bilirubin 0.8 mg/dL (0.15-1.2); Total Protein 7.9 g/dL (6.6-8.7)
[2021-03-16 21:06] LABS: Anion Gap 20.9 (5-19); Aspartate Amino Transferase 127 U/L (0-32); Potassium 3.9 mmol/L (3.5-5.1)
--- NOTE | 2021-03-16 21:30 | XRR_ITS ---
PROCEDURE INFORMATION: Exam: XR Abdomen Exam date and time: 03/16/2021 9:30 PM Age: 60 years old Clinical indication: Abdominal pain; Prior surgery; Surgery type: Hyst, c section; Patient HX: HX breast cancer TECHNIQUE: Imaging protocol: XR of the abdomen. Views: Frontal supine view of the abdomen. 1 View. COMPARISON: CT abdomen pelvis w con* [id number] 01/31/2021 9:59 PM FINDINGS: Gastrointestinal tract: Bowel gas pattern is unremarkable. Organs: No urinary tract calculi are identified. Bones/joints: There are mild degenerative changes in the lumbar spine. XR/XR KUB [id number] IMPRESSION: No acute findings
--- NOTE | 2021-03-16 21:48 | CTR_ITS ---
PROCEDURE INFORMATION: Exam: CT Abdomen And Pelvis Without Contrast Exam date and time: 03/16/2021 9:48 PM Age: 60 years old Clinical indication: Abdominal pain; Localized; Patient HX: C/O lower abd pain with transient diarrhea. History of breast cancer. TECHNIQUE: Imaging protocol: Computed tomography of the abdomen and pelvis without contrast. Radiation optimization: All CT scans at this facility use at least one of these dose optimization techniques: automated exposure control; mA and/or kV adjustment per patient size (includes targeted exams where dose is matched to clinical indication); or iterative reconstruction. COMPARISON: CT abdomen pelvis w con* [id number] 01/31/2021 9:59 PM RADIATION DOSE METRICS: Total DLP (mGy-cm): 1607.02 FINDINGS: Lungs: There is some minimal residual infiltrate in the tip of the lingula, less than on 01/31/2021. This could represent some post radiation change. Diaphragm: There is a small hiatal hernia. Liver: Multiple small hepatic cysts not significantly changed. 4 and 5 cm sized simple exophytic cyst arising from the undersurface of the left lobe of the liver not significantly changed. Gallbladder and bile ducts: The gallbladder is normal. Pancreas: The pancreas is normal. Spleen: The spleen is normal. Adrenal glands: The adrenal glands are normal. Kidneys and ureters: The kidneys are normal. There is no evidence of hydronephrosis. There is no evidence of renal or ureteral calcifications. Stomach and bowel: There is fluid distention of the entirety of the colon which is consistent with the given history of diarrhea. There is no evidence of intestinal obstruction. Appendix: Not identified Intraperitoneal space: There is no evidence of free intraperitoneal fluid. Vasculature: The aorta demonstrates moderate atherosclerotic calcification. There is no evidence of an abdominal aortic aneurysm. Lymph nodes: There is no evidence of lymphadenopathy. Urinary bladder: Unremarkable as visualized. Reproductive: There has been a hysterectomy. Bones/joints: The lumbar spine demonstrates mild degenerative changes at multiple levels. There is grade 1 spondylolisthesis at L4-L5 not significantly changed. Soft tissues: There are post treatment changes in the visualized portion of the left breast. CT/CT abdomen pelvis wo con [id number] IMPRESSION: 1. Hepatic cysts unchanged. 2. Post treatment changes in the left breast. 3. Findings in the lingula which may represent some post radiation change. 4. Stable hepatic cysts. 5. Nonspecific fluid distention of the colon consistent with a history of diarrhea. 6. No evidence of metastatic disease within the abdomen or pelvis.
[2021-03-16 21:51] VITALS: BP 137/106; PULSE 120; O2SAT 95
--- NOTE | 2021-03-16 21:55 | W.ED.ABDPA2 ---
HPI - Abdominal Pain General: Chief Complaint: Abdominal Pain Stated Complaint: ABD Pain\N\V Time Seen by Provider: 03/16/21 21:44 Source: patient Mode of arrival: ambulatory Limitations: no limitations History of Present Illness: HPI narrative: 60-year-old female who has a history of breast cancer is currently on chemotherapy states she has been having some abdominal pain nausea is been really going on for months she been seen here previously for this as well states she is concerned today because she has been having constipation she had nausea as well denies any vomiting states pain is cramping in nature rates it a 2-3 out of 10 denies any dysuria denies any fever denies any chest pain. Associated Symptoms: Reports constipation; Denies chills, dysuria and fever(s) Review of Systems Const: Denies: fever(s), chills, body aches or change in appetite Eyes: Denies: blurry vision or eye discomfort ENMT: Denies: throat pain or dental pain Card: Denies: chest pain Resp: Denies: dyspnea GI: Reports: abdominal pain and constipation : Denies: dysuria Musc: Denies: neck pain or back pain Skin/Breast: Denies: rash Neuro: Denies: headache(s) Psych: Denies: depression Jose/Lymph: Denies: easy bruising All/Imm: Denies: urticaria PFSH ED PFSH: Medical History Breast CA Physical Exam Const: COMMON NORMALS: no acute distress, patient oriented x3 and healthy appearing HENMT: COMMON NORMALS: normocephalic and atraumatic HEAD & SCALP: normocephalic and atraumatic Eye: COMMON NORMALS: Equal, round and reactive pupils present and EOMs intact bilaterally PUPIL: Yes Equal, round and reactive pupils present Neck/C-Spine: COMMON NORMALS: full ROM and supple Chest: COMMONS NORMALS: normal inspection of the chest and normal palpation of entire chest wall Resp: COMMON NORMALS: normal respiratory effort, No retractions, No use of accessory muscles and clear to auscultation bilaterally AUSCULTATION: clear to auscultation bilaterally Cardio: COMMON NORMALS: regular rate, regular rhythm and No murmurs present (Cardio) RATE: regular rate RHYTHM: regular rhythm GI: COMMON NORMALS: Normal to inspection, nondistended, normoactive bowel sounds present, Soft to palpation, non-tender and no masses PALPATION: Yes Soft to palpation Extremity: COMMON NORMALS: normal to inspection and full ROM Neuro: COMMON NORMALS: patient oriented x3, moves all extremities and no focal motor deficits Psych: COMMON NORMALS: mental status grossly normal, Normal thought process present and cooperative THOUGHT PROCESS: Normal thought process present Skin: COMMON NORMALS: no rashes or lesions noted and no wounds GENERAL SKIN EXAM: no rashes or lesions noted Course Vital Signs: Vital signs: Vital Signs Temperature 98.2 F 03/16/21 18:21 Pulse Rate 114 H 03/16/21 23:15 Respiratory Rate 18 03/16/21 18:21 Blood Pressure 137/106 03/16/21 23:15 Pulse Oximetry 95 03/16/21 23:15 MDM - Abdominal Pain MDM Narrative: Medical decision making narrative: Patient presents with abdominal pain has been going on for quite some time she is well-appearing here exam is benign blood work and CT scan are normal she is stable for discharge she is to follow-up PCP and return if worsening she understands agrees to plan. Exam at discharge benign no signs of acute surgical abdomen. Lab Data: Labs: Lab Results 03/16/21 03/16/21 03/16/21 20:18 20:18 21:52 WBC 10.5 10^3/uL H 10 ^3/uL (4.0-10.0) RBC 5.51 10^6/uL H 10 ^6/uL (4.1-5.3) Hgb 15.7 g/dL H g/dL (11.5-15.3) Hct 47.0 % % (37.0-47.0) MCV 85.3 fl fl (81-99) MCH 28.5 pg pg (28.0-34.0) MCHC 33.4 g/dL g/dL (30.0-36.0) RDW 16.1 % H % (12.1-15.1) Plt Count 247 10^3/cmm 10^3 /cmm (130-400) MPV 10.1 fL fL (7.4-10.4) Neut % (Auto) 74.7 % % Lymph % (Auto) 12.1 % % Grand % (Auto) 10.4 % % Eos % (Auto) 1.1 % % Baso % (Auto) 1.0 % % Neut # (Auto) 7.85 10^3/uL H 10 ^3/uL (1.8-7.7) Lymph # (Auto) 1.3 10^3/uL 10^3/ uL (0.8-4.8) Grand # (Auto) 1.1 10^3/uL H 10^ 3/uL (0.2-0.9) Eos # (Auto) 0.1 10^3/uL 10^3/ uL (0.0-0.8) Baso # (Auto) 0.1 10^3/uL 10^3/ uL (0.0-0.1) Nucleated RBC % (a uto) 0 % % Nucleated RBCs # 0.0 /100WBC /100W BC Sodium 135 mmol/L L mmol /L (136-145) Potassium 3.9 mmol/L mmol/L (3.5-5.1) Chloride 96 mmol/L L mmol/ L (98-107) Carbon Dioxide 22 mmol/L mmol/L (22-29) Anion Gap 20.9 H (5-19) BUN 14 mg/dL mg/dL (6-20) Creatinine 0.9 mg/dL mg/dL (0.5-0.9) GFR Calculation 64.1 mL/min L mL/ min (90-130) Glucose 99 mg/dL mg/dL (65-115) Calculated Osmolal ity 281 mOsm/kg L mOs m/kg (285-295) Calcium 9.3 mg/dL mg/dL (8.5-10.5) Total Bilirubin 0.8 mg/dL mg/dL (0.15-1.2) AST 127 U/L H U/L (0-32) ALT 48 U/L H U/L (0-33) Alkaline Phosphata se 161 IU/L H IU/L (35-105) Total Protein 7.9 g/dL g/dL (6.6-8.7) Albumin 4.1 g/dL g/dL (3.5-5.2) Globulin 3.8 g/dL g/dL (1.3-4.6) Lipase 28 U/L U/L (13-60) Urine Color Dark yellow (Yellow) Urine Appearance Clear (CLEAR) Urine pH 5 (5-7) Ur Specific Gravit y 1.030 (1.005-1.030) Urine Protein Trace (Negative) Urine Glucose (UA) Norm (Normal) Urine Ketones 1+ H (Negative) Urine Blood Trace H (Negative) Urine Nitrate Negative (Negative) Urine Bilirubin 1+ H (Negative) Urine Urobilinogen 1 mg/dL H mg/dL (Negative) Ur Leukocyte Evelyn ase 2+ H (Negative) Urine RBC 0-4 /hpf H /hpf (0-2) Urine WBC >100 /hpf H /hpf (0-5) Ur Squamous Epith Cells 0-4 /hpf H /hpf (0-5) Amorphous Sediment Not Reportable Urine Bacteria Trace /hpf /hpf (NONE) Urine Mucus 2+ /hpf /hpf Imaging Data ^: CT Abd/Pel: Attestation: I personally reviewed and interpreted this imaging study as follows: Radiologist's impression: [place] [address] CT Scan Report Signed Patient: Yadira Lopez Unit #: [id number] : 1960 Age/Sex: 60 / F ADM Date: 03/16/21 Loc: ER Room/Bed: Attending Dr: Ordering Provider/Ordering MD: Tommie De Luna MD Date of Service: 03/16/21 Procedure(s): CT abdomen pelvis wo con [id number] Accession Number(s): [id number] Report Number: [id number] PROCEDURE INFORMATION: Exam: CT Abdomen And Pelvis Without Contrast Exam date and time: 03/16/2021 9:48 PM Age: 60 years old Clinical indication: Abdominal pain; Localized; Patient HX: C/O lower abd pain with transient diarrhea. History of breast cancer. TECHNIQUE: Imaging protocol: Computed tomography of the abdomen and pelvis without contrast. Radiation optimization: All CT scans at this facility use at least one of these dose optimization techniques: automated exposure control; mA and/or kV adjustment per patient size (includes targeted exams where dose is matched to clinical indication); or iterative reconstruction. COMPARISON: CT abdomen pelvis w con* [id number] 01/31/2021 9:59 PM RADIATION DOSE METRICS: Total DLP (mGy-cm): 1607.02 FINDINGS: Lungs: There is some minimal residual infiltrate in the tip of the lingula, less than on 01/31/2021. This could represent some post radiation change. Diaphragm: There is a small hiatal hernia. Liver: Multiple small hepatic cysts not significantly changed. 4 and 5 cm sized simple exophytic cyst arising from the undersurface of the left lobe of the liver not significantly changed. Gallbladder and bile ducts: The gallbladder is normal. Pancreas: The pancreas is normal. Spleen: The spleen is normal. Adrenal glands: The adrenal glands are normal. Kidneys and ureters: The kidneys are normal. There is no evidence of hydronephrosis. There is no evidence of renal or ureteral calcifications. Stomach and bowel: There is fluid distention of the entirety of the colon which is consistent with the given history of diarrhea. There is no evidence of intestinal obstruction. Appendix: Not identified Intraperitoneal space: There is no evidence of free intraperitoneal fluid. Vasculature: The aorta demonstrates moderate atherosclerotic calcification. There is no evidence of an abdominal aortic aneurysm. Lymph nodes: There is no evidence of lymphadenopathy. Urinary bladder: Unremarkable as visualized. Reproductive: There has been a hysterectomy. Bones/joints: The lumbar spine demonstrates mild degenerative changes at multiple levels. There is grade 1 spondylolisthesis at L4-L5 not significantly changed. Soft tissues: There are post treatment changes in the visualized portion of the left breast. CT/CT abdomen pelvis wo con [id number] IMPRESSION: 1. Hepatic cysts unchanged. 2. Post treatment changes in the left breast. 3. Findings in the lingula which may represent some post radiation change. 4. Stable hepatic cysts. 5. Nonspecific fluid distention of the colon consistent with a history of diarrhea. 6. No evidence of metastatic disease within the abdomen or pelvis. Dictated By: Lázaro Etienne Signed By: Lázaro Etienne Signed Date/Time: 03/16/21 0361 DD/ Discharge Plan Discharge Patient Disposition: Home Clinical Impression: Abdominal pain Qualifiers: Abdominal location: generalized Qualified Code(s): R10.84 - Generalized abdominal pain Condition: Stable Prescriptions: No Action paroxetine HCl 10 mg tablet 50 mg PO DAILY RF: 0 ibuprofen 800 mg tablet 800 mg PO TID PRN (Reason: Pain) RF: 0 clonazepam 0.5 mg tablet 0.5 mg PO DAILY PRN (Reason: Anxiety) RF: 0 omeprazole 40 mg capsule,delayed release(DR/EC) 40 mg PO DAILY RF: 0 lisinopril-hydrochlorothiazide 10-12.5 mg tablet 1 tab PO DAILY RF: 0 albuterol sulfate [ProAir HFA] 90 mcg/actuation HFA aerosol inhaler 90 mcg INHALATION DIRECTED PRN (Reason: Allergy Symptoms) RF: 0 ezetimibe 10 mg tablet 10 mg PO DAILY RF: 0 Adults Multivitamin 1 tab PO DAILY RF: 0 coenzyme Q10 50 mg Tablet 50 mg PO DAILY Qty: 0 RF: 0 pantoprazole 40 mg Tablet,Delayed Release (Dr/Ec) 40 mg PO DAILY RF: 0 potassium chloride 20 mEq Tablet Extended Release 20 meq PO BID RF: 0 diphenoxylate-atropine [Lomotil] 2.5-0.025 mg tablet 2 tab PO ONCE PRN (Reason: diarrhea) Qty: 60 RF: 0 tramadol 50 mg tablet 50 mg PO Q8H PRN (Reason: pain) Qty: 10 RF: 0 Miralax 17 gram/dose powder 17 g PO BID PRN (Reason: constipation) Qty: 238 RF: 0 ondansetron 4 mg tablet,disintegrating 4 mg PO Q6H PRN (Reason: nausea and vomiting) Qty: 14 RF: 0 Discharge Orders: Discharge ED (Routine); Ordered 03/16/21 Ordered By: Tommie De Luna Referrals: Hardik Guajardo MD [Primary Care Provider] - 1-3 days Discharge Diet: Advance as tolerated Discharge Activity: Resume usual activity Patient Instructions: Abdominal Pain (ED) Coding Level of Care Code ED Performance Management Consultant for Chg Fwd Exam Comprehensive
[2021-03-16 22:24] LABS: Add Urine Microscopic? YES; Bilirubin Urine 1+ (Negative); Blood Urine Trace (Negative); Glucose Urine UA Norm (Normal); Ketones Urine 1+ (Negative); Leukocyte Esterase Urine 2+ (Negative); Nitrate Urine Negative (Negative); Protein Urine Trace (Negative); Urine Appearance Clear (CLEAR); Urine Color Dark Yellow (Yellow); Urobilinogen Urine 1 mg/dL (Negative); pH Urine 5 (5-7)
[2021-03-16 22:26] LABS: Bacteria Urine TRACE /hpf; Mucus Urine 2+ /hpf; RBC Urine 0-4 /hpf (0-2); Squamous Epithelial Cell Urine 0-4 /hpf (0-5); WBC Urine >100 /hpf (0-5)
[2021-03-16 22:27] LABS: Add Urine Culture? Yes
[2021-03-16 23:15] VITALS: BP 137/106; PULSE 114; O2SAT 95
[2021-03-16] MEDS: nitrofurantoin SR (BID) 100 mg Capsule PO (23:17)
[2021-03-16] MEDS: lactulose oral liq 20 gm/30 mL UDC 30 GM PO (23:17)
[2021-03-16 23:53] VITALS: BP 137/106; PULSE 114; O2SAT 95
== END 2021-03-16 23:54 | disposition home or self-care (01) ==
PROVIDERS: Physician Assistant; Emergency Provider Emergency Medicine; PCP Family Medicine
DX: R10.84 Generalized abdominal pain (principal); Z85.3 Personal history of malignant neoplasm of breast; Z79.899 Other long term (current) drug therapy
CPT/HCPCS: 74018; 74176; 80053; 81001; 83690; 85025; 87086; 99283

== ENCOUNTER 2021-04-03 06:38 | Outpatient (RCR) | payer BC, SELFPAY ==
[2021-04-03 08:36] LABS: Basophils # 0.1 10^3/uL (0.0-0.1); Basophils % 1.5 %; Eosinophils # 0.2 10^3/uL (0.0-0.8); Eosinophils % 5.3 %; Hematocrit 40.1 % (37.0-47.0); Lymphocytes % 21.1 %; Mean Corpuscular HGB Conc 32.4 g/dL (30.0-36.0); Mean Corpuscular Volume 86.2 fl (81-99); Mean Platelet Volume 9.4 fL (7.4-10.4); Monocytes # 0.5 10^3/uL (0.2-0.9); Monocytes % 10.7 %; Neutrophils # 2.78 10^3/uL (1.8-7.7); Nucleated Red Blood Cells % 0 %; Platelet Count 195 10^3/cmm (130-400); Red Blood Count 4.65 10^6/uL (4.1-5.3); Red Cell Distribution Width 16.1 % (12.1-15.1); White Blood Count 4.6 10^3/uL (4.0-10.0)
[2021-04-03 08:51] LABS: Alanine Aminotransferase 36 U/L (0-33); Albumin Level 3.8 g/dL (3.5-5.2); Alkaline Phosphatase 110 IU/L (35-105); Anion Gap 13.2 (5-19); Aspartate Amino Transferase 90 U/L (0-32); Blood Urea Nitrogen 10 mg/dL (6-20); Carbon Dioxide 26 mmol/L (22-29); Chloride 103 mmol/L (98-107); Globulin 2.8 g/dL (1.3-4.6); Glomerular Filtration Rate 85.6 mL/min (90-130); Glucose 101 mg/dL (65-115); Osmolality Calculated 287 mOsm/kg (285-295); Potassium 3.2 mmol/L (3.5-5.1); Sodium 139 mmol/L (136-145); Total Bilirubin 0.7 mg/dL (0.15-1.2); Total Protein 6.6 g/dL (6.6-8.7)
== END 2021-04-07 23:59 | disposition home or self-care (01) ==
LOC: ONCMED 06:38
PROVIDERS: PCP Family Medicine; Visit Provider Nurse Practitioner Family
DX: Z51.11 Encounter for antineoplastic chemotherapy (principal); C50.812 Malignant neoplasm of overlapping sites of left female breast; Z17.0 Estrogen receptor positive status [ER+]; I10 Essential (primary) hypertension; E78.5 Hyperlipidemia, unspecified; J45.909 Unspecified asthma, uncomplicated; K21.9 Gastro-esophageal reflux disease without esophagitis; G56.03 Carpal tunnel syndrome, bilateral upper limbs; F41.9 Anxiety disorder, unspecified; F32.9 Major depressive disorder, single episode, unspecified; Z80.3 Family history of malignant neoplasm of breast; Z90.12 Acquired absence of left breast and nipple; Z92.3 Personal history of irradiation; Z79.899 Other long term (current) drug therapy
CPT/HCPCS: 80053; 85025; 96413; 99215; J7050; J9354

== ENCOUNTER 2021-05-29 09:33 | Outpatient (RCR) | payer BC, SELFPAY ==
[2021-05-29 10:19] LABS: Basophils # 0.1 10^3/uL (0.0-0.1); Basophils % 1.2 %; Eosinophils # 0.2 10^3/uL (0.0-0.8); Eosinophils % 4.4 %; Hematocrit 38.2 % (37.0-47.0); Hemoglobin 12.3 g/dL (11.5-15.3); Lymphocytes # 0.9 10^3/uL (0.8-4.8); Lymphocytes % 19.8 %; Mean Corpuscular HGB Conc 32.2 g/dL (30.0-36.0); Mean Corpuscular Hemoglobin 27.8 pg (28.0-34.0); Mean Corpuscular Volume 86.2 fl (81-99); Mean Platelet Volume 9.1 fL (7.4-10.4); Monocytes # 0.4 10^3/uL (0.2-0.9); Monocytes % 8.5 %; Neutrophils # 2.86 10^3/uL (1.8-7.7); Neutrophils % 65.9 %; Nucleated Red Blood Cells % 0 %; Platelet Count 175 10^3/cmm (130-400); Red Blood Count 4.43 10^6/uL (4.1-5.3); White Blood Count 4.3 10^3/uL (4.0-10.0)
[2021-05-29 10:28] LABS: Alanine Aminotransferase 28 U/L (0-33); Alkaline Phosphatase 110 IU/L (35-105); Anion Gap 12.7 (5-19); Aspartate Amino Transferase 62 U/L (0-32); Blood Urea Nitrogen 13 mg/dL (8-23); Calcium 9.5 mg/dL (8.5-10.5); Carbon Dioxide 26 mmol/L (22-29); Chloride 105 mmol/L (98-107); Globulin 3.1 g/dL (1.3-4.6); Glomerular Filtration Rate 85.4 mL/min (90-130); Glucose 105 mg/dL (65-115); Osmolality Calculated 290 mOsm/kg (285-295); Potassium 3.7 mmol/L (3.5-5.1); Sodium 140 mmol/L (136-145); Total Bilirubin 0.9 mg/dL (0.15-1.2); Total Protein 7.1 g/dL (6.6-8.7)
[2021-05-29] MEDS: acetaminophen 325 mg Tablet 650 MG PO (11:15)
[2021-05-29] MEDS: ondansetron 2 mg/ML SDV 2 mL 8 MG IV (11:15)
== END 2021-06-05 23:59 | disposition home or self-care (01) ==
LOC: ONCMED 09:33
PROVIDERS: PCP Family Medicine; Visit Provider Internal Medicine Medical Oncology
DX: Z51.11 Encounter for antineoplastic chemotherapy (principal); C50.412 Malignant neoplasm of upper-outer quadrant of left female breast; Z17.0 Estrogen receptor positive status [ER+]; D70.1 Agranulocytosis secondary to cancer chemotherapy; T45.1X5A Adverse effect of antineoplastic and immunosuppressive drugs, initial encounter; Z79.899 Other long term (current) drug therapy
CPT/HCPCS: 80053; 85025; 96375; 96413; J2405; J7050; J9354

== ENCOUNTER 2021-06-19 08:26 | Outpatient (RCR) | payer BC, SELFPAY ==
[2021-06-19 08:52] LABS: Basophils # 0.1 10^3/uL (0.0-0.1); Basophils % 1.4 %; Eosinophils # 0.3 10^3/uL (0.0-0.8); Eosinophils % 4.9 %; Hematocrit 36.5 % (37.0-47.0); Hemoglobin 11.7 g/dL (11.5-15.3); Lymphocytes # 1.3 10^3/uL (0.8-4.8); Mean Corpuscular HGB Conc 32.1 g/dL (30.0-36.0); Mean Corpuscular Hemoglobin 28.1 pg (28.0-34.0); Mean Corpuscular Volume 87.5 fl (81-99); Mean Platelet Volume 9.1 fL (7.4-10.4); Monocytes # 0.5 10^3/uL (0.2-0.9); Monocytes % 9.1 %; Neutrophils # 3.58 10^3/uL (1.8-7.7); Neutrophils % 62.4 %; Nucleated Red Blood Cells % 0 %; Platelet Count 213 10^3/cmm (130-400); Red Blood Count 4.17 10^6/uL (4.1-5.3); Red Cell Distribution Width 16.8 % (12.1-15.1); White Blood Count 5.7 10^3/uL (4.0-10.0)
[2021-06-19 09:12] LABS: Alanine Aminotransferase 34 U/L (0-33); Albumin Level 3.9 g/dL (3.5-5.2); Alkaline Phosphatase 130 IU/L (35-105); Anion Gap 12.5 (5-19); Aspartate Amino Transferase 103 U/L (0-32); Blood Urea Nitrogen 14 mg/dL (8-23); Calcium 8.9 mg/dL (8.5-10.5); Carbon Dioxide 26 mmol/L (22-29); Chloride 105 mmol/L (98-107); Globulin 2.8 g/dL (1.3-4.6); Glomerular Filtration Rate 73.2 mL/min (90-130); Glucose 112 mg/dL (65-115); Osmolality Calculated 291 mOsm/kg (285-295); Potassium 3.5 mmol/L (3.5-5.1); Sodium 140 mmol/L (136-145); Total Bilirubin 0.6 mg/dL (0.15-1.2); Total Protein 6.7 g/dL (6.6-8.7)
[2021-06-19] MEDS: acetaminophen 325 mg Tablet 650 MG PO (10:08)
[2021-06-19] MEDS: sodium chloride 0.9% 250 ML 500 ML IV (10:10)
[2021-06-19] MEDS: ondansetron 2 mg/ML SDV 2 mL 8 MG IV (10:14)
--- NOTE | 2021-06-19 19:28 | ONC FU_ITS ---
Dr. Ramos Patient Follow-Up Note Patient: Yadira Lopez Unit #: [id number]: 1960 Dicatated By: Daniel Ramos M.D.Date of Visit:Jun 19, 2021 Onc Med Follow-up/Prog Note Chief Complaint: Breast cancer. History of Present Illness: This is a 61 year-old woman with grade 3 invasive ductal carcinoma of the left breast, by clinical evaluation stage IB (T2, N1, M0), ER/OH positive and HER-2/tina positive. She had presented to Dr. Guajardo with a palpable mass in the left breast. She had been aware of it for about a month. Diagnostic mammogram on March 16, 2020 showed a dominant mass in the upper outer quadrant of the left breast measuring 2.3 x 2.3 cm. Additional smaller dense surrounding satellite nodules were noted. Ultrasound showed an irregular dense hypoechoic lobulated lesion at the 2 o'clock position measuring 2.1 x 2.2 x 2.1 cm. The findings were highly suspicious for malignancy. Ultrasound of the left axilla showed a hypoechoic pathologic enlarged lymph node measuring 3.7 x 1.8 x 2.7 cm. On March 28, 2020 she underwent ultrasound directed biopsies of the breast mass and the enlarged left axillary lymph node. Pathology on the breast biopsy showed grade 3 infiltrating ductal carcinoma in the left axillary lymph node biopsy was positive for metastatic carcinoma. The breast prognostic profile showed ER positive at 98% and OH positive at 40%. The tumor was positive for overexpression of HER-2/tina, 3+ by IHC and amplification ratio by FISH of 2.7 with 7.6 HER-2 copies/cell. The Ki-67 was high at 65%. I had seen her initially on 04/15/2020. In the setting of lymph node positive HER-2/tina positive disease, she was recommended to undergo neoadjuvant chemotherapy with TCH-P. She began cycle 1 on 05/20/2020. She experienced multiple side effects including nausea/vomiting and diarrhea off and on during the first week after treatment. She also had generalized body aches. At day 12 she was neutropenic, but she had uneventful recovery with G-CSF. She continued with cycle 2 on 06/10/2020. It was administered with a 20% reduction in the dosages of both the carboplatin and the docetaxel. Despite that dose reduction, she continued to have significant side effects, including fatigue, nausea, and especially diarrhea. As such, her cycle 3 was delayed 1 week to allow additional recovery, and with that cycle I did opt to omit carboplatin from the regimen. She tolerated it much better and she then continued with cycle 4 on 07/29/2020. On 08/25/2020 she underwent left breast lumpectomy and axillary lymph node sampling. Pathology showed residual grade 3 invasive ductal carcinoma measuring 1.5 cm in greatest diameter. Margins were uninvolved. There was involvement in 2/3 axillary lymph nodes, the largest focus measuring 16 mm. Extranodal extension was identified. She then underwent radiation to the left breast and supraclavicular region, completed on 11/16/2020 to a total dose of 5000 cGy administered in 25 fractions. She then received an additional 1000 cGy boost to the surgical bed, administered in 5 fractions and completed on 11/23/2020. Following completion of the neoadjuvant chemotherapy, she had continued systemic therapy with Herceptin/Perjeta every 3 weeks for 2 cycles. With pathology showing residual axillary lymph node involvement, her treatment was then changed to Kadcyla, cycle 1 on 10/26/2020. Her other medical illnesses include hypertension, hyperlipidemia, asthma, GERD, and anxiety/depression. She is a non-smoker. INTERIM HISTORY: She began cycle 1 of Kadcyla on 10/26/2020. She experienced some fatigue following the initial infusion of Kadcyla and she also continued to have diarrrhea. Overall, though, she tolerated it with acceptable toxicity, and she was then able to continue treatment at 3-week intervals. As of 04/03/2021 she completed her 8th cycle. Her cycle 9 was delayed until 05/29/2021. She is seen now for a follow-up visit. Her main complaint is that she continues to feel very tired. She is still trying to work 2 days a week, but it is very difficult for her, as it completely wears her out. She says at best she has 1 or 2 good days per week. Her ECOG score is 1. Her appetite is up and down. She does not have fever, night sweats, or hot flashes. She has some allergy related sinus symptoms. She has occasional epistaxis and she occasionally has mild gum bleeding. She sometimes has sore throat. She does not complain of cough and she is not having shortness of breath. She has had pain in the left rib cage due to a fall in April. The pain is better now than it was. She sometimes has nausea. She has no other GI or complaints. She sometimes has general body aches. She sometimes has headache. She has dizziness off and on. She reports having occasional muscle tingling. Medications: Albuterol Sulfate HFA 2 Puff(s) (of 108 (90 base) mcg/act) Aerosol, solution Inhalation four times a day PRN, Claritin 1 (10 mg) Tablet Oral daily, clonazePAM 1 (0.5 mg) Tablet Oral daily, Gabapentin 1 Capsule (of 100 mg) Oral t.i.d., hydroCHLOROthiazide 1 Tablet (of 12.5 mg) Oral daily, Ibuprofen 1 (800 mg) Tablet Oral t.i.d. PRN, Meloxicam 1 (15 mg) Tablet Oral daily, Multi Vitamin 1 Tablet Oral daily, Omeprazole 1 (40 mg) Capsule Delayed Release Oral b.i.d., Ondansetron HCl 1 Tablet (of 8 mg) Oral four times a day PRN, PARoxetine HCl 1 (20 mg) Tablet Oral daily, PARoxetine HCl (40 mg) Tablet Oral Take as Directed, Prochlorperazine Maleate 1 Tablet (of 10 mg) Oral q 4 hours PRN Allergies: Cephalexin, Codeine Sulfate, HYDROcodone-Acetaminophen, Morphine Sulfate, Penicillins, and Sulfa Antibiotics. Vital Signs: Performed on Jun 19, 2021 09:53 Height - 61.00 in Weight - 181.8 lbs (LOW) BSA - 1.81 sq.m BMI - 34.35 (HIGH) Temperature - 98.7 F Pulse - 99 /min Respiration - 18 /min BP - 149/83 mm(hg) (HIGH) O2 Sat - 96 % Pain - 7 Fatigue - 7 Physical Examination: Constitutional - She looks pretty good generally, Eyes - Sclerae nonicteric. Conjunctivae clear, ENMT - No lesions noted in the oral cavity, Hematologic/Lymphatic - No cervical, clavicular, or axillary adenopathy, Respiratory - Lungs are clear with good air movement bilaterally, Cardiovascular - Heart rhythm is regular. There is no murmur, gallop, or rub noted, Abdomen - Soft. Liver and spleen are not enlarged. There is no abdominal mass or ascites noted and there is no inguinal adenopathy, Extremities - No edema, Neurologic - No focal neurologic deficits noted. Lab/Imaging: Test performed on Jun 19, 2021 08:35 Sodium 140 mmol/L Potassium 3.5 mmol/L Chloride 105 mmol/L CO2 26 mmol/L Anion Gap 12.5 BUN 14 mg/dL Creatinine 0.8 mg/dL Cr Clearance (Est) 100.4600 mL/min eGFR 73.2 mL/min Glucose 112 mg/dL Osmolality - Calculated 291 mOsm/kg Calcium 8.9 mg/dL Protein, Total 6.7 g/dL Albumin 3.9 g/dL Globulin 2.8 g/dL Bilirubin, Total 0.6 mg/dL ALT (SGPT) 34 U/L AST (SGOT) 103 U/L Alkaline Phosphatase 130 IU/L WBC 5.7 10 3/uL RBC 4.17 10 6/uL HGB 11.7 g/dL HCT 36.5 % MCV 87.5 fl MCH 28.1 pg MCHC 32.1 g/dL RDW 16.8 % Platelet Count 213 10 3/cmm MPV 9.1 fL Neutrophils 3.58 10 3/uL Lymphocytes 1.3 10 3/uL Monocytes 0.5 10 3/uL Eosinophils 0.3 10 3/uL Basophils 0.1 10 3/uL Neutrophil % 62.4 % Lymphocyte % 22.0 % Monocyte % 9.1 % Eosinophil % 4.9 % Basophils % 1.4 % NRBC % 0 % Problem List: 1. Grade 3 invasive ductal carcinoma of the left breast, by clinical evaluation stage at least IB (T2, N1, M0), ER/OH positive and HER-2/tina positive. 2. Hypertension. 3. Hyperlipidemia. 4. Asthma. 5. GERD. 6. Bilateral carpal tunnel syndrome. 7. Anxiety/depression. 8. She has a positive family history of breast cancer involving a first-degree relative (sister). She was found to be BRCA negative. Problems Addressed with this Encounter and Plan: Patient with grade 3 invasive ductal carcinoma of the left breast, by clinical evaluation stage at least IB (T2, N1, M0), ER/OH positive and HER-2/tina positive. She began cycle 1 of neoadjuvant chemotherapy with TCH-P on 05/20/2020. She experienced multiple toxicities including nausea/vomiting, diarrhea, fatigue, generalized body aches, and neutropenia. She has had uneventful recovery. By clinical evaluation, she appeared to be showing some response to the chemotherapy. She will continued with cycle 2 of TCH-P on 06/10/2020. It was administered with a 20% dose reduction in the chemotherapy drugs. Despite that, she has continued to have significant GI toxicity, mainly diarrhea and abdominal pain. As such, her cycle 3 treatment was delayed 1 week And with that cycle the carboplatin was omitted from the regimen. She tolerated that treatment much better, and she continued with cycle 4 on 07/29/2020. On 08/25/2020 she underwent left breast lumpectomy and axillary lymph node sampling. Pathology showed residual grade 3 invasive ductal carcinoma measuring 1.5 cm in greatest diameter. Margins were uninvolved. There was involvement in 2/3 axillary lymph nodes, the largest focus measuring 16 mm. Extranodal extension was identified. Her pathologic staging was ypT1c, ypN1a. Perioperatively she had continued adjuvant therapy with Herceptin/Perjeta every 3 weeks for 2 cycles. She then began postoperative radiation to the left breast and supraclavicular region. She completed treatment on 11/23/2020 to a total dose of 6000 cGy, administered in 30 fractions. During that time, with pathology showing residual axillary lymph node involvement, her systemic adjuvant therapy was changed to Kadcyla, cycle 1 on 10/26/2020. She then continued Kadcyla at 3-week intervals. She has now completed 9 cycles, though she did have a delay between cycles 8 and 9. She has continued to have significant treatment related fatigue and she has had mild transaminitis. Thus far she has been able to tolerate it with acceptable toxicity. She will proceed now with cycle 10 of Kadcyla. The dosage remains the same. She returns in 3 weeks. Signed By: Daniel Ramos M.D. <<Signature on File>>
== END 2021-07-06 23:59 | disposition home or self-care (01) ==
LOC: ONCMED 08:26
PROVIDERS: PCP Family Medicine; Visit Provider Internal Medicine Medical Oncology
DX: Z51.11 Encounter for antineoplastic chemotherapy (principal); C50.812 Malignant neoplasm of overlapping sites of left female breast; Z17.0 Estrogen receptor positive status [ER+]; I10 Essential (primary) hypertension; E78.5 Hyperlipidemia, unspecified; J45.909 Unspecified asthma, uncomplicated; K21.9 Gastro-esophageal reflux disease without esophagitis; G56.03 Carpal tunnel syndrome, bilateral upper limbs; F41.9 Anxiety disorder, unspecified; F32.A Depression, unspecified; Z80.3 Family history of malignant neoplasm of breast; Z79.899 Other long term (current) drug therapy; Z92.3 Personal history of irradiation
CPT/HCPCS: 80053; 85025; 96375; 96413; 99215; J2405; J7050; J9354

== ENCOUNTER 2021-07-28 13:30 | Outpatient (RCR) | payer BC, SELFPAY ==
[2021-07-10 09:35] LABS: Basophils # 0.1 10^3/uL (0.0-0.1); Basophils % 1.5 %; Eosinophils # 0.2 10^3/uL (0.0-0.8); Eosinophils % 5.8 %; Hematocrit 32.9 % (37.0-47.0); Hemoglobin 10.4 g/dL (11.5-15.3); Lymphocytes % 25.3 %; Mean Corpuscular HGB Conc 31.6 g/dL (30.0-36.0); Mean Corpuscular Hemoglobin 27.7 pg (28.0-34.0); Mean Corpuscular Volume 87.7 fl (81-99); Monocytes # 0.4 10^3/uL (0.2-0.9); Monocytes % 10.3 %; Neutrophils # 2.27 10^3/uL (1.8-7.7); Neutrophils % 56.6 %; Nucleated Red Blood Cells % 0 %; Platelet Count 180 10^3/cmm (130-400); Red Blood Count 3.75 10^6/uL (4.1-5.3); Red Cell Distribution Width 16.4 % (12.1-15.1)
[2021-07-10 09:48] LABS: Alanine Aminotransferase 31 U/L (0-33); Albumin Level 3.7 g/dL (3.5-5.2); Alkaline Phosphatase 132 IU/L (35-105); Anion Gap 11.6 (5-19); Aspartate Amino Transferase 79 U/L (0-32); Blood Urea Nitrogen 13 mg/dL (8-23); Calcium 9.4 mg/dL (8.5-10.5); Carbon Dioxide 26 mmol/L (22-29); Chloride 105 mmol/L (98-107); Glomerular Filtration Rate 73.2 mL/min (90-130); Glucose 120 mg/dL (65-115); Osmolality Calculated 289 mOsm/kg (285-295); Potassium 3.6 mmol/L (3.5-5.1); Sodium 139 mmol/L (136-145); Total Bilirubin 0.6 mg/dL (0.15-1.2); Total Protein 6.7 g/dL (6.6-8.7)
[2021-07-10] MEDS: sodium chloride 0.9% 250 ML 50 ML IV (11:50)
[2021-07-10] MEDS: acetaminophen 325 mg Tablet 650 MG PO (11:51)
[2021-07-10] MEDS: ondansetron 2 mg/ML SDV 2 mL 8 MG IV (11:55)
[2021-07-10 13:35] LABS: Ferritin 45 ng/mL (15-150); Iron 52 ug/dL (37-145); Percent Saturation 13.7 % (20-50); Total Iron Binding Capacity 379 mcg/dl; Unsaturated Iron Binding 327 ug/dL (112-347)
--- NOTE | 2021-07-14 08:30 | ONC FU_ITS ---
Maria Esther Elena Progress Note Patient: Yadira Lopez Unit #: [id number]: 1960 Dicatated By: Maria Esther Elena N.P.Date of Visit:Jul 10, 2021 Onc MED Follow-up/Prog Note Chief Complaint: Breast cancer. History of Present Illness: This is a 61 year-old woman with grade 3 invasive ductal carcinoma of the left breast, by clinical evaluation stage IB (T2, N1, M0), ER/NE positive and HER-2/tina positive. She had presented to Dr. Guajardo with a palpable mass in the left breast. She had been aware of it for about a month. Diagnostic mammogram on March 16, 2020 showed a dominant mass in the upper outer quadrant of the left breast measuring 2.3 x 2.3 cm. Additional smaller dense surrounding satellite nodules were noted. Ultrasound showed an irregular dense hypoechoic lobulated lesion at the 2 o'clock position measuring 2.1 x 2.2 x 2.1 cm. The findings were highly suspicious for malignancy. Ultrasound of the left axilla showed a hypoechoic pathologic enlarged lymph node measuring 3.7 x 1.8 x 2.7 cm. On March 28, 2020 she underwent ultrasound directed biopsies of the breast mass and the enlarged left axillary lymph node. Pathology on the breast biopsy showed grade 3 infiltrating ductal carcinoma in the left axillary lymph node biopsy was positive for metastatic carcinoma. The breast prognostic profile showed ER positive at 98% and NE positive at 40%. The tumor was positive for overexpression of HER-2/tina, 3+ by IHC and amplification ratio by FISH of 2.7 with 7.6 HER-2 copies/cell. The Ki-67 was high at 65%. I had seen her initially on 04/15/2020. In the setting of lymph node positive HER-2/tina positive disease, she was recommended to undergo neoadjuvant chemotherapy with TCH-P. She began cycle 1 on 05/20/2020. She experienced multiple side effects including nausea/vomiting and diarrhea off and on during the first week after treatment. She also had generalized body aches. At day 12 she was neutropenic, but she had uneventful recovery with G-CSF. She continued with cycle 2 on 06/10/2020. It was administered with a 20% reduction in the dosages of both the carboplatin and the docetaxel. Despite that dose reduction, she continued to have significant side effects, including fatigue, nausea, and especially diarrhea. As such, her cycle 3 was delayed 1 week to allow additional recovery, and with that cycle I did opt to omit carboplatin from the regimen. She tolerated it much better and she then continued with cycle 4 on 07/29/2020. On 08/25/2020 she underwent left breast lumpectomy and axillary lymph node sampling. Pathology showed residual grade 3 invasive ductal carcinoma measuring 1.5 cm in greatest diameter. Margins were uninvolved. There was involvement in 2/3 axillary lymph nodes, the largest focus measuring 16 mm. Extranodal extension was identified. She then underwent radiation to the left breast and supraclavicular region, completed on 11/16/2020 to a total dose of 5000 cGy administered in 25 fractions. She then received an additional 1000 cGy boost to the surgical bed, administered in 5 fractions and completed on 11/23/2020. Following completion of the neoadjuvant chemotherapy, she had continued systemic therapy with Herceptin/Perjeta every 3 weeks for 2 cycles. With pathology showing residual axillary lymph node involvement, her treatment was then changed to Kadcyla, cycle 1 on 10/26/2020. Her other medical illnesses include hypertension, hyperlipidemia, asthma, GERD, and anxiety/depression. She is a non-smoker. INTERIM HISTORY: She began cycle 1 of Kadcyla on 10/26/2020. She experienced some fatigue following the initial infusion of Kadcyla and she also continued to have diarrrhea. Overall, though, she tolerated it with acceptable toxicity, and she was then able to continue treatment at 3-week intervals. As of 04/03/2021 she completed her 8th cycle. Her cycle 9 was delayed until 05/29/2021. Patient presents today for follow-up. She continues to have fatigue although she is still working a couple of days per week. Her appetite has been good. She denies fever, chills, night sweats. No sinus drainage or mouth sores. No shortness of breath, cough, chest pain. No nausea or vomiting. She did state that she had a small amount of blood in her stool on a couple of occasions. She has also had nosebleeds on and off. She denies any problems with her urinary system. No headaches or dizziness. Review Of Symptoms:See above. Past Medical History: Anxiety Asthma Bilateral carpal tunnel syndrome Depression Gastroesophageal reflux disease Hyperlipidemia Hypertension Past Surgical History: Caesarean section Hysterectomy/bilateral salpingectomy-oophorectomy Left breast mass and left axillary node excision-Dr Ceballos in 2020 Right subclavian Port-A-Cath placement per Dr. Ceballos in 2020 Ultrasound guided biopsy of left breast mass and left axillary lymph node in 2019 Bronchoscopy and cervical mediastinoscopy in 2014 Tonsillectomy in 2009 Allergies: Cephalexin, Codeine Sulfate, HYDROcodone-Acetaminophen, Morphine Sulfate, Penicillins, and Sulfa Antibiotics. Medications: Albuterol Sulfate HFA 2 Puff(s) (of 108 (90 base) mcg/act) Aerosol, solution Inhalation four times a day PRN Claritin 1 (10 mg) Tablet Oral daily clonazePAM 1 (0.5 mg) Tablet Oral daily Gabapentin 1 Capsule (of 100 mg) Oral t.i.d. hydroCHLOROthiazide 1 Tablet (of 12.5 mg) Oral daily Ibuprofen 1 (800 mg) Tablet Oral t.i.d. PRN Meloxicam 1 (15 mg) Tablet Oral daily Multi Vitamin 1 Tablet Oral daily Omeprazole 1 (40 mg) Capsule Delayed Release Oral b.i.d. Ondansetron HCl 1 Tablet (of 8 mg) Oral four times a day PRN PARoxetine HCl 1 (20 mg) Tablet Oral daily PARoxetine HCl (40 mg) Tablet Oral Take as Directed Prochlorperazine Maleate 1 Tablet (of 10 mg) Oral q 4 hours PRN Family History: Ms. Lopez's mother is alive: hypertension. Ms. Lopez's father is : esophageal cancer, and myocardial infarction at age 60. Ms. Lopez has 1 brother who is : sustained injuries at age 58. She has 1 sister who is alive: breast cancer. Father at age 60 with heart attack. He also had throat cancer. Mother still living at age 84. A brother in a boating accident. A 68-year-old sister is been treated for breast cancer. She is not aware of any other breast cancer or ovarian cancer in the family. Social History: Ms. Lopez is . Ms. Lopez has never smoked. She has no history of drinking. She is a non-smoker. She does not drink alcohol. Physical Examination: Performed on Jul 10, 2021 10:22: Height - 61.00 in, Weight - 182.6 lbs (HIGH), BSA - 1.82 sq.m, BMI - 34.50 (HIGH), Temperature - 97.6 F (LOW), Pulse - 85 /min, BP - 135/83 mm(hg), O2 Sat - 99 %, Pain - 6, and Fatigue - 6. Performance Status: 1 - No physically strenuous activity, but ambulatory and able to carry out light or sedentary work (e.g. office work, light house work). (ECOG) Constitutional Alert, cooperative, oriented. Mood and affect appropriate. Appears close to chronological age. Well nourished. Well developed. Head Normocephalic; no scars. Respiratory Lungs are clear to auscultation without rhonchi or wheezing. Cardiovascular Regular rate and rhythm of heart without murmurs, gallops or rubs. Abdomen Non-tender, non-distended, no masses, ascites or hepatosplenomegaly. Good bowel sounds. No guarding or rebound tenderness. Musculoskeletal No tenderness or swelling, normal range of motion without obvious weakness. Psychiatric Alert and oriented times three. Coherent speech. Verbalizes understanding of our discussions today. Laboratory: Test performed on Jul 10, 2021 09:00 Ferritin 45 ng/mL Iron 52 mcg/dL Sodium 139 mmol/L Iron Binding Capacity (TIBC) 379 mcg/dl Potassium 3.6 mmol/L % Iron Saturation 13.7 % Chloride 105 mmol/L CO2 26 mmol/L UIBC 327 mcg/dL Anion Gap 11.6 BUN 13 mg/dL Creatinine 0.8 mg/dL Cr Clearance (Est) 100.4600 mL/min eGFR 73.2 mL/min Glucose 120 mg/dL Osmolality - Calculated 289 mOsm/kg Calcium 9.4 mg/dL Protein, Total 6.7 g/dL Albumin 3.7 g/dL Globulin 3.0 g/dL Bilirubin, Total 0.6 mg/dL ALT (SGPT) 31 U/L AST (SGOT) 79 U/L Alkaline Phosphatase 132 IU/L WBC 4.0 10 3/uL RBC 3.75 10 6/uL HGB 10.4 g/dL HCT 32.9 % MCV 87.7 fl MCH 27.7 pg MCHC 31.6 g/dL RDW 16.4 % Platelet Count 180 10 3/cmm MPV 9.0 fL Neutrophils 2.27 10 3/uL Lymphocytes 1.0 10 3/uL Monocytes 0.4 10 3/uL Eosinophils 0.2 10 3/uL Basophils 0.1 10 3/uL Neutrophil % 56.6 % Lymphocyte % 25.3 % Monocyte % 10.3 % Eosinophil % 5.8 % Basophils % 1.5 % NRBC % 0 % Test performed on Apr 03, 2021 09:59 NRBCs 0 /100 WBC Test performed on Mar 09, 2021 10:42 Ua Color Dark Yellow Ua Appearance Hazy Ua Glucose Norm Ua Bilirubin 1+ Ua Micro: Trans Epith Cells 0-4 /hpf Ua Ketones Negative Ua Micro: Oval Fat Bodies NONE /hpf Ua Specific [place] 1.015 Ua Blood Neg Ua pH 8 Ua Protein Neg Ua Protein, Sulfosal Acid Negative Ua Urobilinogen 4 mg/dL Ua Nitrites Negative Ua Leukocyte Esterase 2+ Ua Micro: Hyaline Casts 0-4 /lpf Ua Micro: WBC 25-40 /hpf Urine Culture <5,000 COLS/ML GRAM NEGATIVE RODS ON DAY 2. NO WORKUP INDICATED ON LOW COLONY COUNTS. Ua Micro: RBC 0-4 /hpf Ua Micro: Squam Epith Cells 5-10 /hpf Ua Micro: Bacteria 1+ /hpf Ua Micro: Mucous 2+ /hpf Test performed on Mar 09, 2021 08:56 Vitamin D (25-Hydroxy), Total 19 ng/mL Test performed on Jan 18, 2021 08:14 TSH 2.10 uIU/mL Impression: 1. Grade 3 invasive ductal carcinoma of the left breast, by clinical evaluation stage at least IB (T2, N1, M0), ER/NE positive and HER-2/tina positive. 2. Hypertension. 3. Hyperlipidemia. 4. Asthma. 5. GERD. 6. Bilateral carpal tunnel syndrome. 7. Anxiety/depression. 8. She has a positive family history of breast cancer involving a first-degree relative (sister). She was found to be BRCA negative. Plan: Patient with grade 3 invasive ductal carcinoma of the left breast, by clinical evaluation stage at least IB (T2, N1, M0), ER/NE positive and HER-2/tina positive. She began cycle 1 of neoadjuvant chemotherapy with TCH-P on 05/20/2020. She experienced multiple toxicities including nausea/vomiting, diarrhea, fatigue, generalized body aches, and neutropenia. She has had uneventful recovery. By clinical evaluation, she appeared to be showing some response to the chemotherapy. She will continued with cycle 2 of TCH-P on 06/10/2020. It was administered with a 20% dose reduction in the chemotherapy drugs. Despite that, she has continued to have significant GI toxicity, mainly diarrhea and abdominal pain. As such, her cycle 3 treatment was delayed 1 week And with that cycle the carboplatin was omitted from the regimen. She tolerated that treatment much better, and she continued with cycle 4 on 07/29/2020. On 08/25/2020 she underwent left breast lumpectomy and axillary lymph node sampling. Pathology showed residual grade 3 invasive ductal carcinoma measuring 1.5 cm in greatest diameter. Margins were uninvolved. There was involvement in 2/3 axillary lymph nodes, the largest focus measuring 16 mm. Extranodal extension was identified. Her pathologic staging was ypT1c, ypN1a. Perioperatively she had continued adjuvant therapy with Herceptin/Perjeta every 3 weeks for 2 cycles. She then began postoperative radiation to the left breast and supraclavicular region. She completed treatment on 11/23/2020 to a total dose of 6000 cGy, administered in 30 fractions. During that time, with pathology showing residual axillary lymph node involvement, her systemic adjuvant therapy was changed to Kadcyla, cycle 1 on 10/26/2020. Patient states that she has had some blood in her stool. Her hemoglobin has had a gradual decline and today is 10.4. We will do iron studies today to evaluate for iron deficiency anemia. We will also schedule her for a colonoscopy and EGD to further evaluate the blood in her stool. She then continued Kadcyla at 3-week intervals. She will continue with cycle 11 today. Her liver enzymes have been mildly elevated although they have improved from last visit. She will return in 3 weeks with CBC, CMP and iron studies. Signed By: Maria Esther Elena N.P. <<Signature on File>>
--- NOTE | 2021-07-28 11:57 | USCV_ITS ---
Lopez Yadira Age: 61 Gender: F : 1960 Exam Date: 07/28/2021 12:26 Ordering Phys: Maria Esther Elena NP Technologist: CHRISTINE Exam Location: [facility] – [place] Indication: BREAST CA, LIMITED FOR LVEF ONLY BP: 140 / 80 HR: 102 Rhythm: Sinus Technical Quality: Adequate MEASUREMENTS (Male / Female) Normal Values 2D ECHO LV Diastolic Diameter PLAX 3.7 cm 4.2 - 5.9 / 3.9 - 5.3 cm LV Systolic Diameter PLAX 2.4 cm IVS Diastolic Thickness 1.4 cm 0.6 - 1.0 / 0.6 - 0.9 cm IVS Systolic Thickness 1.8 cm LVPW Diastolic Thickness 1.3 cm 0.6 - 1.0 / 0.6 - 0.9 cm LVPW Systolic Thickness 1.5 cm LVOT Diameter 2.0 cm LV Ejection Fraction 2D Teich 65.8 % LV Ejection Fraction MOD 2C 67.4 % LV Ejection Fraction 2C AL 72.1 % LA Diameter 3.1 cm LA Width 3.5 cm LA Height 4.3 cm RA Width 2.5 cm RA Height 3.8 cm Aorta at Sinotubular Diameter 2.0 cm M-MODE Aortic Annulus Diameter 2.8 cm LA Ao Ratio MM 0.9 MV E Point Septal Separation 0.4 cm DOPPLER Right Atrial Pressure 3.0 mmHg FINDINGS Left Ventricle Right Ventricle Right Atrium Left Atrium Mitral Valve Aortic Valve Tricuspid Valve Pulmonic Valve Pericardium Aorta CONCLUSIONS Limited echocardiogram to assess LV systolic function LV systolic function is normal with EF of 60-65% with no regional wall motion abnormalities. Compared to prior echocardiogram from 09/28/2020, no significant change is noted Rey Man MD (Electronically Signed) Final Date: 30 July 2021 11:14 S
== END 2021-08-05 23:59 | disposition home or self-care (01) ==
LOC: ONCMED 13:30
PROVIDERS: PCP Family Medicine; Visit Provider Nurse Practitioner Family
DX: Z51.11 Encounter for antineoplastic chemotherapy (principal); C50.812 Malignant neoplasm of overlapping sites of left female breast; Z17.0 Estrogen receptor positive status [ER+]; K52.1 Toxic gastroenteritis and colitis; T45.1X5A Adverse effect of antineoplastic and immunosuppressive drugs, initial encounter; R53.83 Other fatigue; D70.1 Agranulocytosis secondary to cancer chemotherapy; K92.1 Melena; R74.01 Elevation of levels of liver transaminase levels; Z79.899 Other long term (current) drug therapy; Z92.3 Personal history of irradiation
CPT/HCPCS: 80053; 82728; 83540; 83550; 85025; 93308; 96375; 96413; 99215; J2405; J7050; J9354

== ENCOUNTER 2021-08-21 09:48 | Oncology outpatient (recurring) (ONCR) | payer BC, SELFPAY ==
[2021-08-21 10:17] VITALS: BMI 35.2
[2021-08-21 10:28] LABS: Eosinophils # 0.2 10^3/uL (0.0-0.8); Hematocrit 33.9 % (37.0-47.0); Hemoglobin 10.8 g/dL (11.5-15.3); Lymphocytes # 0.9 10^3/uL (0.8-4.8); Lymphocytes % 20.8 %; Mean Corpuscular HGB Conc 31.9 g/dL (30.0-36.0); Mean Corpuscular Hemoglobin 28.5 pg (28.0-34.0); Mean Corpuscular Volume 89.4 fl (81-99); Mean Platelet Volume 9.2 fL (7.4-10.4); Monocytes # 0.4 10^3/uL (0.2-0.9); Monocytes % 9.5 %; Neutrophils # 2.66 10^3/uL (1.8-7.7); Neutrophils % 63.5 %; Nucleated Red Blood Cells % 0 %; Platelet Count 174 10^3/cmm (130-400); Red Blood Count 3.79 10^6/uL (4.1-5.3); Red Cell Distribution Width 17.5 % (12.1-15.1); White Blood Count 4.2 10^3/uL (4.0-10.0)
[2021-08-21 10:38] LABS: Alanine Aminotransferase 27 U/L (0-33); Albumin Level 3.6 g/dL (3.5-5.2); Alkaline Phosphatase 114 IU/L (35-105); Anion Gap 12.8 (5-19); Aspartate Amino Transferase 73 U/L (0-32); Blood Urea Nitrogen 15 mg/dL (8-23); Calcium 9.4 mg/dL (8.5-10.5); Carbon Dioxide 24 mmol/L (22-29); Chloride 107 mmol/L (98-107); Ferritin 45 ng/mL (15-150); Globulin 3.8 g/dL (1.3-4.6); Glomerular Filtration Rate 85.4 mL/min (90-130); Glucose 106 mg/dL (65-115); Iron 68 ug/dL (37-145); Osmolality Calculated 291 mOsm/kg (285-295); Percent Saturation 17.5 % (20-50); Potassium 3.8 mmol/L (3.5-5.1); Sodium 140 mmol/L (136-145); Total Bilirubin 0.7 mg/dL (0.15-1.2); Total Iron Binding Capacity 387 mcg/dl; Total Protein 7.4 g/dL (6.6-8.7); Unsaturated Iron Binding 319 ug/dL (112-347)
[2021-08-21] MEDS: acetaminophen 325 mg Tablet 650 MG PO (12:07)
[2021-08-21] MEDS: ondansetron 2 mg/ML SDV 2 mL 8 MG IVP (12:12)
[2021-08-21] MEDS: sodium chloride 0.9% 250 ML 75 ML IV (12:13)
[2021-08-21 13:44] VITALS: BP 101/60; PULSE 76; RESP 18; TEMP 36.6; O2SAT 96
== END 2021-09-05 23:59 | disposition home or self-care (01) ==
PROVIDERS: Nurse Practitioner Family; PCP Family Medicine; Visit Provider Internal Medicine Medical Oncology
DX: Z51.11 Encounter for antineoplastic chemotherapy (principal); C50.412 Malignant neoplasm of upper-outer quadrant of left female breast; Z17.0 Estrogen receptor positive status [ER+]; D70.1 Agranulocytosis secondary to cancer chemotherapy; T45.1X5A Adverse effect of antineoplastic and immunosuppressive drugs, initial encounter; Z79.899 Other long term (current) drug therapy
CPT/HCPCS: 80053; 82728; 83540; 83550; 85025; 96375; 96413; J2405; J7050; J9354

== ENCOUNTER 2021-08-30 07:04 | Day surgery (SDC) | payer BC, SELFPAY ==
[2021-08-28 12:28] VITALS: BMI 34.9
[2021-08-30 07:35] VITALS: BP 121/89; PULSE 98; RESP 18; TEMP 37.1; O2SAT 98
[2021-08-30] MEDS: sodium chloride 0.9% 1,000 ML 30 ML IV (07:47)
--- NOTE | 2021-08-30 07:49 | ANES.PREANE2 ---
Pre-Anesthetic Assessment Height/Weight: Height 1.55 m Weight 83.915 kg Temp Pulse Resp BP Pulse Ox 98.7 F 98 18 121/89 98 08/30/21 07:35 08/30/21 07:35 08/30/21 07:35 08/30/21 07:35 08/30/21 07:35 Preop Diagnosis: diagnostic Operation Date: 08/30/21 08:45 Proposed Procedures p EGD [id number]/r10.9/k92.1(Not Applicable) - Benny Hung MD s Colonoscopy(Not Applicable) - Benny Hung MD Familial anesthetic complications: None Was Beta Seun taken within 24 hours: N/A Was Clonidine taken within 24 hours: N/A Last intake: Intake Last Liquid Date 08/29/21 Last Liquid Time 19:30 Last Solid Date 08/28/21 Last Solid Time 18:30 Social No alcohol and No tobacco Exam alert, oriented x 3, clear to auscultation bilaterally and regular rate & rhythm Airway Submandibular: within normal limits Cervical ROM: within normal limits Mallampati: Class I Dentition: chipped Pulmonary None reported CV/HEM Hypertension None reported Hepatic None reported GI Gastroesophageal Reflux Disease Metabolic None reported Musc/skel Breast cancer, on chemo, s/p radiation Port in place Neuropsych Anxiety Very anxious today Anesthetic Plan ASA status: 3 (61 year old female with hx of breast cancer s/p radiation, receiving chemo with port in place ) Anesthesia: Anesthesia Evaluation and MAC Other: I discussed with the patient risks, goals, and benefits of MAC and general anesthesia. We discussed spectrum of MAC anesthesia including conversion to general as well as possibility of recall of intraoperative stimuli including discomfort/pain. Patient agrees to proceed with MAC. Risk of > 500 ml blood loss (7ml/kg in children): No Medications/Allergies Home Medications Medication Instructions Recorded Confirmed Last Taken Type Adults Multivitamin 1 tab PO DAILY 04/20/20 08/30/21 08/29/21 History albuterol sulfate 90 mcg/actuation 90 mcg INHALATION DIRECTED PRN 04/20/20 08/30/21 08/29/21 History aerosol inhaler (ProAir HFA) clonazepam 0.5 mg tablet 0.5 mg PO DAILY PRN 04/20/20 08/30/21 08/29/21 History coenzyme Q10 50 mg tablet 50 mg PO DAILY #0 04/20/20 08/30/21 08/29/21 History ezetimibe 10 mg tablet (Zetia) 10 mg PO DAILY 04/20/20 08/30/21 08/29/21 History ibuprofen 800 mg tablet 800 mg PO TID PRN 04/20/20 08/30/21 08/29/21 History omeprazole 40 mg capsule,delayed 40 mg PO DAILY 04/20/20 08/30/21 08/29/21 History release paroxetine HCl 10 mg tablet 50 mg PO DAILY 04/20/20 08/30/21 08/29/21 History ondansetron 4 mg disintegrating 4 mg PO Q6H PRN #14 tab 05/24/20 08/30/21 08/29/21 Rx tablet diphenoxylate-atropine 2.5 2 tab PO ONCE PRN #60 tab 06/28/20 08/30/21 08/29/21 Rx mg-0.025 mg tablet (Lomotil) pantoprazole 40 mg tablet,delayed 40 mg PO DAILY 06/28/20 08/30/21 08/29/21 History release potassium chloride 20 mEq 20 meq PO BID 06/28/20 08/30/21 08/29/21 History tablet,extended release polyethylene glycol 3350 17 17 g PO BID PRN #238 g 01/31/21 08/30/21 08/29/21 Rx gram/dose oral powder (Miralax) diphenhydramine HCl 25 mg tablet 25 mg PO DAILY PRN tab 07/24/21 08/30/21 08/29/21 History (Allergy (diphenhydramine)) ferrous sulfate 143 mg (45 mg 143 mg PO DAILY 07/24/21 08/30/21 08/29/21 History iron) tablet,extended release hydrochlorothiazide 12.5 mg tablet 12.5 mg PO DAILY 07/24/21 08/30/21 08/29/21 History lactulose 10 gram/15 mL (15 mL) 15 ml PO BID 7 Days #210 ml 07/24/21 08/30/21 08/29/21 Rx oral solution magnesium 500 mg tablet 500 mg PO DAILY 07/24/21 08/30/21 08/29/21 History Allergies Allergy/AdvReac Type Severity Reaction Status Date / Time cephalexin Allergy ALGY-Rash Verified 08/30/21 07:34 codeine Allergy ALGY-Hives Verified 08/30/21 07:34 hydrocodone Allergy ADR-Itching Verified 08/30/21 07:34 morphine Allergy ADR-Itching Verified 08/30/21 07:34 Penicillins Allergy ALGY-Hives Verified 08/30/21 07:34 Sulfa (Sulfonamide Allergy ALGY-Rash Verified 08/30/21 07:34 Antibiotics) Current Medications Generic Name Dose Route Start Last Admin Trade Name Teresa PRN Reason Stop Dose Admin Sodium Chloride 1,000 mls @ 30 mls/hr 08/30/21 07:15 08/30/21 07:47 Sodium Chloride 0.9% IV 08/31/21 07:14 30 mls/hr .Q24H JOVANY Administration PFSH Anesthesia Medical History Breast CA Port-A-Cath in place Surgical History History of History of colonoscopy History of hysterectomy Status post left breast lumpectomy Social History Smoking and tobacco status: never smoked Data Anesthesia Cardiac Studies: Echocardiogram Limited Views 07/28/21 Echocardiogram Ultrasound 05/10/20
--- NOTE | 2021-08-30 08:57 | W.PM.OPSFHP ---
Same Day Surgery H&P Indication for Procedure/HPI DATE OF PROCEDURE: August 30, 2021 CHIEF COMPLAINT/INDICATIONFOR SURGICAL PROCEDURE: egd/colon PREOP DIAGNOSIS: diagnostic PLANNED PROCEDURE: Operation Date: 08/30/21 08:45 Proposed Procedures p EGD [id number]/r10.9/k92.1(Not Applicable) - Benny Hung MD s Colonoscopy(Not Applicable) - Benny Hung MD Medications/Allergies* Home Medications Medication Instructions Recorded Confirmed Type Adults Multivitamin 1 tab PO DAILY 04/20/20 08/30/21 History albuterol sulfate 90 mcg/actuation 90 mcg INHALATION DIRECTED PRN 04/20/20 08/30/21 History aerosol inhaler (ProAir HFA) clonazepam 0.5 mg tablet 0.5 mg PO DAILY PRN 04/20/20 08/30/21 History coenzyme Q10 50 mg tablet 50 mg PO DAILY #0 04/20/20 08/30/21 History ezetimibe 10 mg tablet (Zetia) 10 mg PO DAILY 04/20/20 08/30/21 History ibuprofen 800 mg tablet 800 mg PO TID PRN 04/20/20 08/30/21 History omeprazole 40 mg capsule,delayed 40 mg PO DAILY 04/20/20 08/30/21 History release paroxetine HCl 10 mg tablet 50 mg PO DAILY 04/20/20 08/30/21 History pantoprazole 40 mg tablet,delayed 40 mg PO DAILY 06/28/20 08/30/21 History release potassium chloride 20 mEq 20 meq PO BID 06/28/20 08/30/21 History tablet,extended release diphenhydramine HCl 25 mg tablet 25 mg PO DAILY PRN tab 07/24/21 08/30/21 History (Allergy (diphenhydramine)) ferrous sulfate 143 mg (45 mg 143 mg PO DAILY 07/24/21 08/30/21 History iron) tablet,extended release hydrochlorothiazide 12.5 mg tablet 12.5 mg PO DAILY 07/24/21 08/30/21 History magnesium 500 mg tablet 500 mg PO DAILY 07/24/21 08/30/21 History Allergies/Adverse Reactions Allergy/AdvReac Type Severity Reaction Status Date / Time cephalexin Allergy ALGY-Rash Verified 08/30/21 07:34 codeine Allergy ALGY-Hives Verified 08/30/21 07:34 hydrocodone Allergy ADR-Itching Verified 08/30/21 07:34 morphine Allergy ADR-Itching Verified 08/30/21 07:34 Penicillins Allergy ALGY-Hives Verified 08/30/21 07:34 Sulfa (Sulfonamide Allergy ALGY-Rash Verified 08/30/21 07:34 Antibiotics) Current Medications: Generic Name Dose Route Start Last Admin Trade Name Freq PRN Reason Stop Dose Admin Sodium Chloride 1,000 mls @ 30 mls/hr 08/30/21 07:15 08/30/21 07:47 Sodium Chloride 0.9% IV 08/31/21 07:14 30 mls/hr .Q24H JOVANY Administration Pertinent History/Comorbid Conditions* Medical History (Updated 08/15/21 @ 16:16 by Filipe Cohen RN) Breast CA Port-A-Cath in place Surgical History (Updated 07/24/21 @ 10:11 by Benny Hung MD) History of History of colonoscopy History of hysterectomy Status post left breast lumpectomy Social History Smoking and tobacco status: never smoked Pertinent Exam Findings alert, oriented x 3 and regular rate & rhythm Recommendations Surgery/Procedure today Coding Level of Care Code Acute Line Construction Superintendent for Concha Wong
[2021-08-30 09:33] VITALS: BP 118/81; PULSE 104; RESP 18; TEMP 36.3; O2SAT 96
[2021-08-30 09:56] VITALS: BP 113/71; PULSE 94; RESP 18; TEMP 36.5; O2SAT 97
--- NOTE | 2021-08-30 14:19 | ANE.PACU2 ---
Inpatient post-anesthesia follow up: Airway intact: Yes Vital signs: Temperature 97.7 F Pulse Rate 94 Respiratory Rate 18 Blood Pressure 113/71 Pulse Oximetry 97 Oxygen Delivery Me thod Room Air Oxygen Flow Rate Fraction of Inspir ed Oxygen Hydration adequate: Yes Nausea and vomiting: No Pain level: 1 Mental status: Baseline
== END 2021-08-30 10:07 | disposition home or self-care (01) ==
PROVIDERS: PCP Family Medicine; Visit Provider Surgery
PROC: 0DJ08ZZ Inspection of Upper Intestinal Tract, Via Natural or Artificial Opening Endoscopic (ICD-10-PCS; CPT 43235; principal; 2021-08-30 08:45)
PROC: 0DJD8ZZ Inspection of Lower Intestinal Tract, Via Natural or Artificial Opening Endoscopic (ICD-10-PCS; CPT 45378; 2021-08-30 08:45)
DX: R10.9 Unspecified abdominal pain (principal); K92.1 Melena; I85.00 Esophageal varices without bleeding; K29.70 Gastritis, unspecified, without bleeding; K57.30 Diverticulosis of large intestine without perforation or abscess without bleeding; D12.5 Benign neoplasm of sigmoid colon; K64.8 Other hemorrhoids; I10 Essential (primary) hypertension; K21.9 Gastro-esophageal reflux disease without esophagitis; C50.919 Malignant neoplasm of unspecified site of unspecified female breast
CPT/HCPCS: 43239; 45385; 88305; J2250; J2704; J3490; J7030

== ENCOUNTER 2021-10-02 09:30 | Oncology outpatient (recurring) (ONCR) | payer BC, SELFPAY ==
[2021-09-11 09:08] LABS: Basophils # 0.1 10^3/uL (0.0-0.1); Eosinophils # 0.2 10^3/uL (0.0-0.8); Eosinophils % 6.6 %; Hematocrit 34.9 % (37.0-47.0); Lymphocytes # 0.9 10^3/uL (0.8-4.8); Lymphocytes % 25.5 %; Mean Corpuscular HGB Conc 31.5 g/dL (30.0-36.0); Mean Corpuscular Volume 88.8 fl (81-99); Mean Platelet Volume 8.8 fL (7.4-10.4); Monocytes # 0.4 10^3/uL (0.2-0.9); Monocytes % 12.6 %; Neutrophils # 1.85 10^3/uL (1.8-7.7); Nucleated Red Blood Cells % 0 %; Platelet Count 189 10^3/cmm (130-400); Red Blood Count 3.93 10^6/uL (4.1-5.3); Red Cell Distribution Width 17.4 % (12.1-15.1); White Blood Count 3.5 10^3/uL (4.0-10.0)
[2021-09-11 09:10] VITALS: BMI 34.8
[2021-09-11 09:28] LABS: Alanine Aminotransferase 49 U/L (0-33); Albumin Level 3.7 g/dL (3.5-5.2); Alkaline Phosphatase 142 IU/L (35-105); Anion Gap 13.4 (5-19); Aspartate Amino Transferase 138 U/L (0-32); Blood Urea Nitrogen 12 mg/dL (8-23); Calcium 9.1 mg/dL (8.5-10.5); Carbon Dioxide 25 mmol/L (22-29); Chloride 103 mmol/L (98-107); Ferritin 69 ng/mL (15-150); Globulin 3.7 g/dL (1.3-4.6); Glomerular Filtration Rate 85.4 mL/min (90-130); Glucose 117 mg/dL (65-115); Iron 49 ug/dL (37-145); Osmolality Calculated 287 mOsm/kg (285-295); Percent Saturation 12.7 % (20-50); Potassium 3.4 mmol/L (3.5-5.1); Sodium 138 mmol/L (136-145); Total Bilirubin 0.8 mg/dL (0.15-1.2); Total Iron Binding Capacity 385 mcg/dl; Total Protein 7.4 g/dL (6.6-8.7); Unsaturated Iron Binding 336 ug/dL (112-347)
[2021-09-11] MEDS: sodium chloride 0.9% 250 ML 75 ML IV (12:21)
[2021-09-11] MEDS: acetaminophen 325 mg Tablet 650 MG PO (12:21)
[2021-09-11] MEDS: ondansetron 2 mg/ML SDV 2 mL 8 MG IVP (12:22)
[2021-09-11 13:35] LABS: SARS Covid-2 Antigen Negative (Negative)
[2021-09-11 13:45] VITALS: BP 123/68; PULSE 82; RESP 18; TEMP 36.9; O2SAT 97
[2021-10-02 09:43] LABS: Basophils # 0.1 10^3/uL (0.0-0.1); Basophils % 1.5 %; Eosinophils # 0.3 10^3/uL (0.0-0.8); Eosinophils % 6.3 %; Hematocrit 34.1 % (37.0-47.0); Hemoglobin 10.9 g/dL (11.5-15.3); Lymphocytes # 1.2 10^3/uL (0.8-4.8); Lymphocytes % 23.8 %; Mean Corpuscular Volume 87.7 fl (81-99); Mean Platelet Volume 9.1 fL (7.4-10.4); Monocytes # 0.6 10^3/uL (0.2-0.9); Monocytes % 10.5 %; Neutrophils # 3.01 10^3/uL (1.8-7.7); Neutrophils % 57.7 %; Nucleated Red Blood Cells % 0 %; Platelet Count 202 10^3/cmm (130-400); Red Blood Count 3.89 10^6/uL (4.1-5.3); White Blood Count 5.2 10^3/uL (4.0-10.0)
[2021-10-02 10:01] LABS: Alanine Aminotransferase 29 U/L (0-33); Albumin Level 3.6 g/dL (3.5-5.2); Alkaline Phosphatase 152 IU/L (35-105); Anion Gap 11.5 (5-19); Aspartate Amino Transferase 77 U/L (0-32); Blood Urea Nitrogen 17 mg/dL (8-23); Calcium 9.2 mg/dL (8.5-10.5); Carbon Dioxide 28 mmol/L (22-29); Chloride 103 mmol/L (98-107); Globulin 3.7 g/dL (1.3-4.6); Glomerular Filtration Rate 73.2 mL/min (90-130); Glucose 96 mg/dL (65-115); Osmolality Calculated 289 mOsm/kg (285-295); Potassium 3.5 mmol/L (3.5-5.1); Sodium 139 mmol/L (136-145); Total Bilirubin 0.6 mg/dL (0.15-1.2); Total Protein 7.3 g/dL (6.6-8.7)
[2021-10-02 13:01] VITALS: BP 119/74; PULSE 87; RESP 16; TEMP -12.4; TEMP 9.7; O2SAT 96
== END 2021-10-05 23:59 | disposition home or self-care (01) ==
PROVIDERS: Nurse Practitioner Family; PCP Family Medicine; Visit Provider Internal Medicine Medical Oncology
DX: Z51.11 Encounter for antineoplastic chemotherapy (principal); C50.412 Malignant neoplasm of upper-outer quadrant of left female breast; Z17.0 Estrogen receptor positive status [ER+]; C77.3 Secondary and unspecified malignant neoplasm of axilla and upper limb lymph nodes; R53.83 Other fatigue; D50.9 Iron deficiency anemia, unspecified; R74.01 Elevation of levels of liver transaminase levels; K75.81 Nonalcoholic steatohepatitis (NASH); Z79.899 Other long term (current) drug therapy
CPT/HCPCS: 80053; 82728; 83540; 83550; 85025; 87426; 96375; 96413; J2405; J7050; J9354

== ENCOUNTER 2021-10-23 08:50 | Oncology outpatient (recurring) (ONCR) | payer BC, SELFPAY ==
[2021-10-23 09:46] LABS: Basophils # 0.1 10^3/uL (0.0-0.1); Basophils % 1.6 %; Eosinophils # 0.2 10^3/uL (0.0-0.8); Eosinophils % 3.9 %; Hematocrit 38.9 % (37.0-47.0); Hemoglobin 12.5 g/dL (11.5-15.3); Lymphocytes # 1.2 10^3/uL (0.8-4.8); Lymphocytes % 23.7 %; Mean Corpuscular HGB Conc 32.1 g/dL (30.0-36.0); Mean Corpuscular Hemoglobin 28.1 pg (28.0-34.0); Mean Corpuscular Volume 87.4 fl (81-99); Mean Platelet Volume 9.6 fL (7.4-10.4); Monocytes # 0.6 10^3/uL (0.2-0.9); Monocytes % 12.2 %; Neutrophils # 3.02 10^3/uL (1.8-7.7); Neutrophils % 58.6 %; Nucleated Red Blood Cells % 0 %; Platelet Count 204 10^3/cmm (130-400); Red Blood Count 4.45 10^6/uL (4.1-5.3); Red Cell Distribution Width 16.5 % (12.1-15.1); White Blood Count 5.2 10^3/uL (4.0-10.0)
[2021-10-23 10:09] LABS: Alanine Aminotransferase 28 U/L (0-33); Albumin Level 3.9 g/dL (3.5-5.2); Alkaline Phosphatase 175 IU/L (35-105); Anion Gap 14.3 (5-19); Aspartate Amino Transferase 83 U/L (0-32); Blood Urea Nitrogen 12 mg/dL (8-23); Calcium 9.5 mg/dL (8.5-10.5); Carbon Dioxide 27 mmol/L (22-29); Chloride 100 mmol/L (98-107); Ferritin 69 ng/mL (15-150); Globulin 3.8 g/dL (1.3-4.6); Glomerular Filtration Rate 63.9 mL/min (90-130); Glucose 105 mg/dL (65-115); Iron 59 ug/dL (37-145); Osmolality Calculated 286 mOsm/kg (285-295); Percent Saturation 15.1 % (20-50); Potassium 3.3 mmol/L (3.5-5.1); Sodium 138 mmol/L (136-145); Total Iron Binding Capacity 389 mcg/dl; Total Protein 7.7 g/dL (6.6-8.7); Unsaturated Iron Binding 330 ug/dL (112-347)
== END 2021-11-05 23:59 | disposition home or self-care (01) ==
PROVIDERS: Nurse Practitioner Family; PCP Family Medicine; Visit Provider Internal Medicine Medical Oncology
DX: D50.8 Other iron deficiency anemias (principal)
CPT/HCPCS: 36591; 80053; 82728; 83540; 83550; 85025

== ENCOUNTER 2021-11-28 13:38 | Oncology outpatient (recurring) (ONCR) | payer MEDICAID, SELFPAY ==
[2021-11-28] MEDS: sodium chloride 0.9% 500 ML 999 ML IV (14:18)
[2021-11-28 14:43] LABS: Alanine Aminotransferase 32 U/L (0-33); Alkaline Phosphatase 156 U/L (35-105); Anion Gap 15.7 (5-19); Aspartate Amino Transferase 70 U/L (0-32); Blood Urea Nitrogen 16 mg/dL (8-23); Calcium 10.2 mg/dL (8.5-10.5); Carbon Dioxide 25 mmol/L (22-29); Chloride 103 mmol/L (98-107); Globulin 3.3 g/dL (1.3-4.6); Glomerular Filtration Rate 73.2 mL/min (90-130); Glucose 90 mg/dL (65-115); Osmolality Calculated 291 mOsm/kg (285-295); Potassium 3.7 mmol/L (3.5-5.1); Sodium 140 mmol/L (136-145); Total Bilirubin 0.9 mg/dL (0.15-1.2); Total Protein 7.3 g/dL (6.6-8.7)
[2021-11-28 14:59] LABS: 25 Hydroxy Vitamin D 38 ng/mL (30-100)
[2021-11-28 15:05] LABS: Basophils % 1.1 %; Eosinophils # 0.2 10^3/uL (0.0-0.8); Eosinophils % 6.3 %; Hemoglobin 11.5 g/dL (11.5-15.3); Lymphocytes # 0.9 10^3/uL (0.8-4.8); Lymphocytes % 25.2 %; Mean Corpuscular HGB Conc 31.9 g/dL (30.0-36.0); Mean Corpuscular Hemoglobin 28.2 pg (28.0-34.0); Mean Corpuscular Volume 88.2 fl (81-99); Mean Platelet Volume 9.5 fL (7.4-10.4); Monocytes # 0.4 10^3/uL (0.2-0.9); Monocytes % 10.1 %; Neutrophils # 2.08 10^3/uL (1.8-7.7); Nucleated Red Blood Cells % 0 %; Platelet Count 132 10^3/cmm (130-400); Red Blood Count 4.08 10^6/uL (4.1-5.3); Red Cell Distribution Width 17.1 % (12.1-15.1); White Blood Count 3.7 10^3/uL (4.0-10.0)
== END 2021-12-06 23:59 | disposition home or self-care (01) ==
PROVIDERS: PCP Family Medicine; Visit Provider Internal Medicine Medical Oncology
DX: C50.412 Malignant neoplasm of upper-outer quadrant of left female breast; Z79.899 Other long term (current) drug therapy
CPT/HCPCS: 80053; 82306; 85025; 96365; J7040

== ENCOUNTER 2021-12-26 14:58 | Oncology outpatient (recurring) (ONCR) | payer MEDICAID, SELFPAY | END 2022-01-05 23:59 | disposition home or self-care (01) | LOC: ONCMED 14:58 | PROVIDERS: PCP Family Medicine; Visit Provider Internal Medicine Medical Oncology | DX: Z45.2 Encounter for adjustment and management of vascular access device | CPT/HCPCS: 96523 ==

== ENCOUNTER 2022-02-02 08:54 | Oncology outpatient (recurring) (ONCR) | payer MEDICAID, SELFPAY | END 2022-02-05 23:59 | disposition home or self-care (01) | PROVIDERS: PCP Family Medicine; Visit Provider Internal Medicine Medical Oncology | DX: Z45.2 Encounter for adjustment and management of vascular access device (principal) | CPT/HCPCS: 96523 ==

== ENCOUNTER 2022-03-14 11:30 | Oncology outpatient (recurring) (ONCR) | payer MEDICAID, SELFPAY ==
[2022-03-14 11:55] LABS: Basophils # 0.1 10^3/uL (0.0-0.1); Basophils % 1.3 %; Eosinophils # 0.2 10^3/uL (0.0-0.8); Eosinophils % 3.7 %; Hematocrit 40.7 % (37.0-47.0); Hemoglobin 13.4 g/dL (11.5-15.3); Lymphocytes # 1.3 10^3/uL (0.8-4.8); Lymphocytes % 29.5 %; Mean Corpuscular HGB Conc 32.9 g/dL (30.0-36.0); Mean Corpuscular Hemoglobin 30.6 pg (28.0-34.0); Mean Corpuscular Volume 92.9 fl (81-99); Mean Platelet Volume 9.4 fL (7.4-10.4); Monocytes # 0.4 10^3/uL (0.2-0.9); Monocytes % 8.6 %; Neutrophils # 2.57 10^3/uL (1.8-7.7); Neutrophils % 56.5 %; Nucleated Red Blood Cells % 0 %; Platelet Count 155 10^3/cmm (130-400); Red Blood Count 4.38 10^6/uL (4.1-5.3); Red Cell Distribution Width 14.2 % (12.1-15.1); White Blood Count 4.6 10^3/uL (4.0-10.0)
[2022-03-14 12:32] LABS: Alanine Aminotransferase 27 U/L (0-33); Albumin Level 3.6 g/dL (3.5-5.2); Alkaline Phosphatase 128 U/L (35-105); Anion Gap 13.6 (5-19); Aspartate Amino Transferase 47 U/L (0-32); Blood Urea Nitrogen 16 mg/dL (8-23); Calcium 9.6 mg/dL (8.5-10.5); Carbon Dioxide 29 mmol/L (22-29); Chloride 104 mmol/L (98-107); Globulin 3.2 g/dL (1.3-4.6); Glomerular Filtration Rate 73.2 mL/min (90-130); Glucose 112 mg/dL (65-115); Osmolality Calculated 298 mOsm/kg (285-295); Potassium 3.6 mmol/L (3.5-5.1); Sodium 143 mmol/L (136-145); Total Bilirubin 0.3 mg/dL (0.15-1.2); Total Protein 6.8 g/dL (6.6-8.7)
== END 2022-04-07 23:59 | disposition home or self-care (01) ==
PROVIDERS: PCP Family Medicine; Visit Provider Internal Medicine Medical Oncology
DX: C50.412 Malignant neoplasm of upper-outer quadrant of left female breast (principal); Z17.0 Estrogen receptor positive status [ER+]
CPT/HCPCS: 36591; 80053; 85025; 96523

== ENCOUNTER 2022-04-11 12:46 | Oncology outpatient (recurring) (ONCR) | payer MEDICAID, SELFPAY | END 2022-05-08 23:59 | disposition home or self-care (01) | LOC: ONCMED 12:47 | PROVIDERS: PCP Family Medicine; Visit Provider Internal Medicine Medical Oncology | DX: Z45.2 Encounter for adjustment and management of vascular access device | CPT/HCPCS: 96523 ==

== ENCOUNTER 2022-05-05 16:37 | Emergency (ER) | payer MEDICAID, SELFPAY ==
[2022-05-05 16:53] VITALS: BP 132/84; PULSE 81; RESP 16; TEMP 36.9; O2SAT 94
--- NOTE | 2022-05-05 17:08 | ED_ITS ---
HPI - URI/Sore Throat General: Chief Complaint: Upper Respiratory Infection Stated Complaint: ear infections/cough Time Seen by Provider: 05/05/22 17:06 History of Present Illness: 62-year-old female comes in today with complaints of sinus pain and pressure for about 2 weeks now. Patient reports increasing drainage with foul taste and sore throat. Home treatments have not improved her symptoms. Patient does have a history of sinusitis but she states its been a while since her last infection. Patient also has a history of hypertension, breast cancer, anxiety, elevated liver enzymes, and GERD. Associated symptoms: Reports nasal congestion Review of Systems Const: Reports: body aches ENMT: Reports: throat pain, nasal congestion, post nasal drip and other (Sinus pain) PFSH ED PFSH: Medical History Anxiety and depression Asthma Breast cancer GERD (gastroesophageal reflux disease) Hyperlipidemia Hypertension Steatohepatitis, non-alcoholic Vitamin D deficiency Surgical History H/O esophagogastroduodenoscopy (08/30/21) History of History of colonoscopy History of hysterectomy Port-A-Cath in place Status post colonoscopy (08/30/21) Status post left breast lumpectomy Family History Father CAD (coronary artery disease) from a heart attack Diabetes Cancer Throat Mother CAD (coronary artery disease) Hole in her heart all of her life Dementia Lung disease COPD Stroke Sister Cancer Denies family history of Clotting disorder Hyperlipidemia Psychiatric illness Chronic kidney disease (CKD) Suicide Anesthesia complication Bleeding disorder Hypertension Social History Smoking and tobacco status: never smoked Alcohol intake: never Physical Exam Const: COMMON NORMALS: alert HENMT: COMMON NORMALS: normocephalic HEAD & SCALP: normocephalic and other (Sinus tenderness) NOSE: Nasal discharge present MOUTH: Normal oral and palatal mucosa present THROAT: posterior oropharynx abnormal (Postnasal drip) erythema Resp: COMMON NORMALS: normal respiratory effort and clear to auscultation bilaterally AUSCULTATION: clear to auscultation bilaterally Cardio: COMMON NORMALS: regular rate and regular rhythm RATE: regular rate RHYTHM: regular rhythm Extremity: COMMON NORMALS: no pedal edema Neuro: SENSORIUM/ORIENTATION: Yes alert Skin: COMMON NORMALS: turgor normal GENERAL SKIN EXAM: turgor normal Course Vital Signs: Vital signs: Vital Signs Temperature 98.5 F 05/05/22 16:53 Pulse Rate 81 05/05/22 16:53 Respiratory Rate 16 05/05/22 16:53 Blood Pressure 132/84 05/05/22 16:53 Pulse Oximetry 94 05/05/22 16:53 Oxygen Delivery Me thod 05/05/22 16:53 MDM - URI/Sore Throat Medical Decision Making 62-year-old female comes in today for complaints of sinus pain and pressure for 2 weeks. Patient reports worsening symptoms over the last 2 days with increasing sore throat and increased production of foul tasting sinus drainage. Exam notes some postnasal drip. Respirations are even lungs are clear to auscultation. Vital signs are normal. Differential diagnosis includes but not limited to upper respiratory infection, rhinosinusitis, allergic rhinitis. Due to the persistence of symptoms over 10 days and patient's history of breast cancer we will go ahead and cover with antibiotics. Patient was placed on Levaquin which she tolerates well. Patient was also given a dose of ketorolac and dexamethasone in the ER for her pain and discomfort. I encourage fluids rest and follow-up with primary care, and return for worsening symptoms. Patient reported understanding. Discharge Plan Discharge Patient Disposition: Home Clinical Impression: Rhinosinusitis Condition: Stable Prescriptions: New levofloxacin 500 mg tablet 500 mg PO DAILY 6 Days Qty: 6 0RF No Action magnesium 500 mg tablet 500 mg PO DAILY ferrous sulfate 143 mg (45 mg iron) tablet extended release See Rx Instructions PO DAILY Rx Instructions: Strength unknown PO daily; mometasone 0.1 % cream 1 applic topical .1-2x/day Qty: 45 0RF paroxetine HCl 20 mg tablet 20 mg PO DAILY Qty: 30 0RF Benefiber Clear SF (dextrin) 3 gram/3.5 gram powder in packet 1 packet PO DAILY Rx Instructions: mix into at least 4 oz water or juice before administering clarithromycin 500 mg tablet 500 mg PO BID 14 Days Qty: 28 0RF chlorpheniramine maleate 4 mg tablet 4 mg PO Q6H PRN levofloxacin 500 mg tablet 500 mg PO DAILY Qty: 10 0RF trazodone 50 mg tablet 50 mg PO .COMPLEX Qty: 30 6RF Rx Instructions: 50 mg orally At Bedtime; potassium chloride 10 mEq tablet extended release 10 meq PO DAILY Qty: 30 6RF paroxetine HCl 40 mg tablet 40 mg PO DAILY Qty: 30 6RF omeprazole 40 mg capsule,delayed release(DR/EC) 40 mg PO DAILY Qty: 30 6RF ibuprofen 800 mg tablet 800 mg PO TID PRN (Reason: Pain) Qty: 90 3RF hydrochlorothiazide 12.5 mg tablet 12.5 mg PO DAILY Qty: 30 6RF anastrozole [Arimidex] 1 mg tablet 1 mg PO DAILY Qty: 30 3RF clonazepam 0.5 mg tablet 0.5 mg PO DAILY PRN (Reason: Anxiety) albuterol sulfate [ProAir HFA] 90 mcg/actuation HFA aerosol inhaler 90 mcg INHALATION DIRECTED PRN (Reason: Allergy Symptoms) Adults Multivitamin 1 tab PO DAILY coenzyme Q10 50 mg Tablet 50 mg PO DAILY Qty: 0 diphenoxylate-atropine [Lomotil] 2.5-0.025 mg tablet 2 tab PO ONCE PRN (Reason: diarrhea) Qty: 60 0RF Rx Instructions: 2 tabs with each loose bowel movement maximum of 8 tablets in 24-hour. Discharge Orders: Discharge ED (Routine); Ordered 05/05/22 Ordered By: Enzo Hernandez Referrals: Hardik Guajardo MD [Primary Care Provider] - Discharge Diet: Usual diet Discharge Activity: Increase activity as tolerated Patient Instructions: Rhinosinusitis (ED) Activity Restrictions/Additional Instructions: Home and rest. Drink plenty of fluids. Use ibuprofen for pain. Use acetaminophen for further pain relief. You may use Chloraseptic sprays or ann enges to help with your throat pain. Drink plenty of water. Take Levaquin as directed for total 7 days. Follow-up with primary care as needed. Return to ED for worsening symptom such as fever greater than 100.4, increasing shortness of breath, severe chest pain, or new concerns. Coding Level of Care Code ED Corporate Giving Manager for Concha Wong
[2022-05-05] MEDS: dexamethasone 10 mg/mL INJ IM (17:51)
[2022-05-05] MEDS: ketorolac 30 mg/mL INJ IM (17:51)
[2022-05-05] MEDS: levoFLOXacin 500 mg Tablet PO (17:51)
== END 2022-05-05 17:54 | disposition home or self-care (01) ==
PROVIDERS: Emergency Provider Nurse Practitioner Family; PCP Family Medicine
DX: J32.9 Chronic sinusitis, unspecified (principal); Z85.3 Personal history of malignant neoplasm of breast; E78.5 Hyperlipidemia, unspecified; I10 Essential (primary) hypertension
CPT/HCPCS: 96372; 99284; J1100; J1885

== ENCOUNTER 2022-06-06 10:51 | Oncology outpatient (recurring) (ONCR) | payer MEDICAID, SELFPAY | END 2022-07-06 23:59 | disposition home or self-care (01) | PROVIDERS: PCP Family Medicine; Visit Provider Internal Medicine Medical Oncology | DX: C50.412 Malignant neoplasm of upper-outer quadrant of left female breast (principal); Z17.0 Estrogen receptor positive status [ER+]; C77.3 Secondary and unspecified malignant neoplasm of axilla and upper limb lymph nodes | CPT/HCPCS: 36591; 80053; 85025 ==

== ENCOUNTER 2022-07-11 11:07 | Outpatient (CLI) | payer MEDICAID, SELFPAY ==
--- NOTE | 2022-07-11 11:38 | MM_ITS ---
WS: [id number] DIAGNOSTIC BILATERAL DIGITAL BREAST TOMOSYNTHESIS MAMMOGRAPHY WITH CAD HISTORY: HX OF BREAST CA COMPARISON: 03/16/2020, 12/22/2020 TECHNIQUE: Bilateral craniocaudad, mediolateral oblique, and mediolateral views are submitted with to mosirvin and SM. Computer aided detection utilized. Breast composition: There are scattered areas of fibroglandular density. Significant volume loss with trabecular thickening and skin thickening throughout the LEFT breast from prior surgery and posttrea tment radiation. No recurrent mass identified. There are numerous calcifications at the postoperative site LEFT upper outer quadrant. Some of these calcifications are benign in appearance. Others are sl ightly branching. Wall others are mildly concerning. RIGHT breast is negative. MM/[place] [id number] IMPRESSION: BI-RADS: 0-Incomplete: Need additional imaging evaluation FOLLOW UP: Need Additional Imaging LEFT BREAST: Magnification views of suspicious calcification CC and MLO. Joseph Cristobal
== END 2022-07-11 11:08 | disposition home or self-care (01) ==
LOC: RAD 11:10
PROVIDERS: PCP Family Medicine; Visit Provider Nurse Practitioner
DX: C50.412 Malignant neoplasm of upper-outer quadrant of left female breast (principal)
CPT/HCPCS: 77062; G0279

== ENCOUNTER 2022-07-11 12:06 | Oncology outpatient (recurring) (ONCR) | payer MEDICAID, SELFPAY ==
[2022-07-11 12:55] VITALS: BP 126/73; PULSE 83; RESP 16; TEMP 36.9; O2SAT 98
== END 2022-08-05 23:59 | disposition home or self-care (01) ==
LOC: ONCMED 12:06
PROVIDERS: PCP Family Medicine; Visit Provider Internal Medicine Medical Oncology
DX: Z45.2 Encounter for adjustment and management of vascular access device (principal)
CPT/HCPCS: 96523

== ENCOUNTER 2022-07-23 18:50 | Emergency (ER) | payer MEDICAID, SELFPAY ==
--- NOTE | 2022-07-23 18:52 | XRR_ITS ---
PROCEDURE INFORMATION: Exam: XR Chest Exam date and time: 07/23/2022 7:00 PM Age: 62 years old Clinical indication: Cough TECHNIQUE: Imaging protocol: Radiologic exam of the chest. Views: 1 view. COMPARISON: CR XR chest 1V portable [id number] 06/28/2020 9:33 AM FINDINGS: Tubes, catheters and devices: Right-sided Port-A-Cath. Lungs: Left lateral lung field bronchopneumonia suspected. Pleural spaces: Unremarkable. No pleural effusion. No pneumothorax. Heart/Mediastinum: Cardiomegaly. Bones/joints: Unremarkable. XR/XR chest 1V portable [id number] IMPRESSION: 1. Cardiomegaly. 2. Left lateral lung field bronchopneumonia suspected.
[2022-07-23 19:49] VITALS: BP 146/89; PULSE 98; RESP 18; TEMP 36.7; O2SAT 97; BMI 40.6
[2022-07-23 21:35] VITALS: PULSE 93; RESP 16; O2SAT 97
--- NOTE | 2022-07-23 21:35 | W.ED.COVID ---
HPI - COVID General: Chief Complaint: COVID symptoms Stated Complaint: sinus drainage, chest congestion, sob Time Seen by Provider: 07/23/22 21:27 History of Present Illness: 62-year-old female comes in today with upper respiratory symptoms. Patient reports sinus pressure and nasal drainage. Patient reports the drainage is going down the back of her throat and is also affecting her ears. Patient appears nontoxic. Patient appears in mild pain. Patient has a history of breast cancer and is presently on chemotherapy. COVID 19 common symptoms: positive non-productive cough and nasal congestion; negative nausea, vomiting or diarrhea COVID 19 other sytmptoms: negative chest pain COVID Results: SARS-CoV-2 Antigen (Rapid) negative (Negative) 07/23/22 21:28 Nasal/Oral Coronavirus 2019 PCR Not detected 08/22/20 11:52 Review of Systems General: Reports: 10 or more systems reviewed and unremarkable except in HPI and below Const: Reports: malaise Eyes: Denies: change in vision ENMT: Reports: ear or mastoid pain, nasal discharge and nasal congestion Card: Denies: chest pain Resp: Reports: non-productive cough GI: Denies: nausea, vomiting, diarrhea or constipation : Denies: difficulty voiding Musc: Denies: neck pain Skin/Breast: Denies: rash PFSH ED PFSH: Medical History Anxiety and depression Asthma Breast cancer GERD (gastroesophageal reflux disease) Hyperlipidemia Hypertension Steatohepatitis, non-alcoholic Vitamin D deficiency Surgical History H/O esophagogastroduodenoscopy (08/30/21) History of History of colonoscopy History of hysterectomy Port-A-Cath in place Status post colonoscopy (08/30/21) Status post left breast lumpectomy Family History Father CAD (coronary artery disease) from a heart attack Diabetes Cancer Throat Mother CAD (coronary artery disease) Hole in her heart all of her life Dementia Lung disease COPD Stroke Sister Cancer Denies family history of Clotting disorder Hyperlipidemia Psychiatric illness Chronic kidney disease (CKD) Suicide Anesthesia complication Bleeding disorder Hypertension Social History (Reviewed 06/06/22 @ 10:55 by FELICITY Arauz Smoking and tobacco status: never smoked Alcohol intake: never Physical Exam Const: COMMON NORMALS: alert HENMT: COMMON NORMALS: normocephalic and TM's normal bilaterally HEAD & SCALP: normocephalic NOSE: Nasal discharge present TYMPANIC MEMBRANE: TM's normal bilaterally MOUTH: Normal oral and palatal mucosa present THROAT: posterior oropharynx abnormal cobblestoning Eye: GENERAL EYE: appearance normal, both eyes and all related structures Neck/C-Spine: COMMON NORMALS: no meningeal signs OTHER: Tender anterior lymph nodes, minimal swelling Resp: COMMON NORMALS: normal respiratory effort and clear to auscultation bilaterally AUSCULTATION: clear to auscultation bilaterally Cardio: COMMON NORMALS: regular rate and regular rhythm RATE: regular rate RHYTHM: regular rhythm GI: COMMON NORMALS: non-tender : COMMON NORMALS: Yes no CVA tenderness BLADDER/KIDNEY EXAM: Yes no CVA tenderness Back/Pelvis: COMMON NORMALS: no CVA tenderness Extremity: COMMON NORMALS: normal to inspection Neuro: SENSORIUM/ORIENTATION: Yes alert MENINGEAL SIGNS: Yes no meningeal signs Skin: COMMON NORMALS: turgor normal GENERAL SKIN EXAM: turgor normal Course Vital Signs: Vital signs: Vital Signs Temperature 98.0 F 07/23/22 19:49 Pulse Rate 87 07/23/22 22:58 Respiratory Rate 18 07/23/22 22:58 Blood Pressure 146/89 07/23/22 19:49 Pulse Oximetry 98 07/23/22 22:58 Oxygen Delivery Me thod Room Air 07/23/22 21:35 MDM - COVID Medical Decision Making Patient comes in today due to cough and congestion and sinus pressure. Patient reports symptoms for last 2 to 3 days. Patient appears nontoxic. On exam lungs are clear to auscultation. Mild nasal discharge. Posterior pharynx has cobblestoning. Differential diagnosis includes upper respiratory infection, pneumonia, viral syndrome. Patient was negative for influenza and/or COVID. Chest x-ray noted some possible left lateral lung bronchopneumonia. We will treat patient with Levaquin 500 mg daily for the next 7 days. Patient was given a 10 mg dose of dexamethasone. Patient main complaint was sore throat she was recommended to use some viscous lidocaine 5 mL every 3-4 hours as needed for discomfort. Patient reported understanding of care plan and need for follow-up or return to the ER for worsening symptoms. Lab Data Radiology Impressions Chest X-Ray 07/23/22 18:52 IMPRESSION: 1. Cardiomegaly. 2. Left lateral lung field bronchopneumonia suspected. Laboratory Results Influenza Type A Ag negative (Negative) 07/23/22 21:28 Influenza Type B Ag negative (Negative) 07/23/22 21:28 SARS-CoV-2 Ag (Rapid) negative (Negative) 07/23/22 21:28 SARS-CoV-2 Antigen (Rapid) negative (Negative) 07/23/22 21:28 Nasal/Oral Coronavirus 2019 PCR Not detected 08/22/20 11:52 Discharge Plan Discharge Patient Disposition: Home Clinical Impression: Acute rhinosinusitis, Bronchopneumonia Condition: Stable Prescriptions: New levofloxacin 500 mg tablet 500 mg PO DAILY 7 Days Qty: 7 0RF Lidocaine Viscous 2 % solution 5 ml mucous membrane Q4H PRN (Reason: pain) Qty: 100 0RF Rx Instructions: swish and swallow No Action magnesium 500 mg tablet 500 mg PO DAILY mometasone 0.1 % cream 1 applic topical .1-2x/day Qty: 45 0RF Benefiber Clear SF (dextrin) 3 gram/3.5 gram powder in packet 1 packet PO DAILY Rx Instructions: mix into at least 4 oz water or juice before administering chlorpheniramine maleate 4 mg tablet 4 mg PO Q6H PRN ibuprofen 800 mg tablet 800 mg PO TID PRN (Reason: Pain) Qty: 90 3RF trazodone 100 mg tablet 100 mg PO DAILY Qty: 30 3RF Rx Instructions: at bedtime for sleep potassium chloride 10 mEq tablet extended release 10 meq PO DAILY Qty: 30 6RF paroxetine HCl 40 mg tablet 40 mg PO DAILY Qty: 30 6RF omeprazole 40 mg capsule,delayed release(DR/EC) 40 mg PO DAILY Qty: 30 6RF hydrochlorothiazide 12.5 mg tablet 12.5 mg PO DAILY Qty: 30 6RF anastrozole [Arimidex] 1 mg tablet 1 mg PO DAILY Qty: 30 3RF paroxetine HCl 20 mg tablet See Rx Instructions .ROUTE .COMPLEX Qty: 30 0RF Dose Instruction: Take 1 tablet by mouth once daily Rx Instructions: Take 1 tablet by mouth once daily albuterol sulfate [ProAir HFA] 90 mcg/actuation HFA aerosol inhaler 90 mcg INHALATION DIRECTED PRN (Reason: Allergy Symptoms) Adults Multivitamin 1 tab PO DAILY coenzyme Q10 50 mg Tablet 50 mg PO DAILY Qty: 0 Discharge Orders: Discharge ED (Routine); Ordered 07/23/22 Ordered By: Enzo Hernandez Referrals: aHrdik Guajardo MD [Primary Care Provider] - Discharge Diet: Usual diet Discharge Activity: Increase activity as tolerated Patient Instructions: Sore Throat - Adult Activity Restrictions/Additional Instructions: Home and rest. Drink plenty of water and fluids. Use Mucinex as needed for chest congestion per [id number] instructions. Use Delsym as needed for cough suppression. Take Levaquin daily for the next 7 days. Use viscous lidocaine 5 mL swish and swallow for throat pain. Follow-up with primary care as needed. Return to ED for new concerns. Coding Level of Care Code ED Die Maker Electronic for Concha Wong
[2022-07-23 22:34] LABS: SARS Covid-2 Antigen negative (Negative)
[2022-07-23 22:35] LABS: Influenza A by IFA negative (Negative); Influenza B by IFA negative (Negative)
[2022-07-23] MEDS: levoFLOXacin 500 mg Tablet PO (22:52)
[2022-07-23] MEDS: dexamethasone 10 mg/mL INJ IM (22:53)
[2022-07-23 22:58] VITALS: PULSE 87; RESP 18; O2SAT 98
== END 2022-07-23 22:59 | disposition home or self-care (01) ==
PROVIDERS: Emergency Medicine; Emergency Provider Nurse Practitioner Family; PCP Family Medicine
DX: J18.0 Bronchopneumonia, unspecified organism (principal); J01.90 Acute sinusitis, unspecified; Z20.822 Contact with and (suspected) exposure to COVID-19; Z85.3 Personal history of malignant neoplasm of breast; E78.5 Hyperlipidemia, unspecified; I10 Essential (primary) hypertension
CPT/HCPCS: 71045; 87426; 87804; 96372; 99284; J1100

== ENCOUNTER 2022-07-24 12:15 | Outpatient (CLI) | payer MEDICAID, SELFPAY ==
--- NOTE | 2022-07-24 12:49 | MM_ITS ---
WS: [id number] LEFT DIGITAL TOMOSYNTHESIS MAMMOGRAPHY WITH CAD. HISTORY: Follow up calcifications upper outer quadrant. Prior LEFT breast cancer. COMPARISON: 07/11/2022, 03/16/2020 Technique: Magnification views calcifications upper outer quadrant. Breast composition: Cluster of calcifications in the upper outer quadrant of the LEFT breast. This is the site of prior lumpectomy and breast cancer. Some of these calcifications are in the linear distr ibution. These could be dystrophic or malignant calcifications. No distortion or associated soft tiss ue mass. No prior studies since 2021 evaluate for recent change or progression. MM/[id number] IMPRESSION: BI-RADS: 4-Suspicious Finding-Biopsy Should Be Considered FOLLOW UP: Biopsy Recommended Stereotactic biopsy recommended for the indeterminate calcifications upper oute r quadrant LEFT breast. These may be dystrophic or neoplastic.
== END 2022-07-24 12:16 | disposition home or self-care (01) ==
PROVIDERS: PCP Family Medicine; Visit Provider Internal Medicine Medical Oncology
DX: R92.1 Mammographic calcification found on diagnostic imaging of breast (principal); Z85.3 Personal history of malignant neoplasm of breast
CPT/HCPCS: 77061; G0279

== ENCOUNTER 2022-07-31 12:19 | Outpatient (CLI) | payer MEDICAID, SELFPAY ==
--- NOTE | 2022-07-31 12:27 | MM_ITS ---
WS: [id number] STEREOTACTIC LEFT BREAST BIOPSY WITH VACUUM ASSISTANCE HISTORY: Indeterminate calcifications upper outer quadrant LEFT breast at prior lumpectomy site. Hist ory of cancer. COMPARISON: 07/24/2022, 07/11/2022 Procedure, risks and complications were explained to the patient. Medications and prior radiographs a re reviewed. LEFT breast calcifications are located. Calcifications are targeted in the lateral medial oblique pro jection. The skin is cleansed with ChloraPrep and anesthetized with 1% buffered lidocaine. Deeper sof t tissues anesthetized with a combination of lidocaine and epinephrine. Small dermatome is made. Need le advanced into the breast. Stereotactic imaging reveals appropriate positioning adjacent calcificat ions. Multiple vacuum-assisted core biopsies are obtained. No complications were encountered. Post biopsy specimen radiograph reveals numerous calcifications. Biopsy clip is placed in the cavity. Post imaging reveals good placement of the clip. No migration. Pressures held for approximately 15 minutes. No bleeding. Dressing applied. Patient discharged with n o complications. There is no bleeding. With any questions or complications patient is to return. MM/[place] [id number] IMPRESSION: 1. Uncomplicated LEFT breast stereotactic biopsy. 2. Specimen contains numerous calcifications. Pathology: Benign fibrocystic changes with calcifications and stromal sclerosis . No overt malignancy. Rare cluster with reactive atypia. RECOMMENDATION: Diagnostic LEFT mammogram follow-up 6 months.
--- NOTE | 2022-07-31 12:27 | MM_ITS ---
WS: [id number] STEREOTACTIC LEFT BREAST BIOPSY WITH VACUUM ASSISTANCE HISTORY: Indeterminate calcifications upper outer quadrant LEFT breast at prior lumpectomy site. Hist ory of cancer. COMPARISON: 07/24/2022, 07/11/2022 Procedure, risks and complications were explained to the patient. Medications and prior radiographs a re reviewed. LEFT breast calcifications are located. Calcifications are targeted in the lateral medial oblique pro jection. The skin is cleansed with ChloraPrep and anesthetized with 1% buffered lidocaine. Deeper sof t tissues anesthetized with a combination of lidocaine and epinephrine. Small dermatome is made. Need le advanced into the breast. Stereotactic imaging reveals appropriate positioning adjacent calcificat ions. Multiple vacuum-assisted core biopsies are obtained. No complications were encountered. Post biopsy specimen radiograph reveals numerous calcifications. Biopsy clip is placed in the cavity. Post imaging reveals good placement of the clip. No migration. Pressures held for approximately 15 minutes. No bleeding. Dressing applied. Patient discharged with n o complications. There is no bleeding. With any questions or complications patient is to return. MM/MM surgical specimen LT IMPRESSION: 1. Uncomplicated LEFT breast stereotactic biopsy. 2. Specimen contains numerous calcifications. Pathology: Benign fibrocystic changes with calcifications and stromal sclerosis . No overt malignancy. Rare cluster with reactive atypia. RECOMMENDATION: Diagnostic LEFT mammogram follow-up 6 months.
--- NOTE | 2022-07-31 13:00 | MM_ITS ---
WS: [id number] STEREOTACTIC LEFT BREAST BIOPSY WITH VACUUM ASSISTANCE HISTORY: Indeterminate calcifications upper outer quadrant LEFT breast at prior lumpectomy site. Hist ory of cancer. COMPARISON: 07/24/2022, 07/11/2022 Procedure, risks and complications were explained to the patient. Medications and prior radiographs a re reviewed. LEFT breast calcifications are located. Calcifications are targeted in the lateral medial oblique pro jection. The skin is cleansed with ChloraPrep and anesthetized with 1% buffered lidocaine. Deeper sof t tissues anesthetized with a combination of lidocaine and epinephrine. Small dermatome is made. Need le advanced into the breast. Stereotactic imaging reveals appropriate positioning adjacent calcificat ions. Multiple vacuum-assisted core biopsies are obtained. No complications were encountered. Post biopsy specimen radiograph reveals numerous calcifications. Biopsy clip is placed in the cavity. Post imaging reveals good placement of the clip. No migration. Pressures held for approximately 15 minutes. No bleeding. Dressing applied. Patient discharged with n o complications. There is no bleeding. With any questions or complications patient is to return. MM/[place] [id number] IMPRESSION: 1. Uncomplicated LEFT breast stereotactic biopsy. 2. Specimen contains numerous calcifications. Pathology: Benign fibrocystic changes with calcifications and stromal sclerosis . No overt malignancy. Rare cluster with reactive atypia. RECOMMENDATION: Diagnostic LEFT mammogram follow-up 6 months.
== END 2022-07-31 12:20 | disposition home or self-care (01) ==
PROVIDERS: PCP Family Medicine; Visit Provider Internal Medicine Medical Oncology
DX: C50.412 Malignant neoplasm of upper-outer quadrant of left female breast (principal)
CPT/HCPCS: 19081; 77065; 88305; 88342

== ENCOUNTER 2022-08-08 12:45 | Oncology outpatient (recurring) (ONCR) | payer MEDICAID, SELFPAY ==
[2022-08-08 13:30] VITALS: BP 126/79; PULSE 98; RESP 18; TEMP 36.2; O2SAT 97
[2022-08-08] MEDS: alteplase 1 mg/mL SDV 2 mL 2 MG INTRACATH (13:36)
== END 2022-09-05 23:59 | disposition home or self-care (01) ==
LOC: ONCMED 12:46
PROVIDERS: PCP Family Medicine; Visit Provider Internal Medicine Medical Oncology
DX: Z45.2 Encounter for adjustment and management of vascular access device (principal)
CPT/HCPCS: J1642; J2997

== ENCOUNTER 2022-09-12 11:52 | Oncology outpatient (recurring) (ONCR) | payer MEDICAID, SELFPAY ==
[2022-09-12 11:59] VITALS: BP 121/81; PULSE 89; RESP 18; TEMP 35.7; O2SAT 96
[2022-09-12 12:21] LABS: Basophils # 0.1 10^3/uL (0.0-0.1); Basophils % 1.3 %; Eosinophils # 0.3 10^3/uL (0.0-0.8); Eosinophils % 5.3 %; Hematocrit 39.3 % (37.0-47.0); Lymphocytes # 1.1 10^3/uL (0.8-4.8); Lymphocytes % 21.3 %; Mean Corpuscular HGB Conc 33.1 g/dL (30.0-36.0); Mean Corpuscular Hemoglobin 30.7 pg (28.0-34.0); Mean Corpuscular Volume 92.9 fl (81-99); Mean Platelet Volume 8.9 fL (7.4-10.4); Monocytes # 0.4 10^3/uL (0.2-0.9); Neutrophils % 64.7 %; Nucleated Red Blood Cells % 0 %; Platelet Count 155 10^3/cmm (130-400); Red Blood Count 4.23 10^6/uL (4.1-5.3); White Blood Count 5.3 10^3/uL (4.0-10.0)
[2022-09-12 12:46] LABS: Alanine Aminotransferase 24 U/L (0-33); Albumin Level 4.2 g/dL (3.5-5.2); Alkaline Phosphatase 109 U/L (35-105); Anion Gap 14.9 (5-19); Aspartate Amino Transferase 34 U/L (0-32); Blood Urea Nitrogen 21 mg/dL (8-23); Calcium 8.8 mg/dL (8.5-10.5); Carbon Dioxide 26 mmol/L (22-29); Chloride 105 mmol/L (98-107); Globulin 2.6 g/dL (1.3-4.6); Glomerular Filtration Rate 56.4 mL/min (90-130); Glucose 109 mg/dL (65-115); Osmolality Calculated 298 mOsm/kg (285-295); Potassium 3.9 mmol/L (3.5-5.1); Sodium 142 mmol/L (136-145); Total Bilirubin 0.4 mg/dL (0.15-1.2); Total Protein 6.8 g/dL (6.6-8.7)
[2022-09-12 12:48] LABS: Creatinine Clr Calc Pharmacy 60.9297
== END 2022-10-05 23:59 | disposition home or self-care (01) ==
PROVIDERS: Nurse Practitioner; PCP Family Medicine; Visit Provider Internal Medicine Medical Oncology
DX: C50.412 Malignant neoplasm of upper-outer quadrant of left female breast (principal)
CPT/HCPCS: 36591; 80053; 85025; J1642

== ENCOUNTER 2022-10-16 12:52 | Oncology outpatient (recurring) (ONCR) | payer MEDICAID, SELFPAY ==
[2022-10-16 12:54] VITALS: BP 107/78; PULSE 96; RESP 16; TEMP 35.7; O2SAT 100
== END 2022-11-05 23:59 | disposition home or self-care (01) ==
PROVIDERS: PCP Family Medicine; Visit Provider Internal Medicine Medical Oncology
DX: Z45.2 Encounter for adjustment and management of vascular access device (principal)
CPT/HCPCS: J1642

== ENCOUNTER 2022-11-13 12:53 | Oncology outpatient (recurring) (ONCR) | payer MEDICAID, SELFPAY ==
[2022-11-13 13:02] VITALS: BP 122/86; PULSE 95; RESP 18; TEMP 35.9; O2SAT 98
== END 2022-12-06 23:59 | disposition home or self-care (01) ==
LOC: ONCMED 12:54
PROVIDERS: PCP Family Medicine; Visit Provider Internal Medicine Medical Oncology
DX: Z45.2 Encounter for adjustment and management of vascular access device (principal)
CPT/HCPCS: 96523; J1642

== ENCOUNTER 2022-12-13 12:41 | Oncology outpatient (recurring) (ONCR) | payer MEDICAID, SELFPAY ==
[2022-12-13 12:51] VITALS: BMI 39.6
[2022-12-13 12:52] VITALS: BP 125/78; PULSE 101; RESP 18; TEMP 36.1; O2SAT 98
[2022-12-13 13:09] LABS: Basophils # 0.1 10^3/uL (0.0-0.1); Basophils % 1.2 %; Eosinophils # 0.3 10^3/uL (0.0-0.8); Eosinophils % 5.5 %; Hematocrit 38.6 % (36-47); Lymphocytes # 1.3 10^3/uL (0.8-4.8); Mean Corpuscular HGB Conc 33.2 g/dL (30-55); Mean Corpuscular Volume 90.6 fl (85-98); Mean Platelet Volume 8.9 fL (7.4-10.4); Monocytes # 0.4 10^3/uL (0.2-0.9); Monocytes % 8.8 %; Neutrophils # 2.78 10^3/uL (1.8-7.7); Neutrophils % 56.9 %; Nucleated Red Blood Cells % 0 %; Platelet Count 187 10^3/cmm (157-399); Red Blood Count 4.26 10^6/uL (3.85-5.65); Red Cell Distribution Width 13.2 % (12.1-15.1); White Blood Count 4.89 10^3/uL (3.29-11.43)
[2022-12-13 13:25] LABS: Alanine Aminotransferase 25 U/L (0-33); Alkaline Phosphatase 118 U/L (35-105); Anion Gap 14.7 (5-19); Aspartate Amino Transferase 31 U/L (0-32); Blood Urea Nitrogen 19 mg/dL (8-23); Calcium 9.3 mg/dL (8.5-10.5); Carbon Dioxide 27 mmol/L (22-29); Chloride 103 mmol/L (98-107); Globulin 2.6 g/dL (1.3-4.6); Glomerular Filtration Rate 72.9 mL/min (90-130); Glucose 114 mg/dL (65-115); Osmolality Calculated 295 mOsm/kg (285-295); Potassium 3.7 mmol/L (3.5-5.1); Sodium 141 mmol/L (136-145); Total Bilirubin 0.4 mg/dL (0.15-1.2); Total Protein 6.6 g/dL (6.6-8.7)
== END 2023-01-05 23:59 | disposition home or self-care (01) ==
PROVIDERS: Nurse Practitioner Family; PCP Family Medicine; Visit Provider Internal Medicine Medical Oncology
DX: C50.412 Malignant neoplasm of upper-outer quadrant of left female breast (principal); L98.9 Disorder of the skin and subcutaneous tissue, unspecified; Z17.0 Estrogen receptor positive status [ER+]; Z79.899 Other long term (current) drug therapy
CPT/HCPCS: 36591; 80053; 85025; 99214; J1642

== ENCOUNTER 2023-02-11 13:50 | Oncology outpatient (recurring) (ONCR) | payer MEDICAID, SELFPAY ==
[2023-02-11 14:12] VITALS: BP 131/87; PULSE 104; RESP 16; TEMP 36.3; O2SAT 96
== END 2023-03-07 23:59 | disposition home or self-care (01) ==
PROVIDERS: PCP Family Medicine; Visit Provider Internal Medicine Medical Oncology
DX: Z45.2 Encounter for adjustment and management of vascular access device (principal)
CPT/HCPCS: J1642

== ENCOUNTER 2023-02-25 11:16 | Outpatient (CLI) | payer MEDICAID, SELFPAY ==
--- NOTE | 2023-02-25 11:23 | MM_ITS ---
WS: [id number] DIAGNOSTIC LEFT DIGITAL TOMOSYNTHESIS MAMMOGRAPHY WITH CAD. HISTORY: recommended 6 month follow-up for left breast calcifications COMPARISON: 07/31/2022, 07/24/2022, 03/16/2020 Technique: CC, MLO and ML views. Magnification views LEFT MLO. Breast composition: There are scattered areas of fibroglandular density. Biopsy clip with adjacent ca lcifications in the upper outer quadrant of the LEFT breast at the site of the biopsy. No progression of the calcifications. No soft tissue mass. IMPRESSION: MM/[place] [id number] BI-RADS: 2-Benign FOLLOW UP: See Report Patient return to annual diagnostic mammography.
== END 2023-02-25 11:17 | disposition home or self-care (01) ==
LOC: RAD 11:17
PROVIDERS: PCP Family Medicine; Visit Provider Nurse Practitioner Family
DX: C50.412 Malignant neoplasm of upper-outer quadrant of left female breast (principal); R92.1 Mammographic calcification found on diagnostic imaging of breast
CPT/HCPCS: 77061; G0279

== ENCOUNTER 2023-03-13 10:46 | Oncology outpatient (recurring) (ONCR) | payer MEDICAID, SELFPAY | END 2023-04-07 23:59 | disposition home or self-care (01) | PROVIDERS: PCP Family Medicine; Visit Provider Internal Medicine Medical Oncology | DX: Z45.2 Encounter for adjustment and management of vascular access device (principal) | CPT/HCPCS: J1642 ==

== ENCOUNTER 2023-04-06 17:51 | Emergency (ER) | payer MEDICAID, SELFPAY ==
[2023-04-06 18:05] VITALS: BP 168/120; PULSE 106; RESP 18; TEMP 36.6; O2SAT 98; BMI 39.2
--- NOTE | 2023-04-06 18:07 | XRR_ITS ---
PROCEDURE INFORMATION: Exam: XR Right Knee Exam date and time: 04/06/2023 8:09 PM Age: 62 years old Clinical indication: Patient HX: Right knee pain TECHNIQUE: Imaging protocol: Radiologic exam of the right knee. Views: 3 views. COMPARISON: CR (LOW EXM, ) 02/20/2021 5:57 PM FINDINGS: Bones/joints: Osseous structures are intact. Negative for fracture. Mild DJD centered in the medial and patellofemoral compartments. Soft tissues: Normal. XR/XR knee RT 3V* [id number] IMPRESSION: No acute findings. Mild DJD centered in the medial and patellofemoral compartments.
--- NOTE | 2023-04-06 19:42 | ED_ITS ---
HPI - Extremity Problem General: Chief complaint: Extremity Injury, Lower Stated complaint: right knee swollen Time Seen by Provider: 04/06/23 19:33 History of Present Illness: 62-year-old female comes in today with c omplaints of right knee pain and swelling. Patient appears nontoxic. Patient reports inability to get comfortable at night. Patient has been taking 800 mg ibuprofen with minimal to no relief. No obvious redness or inflammation is noted to the knee. Patient reports pain been going on for about 1 to 2 weeks. Review of Systems General: Reports: 10 or more systems reviewed and unremarkable except in HPI and below Musc: Reports: joint pain (Right knee pain) PFSH ED PFSH: Medical History Breast cancer Vitamin D deficiency Anxiety and depression GERD (gastroesophageal reflux disease) Asthma Hyperlipidemia Hypertension Steatohepatitis, non-alcoholic Surgical History Status post colonoscopy (08/30/21) H/O esophagogastroduodenoscopy (08/30/21) History of hysterectomy History of History of colonoscopy Status post left breast lumpectomy Port-A-Cath in place Family History Father CAD (coronary artery disease) from a heart attack Diabetes Cancer Throat Mother CAD (coronary artery disease) Hole in her heart all of her life Dementia Lung disease COPD Stroke Sister Cancer Denies family history of Clotting disorder Hyperlipidemia Psychiatric illness Chronic kidney disease (CKD) Suicide Anesthesia complication Bleeding disorder Hypertension Social History Smoking and tobacco/nicotine status: never used tobacco/nicotine Alcohol intake: never Physical Exam Const: COMMON NORMALS: alert HENMT: COMMON NORMALS: normocephalic HEAD & SCALP: normocephalic Neck/C-Spine: COMMON NORMALS: full ROM Resp: COMMON NORMALS: normal respiratory effort Cardio: COMMON NORMALS: regular rate and regular rhythm RATE: regular rate RHYTHM: regular rhythm GI: COMMON NORMALS: non-tender Back/Pelvis: COMMON NORMALS: thoracic and lumbar spine normal to inspection Extremity: RIGHT LOWER EXTREMITY: Yes knee joint (Joint line tenderness, no redness or significant swelling) Right knee: Yes inspection, Yes palpation, Yes ROM (Pain with passive range of motion) and Yes neurovascular exam Neuro: SENSORIUM/ORIENTATION: Yes alert Skin: COMMON NORMALS: turgor normal GENERAL SKIN EXAM: turgor normal Course Vital Signs: Vital signs: Vital Signs Temperature 97.8 F 04/06/23 18:05 Pulse Rate 106 H 04/06/23 18:05 Respiratory Rate 18 04/06/23 18:05 Blood Pressure 168/120 04/06/23 18:05 Pulse Oximetry 98 04/06/23 18:05 MDM - Extremity (Nontraumatic) Medical Decision Making 62-year-old female comes in today with complaints of right knee pain. On exam patient has some tenderness of the joint line. No redness or significant swelling is noted. Distal pulses are intact. Patient has normal range of motion with mild tenderness. Differential diagnosis includes but not limited to fracture, osteoarthritis, meniscal injury, internal derangement of the knee. X- ray noted some degenerative changes of the knee without signs of acute injury. The patient probably has exacerbation of a chronic injury. Recommend follow-up with orthopedics for further evaluation. Patient was written for 10 tablets of hydrocodone for her severe pain. Patient is recommended to talk with primary care for other recommendations of pain. Patient reported understanding agreed to plan. XR interpretation done by ED provider, pending radiology final review Discharge Plan Discharge Patient Disposition: Home Clinical Impression: Arthralgia of knee, right Condition: Stable Prescriptions: New hydrocodone-acetaminophen 5-325 mg tablet 1 tab PO Q6H PRN (Reason: pain (scale score 7-10)) Qty: 10 0RF No Action magnesium 500 mg tablet 500 mg PO DAILY methylprednisolone acetate 80 mg/mL suspension 80 mg IM ONCE Qty: 1 0RF levofloxacin 500 mg tablet 500 mg PO DAILY Qty: 10 0RF prednisone 20 mg tablet 20 mg PO DAILY Qty: 5 0RF albuterol sulfate [ProAir HFA] 90 mcg/actuation HFA aerosol inhaler 90 mcg INHALATION DIRECTED PRN (Reason: Allergy Symptoms) Qty: 6.7 0RF Benefiber Clear SF (dextrin) 3 gram/3.5 gram powder in packet 1 packet PO DAILY Rx Instructions: mix into at least 4 oz water or juice before administering chlorpheniramine maleate 4 mg tablet 4 mg PO Q6H PRN ibuprofen 800 mg tablet 800 mg PO TID PRN (Reason: Pain) Qty: 90 3RF duloxetine 60 mg capsule,delayed release(DR/EC) 60 mg PO DAILY Qty: 30 6RF Rx Instructions: After 14 days of duloxetine 30mg and paroxetine 20mg, stop both and start duloxetine 60mg daily. trazodone 100 mg tablet 100 mg PO DAILY Qty: 30 3RF Rx Instructions: at bedtime for sleep mometasone 0.1 % cream 1 applic topical .1-2x/day Qty: 45 0RF fluticasone propionate [Flonase Allergy Relief] 50 mcg/actuation spray,suspension 1 spray intranasal DAILY Qty: 16 6RF Rx Instructions: administer into each nostril potassium chloride 10 mEq tablet extended release 10 meq PO DAILY Qty: 30 6RF anastrozole [Arimidex] 1 mg tablet 1 mg PO DAILY Qty: 30 3RF hydrochlorothiazide 12.5 mg tablet 12.5 mg PO DAILY Qty: 30 6RF omeprazole 40 mg capsule,delayed release(DR/EC) 40 mg PO DAILY Qty: 30 6RF Adults Multivitamin 1 tab PO DAILY coenzyme Q10 50 mg Tablet 50 mg PO DAILY Qty: 0 Lidocaine Viscous 2 % solution 5 ml mucous membrane Q4H PRN (Reason: pain) Qty: 100 0RF Rx Instructions: swish and swallow Discharge Orders: Discharge ED (Routine); Ordered 04/06/23 Ordered By: Enzo Hernandez Referrals: Hardik Guajardo MD [Primary Care Provider] - Discharge Diet: Usual diet Discharge Activity: Increase activity as tolerated Patient Instructions: Opioid Safety, Pain Management Activity Restrictions/Additional Instructions: Try to maintain activity is much as possible. Use ice or heat to the joint to help with pain. Drink plenty of water with medications. Continue with acetaminophen and ibuprofen to help control pain. Use hydrocodone for severe pain. Follow-up with primary care as needed. Case management will contact you regarding follow-up with orthopedist office. Coding Level of Care Code ED Patient Relations Representative for Concha Wong
[2023-04-06] MEDS: HYDROcodone-acetaminophen 5-325 mg Tablet 1 TAB PO (19:52)
--- NOTE | 2023-04-06 19:52 | PC.NURSE ---
Provider ordered Hydrocodone for pts knee pain. Pt has this medication list as causing a rash in the past. Pt informed provider and myself that she is not sure that medication is what caused her rash and she would like to try this medication. Education provided and medication given.
[2023-04-06 20:48] VITALS: RESP 18
--- NOTE | 2023-04-08 08:14 | DCPLANNER ---
Message was sent to ortho for chronic knee pain. Thank you
== END 2023-04-06 20:51 | disposition home or self-care (01) ==
PROVIDERS: Emergency Provider Nurse Practitioner Family; PCP Family Medicine
DX: M25.561 Pain in right knee (principal); Z85.3 Personal history of malignant neoplasm of breast; E78.5 Hyperlipidemia, unspecified; I10 Essential (primary) hypertension
CPT/HCPCS: 73562; 99283

== ENCOUNTER → 2023-04-16 09:58 | Outpatient (BNVA) | payer MEDICAID, SELFPAY | PROVIDERS: PCP Family Medicine; Visit Provider Family Medicine | DX: Z51.81 Encounter for therapeutic drug level monitoring (principal); E11.9 Type 2 diabetes mellitus without complications; R03.0 Elevated blood-pressure reading, without diagnosis of hypertension | CPT/HCPCS: 80053; 83036; 84550; 85025 ==

== ENCOUNTER 2023-04-18 14:22 | Oncology outpatient (recurring) (ONCR) | payer MEDICAID, SELFPAY ==
[2023-04-18 15:20] VITALS: BP 134/88; PULSE 17; RESP 92; O2SAT 96
== END 2023-05-08 23:59 | disposition home or self-care (01) ==
LOC: ONCMED 14:24
PROVIDERS: PCP Family Medicine; Visit Provider Internal Medicine Medical Oncology
DX: Z45.2 Encounter for adjustment and management of vascular access device (principal)
CPT/HCPCS: 11102; 96523; 99203; J1642

== ENCOUNTER → 2023-05-13 09:54 | Outpatient (BNVA) | payer MEDICAID, SELFPAY | PROVIDERS: PCP Family Medicine; Visit Provider Dermatology | DX: C44.41 Basal cell carcinoma of skin of scalp and neck (principal) | CPT/HCPCS: 12032; 17311 ==

== ENCOUNTER → 2023-05-24 08:51 | Outpatient (BNVA) | payer MEDICAID, SELFPAY | PROVIDERS: PCP Family Medicine; Visit Provider Nurse Practitioner Family | DX: Z48.02 Encounter for removal of sutures (principal) | CPT/HCPCS: 99212 ==

== ENCOUNTER 2023-05-27 14:22 | Oncology outpatient (recurring) (ONCR) | payer MEDICAID, SELFPAY | END 2023-06-06 23:59 | disposition home or self-care (01) | LOC: ONCMED 14:23 | PROVIDERS: PCP Family Medicine; Visit Provider Internal Medicine Medical Oncology | DX: Z45.2 Encounter for adjustment and management of vascular access device (principal) | CPT/HCPCS: 96523; J1642 ==

== ENCOUNTER 2023-06-17 10:58 | Oncology outpatient (recurring) (ONCR) | payer MEDICAID, SELFPAY ==
[2023-06-17 11:33] LABS: Basophils # 0.1 10^3/uL (0.0-0.1); Basophils % 0.9 %; Eosinophils # 0.2 10^3/uL (0.0-0.8); Eosinophils % 4.5 %; Hematocrit 36.8 % (36-47); Lymphocytes # 1.1 10^3/uL (0.8-4.8); Lymphocytes % 20.7 %; Mean Corpuscular HGB Conc 33.4 g/dL (30-55); Mean Corpuscular Hemoglobin 30.5 pg (27-33); Mean Corpuscular Volume 91.3 fl (85-98); Mean Platelet Volume 9.1 fL (7.4-10.4); Monocytes # 0.5 10^3/uL (0.2-0.9); Monocytes % 8.8 %; Neutrophils # 3.48 10^3/uL (1.8-7.7); Neutrophils % 64.7 %; Nucleated Red Blood Cells % 0 %; Platelet Count 158 10^3/cmm (157-399); Red Blood Count 4.03 10^6/uL (3.85-5.65); Red Cell Distribution Width 13.2 % (12.1-15.1); White Blood Count 5.37 10^3/uL (3.29-11.43)
[2023-06-17 11:54] LABS: Alanine Aminotransferase 21 U/L (0-33); Albumin Level 3.8 g/dL (3.5-5.2); Alkaline Phosphatase 128 U/L (35-105); Aspartate Amino Transferase 30 U/L (0-32); Blood Urea Nitrogen 17 mg/dL (8-23); Carbon Dioxide 25 mmol/L (22-29); Chloride 104 mmol/L (98-107); Globulin 2.6 g/dL (1.3-4.6); Glomerular Filtration Rate 72.7 mL/min (90-130); Glucose 121 mg/dL (65-115); Osmolality Calculated 295 mOsm/kg (285-295); Sodium 141 mmol/L (136-145); Total Bilirubin 0.3 mg/dL (0.15-1.2); Total Protein 6.4 g/dL (6.6-8.7)
[2023-06-17 11:55] LABS: Anion Gap 16.2 (5-19); Potassium 4.2 mmol/L (3.5-5.1)
== END 2023-07-07 23:59 | disposition home or self-care (01) ==
PROVIDERS: PCP Family Medicine; Visit Provider Internal Medicine Medical Oncology
DX: Z45.2 Encounter for adjustment and management of vascular access device (principal); Z95.828 Presence of other vascular implants and grafts; C50.412 Malignant neoplasm of upper-outer quadrant of left female breast; Z79.811 Long term (current) use of aromatase inhibitors
CPT/HCPCS: 36591; 80053; 85025; 99214

== ENCOUNTER 2023-06-24 14:20 | Outpatient (CLI) | payer MEDICAID, SELFPAY ==
--- NOTE | 2023-06-24 14:30 | XR_ITS ---
WS: [id number] DEXA (DUAL ENERGY X-RAY ABSORPTIOMETRY) Bone mineral density was performed using a [employer] machine. HISTORY: aromatse inhibitor use COMPARISON: 02/15/2021 Lumbar spine BMD (L1-L4): 1.060 g/cm2 T score: -1.0 Z score: -0.7 Total hip BMD: Left: 1.003 g/cm2. T score: 0.0 Z score: 0.3 Right: 1.024 g/cm2. T score: 0.1 Z score: 0.4 10 year probability of a major osteoporotic fracture is 14.0%. Compared to the prior study from 02/15/2021. Lumbar spine bone mineral density has decreased by 8.3%. Bilateral hips bone mineral density has decreased by 4.3%. IMPRESSION: NORMAL BONE MINERAL DENSITY based upon the WHO classification for females. Significant decrease in bone mineral density within the lumbar spine and hips since the prior study.
== END 2023-06-24 14:21 | disposition home or self-care (01) ==
LOC: RAD 14:21
PROVIDERS: PCP Family Medicine; Visit Provider Nurse Practitioner Family
DX: C50.412 Malignant neoplasm of upper-outer quadrant of left female breast (principal); Z79.811 Long term (current) use of aromatase inhibitors
CPT/HCPCS: 77080

== ENCOUNTER 2023-07-15 13:29 | Oncology outpatient (recurring) (ONCR) | payer MEDICAID, SELFPAY | END 2023-08-06 23:59 | disposition home or self-care (01) | LOC: ONCMED 13:29 | PROVIDERS: PCP Family Medicine; Visit Provider Internal Medicine Medical Oncology | DX: Z45.2 Encounter for adjustment and management of vascular access device (principal) ==

== ENCOUNTER 2023-08-07 12:34 | Outpatient (CLI) | payer MEDICAID, SELFPAY ==
--- NOTE | 2023-08-07 12:40 | MM_ITS ---
WS: [id number] BILATERAL 3D TOMOSYNTHESIS DIGITAL DIAGNOSTIC MAMMOGRAPHY WITH CAD CLINICAL INFORMATION: HX OF BREAST CANCER HISTORY: 6-month follow-up COMPARISON: 02/25/2023 TECHNIQUE: Bilateral CC, MLO, and ML views. FINDINGS: Scattered fibroglandular densities bilaterally. Post biopsy changes upper outer quadrant LEFT breast with biopsy clip and stable punctate calcifications. No progression. Stable lumpectomy changes LEFT b reast with treatment-related skin thickening LEFT breast RIGHT breast is unremarkable and unchanged. No suspicious focal mass, asymmetry, calcifications, or architectural distortion. No evidence of nicolle gnancy. MM/[place] [id number] IMPRESSION: BI-RADS: 2-Benign FOLLOW UP: 1 Year Follow-up Recommend return to annual diagnostic mammography.
== END 2023-08-07 12:35 | disposition home or self-care (01) ==
LOC: RAD 12:34
PROVIDERS: PCP Family Medicine; Visit Provider Nurse Practitioner Family
DX: Z85.3 Personal history of malignant neoplasm of breast (principal); R92.323 Mammographic fibroglandular density, bilateral breasts
CPT/HCPCS: 77062; G0279

== ENCOUNTER 2023-08-20 14:28 | Oncology outpatient (recurring) (ONCR) | payer MEDICAID, SELFPAY | END 2023-09-06 23:59 | disposition home or self-care (01) | LOC: ONCMED 14:29 | PROVIDERS: PCP Family Medicine; Visit Provider Internal Medicine Medical Oncology | DX: Z45.2 Encounter for adjustment and management of vascular access device (principal) ==

== ENCOUNTER 2023-09-16 13:16 | Oncology outpatient (recurring) (ONCR) | payer MEDICARE, MEDICAID, SELFPAY | END 2023-10-06 23:59 | disposition home or self-care (01) | PROVIDERS: PCP Family Medicine; Visit Provider Internal Medicine Medical Oncology | DX: Z45.2 Encounter for adjustment and management of vascular access device (principal) | CPT/HCPCS: 96523 ==

== ENCOUNTER 2023-10-16 12:55 | Oncology outpatient (recurring) (ONCR) | payer MEDICARE, MEDICAID, SELFPAY | END 2023-11-06 23:59 | disposition home or self-care (01) | PROVIDERS: PCP Family Medicine; Visit Provider Internal Medicine Medical Oncology | DX: Z45.2 Encounter for adjustment and management of vascular access device (principal); Z53.9 Procedure and treatment not carried out, unspecified reason | CPT/HCPCS: 96523 ==

== ENCOUNTER 2023-11-28 09:24 | Oncology outpatient (recurring) (ONCR) | payer MEDICARE, MEDICAID, SELFPAY | END 2023-12-07 22:55 | disposition home or self-care (01) | LOC: ONCMED 09:24 | PROVIDERS: PCP Family Medicine; Visit Provider Internal Medicine Medical Oncology | DX: Z45.2 Encounter for adjustment and management of vascular access device (principal) | CPT/HCPCS: 96523 ==

== ENCOUNTER 2024-01-07 10:55 | Oncology outpatient (recurring) (ONCR) | payer MEDICARE, MEDICAID, SELFPAY ==
[2024-01-07 11:26] LABS: Basophils # 0.1 10^3/uL (0.0-0.1); Basophils % 0.9 %; Eosinophils # 0.2 10^3/uL (0.0-0.8); Eosinophils % 3.5 %; Hematocrit 39.3 % (36-47); Lymphocytes # 1.7 10^3/uL (0.8-4.8); Lymphocytes % 23.8 %; Mean Corpuscular HGB Conc 33.8 g/dL (30-55); Mean Corpuscular Hemoglobin 30.5 pg (27-33); Mean Corpuscular Volume 90.1 fl (85-98); Mean Platelet Volume 9.1 fL (7.4-10.4); Monocytes # 0.6 10^3/uL (0.2-0.9); Monocytes % 8.5 %; Neutrophils # 4.34 10^3/uL (1.8-7.7); Neutrophils % 62.7 %; Nucleated Red Blood Cells % 0 %; Platelet Count 213 10^3/cmm (157-399); Red Blood Count 4.36 10^6/uL (3.85-5.65); Red Cell Distribution Width 13.4 % (12.1-15.1); White Blood Count 6.92 10^3/uL (3.29-11.43)
[2024-01-07 11:46] LABS: Alanine Aminotransferase 17 U/L (0-33); Albumin Level 4.2 g/dL (3.5-5.2); Alkaline Phosphatase 126 U/L (35-105); Anion Gap 15.7 (5-19); Aspartate Amino Transferase 25 U/L (0-32); Blood Urea Nitrogen 17 mg/dL (8-23); Carbon Dioxide 24 mmol/L (22-29); Chloride 105 mmol/L (98-107); Globulin 2.6 g/dL (1.3-4.6); Glomerular Filtration Rate 50.3 mL/min (90-130); Glucose 104 mg/dL (65-115); Osmolality Calculated 294 mOsm/kg (285-295); Potassium 3.7 mmol/L (3.5-5.1); Sodium 141 mmol/L (136-145); Total Bilirubin 0.4 mg/dL (0.15-1.2); Total Protein 6.8 g/dL (6.6-8.7)
== END 2024-02-06 23:59 | disposition home or self-care (01) ==
PROVIDERS: Nurse Practitioner Family; PCP Family Medicine; Visit Provider Internal Medicine Medical Oncology
DX: C50.412 Malignant neoplasm of upper-outer quadrant of left female breast (principal); Z17.0 Estrogen receptor positive status [ER+]; C77.3 Secondary and unspecified malignant neoplasm of axilla and upper limb lymph nodes; Z79.811 Long term (current) use of aromatase inhibitors; Z92.21 Personal history of antineoplastic chemotherapy; Z92.3 Personal history of irradiation; Z95.828 Presence of other vascular implants and grafts
CPT/HCPCS: 36591; 80053; 85025; 99214

== ENCOUNTER 2024-02-11 14:21 | Oncology outpatient (recurring) (ONCR) | payer MEDICARE, MEDICAID, SELFPAY | END 2024-03-07 23:59 | disposition home or self-care (01) | PROVIDERS: PCP Family Medicine; Visit Provider Internal Medicine Hematology & Oncology | DX: Z45.2 Encounter for adjustment and management of vascular access device | CPT/HCPCS: 96523 ==

== ENCOUNTER 2024-04-07 14:30 | Oncology outpatient (recurring) (ONCR) | payer MEDICARE, SELFPAY | END 2024-04-07 23:59 | disposition home or self-care (01) | PROVIDERS: PCP Family Medicine; Visit Provider Internal Medicine Medical Oncology | DX: Z53.9 Procedure and treatment not carried out, unspecified reason (principal); Z45.2 Encounter for adjustment and management of vascular access device | CPT/HCPCS: 96523 ==

== ENCOUNTER → 2024-05-15 10:10 | Outpatient (BNVA) | payer MEDICARE, SELFPAY | PROVIDERS: PCP Family Medicine; Visit Provider Family Medicine | DX: M25.561 Pain in right knee (principal); R03.0 Elevated blood-pressure reading, without diagnosis of hypertension; Z79.899 Other long term (current) drug therapy | CPT/HCPCS: 80048; 84550 ==

== ENCOUNTER 2024-06-02 13:42 | Oncology outpatient (recurring) (ONCR) | payer MEDICARE, SELFPAY | END 2024-06-05 23:59 | disposition home or self-care (01) | PROVIDERS: PCP Family Medicine; Visit Provider Internal Medicine Medical Oncology | DX: Z45.2 Encounter for adjustment and management of vascular access device (principal); Z95.828 Presence of other vascular implants and grafts | CPT/HCPCS: 96523 ==

== ENCOUNTER 2024-06-02 13:55 | Outpatient (CLI) | payer MEDICARE, SELFPAY ==
--- NOTE | 2024-06-02 13:57 | XRR_ITS ---
PROCEDURE INFORMATION: Exam: XR Right Knee Exam date and time: 06/02/2024 2:04 PM Age: 64 years old Clinical indication: Injury or trauma; Fall; Blunt trauma; Injury details: Fell on right knee around 1 month ago, HX of gout in RT knee; HX of breast cancer; Additional info: Right knee pain TECHNIQUE: Imaging protocol: Radiologic exam of the right knee. Views: 3 views. COMPARISON: CR XR knee RT 3V* [id number] 04/06/2023 8:09 PM FINDINGS: Bones/joints: Mild tricompartment narrowing and spurring, greatest medially. No fracture or dislocation. No lytic or sclerotic bone lesion. Soft tissues: Normal. XR/XR knee RT 3V* [id number] IMPRESSION: Degenerative changes.
== END 2024-06-02 13:56 | disposition home or self-care (01) ==
LOC: RAD 13:56
PROVIDERS: PCP Family Medicine; Visit Provider Family Medicine
DX: M25.561 Pain in right knee (principal); W19.XXXA Unspecified fall, initial encounter; Z85.3 Personal history of malignant neoplasm of breast; M17.11 Unilateral primary osteoarthritis, right knee
CPT/HCPCS: 73562

== ENCOUNTER 2024-06-29 06:00 | Outpatient (CLI) | payer MEDICARE, SELFPAY | END 2024-06-29 23:59 | disposition home or self-care (01) | LOC: SPT 06-30 11:44 | PROVIDERS: Visit Provider Specialist | DX: M17.11 Unilateral primary osteoarthritis, right knee (principal); Z46.89 Encounter for fitting and adjustment of other specified devices | CPT/HCPCS: 20610; 99204; J1100; J2795; J3301; J9999; L1812 ==

== ENCOUNTER → 2024-06-29 11:10 | Outpatient (BNVA) | payer MEDICARE, SELFPAY | PROVIDERS: PCP Family Medicine; Visit Provider Specialist | DX: M25.561 Pain in right knee (principal); M17.11 Unilateral primary osteoarthritis, right knee | CPT/HCPCS: 73560; 73565; 99203 ==

== ENCOUNTER 2024-06-30 13:43 | Oncology outpatient (recurring) (ONCR) | payer MEDICARE, SELFPAY | END 2024-07-06 23:59 | disposition home or self-care (01) | LOC: RAD 13:44 → ONCMED 14:12 | PROVIDERS: Visit Provider Internal Medicine Medical Oncology | DX: Z45.2 Encounter for adjustment and management of vascular access device (principal) | CPT/HCPCS: 96523 ==

== ENCOUNTER 2024-07-08 12:22 | Oncology outpatient (recurring) (ONCR) | payer MEDICARE, SELFPAY ==
[2024-07-08 12:40] LABS: Basophils # 0.1 10^3/uL (0.0-0.1); Eosinophils # 0.2 10^3/uL (0.0-0.8); Lymphocytes # 1.2 10^3/uL (0.8-4.8); Lymphocytes % 17.4 %; Mean Corpuscular HGB Conc 33.1 g/dL (30-55); Mean Corpuscular Hemoglobin 30.4 pg (27-33); Mean Corpuscular Volume 92.1 fl (85-98); Mean Platelet Volume 8.9 fL (7.4-10.4); Monocytes # 0.6 10^3/uL (0.2-0.9); Monocytes % 8.1 %; Neutrophils # 4.88 10^3/uL (1.8-7.7); Neutrophils % 70.2 %; Nucleated Red Blood Cells % 0 %; Platelet Count 203 10^3/cmm (157-399); Red Blood Count 3.91 10^6/uL (3.85-5.65); Red Cell Distribution Width 14.1 % (12.1-15.1); White Blood Count 6.95 10^3/uL (3.29-11.43)
[2024-07-08 13:02] LABS: Alanine Aminotransferase 19 U/L (0-33); Alkaline Phosphatase 116 U/L (35-105); Anion Gap 15.1 (5-19); Aspartate Amino Transferase 25 U/L (0-32); Blood Urea Nitrogen 29 mg/dL (8-23); Carbon Dioxide 24 mmol/L (22-29); Chloride 106 mmol/L (98-107); Globulin 2.5 g/dL (1.3-4.6); Glucose 128 mg/dL (65-115); Osmolality Calculated 299 mOsm/kg (285-295); Potassium 4.1 mmol/L (3.5-5.1); Sodium 141 mmol/L (136-145); Total Bilirubin 0.2 mg/dL (0.15-1.2); Total Protein 6.5 g/dL (6.6-8.7)
== END 2024-08-05 23:59 | disposition home or self-care (01) ==
PROVIDERS: Nurse Practitioner Family; Visit Provider Internal Medicine Medical Oncology
DX: C50.412 Malignant neoplasm of upper-outer quadrant of left female breast (principal); Z17.0 Estrogen receptor positive status [ER+]; Z95.828 Presence of other vascular implants and grafts; Z79.811 Long term (current) use of aromatase inhibitors; Z92.21 Personal history of antineoplastic chemotherapy
CPT/HCPCS: 36591; 80053; 85025; 99213

== ENCOUNTER 2024-08-10 12:17 | Oncology outpatient (recurring) (ONCR) | payer MEDICARE, SELFPAY ==
--- NOTE | 2024-08-10 12:30 | MM_ITS ---
WS: [id number] BILATERAL 3D TOMOSYNTHESIS DIGITAL DIAGNOSTIC MAMMOGRAPHY WITH CAD CLINICAL INFORMATION: history of breast cancer HISTORY: History of breast cancer. COMPARISON: 2023 TECHNIQUE: Bilateral CC, MLO, and ML views. FINDINGS: Scattered fibroglandular densities bilaterally. Postoperative changes LEFT breast lumpectomy with parenchymal fibrosis. Treatment-related changes LEFT breast with skin thickening. Benign calcifications LEFT breast. RIGHT breast is unremarkable and unchanged. No suspicious focal mass, asymmetry, calcifications, or architectural distortion. No evidence of malignancy. MM/MM diag tomosynthesis [id number] IMPRESSION: DENSITY: There are scattered areas of fibroglandular density. BI-RADS: 2 - Benign. FOLLOW UP: 1 Year Follow-up Recommend return to annual diagnostic mammography.
== END 2024-09-05 23:59 | disposition home or self-care (01) ==
LOC: ONCMED 12:18
PROVIDERS: PCP Family Medicine; Visit Provider Family Medicine
DX: C50.412 Malignant neoplasm of upper-outer quadrant of left female breast (principal); Z17.0 Estrogen receptor positive status [ER+]; Z95.828 Presence of other vascular implants and grafts; R92.30 Dense breasts, unspecified
CPT/HCPCS: 77062; 96523; G0279

== ENCOUNTER 2024-08-17 10:06 | Outpatient (CLI) | payer MEDICARE, SELFPAY ==
--- NOTE | 2024-08-17 10:10 | XRR_ITS ---
PROCEDURE INFORMATION: Exam: XR Left Knee Exam date and time: 08/17/2024 10:15 AM Age: 64 years old Clinical indication: Injury or trauma; Blunt trauma; Injury date: 1 week ago; Injury details: Fall over dog. Left knee pain x 1 week; HX of breast cancer TECHNIQUE: Imaging protocol: Radiologic exam of the left knee. Views: 3 views. COMPARISON: No relevant prior studies available. FINDINGS: Bones/joints: There are mild degenerative changes of the medial and patellofemoral compartments with joint space narrowing and marginal osteophyte formation. No acute fracture or dislocation. No significant joint effusion. No discrete lytic or sclerotic lesions Soft tissues: Normal. XR/XR knee LT 3V* [id number] IMPRESSION: 1. No acute osseous abnormality. 2. Mild degenerative changes of the medial and patellofemoral compartments
== END 2024-08-17 10:07 | disposition home or self-care (01) ==
LOC: RAD 10:08
PROVIDERS: PCP Family Medicine; Visit Provider Family Medicine
DX: M17.12 Unilateral primary osteoarthritis, left knee (principal); M25.762 Osteophyte, left knee
CPT/HCPCS: 73562

== ENCOUNTER 2024-09-11 10:05 | Oncology outpatient (recurring) (ONCR) | payer MEDICARE, MEDICAID, SELFPAY | END 2024-10-05 23:59 | disposition home or self-care (01) | LOC: ONCMED 10:06 | PROVIDERS: PCP Family Medicine; Visit Provider Family Medicine | DX: Z45.2 Encounter for adjustment and management of vascular access device (principal); Z95.828 Presence of other vascular implants and grafts | CPT/HCPCS: 96523 ==

== ENCOUNTER 2024-10-07 14:33 | Oncology outpatient (recurring) (ONCR) | payer MEDICARE, MEDICAID, SELFPAY | END 2024-11-05 23:59 | disposition home or self-care (01) | PROVIDERS: PCP Family Medicine; Visit Provider Family Medicine | DX: Z45.2 Encounter for adjustment and management of vascular access device (principal); Z95.828 Presence of other vascular implants and grafts | CPT/HCPCS: 96523 ==

== ENCOUNTER → 2024-10-16 09:52 | Outpatient (BNVA) | payer MEDICARE, MEDICAID, SELFPAY | PROVIDERS: PCP Family Medicine; Visit Provider Specialist | DX: M17.11 Unilateral primary osteoarthritis, right knee (principal) | CPT/HCPCS: 20610; J1100; J2795; J3301; J9999 ==

== ENCOUNTER 2024-11-11 14:32 | Oncology outpatient (recurring) (ONCR) | payer MEDICARE, MEDICAID, SELFPAY | END 2024-12-06 23:59 | disposition home or self-care (01) | LOC: ONCMED 14:32 | PROVIDERS: PCP Family Medicine; Visit Provider Family Medicine | DX: Z45.2 Encounter for adjustment and management of vascular access device (principal); Z95.828 Presence of other vascular implants and grafts | CPT/HCPCS: 96523 ==

== ENCOUNTER 2025-01-05 13:00 | Oncology outpatient (recurring) (ONCR) | payer MEDICARE, MEDICAID, SELFPAY ==
--- NOTE | 2025-01-05 12:43 | MR_ITS ---
WS: [email or web address] MRI LEFT KNEE NONCONTRAST TECHNIQUE: Axial PD, coronal PD fat sat, coronal PD, sagittal PD, and sagittal PD fat-sat images obtained. CLINICAL INFORMATION: LEFT KNEE PAIN COMPARISON: None. FINDINGS: Advanced tricompartmental arthritis. ACL and PCL appear intact. Lobulated popliteal cyst measuring 4.3 x 1.6 cm. Advanced chondromalacia in the medial and lateral joint compartments. Subchondral edema in the medial femoral condyle and tibial plateau. Hypertrophic changes along the joint line. Grade IV chondromalacia patella. Trace suprapatellar effusion. Blunting with chronic appearing tear of the posterior horn medial meniscus extending to the meniscal root and peripheral articular surface. Peripheral extrusion. Calcified intra-articular loose bodies along the dorsal PCL. Normal lateral collateral ligament. Medial collateral ligament appears intact. MR/MR knee LT wo con* [id number] IMPRESSION: 1. 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 2. Grade IV chondromalacia patella. 3. ACL and PCL appear intact. 4. Blunting with chronic appearing radial tear involving the posterior horn me dial meniscus with peripheral extrusion. This extends to the peripheral articul ar surface and meniscal root. 5. Lobulated popliteal cyst measuring 4.3 x 1.6 cm 6. Calcified loose bodies along the dorsal PCL. Outbridge grading: grade IV: full-thickness cartilage loss with underlying bone reactive changes
== END 2025-01-05 23:59 | disposition home or self-care (01) ==
LOC: RAD 01-06 00:01 → ONCMED 01-06 11:25
PROVIDERS: PCP Family Medicine; Visit Provider Family Medicine
DX: M17.12 Unilateral primary osteoarthritis, left knee; M94.262 Chondromalacia, left knee; R60.0 Localized edema; R93.6 Abnormal findings on diagnostic imaging of limbs; S83.242A Other tear of medial meniscus, current injury, left knee, initial encounter; X58.XXXA Exposure to other specified factors, initial encounter; M71.22 Synovial cyst of popliteal space [Baker], left knee; Z53.9 Procedure and treatment not carried out, unspecified reason
CPT/HCPCS: 73721; 96523

== ENCOUNTER → 2025-01-11 11:38 | Outpatient (BNVA) | payer MEDICARE, MEDICAID, SELFPAY | PROVIDERS: PCP Family Medicine; Visit Provider Family Medicine | DX: R73.09 Other abnormal glucose (principal); E55.9 Vitamin D deficiency, unspecified | CPT/HCPCS: 82306; 83036 ==

== ENCOUNTER → 2025-01-22 10:03 | Outpatient (BNVA) | payer MEDICARE, MEDICAID, SELFPAY | PROVIDERS: PCP Family Medicine; Visit Provider Specialist | DX: M17.11 Unilateral primary osteoarthritis, right knee (principal) | CPT/HCPCS: 20610; J1100; J2795; J3301; J9999 ==

== ENCOUNTER 2025-02-05 11:30 | Oncology outpatient (recurring) (ONCR) | payer MEDICARE, SELFPAY ==
[2025-01-06 12:52] LABS: Hematocrit 35.7 % (36-47); Hemoglobin 11.30 g/dL (11.27-16.99); Mean Corpuscular HGB Conc 31.7 g/dL (30-55); Mean Corpuscular Hemoglobin 27.6 pg (27-33); Mean Corpuscular Volume 87.3 fl (85-98); Nucleated Red Blood Cells % 0 %; Platelet Count 179 10^3/cmm (157-399); Red Blood Count 4.09 10^6/uL (3.85-5.65); White Blood Count 6.33 10^3/uL (3.29-11.43)
[2025-01-06 13:12] LABS: Alanine Aminotransferase 19 U/L (0-33); Albumin Level 4.0 g/dL (3.5-5.2); Alkaline Phosphatase 106 U/L (35-105); Anion Gap 14.2 (5-19); Aspartate Amino Transferase 24 U/L (0-32); Blood Urea Nitrogen 18 mg/dL (8-23); Calcium 9.0 mg/dL (8.5-10.5); Carbon Dioxide 25 mmol/L (22-29); Chloride 106 mmol/L (98-107); Creatinine Clr Calc Pharmacy 75.4707; Globulin 2.8 g/dL (1.3-4.6); Glucose 118 mg/dL (65-115); Osmolality Calculated 295 mOsm/kg (285-295); Potassium 4.2 mmol/L (3.5-5.1); Sodium 141 mmol/L (136-145); Total Protein 6.8 g/dL (6.6-8.7)
== END 2025-02-05 23:59 | disposition home or self-care (01) ==
PROVIDERS: Internal Medicine; PCP Family Medicine; Visit Provider Nurse Practitioner Family
DX: Z53.9 Procedure and treatment not carried out, unspecified reason; Z45.2 Encounter for adjustment and management of vascular access device
CPT/HCPCS: 36591; 80053; 83615; 85025; 96523; 99214

== ENCOUNTER 2025-02-12 12:03 | Emergency (ER) | payer MEDICARE, SELFPAY ==
--- OUTSIDE RECORDS SUMMARY | 2025-02-12 12:14 | XMS_ITS | Encounter Summary ---
Author Organization [facility] Address [address] [place] [address] Care Team Providers Care Police Or Patrol Park Officer Name Role Phone Unavailable Primary Care Provider Unavailabl e Encounter Details Date Type Department Care Team (Latest Contact Info) Description 12/24/2000 Outpatient Historical HIS [facility] Abhilash Hathaway MD [address] [place] [address] Acute sinusitis, unspecified (Primary Dx) Social History Tobacco Use Types Packs/Day Years Used Date Smoking Tobacco: Never Assessed Comments Unknown Sex and Gender Information Value Date Recorded Sex Assigned at Not on file 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
--- OUTSIDE RECORDS SUMMARY | 2025-02-12 12:14 | XMS_ITS | Encounter Summary ---
Author Organization [facility] Address [address] [place] [address] Care Team Providers Care Vamp Creaser Name Role Phone Unavailable Primary Care Provider Unavailabl e Encounter Details Date Type Department Care Team (Latest Contact Info) Description 03/21/2001 Outpatient Historical HIS [facility] Abhilash Hathaway MD [address] [place] [address] DEPRESSIVE DISORDER NEC (Primary Dx) Social History Tobacco Use Types Packs/Day Years Used Date Smoking Tobacco: Never Assessed Comments Unknown Sex and Gender Information Value Date Recorded Sex Assigned at Not on file 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
--- OUTSIDE RECORDS SUMMARY | 2025-02-12 12:14 | XMS_ITS | Encounter Summary ---
Author Organization [facility] Address [address] [place] [address] Care Team Providers Care Fermenter Helper Name Role Phone Unavailable Primary Care Provider Unavailabl e Encounter Details Date Type Department Care Team (Latest Contact Info) Description 12/17/2000 Outpatient Historical HIS [facility] Abhilash Hathaway MD [address] [place] [address] Headache(784.0) (Primary Dx); Acute sinusitis, unspecified Social History Tobacco Use Types Packs/Day Years Used Date Smoking Tobacco: Never Assessed Comments Unknown Sex and Gender Information Value Date Recorded Sex Assigned at Not on file 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
--- OUTSIDE RECORDS SUMMARY | 2025-02-12 12:14 | XMS_ITS | Encounter Summary ---
Author Organization [facility] Address [address] [place] [address] Care Team Providers Care Chemical Dependency Therapist Name Role Phone Unavailable Primary Care Provider Unavailabl e Encounter Details Date Type Department Care Team (Latest Contact Info) Description 06/06/2001 Outpatient Historical HIS [facility] Max Hamilton MD [address] [place] [address] COUGH (Primary Dx); ALLERGIC RHINITIS NEC Social History Tobacco Use Types Packs/Day Years Used Date Smoking Tobacco: Never Assessed Comments Unknown Sex and Gender Information Value Date Recorded Sex Assigned at Not on file Legal Sex Female 2:55 AM MEAT PRODUCTS DEMONSTRATOR Gender Identity Not on file Sexual Orientation Not on file documented as of this encounter Plan of Treatment Not on file documented as of this encounter Visit Diagnoses Diagnosis Cough- Primary Allergic rhinitis due to other allergen documented in this encounter
--- OUTSIDE RECORDS SUMMARY | 2025-02-12 12:14 | XMS_ITS | Encounter Summary ---
Author Organization [facility] Address [address] [place] [address] Care Team Providers Care Carbon Setter Name Role Phone Unavailable Primary Care Provider Unavailabl e Encounter Details Date Type Department Care Team (Latest Contact Info) Description 02/17/2001 Outpatient Historical HIS [facility] Abhilash Hathaway MD [address] [place] [address] DEPRESSIVE DISORDER NEC (Primary Dx); INSOMNIA NEC Social History Tobacco Use Types Packs/Day Years Used Date Smoking Tobacco: Never Assessed Comments Unknown Sex and Gender Information Value Date Recorded Sex Assigned at Not on file 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
--- OUTSIDE RECORDS SUMMARY | 2025-02-12 12:14 | XMS_ITS | Encounter Summary ---
Author Organization [facility] Address [address] [place] [address] Care Team Providers Care Toddler Lead Teacher Name Role Phone Unavailable Primary Care Provider Unavailabl e Encounter Details Date Type Department Care Team (Latest Contact Info) Description 10/23/2001 Outpatient Historical HIS [facility] Abhilash Hathaway MD [address] [place] [address] ACUTE SINUSITIS NOS (Primary Dx); ALLERGIC RHINITIS NEC; ANXIETY STATE NOS; PREG EXAM-PREG UNCONFIRM Social History Tobacco Use Types Packs/Day Years Used Date Smoking Tobacco: Never Assessed Comments Unknown Sex and Gender Information Value Date Recorded Sex Assigned at Not on file 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
--- OUTSIDE RECORDS SUMMARY | 2025-02-12 12:14 | XMS_ITS | Encounter Summary ---
Author Organization [facility] Address [address] [place] [address] Care Team Providers Care Credit Historian Name Role Phone Unavailable Primary Care Provider Unavailabl e Encounter Details Date Type Department Care Team (Latest Contact Info) Description 06/30/2001 Outpatient Historical HIS [facility] Abhilash Hathaway MD [address] [place] [address] ACUTE SINUSITIS NOS (Primary Dx) Social History Tobacco Use Types Packs/Day Years Used Date Smoking Tobacco: Never Assessed Comments Unknown Sex and Gender Information Value Date Recorded Sex Assigned at Not on file Legal Sex Female 2:55 AM FUNERAL SERVICE MANAGER Gender Identity Not on file Sexual Orientation Not on file documented as of this encounter Plan of Treatment Not on file documented as of this encounter Visit Diagnoses Diagnosis Acute sinusitis, unspecified- Primary documented in this encounter
--- OUTSIDE RECORDS SUMMARY | 2025-02-12 12:14 | XMS_ITS | Encounter Summary ---
Author Organization [facility] Address [address] [place] [address] Care Team Providers Care Marketing Strategy Analyst Name Role Phone Unavailable Primary Care Provider Unavailabl e Encounter Details Date Type Department Care Team (Latest Contact Info) Description 12/23/2000 Outpatient Historical HIS [facility] Abhilash Hathaway MD [address] [place] [address] Unspecified sinusitis (chronic) (Primary Dx) Social History Tobacco Use Types Packs/Day Years Used Date Smoking Tobacco: Never Assessed Comments Unknown Sex and Gender Information Value Date Recorded Sex Assigned at Not on file Legal Sex 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
--- OUTSIDE RECORDS SUMMARY | 2025-02-12 12:14 | XMS_ITS | Encounter Summary ---
Author Organization [facility] Address [address] [place] [address] Care Team Providers Care Configuration Management Administrator Name Role Phone Unavailable Primary Care Provider Unavailabl e Encounter Details Date Type Department Care Team (Latest Contact Info) Description 04/18/2001 Outpatient Historical HIS [facility] Abhilash Hathaway MD [address] [place] [address] BRONCHITIS NOS (Primary Dx); ACUTE SINUSITIS NOS Social History Tobacco Use Types Packs/Day Years Used Date Smoking Tobacco: Never Assessed Comments Unknown Sex and Gender Information Value Date Recorded Sex Assigned at Not on file 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
--- OUTSIDE RECORDS SUMMARY | 2025-02-12 12:14 | XMS_ITS | Encounter Summary ---
Author Organization [facility] Address [address] [place] [address] Care Team Providers Care Area Development Manager Name Role Phone Unavailable Primary Care Provider Unavailabl e Encounter Details Date Type Department Care Team (Latest Contact Info) Description 07/16/2000 Outpatient Historical HIS [facility] David Swanson NO ADDRESS ON FILE Acute sinusitis, unspecified (Primary Dx); Allergic rhinitis, cause unspecified Social History Tobacco Use Types Packs/Day Years Used Date Smoking Tobacco: Never Assessed Comments Unknown Sex and Gender Information Value Date Recorded Sex Assigned at Not on file 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
--- OUTSIDE RECORDS SUMMARY | 2025-02-12 12:14 | XMS_ITS | Encounter Summary ---
Author Organization [facility] Address [address] [place] [address] Care Team Providers Care Hydraulic Hammer Operator Name Role Phone Unavailable Primary Care Provider Unavailabl e Encounter Details Date Type Department Care Team (Latest Contact Info) Description 11/21/2001 Outpatient Historical HIS [facility] Abhilash Hathaway MD [address] [place] [address] ABSENCE OF MENSTRUATION (Primary Dx); HYPERTENSION NOS; SCREENING-LIPOID DISORDERS Social History Tobacco Use Types Packs/Day Years Used Date Smoking Tobacco: Never Assessed Comments Unknown Sex and Gender Information Value Date Recorded Sex Assigned at Not on file 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
--- OUTSIDE RECORDS SUMMARY | 2025-02-12 12:14 | XMS_ITS | Encounter Summary ---
Author Organization [facility] Address [address] [place] [address] Care Team Providers Care Profile Saw Setup Operator Name Role Phone Unavailable Primary Care Provider Unavailabl e Encounter Details Date Type Department Care Team (Latest Contact Info) Description 09/26/2000 Outpatient Historical HIS [facility] Abhilash Hathaway MD [address] [place] [address] Headache(784.0) (Primary Dx); Conjunctivitis unspecified Social History Tobacco Use Types Packs/Day Years Used Date Smoking Tobacco: Never Assessed Comments Unknown Sex and Gender Information Value Date Recorded Sex Assigned at Not on file 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
--- OUTSIDE RECORDS SUMMARY | 2025-02-12 12:14 | XMS_ITS | Encounter Summary ---
Author Organization [facility] Address [address] [place] [address] Care Team Providers Care Recovery Rn Name Role Phone Unavailable Primary Care Provider Unavailabl e Encounter Details Date Type Department Care Team (Latest Contact Info) Description 05/26/2001 Outpatient Historical HIS [facility] Abhilash Hathaway MD [address] [place] [address] ACUTE SINUSITIS NOS (Primary Dx); BRONCHITIS NOS Social History Tobacco Use Types Packs/Day Years Used Date Smoking Tobacco: Never Assessed Comments Unknown Sex and Gender Information Value Date Recorded Sex Assigned at Not on file Legal Sex Female 2:55 AM COMPLEX MANAGER Gender Identity Not on file Sexual Orientation Not on file documented as of this encounter Plan of Treatment Not on file documented as of this encounter Visit Diagnoses Diagnosis Acute sinusitis, unspecified- Primary Bronchitis, not specified as acute or chronic documented in this encounter
--- OUTSIDE RECORDS SUMMARY | 2025-02-12 12:14 | XMS_ITS | Clinical Summary ---
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
--- OUTSIDE RECORDS SUMMARY | 2025-02-12 12:14 | XMS_ITS | Encounter Summary ---
Author Organization [facility] Address [address] [place] [address] Care Team Providers Care Garnett Room Worker Name Role Phone Unavailable Primary Care Provider Unavailabl e Encounter Details Date Type Department Care Team (Latest Contact Info) Description 01/27/2001 Outpatient Historical HIS [facility] Abhilash Hathaway MD [address] [place] [address] Insomnia, unspecified (Primary Dx); Anxiety state, unspecified Social History Tobacco Use Types Packs/Day Years Used Date Smoking Tobacco: Never Assessed Comments Unknown Sex and Gender Information Value Date Recorded Sex Assigned at Not on file Legal Sex Female 2:55 AM REGISTERED RADIOGRAPHER Gender Identity Not on file Sexual Orientation Not on file documented as of this encounter Plan of Treatment Not on file documented as of this encounter Visit Diagnoses Diagnosis Insomnia, unspecified- Primary Anxiety state, unspecified documented in this encounter
--- OUTSIDE RECORDS SUMMARY | 2025-02-12 12:14 | XMS_ITS | Encounter Summary ---
Author Organization [facility] Address [address] [place] [address] Care Team Providers Care Mechanical Car Checker Name Role Phone Unavailable Primary Care Provider Unavailabl e Encounter Details Date Type Department Care Team (Latest Contact Info) Description 11/20/2001 Outpatient Historical HIS [facility] Abhilash Hathaway MD [address] [place] [address] ABSENCE OF MENSTRUATION (Primary Dx) Social History Tobacco Use Types Packs/Day Years Used Date Smoking Tobacco: Never Assessed Comments Unknown Sex and Gender Information Value Date Recorded Sex Assigned at Not on file Legal Sex Female 2:55 AM MERCHANDISE DIRECTOR Gender Identity Not on file Sexual Orientation Not on file documented as of this encounter Plan of Treatment Not on file documented as of this encounter Visit Diagnoses Diagnosis Absence of menstruation- Primary documented in this encounter
--- OUTSIDE RECORDS SUMMARY | 2025-02-12 12:14 | XMS_ITS | Encounter Summary ---
Author Organization [facility] Address [address] [place] [address] Care Team Providers Care Plaque Maker Name Role Phone Unavailable Primary Care Provider Unavailabl e Encounter Details Date Type Department Care Team (Latest Contact Info) Description 02/07/2001 Outpatient Historical HIS [facility] Max Hamilton MD [address] [place] [address] ANXIETY STATE NOS (Primary Dx); DEPRESSIVE DISORDER NEC Social History Tobacco Use Types Packs/Day Years Used Date Smoking Tobacco: Never Assessed Comments Unknown Sex and Gender Information Value Date Recorded Sex Assigned at Not on file Legal Sex Female 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
--- OUTSIDE RECORDS SUMMARY | 2025-02-12 12:14 | XMS_ITS | Encounter Summary ---
Author Organization [facility] Address [address] [place] [address] Care Team Providers Care Configuration Management Specialist Name Role Phone Unavailable Primary Care Provider Unavailabl e Encounter Details Date Type Department Care Team (Latest Contact Info) Description 01/08/2000 Outpatient Historical HIS [facility] David Swanson NO ADDRESS ON FILE Unspecified asthma, with status asthmaticus (Primary Dx); Allergic rhinitis, cause unspecified; Unspecified essential hypertension Social History Tobacco Use Types Packs/Day Years Used Date Smoking Tobacco: Never Assessed Comments Unknown Sex and Gender Information Value Date Recorded Sex Assigned at Not on file Legal Sex Female 2:55 AM ANIMAL CARE SUPERVISOR Gender Identity Not on file Sexual Orientation Not on file documented as of this encounter Plan of Treatment Not on file documented as of this encounter Visit Diagnoses Diagnosis Unspecified asthma, with status asthmaticus- Primary Allergic rhinitis, cause unspecified Unspecified essential hypertension documented in this encounter
--- OUTSIDE RECORDS SUMMARY | 2025-02-12 12:14 | XMS_ITS | Encounter Summary ---
Author Organization [facility] Address [address] [place] [address] Care Team Providers Care Toy Assembler Wood Name Role Phone Unavailable Primary Care Provider Unavailabl e Encounter Details Date Type Department Care Team (Latest Contact Info) Description 09/23/2001 Outpatient Historical HIS [facility] Abhilash Hathaway MD [address] [place] [address] ALLERGIC RHINITIS NEC (Primary Dx); Hypoactive sexual desire; DEPRESSIVE DISORDER NEC Social History Tobacco Use Types Packs/Day Years Used Date Smoking Tobacco: Never Assessed Comments Unknown Sex and Gender Information Value Date Recorded Sex Assigned at Not on file Legal Sex Female 2:55 AM LPN MEDICAL ASSISTANT Gender Identity Not on file Sexual Orientation Not on file documented as of this encounter Plan of Treatment Not on file documented as of this encounter Visit Diagnoses Diagnosis Allergic rhinitis due to other allergen- Primary Hypoactive sexual desire Hypoactive sexual desire disorder Depressive disorder, not elsewhere classified documented in this encounter
--- OUTSIDE RECORDS SUMMARY | 2025-02-12 12:14 | XMS_ITS | Encounter Summary ---
Author Organization [facility] Address [address] [place] [address] Care Team Providers Care Dry Color Mixer Name Role Phone Unavailable Primary Care Provider Unavailabl e Encounter Details Date Type Department Care Team (Latest Contact Info) Description 02/25/2001 Outpatient Historical HIS [facility] Abhilash Hathaway MD [address] [place] [address] LUMBAGO (Primary Dx) Social History Tobacco Use Types Packs/Day Years Used Date Smoking Tobacco: Never Assessed Comments Unknown Sex and Gender Information Value Date Recorded Sex Assigned at Not on file Legal Sex Female 2:55 AM RECYCLING ATTENDANT Gender Identity Not on file Sexual Orientation Not on file documented as of this encounter Plan of Treatment Not on file documented as of this encounter Visit Diagnoses Diagnosis Lumbago- Primary documented in this encounter
--- OUTSIDE RECORDS SUMMARY | 2025-02-12 12:14 | XMS_ITS | Encounter Summary ---
Author Organization [facility] Address [address] [place] [address] Care Team Providers Care Cartographic Aide Name Role Phone Unavailable Primary Care Provider Unavailabl e Encounter Details Date Type Department Care Team (Latest Contact Info) Description 10/13/2001 Outpatient Historical HIS [facility] Abhilash Hathaway MD [address] [place] [address] ACUTE SINUSITIS NOS (Primary Dx) Social History Tobacco Use Types Packs/Day Years Used Date Smoking Tobacco: Never Assessed Comments Unknown Sex and Gender Information Value Date Recorded Sex Assigned at Not on file 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
--- OUTSIDE RECORDS SUMMARY | 2025-02-12 12:14 | XMS_ITS | Encounter Summary ---
Author Organization [facility] Address [address] [place] [address] Care Team Providers Care Hop Picker Name Role Phone Unavailable Primary Care Provider Unavailabl e Encounter Details Date Type Department Care Team (Latest Contact Info) Description 12/12/2000 Outpatient Historical HIS [facility] Abhilash Hathaway MD [address] [place] [address] Headache(784.0) (Primary Dx); Other specified menopausal and postmenopausal disorder; Unspecified essential hypertension Social History Tobacco Use Types Packs/Day Years Used Date Smoking Tobacco: Never Assessed Comments Unknown Sex and Gender Information Value Date Recorded Sex Assigned at Not on file Legal Sex Female 2:55 AM ACTIONSCRIPT DEVELOPER Gender Identity Not on file Sexual Orientation Not on file documented as of this encounter Plan of Treatment Not on file documented as of this encounter Visit Diagnoses Diagnosis Headache(784.0)- Primary Headache Other specified menopausal and postmenopausal disorder Unspecified essential hypertension documented in this encounter
--- OUTSIDE RECORDS SUMMARY | 2025-02-12 12:14 | XMS_ITS | Encounter Summary ---
Author Organization [facility] Address [address] [place] [address] Care Team Providers Care Liner Replacer Name Role Phone Unavailable Primary Care Provider Unavailabl e Encounter Details Date Type Department Care Team (Latest Contact Info) Description 07/14/2001 Outpatient Historical HIS [facility] Jamaal Contreras, Ki Trujillo MD [address] [place] [address] HEADACHE (Primary Dx); ALLERGIC RHINITIS NOS Social History Tobacco Use Types Packs/Day Years Used Date Smoking Tobacco: Never Assessed Comments Unknown Sex and Gender Information Value Date Recorded Sex Assigned at Not on file Legal Sex Female 2:55 AM NEURODIAGNOSTIC TECHNICIAN Gender Identity Not on file Sexual Orientation Not on file documented as of this encounter Plan of Treatment Not on file documented as of this encounter Visit Diagnoses Diagnosis Headache(784.0)- Primary Headache Allergic rhinitis, cause unspecified documented in this encounter
--- OUTSIDE RECORDS SUMMARY | 2025-02-12 12:14 | XMS_ITS | Encounter Summary ---
Author Organization [facility] Address [address] [place] [address] Care Team Providers Care Powder Blender Name Role Phone Unavailable Primary Care Provider Unavailabl e Encounter Details Date Type Department Care Team (Latest Contact Info) Description 12/22/2001 Outpatient Historical HIS [facility] Abhilash Hathaway MD [address] [place] [address] ALLERGIC RHINITIS NEC (Primary Dx); HYPERLIPIDEMIA NEC/NOS; OBESITY NOS; DEPRESSIVE DISORDER NEC Social History Tobacco Use Types Packs/Day Years Used Date Smoking Tobacco: Never Assessed Comments Unknown Sex and Gender Information Value Date Recorded Sex Assigned at Not on file Legal Sex Female 2:55 AM CALCINE FURNACE LOADER Gender Identity Not on file Sexual Orientation Not on file documented as of this encounter Plan of Treatment Not on file documented as of this encounter Visit Diagnoses Diagnosis Allergic rhinitis due to other allergen- Primary Other and unspecified hyperlipidemia Obesity, unspecified Depressive disorder, not elsewhere classified documented in this encounter
--- OUTSIDE RECORDS SUMMARY | 2025-02-12 12:14 | XMS_ITS | Encounter Summary ---
Author Organization [facility] Address [address] [place] [address] Care Team Providers Care Director Of Research Name Role Phone Unavailable Primary Care Provider Unavailabl e Encounter Details Date Type Department Care Team (Latest Contact Info) Description 06/09/2020 Ancillary Orders [facility] Pre-Registration [place] CALL TO MAKE APPOINTMENT ONLY [address] [place] [address] Dorothea Lock FNP [address], [place] [id number] Agranulocytosis secondary to cancer chemotherapy; Malignant neoplasm of upper-outer quadrant of left female breast (CMS/HCC) Social History Tobacco Use Types Packs/Day Years Used Date Smoking Tobacco: Never Assessed Comments Unknown Sex and Gender Information Value Date Recorded Sex Assigned at Not on file Legal Sex Female 2:55 AM WEIGHER AND MIXER Gender Identity Not on file Sexual Orientation Not on file COVID-19 Exposure Response Date Recorded In the last month, have you been in contact with someone who was confirmed or suspected to have Coronavirus / COVID-19? 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
--- OUTSIDE RECORDS SUMMARY | 2025-02-12 12:14 | XMS_ITS | Encounter Summary ---
Author Organization [facility] Address [address] [place] [address] Care Team Providers Care Broom Machine Operator Name Role Phone Unavailable Primary Care Provider Unavailabl e Encounter Details Date Type Department Care Team (Latest Contact Info) Description 01/06/2001 Outpatient Historical HIS [facility] Max Hamilton MD [address] [place] [address] Unspecified sinusitis (chronic) (Primary Dx); Unspecified essential hypertension Social History Tobacco Use Types Packs/Day Years Used Date Smoking Tobacco: Never Assessed Comments Unknown Sex and Gender Information Value Date Recorded Sex Assigned at Not on file Legal Sex Female 2:55 AM COMMERCIAL REAL ESTATE ASSISTANT Gender Identity Not on file Sexual Orientation Not on file documented as of this encounter Plan of Treatment Not on file documented as of this encounter Visit Diagnoses Diagnosis Unspecified sinusitis (chronic)- Primary Unspecified essential hypertension documented in this encounter
[2025-02-12 12:15] VITALS: BP 149/100; PULSE 99; RESP 17; TEMP 36.7; O2SAT 98; BMI 40.6
--- NOTE | 2025-02-12 12:25 | ED_ITS ---
HPI - Extremity Injury (Upper) General: Chief Complaint: Extremity Injury, Upper Stated Complaint: right arm injury Time Seen by Provider: 02/12/25 12:21 Source: patient Mode of arrival: ambulatory Limitations: no limitations History of Present Illness: Patient is a 64-year-old female presents to ED today for evaluation of a right arm injury/pain. Patient states 2 weeks ago she accidentally fell over an uneven area on her carpet. She does remember hurting the right shoulder and arm on that fall. She felt like symptoms were getting better until recently when she was closing her trailer door and states she has to slam it because it does not want to fully close. She states when she did this she heard a pop to the right shoulder and is now having worsening discomfort. She has been complaining of numbness or tingling to the arm. She has not noticed any color or temperature changes. PCP is Dr. Guajardo. complaint: injury to: right and shoulder Onset (ago): day(s) Other Extremity Injury: Right: shoulder Other injuries: none Place: home Severity: moderate Relieving factors: immobilization Exacerbating factors: movement of extremity Context: fall Associated symptoms: Reports no associated symptoms; Denies neck pain Related Data Home Medications ?Medication ?Instructions ?Recorded ?Confirmed Adults Multivitamin 1 tab PO DAILY 04/20/2001/06 coenzyme Q10 50 mg tablet 50 mg PO DAILY ##0 04/20/20 01/22/25 magnesium 500 mg tablet 500 mg PO DAILY 07/24/21 wheat dextrin 3 gram/3.5 gram oral 1 packet PO DAILY 0 09/11/21 01/22/25 powder packet (Benefiber Clear Sugar Free(dextrin)) Previous Rx's ?Medication ?Instructions ?Recorded albuterol sulfate 90 mcg/actuation 90 mcg inhalation A S DIRECTED PRN 03/17/24 aerosol inhaler Allergy Symptoms #6.7 grams mometasone 0.1 % topical cream 1 applic topical .1-2x/ day #45 03/17/24 grams Hinged Knee Brace, right #1 ea 06/29/24 duloxetine 30 mg capsule,delayed 30 mg PO DAILY #30 ca ps 08/15/24 release omeprazole 40 mg capsule,delayed 40 mg PO DAILY #30 ca ps 10/13/24 release potassium chloride 10 mEq 10 meq PO DAILY #30 tabs 09/30 tablet,extended release anastrozole 1 mg tablet (Arimidex) 1 mg PO DAILY #30 t abs 01/08/25 duloxetine 60 mg capsule,delayed 60 mg PO DAILY #30 ca ps 01/08/25 release fluticasone propionate 50 1 spray intranasal DAILY #16 grams 02/02/25 mcg/actuation nasal spray,suspension (Flonase Allergy Relief) ibuprofen 800 mg tablet 800 mg PO TID PRN pain #60 t abs 02/02/25 methylprednisolone 4 mg tablets in See Rx Instructions PO .COMPLEX 02/12/25 a dose pack (Medrol ([place])) #21 ea tramadol 50 mg tablet 50 mg PO Q6H PRN pain #10 ta bs 02/12/25 Allergies Allergy/AdvReac Type Severity Reaction Status Date / Time allopurinol Allergy ALGY-Hives Verified 01/22/25 10:17 cephalexin Allergy ALGY-Rash Verified 01/22/25 10:17 codeine Allergy ALGY-Hives Verified 01/22/25 10:17 hydrocodone Allergy ADR-Itching Verified 01/22/25 10:17 morphine Allergy ADR-Itching Verified 01/22/25 10:17 Penicillins Allergy ALGY-Hives Verified 01/22/25 10:17 Sulfa (Sulfonamide Allergy ALGY-Rash Verified 01/22/25 10:17 Antibiotics) Review of Systems Card: Denies: chest pain Resp: Denies: dyspnea Musc: Reports: extremity pain (R arm) and joint pain (R shoulder); Denies: neck pain, back pain, extremity swelling, joint swelling, joint redness, muscle cramps or muscle weakness Neuro: Denies: numbness in extremities or sensory changes PFSH ED PFSH: Medical History Breast cancer Vitamin D deficiency Anxiety and depression GERD (gastroesophageal reflux disease) Asthma Hyperlipidemia Hypertension Steatohepatitis, non-alcoholic Surgical History Hx of right cataract extraction Status post colonoscopy (08/30/21) H/O esophagogastroduodenoscopy (08/30/21) History of hysterectomy History of History of colonoscopy Status post left breast lumpectomy Port-A-Cath in place Family History Father CAD (coronary artery disease) from a heart attack Diabetes Cancer Throat Mother CAD (coronary artery disease) Hole in her heart all of her life Dementia Lung disease COPD Stroke Sister Cancer Family/Other Lymphoma Prostate cancer Denies family history of Clotting disorder Hyperlipidemia Psychiatric illness Chronic kidney disease (CKD) Suicide Anesthesia complication Bleeding disorder Hypertension Social History Smoking and tobacco/nicotine status: never used tobacco/nicotine Alcohol intake: never Substance/Drug Use: never Physical Exam Const: COMMON NORMALS: no acute distress, average body habitus, no limitations, healthy appearing, alert and well nourished GENERAL APPEARANCE: cooperative Neck/C-Spine: COMMON NORMALS: full ROM GENERAL: Yes normal visual inspection CERVICAL SPINE: No Cervical spine tenderness, No Paracervical muscle tenderness, No Trapezius muscle tenderness and No Lhermitte's sign positive Resp: COMMON NORMALS: normal respiratory effort Cardio: COMMON NORMALS: regular rate and regular rhythm RATE: regular rate RHYTHM: regular rhythm Back/Pelvis: COMMON NORMALS: thoracic and lumbar spine normal to inspection and no thoracic nor lumbar tenderness Extremity: COMMON NORMALS: capillary refill normal GENERAL: Yes normal exam except as noted RIGHT UPPER EXTREMITY: Yes shoulder joint (TTP; no obvious deformity noted) Right shoulder: Yes Right shoulder joint ROM exam (limited secondary to pain) and Yes Right shoulder joint neurovascular exam (normal) and Yes elbow joint (normal passive ROM but states this does hurt her shoulder) Rig ht elbow: Yes neurovascular exam (normal) OTHER: distal pulses to R UE are normal; sensation intact; no edema, color/temp changes noted Neuro: COMMON NORMALS: moves all extremities, no focal motor deficits, no sensory deficits noted and gait normal SENSORIUM/ORIENTATION: Yes alert Skin: COMMON NORMALS: no rashes or lesions noted GENERAL SKIN EXAM: no rashes or lesions noted Course Vital Signs: Vital signs: Vital Signs Temperature 98.1 F 02/12/25 12:15 Pulse Rate 99 02/12/25 12:15 Respiratory Rate 17 02/12/25 12:15 Blood Pressure 149/100 02/12/25 12:15 Pulse Oximetry 98 02/12/25 12:15 Oxygen Delivery Me thod Room Air 02/12/25 12:15 MDM - Extremity Injury (Upper) Medical Decision Making XRs of R shoulder/humerus were obtained and unremarkable. Discussed conservative treatment and follow-up with primary care in 1 to 2 weeks if symptoms are not improving. She is requesting something to go home with for discomfort. She can continue OTC ibuprofen in addition to prescription steroids and pain medications. Also discussed ice and heat. Differential Diagnosis Likely dislocation of shoulder, fracture of humerus and fracture of clavicle Medical Records I reviewed the patient's medical records. Lab Data Radiology Impressions Humerus X-Ray 02/12/25 12:35 IMPRESSION: No acute findings. Shoulder X-Ray 02/12/25 12:35 IMPRESSION: Moderate degenerative changes in the glenohumeral joint and acromioclavicular joint. All radiology interpretation(s) finalized by discharge Discharge Plan Discharge Patient Disposition: Home Clinical Impression: Injury of right shoulder Qualifiers: Encounter type: initial encounter Qualified Code(s): S49.91XA - Unspecified injury of right shoulder and upper arm, initial encounter Condition: Stable Prescriptions: New methylprednisolone [Medrol ([place])] 4 mg tablets,dose pack See Rx Instructions .ROUTE .COMPLEX Qty: 21 0RF Rx Instructions: orally per package directions tramadol 50 mg tablet 50 mg PO Q6H PRN (Reason: pain) Qty: 10 0RF No Action magnesium 500 mg tablet 500 mg PO DAILY Benefiber Clear SF (dextrin) 3 gram/3.5 gram powder in packet 1 packet PO DAILY Rx Instructions: mix into at least 4 oz water or juice before administering (DME) Hinged Knee Brace, right See Rx Instructions .Route .MEDSUPPLY Qty: 1 0RF Rx Instructions: As directed mometasone 0.1 % cream 1 applic topical .1-2x/day Qty: 45 0RF albuterol sulfate 90 mcg/actuation HFA aerosol inhaler 90 mcg INHALATION DIRECTED PRN (Reason: Allergy Symptoms) Qty: 6.7 0RF duloxetine 30 mg capsule,delayed release(DR/EC) 30 mg PO DAILY Qty: 30 6RF Rx Instructions: Take with the 60mg dose once daily omeprazole 40 mg capsule,delayed release(DR/EC) 40 mg PO DAILY Qty: 30 6RF potassium chloride 10 mEq tablet extended release 10 meq PO DAILY Qty: 30 6RF duloxetine 60 mg capsule,delayed release(DR/EC) 60 mg PO DAILY Qty: 30 6RF Rx Instructions: After 14 days of duloxetine 30mg and paroxetine 20mg, stop both and start duloxetine 60mg daily. anastrozole [Arimidex] 1 mg tablet 1 mg PO DAILY Qty: 30 6RF fluticasone propionate [Flonase Allergy Relief] 50 mcg/actuation spray,suspension 1 spray intranasal DAILY Qty: 16 6RF Rx Instructions: administer into each nostril ibuprofen 800 mg tablet 800 mg PO TID PRN (Reason: pain) Qty: 60 2RF Adults Multivitamin 1 tab PO DAILY coenzyme Q10 50 mg Tablet 50 mg PO DAILY Qty: 0 Discharge Orders: Discharge ED (Routine); Ordered 02/12/25 Ordered By: Jocelin Marquez Referrals: Hardik Guajardo MD [Primary Care Provider, Family Practice] Patient Instructions: Opioid Safety, Pain Management, Patient Portal & Pedro Instructions Activity Restrictions/Additional Instructions: As we discussed, I would like you to follow-up with primary care in 1 to 2 weeks if shoulder does not begin to improve. You did have an allergy to hydrocodone listed so we will change her pain medication that we discussed to tramadol. You may continue taking the ibuprofen. We will also place you on steroids. You may also use ice and heat. Print Language: Chinese Coding Level of Care Code ED [employer] Supervisor for Concha Wong
--- NOTE | 2025-02-12 12:35 | XRR_ITS ---
PROCEDURE INFORMATION: Exam: XR Right Shoulder Exam date and time: 02/12/2025 12:45 PM Age: 64 years old Clinical indication: Pain; Shoulder; Right; Additional info: Pain/injury TECHNIQUE: Imaging protocol: Radiologic exam of the right shoulder. Views: 2 or more views. COMPARISON: CR (CHEST, ) 07/23/2022 7:00 PM FINDINGS: Tubes, catheters and devices: Unchanged right subclavian central venous catheter with tip in the right atrium. Bones/joints: No acute fracture or dislocation. Moderate degenerative changes in the glenohumeral joint and acromioclavicular joint. Soft tissues: Normal. XR/XR shoulder RT min 2V* [id number] IMPRESSION: Moderate degenerative changes in the glenohumeral joint and acromioclavicular joint.
--- NOTE | 2025-02-12 12:35 | XRR_ITS ---
PROCEDURE INFORMATION: Exam: XR Right Humerus Exam date and time: 02/12/2025 12:47 PM Age: 64 years old Clinical indication: Pain; Upper arm; Right TECHNIQUE: Imaging protocol: Radiologic exam of the right humerus. Views: 2 or more views. COMPARISON: CR (CHEST, ) 02/12/2025 12:45 PM FINDINGS: Bones/joints: Moderate degenerative changes again noted in the glenohumeral joint. No acute fracture or dislocation. Soft tissues: Normal. XR/[place] [id number] IMPRESSION: No acute findings.
[2025-02-12 13:44] VITALS: BP 151/76; PULSE 84; O2SAT 97
== END 2025-02-12 13:46 | disposition home or self-care (01) ==
PROVIDERS: Emergency Provider Physician Assistant; PCP Family Medicine
DX: S49.91XA Unspecified injury of right shoulder and upper arm, initial encounter (principal); W18.09XA Striking against other object with subsequent fall, initial encounter; E78.5 Hyperlipidemia, unspecified; I10 Essential (primary) hypertension; Z85.3 Personal history of malignant neoplasm of breast
CPT/HCPCS: 73030; 73060; 96372; 99284; J1100; J1885

== ENCOUNTER 2025-03-03 11:01 | Oncology outpatient (recurring) (ONCR) | payer MEDICARE, SELFPAY | END 2025-03-07 23:59 | disposition home or self-care (01) | LOC: ONCMED 11:02 | PROVIDERS: PCP Family Medicine; Visit Provider Nurse Practitioner Family | DX: Z45.2 Encounter for adjustment and management of vascular access device (principal); Z95.828 Presence of other vascular implants and grafts | CPT/HCPCS: 96523 ==

== ENCOUNTER 2025-03-31 11:30 | Oncology outpatient (recurring) (ONCR) | payer MEDICARE, SELFPAY | END 2025-04-07 23:59 | disposition home or self-care (01) | PROVIDERS: PCP Family Medicine; Visit Provider Nurse Practitioner Family | DX: Z45.2 Encounter for adjustment and management of vascular access device (principal); Z95.828 Presence of other vascular implants and grafts | CPT/HCPCS: 96523 ==